=== PATIENT | female | born 1945 | race Caucasian/White ===

== ENCOUNTER 2024-08-15 13:29 | Outpatient (AMB) | payer MEDICARE, SELFPAY ==
[2024-08-15 13:33] VITALS: BP 144/74; PULSE 109; O2SAT 98; BMI 32.2
--- NOTE | 2024-08-15 13:33 | MHC.OFFVIS ---
Vital Signs 08/15/24 13:33 Height 5 ft Weight 165 lb BMI 32.2 BP 144/74 H Blood Pressure Location Lt brachial Position Sitting Pulse 109 H Pulse Source Pulse Oximeter Pulse Oximetry (%) 98 Oxygen Delivery Method Room Air Intake Visit Reasons: Spinal stenosis Allergies No Known Allergies Allergy (Verified 08/15/24 13:38) Medication List - Last Reconciled 08/15/24 by Diana Shaw aripiprazole 5 mg PO DAILY duloxetine 60 mg PO BID gabapentin 200 mg PO TID glipizide 5 mg orally TID; lisinopril 10 mg PO DAILY lorazepam 0.5 mg PO DAILY PRN lovastatin 40 mg PO QPM magnesium aspart,citrate,oxide mg PO methylphenidate ER 8.6 mg PO DAILY omeprazole 20 mg PO BID trazodone 50 mg PO BEDTIME PRN HPI Comments Details: Vanessa is a very pleasant 79-year-old female who presents to the office today for evaluation and management of her chronic lower back pain She has been suffering with this pain for approximately 7 years. Denies inciting injury, fall, trauma Denies recent imaging Currently receiving steroid injections at , most recent injection was 07/26/24 which has provided her minimal improvement Pain today is rated as a 5/10, constant and worse in the morning Midline lower back pain with radiation down both legs. Denies shooting, electrical, stabbing pains down the legs. Describes it as heaviness, fatigue of her legs with walking. This improves with rest and with maintaining a slight forward flexion Denies weakness, numbness, tingling of either lower extremity Denies red flag symptoms including new loss of bowel, bladder or saddle anesthesia. Currently taking Tylenol, NSAIDs, gabapentin and duloxetine with minimal improvement Denies recent attempts at physical therapy In terms of muscle damage condition is described as stabbing, sharp Pain is negatively impacting patient's enjoyment of life, general activity, normal functioning and walking Denies implantable devices, pacemaker or defibrillator Denies current use of anticoagulants Review of Systems Const All systems reviewed & are unremarkable except as noted in HPI and below Physical Exam Vital Signs: Last Vital Signs Pulse 109 H 08/15/24 13:33 BP 144/74 H 08/15/24 13:33 Pulse Ox 98 08/15/24 13:33 Oxygen Delivery Method Room Air 08/15/24 13:33 BMI result Body Mass Index 32.2 General: awake, alert, oriented. Answers questions appropriately. Fully engaged in examination. Skin: warm, dry, intact HEENT: Normocephalic. Hearing intact. Cardiac: External chest normal in appearance. Respiratory: No cough, audible wheezing or stridor. Abdomen: without gross distension. MS: No obvious swelling or deformities. Able to stand on bilateral tiptoes and bilateral heels.? Able to transition from sit to stand unassisted. Ambulates with bilaterally normal heel strike and toe off SLR negative bilaterally Pain with extension. No pain with forward flexion Negative footdrop, negative clonus Nontender over bilateral PSIS Tenderness over midline lumbar vertebrae and lumbar paraspinal muscle Valsalva negative Neurological: Oriented to person, place, time and situation. Thought process intact. No gait abnormalities appreciated. Psychiatric: Appropriate mood and affect. Good judgment and insight. Assessment & Plan Assessment & Plan (1) Spinal stenosis: Code(s): M48.00 - Spinal stenosis, site unspecified Category: Medical (2) Dorsalgia: Code(s): M54.9 - Dorsalgia, unspecified Category: Medical Plan Vanessa is a very pleasant 79-year-old female who presented to the office today for evaluation management of her chronic lower back pain History, physical exam and provocative testing consistent with spinal stenosis X-ray ordered for evaluation MRI ordered to evaluate degree of stenosis Referral placed for physical therapy All questions and concerns were answered, patient agrees with the plan. Follow up after MRI/PT, sooner if needed Orders: Orders XR lumbar spine 4V min Today M54.9 - Dorsalgia, unspecified PT Evaluation and Treatment Today M54.9 - Dorsalgia, unspecified MR lumbar spine wo con Today M48.00 - Spinal stenosis, site unspecified Coding Level of Care Code New Pt Level 4 (14576) Complex EM visit Add On G2211 Diagnoses Spinal stenosis M48.00 Dorsalgia M54.9
== END 2024-08-15 13:55 | disposition home or self-care (01) ==
PROVIDERS: PCP Internal Medicine; Visit Provider Registered Nurse Emergency
DX: M48.00 Spinal stenosis, site unspecified (principal); M54.9 Dorsalgia, unspecified
CPT/HCPCS: 99204; G2211

== ENCOUNTER → 2024-08-15 13:29 | Outpatient (BNVA) | payer MEDICARE, SELFPAY | PROVIDERS: PCP Internal Medicine; Visit Provider Registered Nurse Emergency | DX: M48.00 Spinal stenosis, site unspecified (principal) | CPT/HCPCS: 99202 ==

== ENCOUNTER 2024-08-15 14:19 | Outpatient (REF) | payer MEDICARE, SELFPAY | END 2024-08-15 14:20 | disposition home or self-care (01) | LOC: HO.HMGCX 14:19 | PROVIDERS: PCP Internal Medicine; Visit Provider Registered Nurse Emergency | DX: M54.9 Dorsalgia, unspecified (principal) | CPT/HCPCS: 72110 ==

== ENCOUNTER 2024-09-12 13:23 | Outpatient (AMB) | payer MEDICARE, SELFPAY ==
[2024-09-12 13:29] VITALS: BP 143/65; PULSE 104; O2SAT 97; BMI 32.0
--- NOTE | 2024-09-12 13:29 | A.OFFVIS_ITS ---
Vital Signs 3 09/12/24 13:29 Height 5 ft Weight 164 lb BMI 32.0 BP 143/65 H Blood Pressure Location Rt brachial Position Sitting Pulse 104 H Pulse Source Pulse Oximeter Pulse Oximetry (%) 97 Oxygen Delivery Method Room Air Intake Visit Reasons: F/U patient request Allergies No Known Allergies Allergy (Verified 09/12/24 13:29) Medication List - Last Reconciled 09/12/24 by Diana Shaw aripiprazole 5 mg PO DAILY duloxetine 60 mg PO BID gabapentin 200 mg PO TID glipizide 5 mg orally TID; lisinopril 10 mg PO DAILY lorazepam 0.5 mg PO DAILY PRN lovastatin 40 mg PO QPM magnesium aspart,citrate,oxide mg PO methylphenidate ER 8.6 mg PO DAILY omeprazole 20 mg PO BID trazodone 50 mg PO BEDTIME PRN HPI Comments Details: Patient presents the office today for follow-up lower back pain Records from physiatry or reviewed Patient underwent repeat L5-S1 epidural steroid injection 06/2024. She reports 70% pain relief with improvement in functional mobility since that procedure. She would like to plan for repeat injection 10/18/2024 MRI has been approved, patient will call to schedule. Denies new medications, diagnoses or allergies Intake note: Vanessa is a very pleasant 79-year-old female who presents to the office today for evaluation and management of her chronic lower back pain She has been suffering with this pain for approximately 7 years. Denies inciting injury, fall, trauma Denies recent imaging Currently receiving steroid injections at , most recent injection was 07/26/24 which has provided her minimal improvement Pain today is rated as a 5/10, constant and worse in the morning Midline lower back pain with radiation down both legs. Denies shooting, electrical, stabbing pains down the legs. Describes it as heaviness, fatigue of her legs with walking. This improves with rest and with maintaining a slight forward flexion Denies weakness, numbness, tingling of either lower extremity Denies red flag symptoms including new loss of bowel, bladder or saddle anesthesia. Currently taking Tylenol, NSAIDs, gabapentin and duloxetine with minimal improvement Denies recent attempts at physical therapy In terms of muscle damage condition is described as stabbing, sharp Pain is negatively impacting patient's enjoyment of life, general activity, normal functioning and walking Denies implantable devices, pacemaker or defibrillator Denies current use of anticoagulants Review of Systems Const All systems reviewed & are unremarkable except as noted in HPI and below Physical Exam Vital Signs: Last Vital Signs Pulse 104 H 09/12/24 13:29 BP 143/65 H 09/12/24 13:29 Pulse Ox 97 09/12/24 13:29 Oxygen Delivery Method Room Air 09/12/24 13:29 BMI result Body Mass Index 32.0 General: awake, alert, oriented. Answers questions appropriately. Fully engaged in examination. Skin: warm, dry, intact HEENT: Normocephalic. Hearing intact. Cardiac: External chest normal in appearance. Respiratory: No cough, audible wheezing or stridor. Abdomen: without gross distension. MS: No obvious swelling or deformities. Able to transition from sit to stand unassisted. Ambulates with bilaterally normal heel strike and toe off Neurological: Oriented to person, place, time and situation. Thought process intact. No gait abnormalities appreciated. Psychiatric: Appropriate mood and affect. Good judgment and insight. Results Reviewed Results Reviewed: Per visit note with family physiatry: Assessment & Plan Assessment & Plan (1) Spinal stenosis: Code(s): M48.00 - Spinal stenosis, site unspecified Category: Medical (2) Dorsalgia: Code(s): M54.9 - Dorsalgia, unspecified Category: Medical Plan Patient presented to the office today for follow-up lower back pain Continue with plan for MRI lumbar spine Continue with physical therapy as planned Patient underwent repeat epidural steroid injection 06/2024 with 70% pain relief and improvement in functional mobility. She would like to schedule a repeat of this injection to performed 09/2024. All questions and concerns were answered, patient agrees with the plan. Follow up after injection, sooner if needed Coding Level of Care Code Est Pt Level 3 (00738) Complex EM visit Add On G2211 Diagnoses Spinal stenosis M48.00 Dorsalgia M54.9
== END 2024-09-12 13:40 | disposition home or self-care (01) ==
PROVIDERS: PCP Internal Medicine; Visit Provider Registered Nurse Emergency
DX: M48.00 Spinal stenosis, site unspecified (principal); M54.9 Dorsalgia, unspecified
CPT/HCPCS: 99213; G2211

== ENCOUNTER → 2024-09-12 13:23 | Outpatient (BNVA) | payer MEDICARE, SELFPAY | PROVIDERS: PCP Internal Medicine; Visit Provider Registered Nurse Emergency | DX: M48.061 Spinal stenosis, lumbar region without neurogenic claudication (principal); M54.50 Low back pain, unspecified | CPT/HCPCS: 99212 ==

== ENCOUNTER 2024-09-16 10:00 | Outpatient (RCR) | payer MEDICARE, SELFPAY ==
--- NOTE | 2024-09-03 11:55 | MHC.PT.EP ---
[facility] [place] Office [place] Office [place] Office [address] Mulugeta Nguyen [address] [phone] F: [phone] F: [phone] F: [phone] F: [phone] Physical Therapy Plan of Care Date of Evaluation: 09/03/24 Date of Surgery: n/a Diagnosis: dorsalgia Assessment: Patient is a 79 year old female presenting to PT with complaints of pain in her low back. Pt reports onset of pain began about 3 years ago due to insidious onset. She presents today with impairments in pain, lumbar ROM, hip strength, posture. Pt's current occupation is retired, with baseline physical activities including ADLs, ambulating, bending, lifting. 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 Clinical presentation today is most consistent with signs and sx associated with low back pain and pt will benefit from skilled PT 2 week x 4 weeks to address the following problems and impairments noted upon evaluation: pain, lumbar ROM, hip strength, posture. These problems limit the patient with the following functional activities: ADLs, bending, lifting, ambulating. The prescribed treatment plan of care is medically necessary. Co-morbidities of DM, HTN were identified and taken into considerations of plan of care. Pt was educated on HEP, role of PT, prognosis, POC. Frequency and Duration: The patient will be seen 2 x week x 4 weeks Short Term Goals: Pt will demonstrate improved hip MMT strength by 1/3 grade in 2 weeks. Pt will demonstrate no reports of pain down her legs in 2 weeks. Licensed Psychologist Director Goals: Pt will demonstrate improved Wendy score by 10% in 4 weeks for improved functional mobility. Pt will demonstrate ability to ambulate x 10 min with min to no pain in 4 weeks for improved tolerance to shopping. Pt will demonstrate ability bend and lift household items with min to no pain in 4 weeks for improved tolerance to ADLs. Treatment Plan: Modalities to reduce pain, spasms and effusion. Manual therapy to restore motion and function. Therapeutic exercise to improve strength and flexibility. Neuromuscular re-education for posture and balance. Therapeutic activities to return to functional activities of daily living. Electronically signed by: Kasey Valentin, PT, DPT, ATC Please sign and return to therapist. Thank you for your referral.
--- NOTE | 2024-10-18 13:17 | MHC.PT.DC ---
[facility] [place] Office [place] Office [place] Office [address] Mulugeta Nguyen [address] [phone] F: [phone] F: [phone] F: [phone] F: [phone] Physical Therapy Discharge Report Diagnosis: dorsalgia Date of Surgery: n/a Date of Evaluation: 09/03/24 Date of Discharge: 10/18/24 Treatments to Date: 3 Cancellations to Date: 2 No Shows to Date: 0 Discharge Status: Discharge Summary: Pt cancelled her last 2 appointments and has not called to be scheduled in > 30 days, therefore to be d/c. Electronically signed by: Kasey Valentin, PT, DPT, ATC Please sign and return to therapist. Thank you for your referral.
== END 2024-10-18 13:17 | disposition home or self-care (01) ==
LOC: HO.PTCHIC 10:00
PROVIDERS: PCP Internal Medicine; Visit Provider Registered Nurse Emergency
DX: M54.9 Dorsalgia, unspecified (principal)
CPT/HCPCS: 97110; 97161

== ENCOUNTER 2024-09-20 07:19 | Outpatient (REF) | payer MEDICARE, SELFPAY | END 2024-09-20 07:20 | disposition home or self-care (01) | LOC: HO.MRI 07:19 | PROVIDERS: PCP Internal Medicine; Visit Provider Registered Nurse Emergency | DX: M48.00 Spinal stenosis, site unspecified (principal) | CPT/HCPCS: 72148 ==

== ENCOUNTER 2024-11-13 14:18 | Outpatient (AMB) | payer MEDICARE, SELFPAY ==
--- NOTE | 2024-11-13 15:02 | A.SPINEOV_ITS ---
Intake Visit Reasons: LBP Intake Note: Ms. Ravi is here today c/o low back pain. MRI done @ [facility] [place] [facility] Required: No Allergies No Known Allergies Allergy (Verified 09/12/24 13:29) Assessment & Plan Assessment & Plan (1) Spinal stenosis: Code(s): M48.00 - Spinal stenosis, site unspecified Category: Medical Plan Vanessa is a pleasant 79-year-old female who comes in today with a chief complaint of pain with walking. She reports that this has been ongoing for the past 1-2 years but seems to have been exacerbated about 6 weeks ago when she began experiencing severe difficulties with walking and 9/10 pain when walking only 15 ft or so. In the last few weeks she has essentially been unable to leave her home even to do basic things such as grocery shopping. She tried to stabilize herself on the shopping cart the last time she went grocery shopping which helpe d her slightly, but she was still unable to complete it. She is unable to identify any specific inciting incident. She does report that she has had multiple injections near L4 with Dr. Shipley in the past which provided significant relief for symptoms for a few months after each injection. Unfortunately, after her last injection June, she only experienced a couple of weeks of relief before returning to her regular baseline pain. She has attempted physical therapy in an effort to mitigate her symptoms without significant relief, her last round of physical therapy ended a few weeks ago. She has tried taking Tylenol, and [id number] anti-inflammatories without significant relief of symptoms. She is currently prescribed gabapentin effort to mitigate her symptoms. PMH: GERD, hyperlipidemia, anxiety, high blood pressure, T2DM. Social hx: The patient does not smoke, reports no substance use. Medications: See [employer] list Allergies: NKDA Physical exam: The patient has 5/5 strength in her upper and lower extremities. She is diffusely hyperreflexive, likely secondary to her medications. Sensation is grossly intact. She ambulates well without a spastic nonantalgic gait. She rises from a seated position without much difficulty. She uses no assistive devices to ambulate. (-) Riddle's, (-) clonus, (-) bilateral straight leg raise. Imaging review: MRI of the lumbar spine completed here at [facility] shows severe central canal stenosis at L4-5 with moderate bilateral foraminal stenosis at this level, worse on the left. Impression: Vanessa is a pleasant 79-year-old female comes in today with a chief complaint of severe pain with ambulation. This has been ongoing for the past 1- 2 years and has worsened over the course of the last 6 weeks. She has tried several different forms of conservative treatment including physical therapy and cortisone injections. The injections are no longer providing her the needed relief. 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 She was evaluated alongside the attending neurosurgeon Dr. Hagan today who offered her a L4-5 lumbar decompression. We will need to get a copy of her most recent A1c to ensure that she has a good surgical candidate. Vanessa was given risk and benefits of surgery including but not limited to infection, hematoma, nerve injury, durotomy, weakness, bowel/bladder injury, persistent pain, as well as the option to continue with conservative treatment and patient wishes to proceed with surgery. They are aware they should stop NSAIDs 7 days prior to surgery. All questions were answered to the best of our ability. If there is anything about this patients medical history that we have overlooked or concerns you have about us proceeding with surgery we would appreciate any input you can offer. Thank you for allowing us to care for your patient. The total time spent with this visit with this patient was 45 minutes reviewing history, physical exam, MRI imaging review, and implementation of treatment plan or further diagnostic testing Jorge Hagan MD,PhD [facility] Coding Level of Care Code New Pt Level 4 (95530) Diagnoses Spinal stenosis M48.00
== END 2024-11-13 16:55 | disposition home or self-care (01) ==
PROVIDERS: PCP Internal Medicine; Visit Provider Physician Assistant
DX: M48.00 Spinal stenosis, site unspecified (principal)
CPT/HCPCS: 99204

== ENCOUNTER 2024-11-13 14:18 | Outpatient (REF) | payer MEDICARE, SELFPAY | END 2024-11-13 14:19 | disposition home or self-care (01) | LOC: HO.HOSX 14:18 | PROVIDERS: PCP Internal Medicine; Visit Provider Physician Assistant | DX: M48.00 Spinal stenosis, site unspecified (principal); M54.50 Low back pain, unspecified | CPT/HCPCS: 99202 ==

== ENCOUNTER 2024-11-14 15:53 | Outpatient (REF) | payer MEDICARE, SELFPAY ==
--- NOTE | ~2024-11-14 | XR_ITS ---
EXAMINATION: Lumbar spine 4 views. CLINICAL INDICATION: Spinal stenosis. Comparison: MRI lumbar spine 09/20/2024. TECHNIQUE: 4 views. FINDINGS: There is normal lumbar lordosis. The vertebral heights, alignment and disc heights are normal. On flexion and extension views there is no subluxation seen. There is moderate L4-5 facet joint arthropathy and hypertrophy. No aggressive lytic or sclerotic process seen the paravertebral soft tissues are normal. XR/XR lumbar spine 4V min IMPRESSION: No acute fracture, dislocation or listhesis. No change on flexion-extension views. There is moderate bilateral L4-5 facet joint hypertrophy and arthropathy.. Electronically signed by: Blaise Keller MD 11/15/2024 10:15 AM [place]
== END 2024-11-14 15:54 | disposition home or self-care (01) ==
LOC: HO.HOSX 15:53
PROVIDERS: Visit Provider Physician Assistant
DX: M48.00 Spinal stenosis, site unspecified (principal)
CPT/HCPCS: 72110

== ENCOUNTER 2024-11-18 09:59 | Inpatient (IN) | payer MEDICARE, SELFPAY ==
[2024-11-18] VITALS (10 sets, daily range): BP systolic 133–154; BP diastolic 53–78; PULSE 50–89; RESP 14–22; TEMP 36.1–36.9; O2SAT 91–99; BMI 32.8
--- NOTE | 2024-11-18 | ECG_ITS ---
Test Reason : SOB Blood Pressure : */* mmHG Vent. Rate : 80 BPM Atrial Rate : 80 BPM P-R Int : 130 ms QRS Dur : 76 ms QT Int : 380 ms P-R-T Axes : 39 18 59 degrees QTcB Int : 438 ms Normal sinus rhythm Normal ECG No previous ECGs available Referred By: Generic ED Physician Electronically Signed By: CIATLIN PALOMO MD
--- NOTE | ~2024-11-18 | XR_ITS ---
EXAMINATION: XR CHEST 2 VIEWS HISTORY: SOB COMPARISON: There are no prior studies for comparison. FINDINGS: PA and lateral views of the chest are submitted. There is airspace opacity in the right lower lobe, consistent with pneumonia. The lungs are otherwise clear. There is no pleural effusion, pneumothorax, or pulmonary vascular congestion. The heart is normal in size. There is a moderate hiatal hernia. The bones are intact. XR/XR chest 2V IMPRESSION: 1. Right lower lobe pneumonia. Follow-up is recommended to document resolution. 2. Moderate hiatal hernia. Electronically signed by: Sahil Ruiz MD 11/18/2024 11:10 AM [facility] [place]
[2024-11-18 10:19] LABS: MANUAL DIFF FLAG NO
[2024-11-18 10:23] LABS: Basophils Absolute Auto 0.1 X10*3/uL (0.0-0.2); Basophils Percent Auto 0.4 % (0-2); Eosinophils Absolute Auto 0.1 X10*3/uL (0.0-0.4); Hematocrit 34.3 % (37.0-47.0); Hemoglobin 10.3 g/dl (12.0-16.0); Imm Gran Pct Auto 0.8 % (0.0-0.4); Lymphocytes Percent Auto 16.3 % (20-40); Mean Corpuscular Hemoglobin 25.8 pg (27.0-33.0); Mean Corpuscular Volume 85.8 fL (80.0-98.0); Mean Platelet Volume 10.8 fL (9.4-12.3); Monocytes Absolute Auto 0.9 X10*3/uL (0.1-1.2); Monocytes Percent Auto 7.5 % (2-11); Neutrophils Absolute Auto 9.1 x10*3/uL (2.0-8.3); Platelet Count 282 X10*3/uL (160-400); Red Cell Distribution Width 14.9 % (11.0-16.0); White Blood Count 12.3 X10*3/uL (4.8-10.8)
[2024-11-18 10:25] LABS: Glucose, Whole Blood 281 mg/dL (60-115)
[2024-11-18 10:42] LABS: B Type Natriuretic Peptide 48 pg/mL (<100)
[2024-11-18 10:50] LABS: Alanine Aminotransferase 13 U/L (0-31); Albumin Level 3.7 g/dL (3.5-5.0); Alkaline Phosphatase 81 U/L (39-117); Anion Gap 12 (12-20); Aspartate Amino Transferase 23 U/L (5-31); Bilirubin Direct 0.1 mg/dL (0.0-0.5); Bilirubin Total 0.3 mg/dL (0.0-1.0); Blood Urea Nitrogen 16 mg/dL (9-16); Calcium 8.8 mg/dL (8.4-10.2); Carbon Dioxide 25 mmol/L (22-29); Chloride 104 mmol/L (96-108); Creatinine Clr Calc Pharmacy 35.4; Estimated Glomerular Filt Rate 43; Glucose Random 306 mg/dL (60-115); Magnesium 1.8 mg/dL (1.6-2.6); Potassium 4.1 mmol/L (3.3-5.1); Sodium 137 mmol/L (135-145); Total Protein 7.5 g/dL (6.5-8.0); Troponin-I High Sensitivity < 2.7 ng/L (<3.5-17.0)
--- NOTE | 2024-11-18 10:59 | ED_ITS ---
HPI - SOB/Dyspnea General Chief Complaint: Dyspnea Stated Complaint: SOB W/WHEEZE,JEANNA HAMSTRING PAIN, [place] GIVEN PER EMS Time Seen by Provider: 11/18/24 10:59 Source: patient Mode of arrival: EMS Limitations: no limitations History of Present Illness ED Provider: Dr. Ravindra Simmons HPI Narrative: 79-year-old female with a history of diabetes mellitus, hypertension, hyperlipidemia, asthma, spinal stenosis who presents emergency department for evaluation of cough x3 weeks which got worse over the past week, shortness of breath times 2-3 days which got worse last night. The patient states she was had a nonproductive cough for several weeks which got worse over the past week. She states the cough is occasionally productive of yellow sputum with no blood in the sputum. She states over the last 2-3 days she has been feeling more short of breath in his used her albuterol inhaler 5-10 times a day which is unusual for her. She states that last night she could not catch her breath and had to use your albuterol inhaler frequently. This morning she felt short of breath so she called an ambulance. Patient was O2 saturation on room air was 94%. The patient was given a DuoNeb nebulizer in route with improvement her symptoms. At the time my evaluation she was complaining of anterior chest pain which is worse with coughing and breathing. She was also complaining of lower back pain which is consistent with her spinal stenosis pain. She did not take her temperature at home but she states she had episodes of feeling hot and cold and having chills. She denied frequency, urgency, dysuria, diarrhea. She denied myalgias arthralgias. Related Data Home Medications ?Medication ?Instructions ?Recorded ?Confirmed aripiprazole 5 mg tablet 5 mg PO DAILY 08/15/24 09/12/24 duloxetine 60 mg capsule,delayed 60 mg PO BID 08/15/24 09/12/24 release gabapentin 100 mg capsule 200 mg PO TID 08/15/24 09/12/24 glipizide 5 mg tablet 5 mg PO .COMPLEX 08/15/24 09/12/24 lisinopril 10 mg tablet 10 mg PO DAILY 08/15/24 09/12/24 lorazepam 0.5 mg tablet 0.5 mg PO DAILY PRN 08/15/24 09/12/24 lovastatin 40 mg tablet 40 mg PO QPM 08/15/24 09/12/24 magnesium aspart,citrate,oxide mg PO 08/15/24 09/12/24 methylphenidate 8.6 mg ER,IR 8.6 mg PO DAILY 08/15/24 09/12/24 disintegrating 24 hr tablet omeprazole 20 mg capsule,delayed 20 mg PO BID 08/15/24 09/12/24 release trazodone 50 mg tablet 50 mg PO BEDTIME PRN 08/15/24 09/12/24 Allergies Allergy/AdvReac Type Severity Reaction Status Date / Time No Known Allergies Allergy Verified 11/18/24 10:07 Review of Systems 2 Review of Systems: Yes all other systems are reviewed and are negative [facility] Past Medical History [facility] Narrative: Social history: She denies tobacco, alcohol and drug use. Social History Social History Advance Directives: No Advance Directives Information Provided: Yes Do you have a plan to hurt others: No Plan Physical Exam 2 Vital Signs: Vital Signs: Last Vital Signs Temp 98.5 F 11/18/24 10:11 Pulse 68 11/18/24 12:37 Resp 22 H 11/18/24 12:37 BP 147/56 H 11/18/24 11:05 Pulse Ox 99 11/18/24 11:05 O2 Del Method Nasal Cannula 11/18/24 11:05 O2 Flow Rate 2 11/18/24 11:05 BMI result Body Mass Index 32.8 Vital signs revealed an elevated respiratory rate of 22 otherwise unremarkable. Patient's initial O2 saturation was 94% on room air and 99% on 2 L of oxygen via nasal cannula. I removed the patient's nasal cannula oxygen when I went into the room and your O2 saturation remained above 97%. Exam: General: Awake, alert in no distress Head: Normocephalic, atraumatic EENT: PERRL, Lids normal, sclera normal, conjunctiva normal, nose normal , ears normal, throat without erythema or exudates Neck: Supple, no adenopathy Lung: breath sounds symmetric, rhonchi diffusely with increased rhonchi in the right lower lung compared to the left lower lung Chest: symmetric movement, nontender Heart: regular rate and rhythm, normal S1, S2 no murmurs or rubs Abdomen: soft, non-tender, nondistended, normal bowel sounds Back: Patient was tenderness palpation over her lumbar vertebrae with no significant tenderness palpation over her lumbar sacral paraspinal muscles with spasm of these muscles, negative CVA tenderness Extremities: no deformities, moves all extremities symmetrically Neuro: Awake, alert, oriented, normal speech, cranial nerves intact, moves all extremities symmetrically Psych: Pleasant, cooperative Medications Administered Generic Name Dose Route Start Last Admin Trade Name Freq PRN Reason Stop Dose Admin Sodium Chloride 1,000 mls @ 150 mls/hr 11/18/24 12:20 11/18/24 12:49 Ns IV 11/18/24 18:59 125 mls/hr .Q6H40M STA Administration Discontinued Medications Generic Name Dose Route Start Last Admin Trade Name Freq PRN Reason Stop Dose Admin Albuterol Sulfate 2.5 mg/ 0 mg 11/18/24 12:31 11/18/24 12:35 Albuterol/Ipratropium 3 ml INHALE 11/18/24 12:32 1 dose ONCE ONE Administration Ketorolac Tromethamine 15 mg 11/18/24 12:20 11/18/24 12:48 Ketorolac Tromethamine 15 Mg/Ml Vial IVPUSH 11/18/24 12:21 15 mg ONCE STA Administration Methylprednisolone Sodium Succinate 125 mg 11/18/24 12:20 11/18/24 12:47 Methylprednisolone Sod Succ 125 Mg/2 Ml Vial IVPUSH 11/18/24 12:21 125 mg ONCE ONE Administration Medical Decision Making Medical Decision Making [facility] Narrative: 79-year-old female with a history of diabetes mellitus, hypertension, hyperlipidemia, asthma, spinal stenosis who presents emergency department for evaluation of cough x3 weeks which got worse over the past week, shortness of breath times 2-3 days which got worse last night. Patient was cough is mainly nonproductive, she was having pleuritic chest pain with coughing and with breathing. Vital signs did reveal an elevated respiratory rate with normal O2 saturation on room air. Lung exam revealed diffuse rhonchi with increased rhonchi seen in the right lower lobe compared to the left. Patient also has tenderness palpation of her vertebral vertebrae consistent with a spinal stenosis. 12:45 hours Differential diagnosis: ?Includes but is not limited to pneumonia, bronchitis, viral syndrome, asthma exacerbation, electrolyte abnormalities, anemia Course: 12:45 My independent interpretation patient's laboratory evaluation is as follows: WBC elevated 12,300. Normocytic anemia with an H&H of 10.3 and 34.3. Glucose elevated 306. Troponin below detectable limits. COVID-19, influenza and RSV were negative. Chest x-ray is consistent with a posterior infiltrate most likely right lower lobe. Patient was ordered to get ceftriaxone 1 g IV and Zithromax 500 mg IV after blood cultures and lactic acid were drawn. Patient was also ordered to get normal saline x1 L at 150 cc/hours. Admission/Observation Consideration of admission/observation: Escalation of care including admission/observation considered (Yes) Consult Healthcare Provider Management of the patient was discussed with: Hospitalist Lab Data [facility] Lab Attestation statement: I reviewed the patient's lab results. 11/18/24 10:14 11/18/24 10:14 Labs: Lab Results 11/18/24 11/18/24 Range/Units 10:14 10:21 WBC 12.3 H (4.8-10.8) X10*3/uL RBC 4.00 L (4.20-5.50) X10*6/uL Hgb 10.3 L (12.0-16.0) g/dl Hct 34.3 L (37.0-47.0) % MCV 85.8 (80.0-98.0) fL MCH 25.8 L (27.0-33.0) pg MCHC 30.0 L (31.0-35.0) g/dl RDW 14.9 (11.0-16.0) % Plt Count 282 (160-400) X10*3/uL MPV 10.8 (9.4-12.3) fL Immature Gran % (Auto) 0.8 H (0.0-0.4) % Neut % (Auto) 74.0 H (45-73) % Lymph % (Auto) 16.3 L (20-40) % [place] % (Auto) 7.5 (2-11) % Eos % (Auto) 1.0 (0-4) % Baso % (Auto) 0.4 (0-2) % Lymph # (Auto) 2.0 (1.2-4.9) X10*3/uL [place] # (Auto) 0.9 (0.1-1.2) X10*3/uL Eos # (Auto) 0.1 (0.0-0.4) X10*3/uL Baso # (Auto) 0.1 (0.0-0.2) X10*3/uL Abs Immat Gran (auto) 0.10 H (0.00-0.03) X10*3/uL Absolute Neuts (auto) 9.1 H (2.0-8.3) x10*3/uL Absolute Nucleated RBC 0.000 (0.0-0.012) X10*3/uL Nucleated RBC % (auto) 0.0 (0.0-0.2) /100WBC Sodium 137 (135-145) mmol/L Potassium 4.1 (3.3-5.1) mmol/L Chloride 104 (96-108) mmol/L Carbon Dioxide 25 (22-29) mmol/L Anion Gap 12 (12-20) BUN 16 (9-16) mg/dL Creatinine 1.21 (0.5-1.4) mg/dL Estim Creat Clear Calc 35.4 Estimated GFR 43 POC Glucose 281 H (60-115) mg/dL Random Glucose 306 H (60-115) mg/dL Calcium 8.8 (8.4-10.2) mg/dL Magnesium 1.8 (1.6-2.6) mg/dL Total Bilirubin 0.3 (0.0-1.0) mg/dL Direct Bilirubin 0.1 (0.0-0.5) mg/dL AST 23 (5-31) U/L ALT 13 (0-31) U/L Alkaline Phosphatase 81 (39-117) U/L Troponin I High Sens < 2.7 (<3.5-17.0) ng/L B-Natriuretic Peptide 48 (<100) pg/mL Total Protein 7.5 (6.5-8.0) g/dL Albumin 3.7 (3.5-5.0) g/dL Influenza Type A (PCR) NEGATIVE (Negative) Influenza Type B (PCR) NEGATIVE (Negative) RSV RNA Qual (PCR) NEGATIVE (Negative) SARS-CoV-2 RNA (RT-PCR) NEGATIVE (Negative) Independent Interpretation I performed an independent interpretation of an: Plain X-Ray Interpretation: My independent interpretation patient's two view chest x-ray is as follows: There is definitely a posterior infiltrate with increased interstitial markings on the right which is consistent with a right lower lobe infiltrate. My independent interpretation of the patient's 12 EKG done at 10:15 hours is as follows: Normal sinus rhythm with a rate of 80, normal MA interval, QRS duration and QTC interval, no ST segment elevation, no ST segment depression, Q- wave in lead 3, large R-wave in V2 compared to V1 and V3, no significant T-wave abnormalities. There is no old EKG for comparison Radiology Impression Discussion of test interpretation with radiology: I have reviewed the radiologist's reading. Radiologist Impression: XR chest 2V IMPRESSION: 1. Right lower lobe pneumonia. Follow-up is recommended to document resolution. 2. Moderate hiatal hernia. Electronically signed by: Sahil Ruiz MD 11/18/2024 11:10 AM EST Independent Historian Clinical information obtained from an independent historian. History obtained from or confirmed by: Friend Chronic Conditions Patient?s care impacted by: Diabetes, Hypertension and Other (Asthma) Discharge Plan Discharge Patient Disposition: Admitted As Inpatient Prescriptions: No Action duloxetine 60 mg capsule,delayed release(DR/EC) 60 mg PO BID methylphenidate 8.6 mg tablet,disinteg ER biphase 24h 8.6 mg PO DAILY lisinopril 10 mg tablet 10 mg PO DAILY omeprazole 20 mg capsule,delayed release(DR/EC) 20 mg PO BID magnesium aspart,citrate,oxide 400 mg magnesium capsule PO lovastatin 40 mg tablet 40 mg PO QPM gabapentin 100 mg capsule 200 mg PO TID glipizide 5 mg tablet 5 mg PO .COMPLEX Rx Instructions: 5 mg orally TID; lorazepam 0.5 mg tablet 0.5 mg PO DAILY PRN aripiprazole 5 mg tablet 5 mg PO DAILY trazodone 50 mg tablet 50 mg PO BEDTIME PRN Print Language: Romansh
[2024-11-18 11:02] LABS: Influenza A PCR NEGATIVE (Negative); Influenza B PCR NEGATIVE (Negative); Resp Syncy Virus RNA Qual PCR NEGATIVE (Negative); SARS COV2 PCR INHOUSE NEGATIVE (Negative)
[2024-11-18] MEDS: Albuterol Sulfate 2.5 MG, Albuterol/Iprat 2.5/0.5MG 3 ML 3 ML INHALE ×2 (12:35→14:25)
[2024-11-18] MEDS: methylPREDNISolone Sod Succ 125 MG/2 ML VIAL IVPUSH (12:47)
[2024-11-18] MEDS: Ketorolac Tromethamine 15 MG/ML VIAL IVPUSH (12:48)
[2024-11-18] MEDS: 0.9 % Sodium Chloride 1,000 ML 125 ML IV (12:49)
[2024-11-18 13:06] LABS: Lactic Acid 1.8 mmol/L (0.5-2.0)
--- NOTE | 2024-11-18 14:04 | PHA.MEDREC ---
Pharmacy Consult ? Medication Reconciliation Pharmacy has completed the medication reconciliation.Med rec complete, spoke to patient who had list from home and complared with pharmacy claim history.
[2024-11-18] MEDS: cefTRIAXone sodium 1 GM VIAL IVPUSH (14:48)
[2024-11-18] MEDS: Azithromycin 500 MG in 0.9 % Sodium Chloride 250 ML 125 MG IV (14:51)
--- NOTE | 2024-11-18 14:59 | PM.IMHP ---
History of Present Illness Date of Service: 11/18/24 Chief Complaint: Shortness of breath and cough 79-year-old female with hisoty of asthma, diabetes insulin dependent, hypothyroidism, spinal stenosis being evaluated for surgical correction. She presented to the hospital today with a shortness of breath and cough that been ongoing for nearly 3 weeks and worse the last several days. She describes fever and chill subjectively. Workup however revealed a right lower lobe pneumonia for which she has been given ceftriaxone and azithromycin.. Flu, RSV, COVID negative. She has also been treated with bronchodilators and nebulizer for hypoxia some wheezes and rhonchi. She has also complained about significant pain in the back causing him difficulty walking Review of Systems Review of Systems: Gen: no fever Resp: + sob, + cough CV: no chest, no [place], no leg edema GI: No n/v, no abd pain Neuro: No confusion Yes all other systems are reviewed and are negative PMFSH Social History Household Members: None Housing: House Do you presently have visiting nurse or other home services: No Patient Tobacco Use Status: Former Tobacco user Tobacco use type: Cigarette Meds Allergies Allergy/AdvReac Type Severity Reaction Status Date / Time No Known Allergies Allergy Verified 11/18/24 10:07 Active Medications: Current Medications Acetaminophen (Acetaminophen 325 Mg Tablet) 650 mg PO Q6H PRN PRN Reason: Pain, Mild 1-3,fever,headache Albuterol Sulfate (Albuterol Sulfate 90 Mcg 8 Gm Inhaler) 2 puff INHALE Q4H PRN PRN Reason: Respiratory Distress Albuterol Sulfate (Albuterol Sulfate (0.083%) 2.5 Mg/3 Ml Vial.Neb) 2.5 mg INHALE Q2H PRN PRN Reason: Shortness of Breath/Wheezing Albuterol/Ipratropium (Albuterol/Iprat 2.5/0.5mg 3 Ml Ampul.Neb) 3 ml INHALE RQ4H WHILE AWAKE MICA Amlodipine Besylate (Amlodipine Besylate 5 Mg Tablet) 5 mg PO DAILY IMCA; Protocol Amphetamine/Dextroamphetamine (Dextroamphetamine/Amphetamine Xr 10 Mg Cap.Er.24h) 60 mg PO DAILY [facility]ICA Aripiprazole (Aripiprazole 5 Mg Tablet) 5 mg PO DAILY [facility] Azithromycin (Azithromycin 250 Mg Tablet) 250 mg PO Q24H MICA Stop: 11/22/24 03:11 Calcium Carbonate (Calcium Carbonate 750 Mg Tab.Chew) 750 mg PO Q4H PRN PRN Reason: Heartburn Ceftriaxone Sodium (Ceftriaxone Sodium 1 Gm Vial) 1 gm IVPUSH Q24H [facility] Duloxetine HCl (Duloxetine Hcl 60 Mg Capsule.) 120 mg PO DAILY [facility] Fluticasone Propionate (Fluticasone Propionate Nasal 16 Gm [place]) 2 spray NOSTRIL-B DAILY [facility] Gabapentin (Gabapentin 300 Mg Capsule) 300 mg PO BID [facility] Glipizide (Glipizide 5 Mg Tablet) 5 mg PO DAILY@1700 [facility] Glipizide (Glipizide 10 Mg Tablet) 10 mg PO DAILY [facility] Glucose (Glucose Gel 15 Gm Gel..Gram.) 15 gm PO Q15M PRN; Protocol PRN Reason: per Hypoglycemia Standing Ord. Sodium Chloride (Ns) 1,000 mls @ 150 mls/hr IV .Q6H40M STA Stop: 11/18/24 18:59 Last Admin: 11/18/24 12:49 Dose: 125 mls/hr Dextrose (D10) 250 mls @ 750 mls/hr IV Q15M PRN; Protocol PRN Reason: per Hypoglycemia Standing Ord. Insulin Glargine (Insulin Glargine,Hum.Rec.Anlog 100 Unit/Ml 10 Ml Vial) 4 unit SUBCUT BEDTIME [facility] Insulin Human Lispro (Insulin Lispro 100 Unit/Ml 3 Ml Vial) 0 unit SUBCUT QIDACHS [facility]; Protocol Levothyroxine Sodium (Levothyroxine Sodium 50 Mcg Tablet) 50 mcg PO DAILY [facility] Lisinopril (Lisinopril 10 Mg Tablet) 10 mg PO DAILY [facility]; Protocol Lorazepam (Lorazepam 0.5 Mg Tablet) 0.5 mg PO DAILY PRN PRN Reason: Anxiety Magnesium Hydroxide (Milk Of Magnesia 30 Ml Oral.Susp) 30 ml PO DAILY PRN PRN Reason: Constipation Melatonin (Melatonin 3 Mg Tablet) 6 mg PO BEDTIME PRN PRN Reason: Insomnia Methylprednisolone Sodium Succinate (Methylprednisolone Sod Succ 40 Mg/Ml Vial) 40 mg IVPUSH BID [facility] Non-Formulary Medication (Lovastatin) 40 mg PO BEDTIME [facility] Omeprazole (Omeprazole 20 Mg Capsule.) 20 mg PO BID [facility] Sodium Chloride (0.9 % Sodium Chloride Flush 3 Ml Syringe) 3 ml IVFLUSH QSHIFT [facility] Tizanidine HCl (Tizanidine Hcl 4 Mg Tablet) 4 mg PO Q6H PRN PRN Reason: Spasms Trazodone HCl (Trazodone Hcl 50 Mg Tablet) 50 mg PO BEDTIME PRN PRN Reason: Sleep Home Medications ?Medication ?Instructions ?Recorded ?Confirmed ?Last Taken ?Type aripiprazole 5 mg tablet 5 mg PO DAILY 08/15/24 11/18/24 11/17/24 History duloxetine 60 mg capsule,delayed 120 mg PO DAILY 08/15/24 11/18/24 11/17/24 History release lisinopril 10 mg tablet 10 mg PO DAILY 08/15/24 11/18/24 11/17/24 History lorazepam 0.5 mg tablet 0.5 mg PO DAILY PRN Anxiety 08/15/24 11/18/24 Unknown History lovastatin 40 mg tablet 40 mg PO BEDTIME 08/15/24 11/18/24 11/17/24 History omeprazole 20 mg capsule,delayed 20 mg PO BID 08/15/24 11/18/24 11/17/24 History release trazodone 50 mg tablet 50 mg PO BEDTIME PRN Sleep 08/15/24 11/18/24 Unknown History albuterol sulfate 90 mcg/actuation 2 puff inhalation Q4H PRN 11/18/24 11/18/24 Unknown History aerosol inhaler Respiratory Distress amlodipine 5 mg tablet 5 mg PO DAILY 11/18/24 11/18/24 11/17/24 History dextroamphetamine-amphetamine ER 2 cap PO DAILY 11/18/24 11/18/24 11/17/24 History 30 mg 24hr capsule,extend release fluticasone propionate 50 2 spray intranasal DAILY 11/18/24 11/18/24 11/17/24 History mcg/actuation nasal spray,suspension gabapentin 300 mg capsule 300 mg PO BID 11/18/24 11/18/24 11/17/24 History glipizide 5 mg tablet 5 mg PO DAILY@1700 11/18/24 11/18/24 11/17/24 History glipizide 5 mg tablet 10 mg PO DAILY 11/18/24 11/18/24 11/17/24 History insulin glargine 100 unit/mL 4 unit subcut BEDTIME 11/18/24 11/18/24 11/17/24 History subcutaneous solution (Lantus U-100 Insulin) levothyroxine 50 mcg tablet 50 mcg PO DAILY 11/18/24 11/18/24 11/17/24 History tizanidine 4 mg tablet 4 mg PO Q6H PRN Spasms 11/18/24 11/18/24 Unknown History Physical Exam Vital Signs and Narrative: Vital Signs: Last Vital Signs Temp 98.3 F 11/18/24 13:18 Pulse 74 11/18/24 14:25 Resp 18 11/18/24 14:25 BP 154/60 H 11/18/24 13:18 Pulse Ox 91 L 11/18/24 13:18 O2 Del Method Room Air 11/18/24 13:18 O2 Flow Rate 2 11/18/24 11:05 BMI result Body Mass Index 32.8 Const: Other: General: AO X 3, no acute distress Resp: demetri rhonchi CVS: S1,S2,RRR GI: +BS, NT, no distention Skin: No rash Neuro: motor grossly intact Psych: appropriate affect Results Labs 11/19/24 05:02 11/19/24 05:02 Labs: Laboratory Results - last 24 hr 11/18/24 11/18/24 11/18/24 10:14 10:21 12:37 MCV 85.8 MCH 25.8 L MCHC 30.0 L RDW 14.9 Plt Count 282 MPV 10.8 Immature Gran % (Auto) 0.8 H Neut % (Auto) 74.0 H Lymph % (Auto) 16.3 L [place] % (Auto) 7.5 Eos % (Auto) 1.0 Baso % (Auto) 0.4 Lymph # (Auto) 2.0 [place] # (Auto) 0.9 Eos # (Auto) 0.1 Baso # (Auto) 0.1 Abs Immat Gran (auto) 0.10 H Absolute Neuts (auto) 9.1 H Absolute Nucleated RBC 0.000 Nucleated RBC % (auto) 0.0 Anion Gap 12 Estim Creat Clear Calc 35.4 Estimated GFR 43 POC Glucose 281 H Random Glucose 306 H Lactic Acid 1.8 Calcium 8.8 Magnesium 1.8 Total Bilirubin 0.3 Direct Bilirubin 0.1 AST 23 ALT 13 Alkaline Phosphatase 81 Troponin I High Sens < 2.7 B-Natriuretic Peptide 48 Total Protein 7.5 Albumin 3.7 Influenza Type A (PCR) NEGATIVE Influenza Type B (PCR) NEGATIVE RSV RNA Qual (PCR) NEGATIVE SARS-CoV-2 RNA (RT-PCR) NEGATIVE Imaging Radiologist's Impressions: Impressions Chest X-Ray 11/18/24 10:35 IMPRESSION: 1. Right lower lobe pneumonia. Follow-up is recommended to document resolution. 2. Moderate hiatal hernia. Electronically signed by: Sahil Ruiz MD 11/18/2024 11:10 AM [facility] Assessment and Plan (1) Dorsalgia: Status: Acute (2) Right lower lobe pneumonia: Status: Acute Plan 79-year-old female with diabetes, hypothyroidism, asthma, spinal stenosis, here with shortness of breath cough and found to have pneumonia in the right lower lobe, complicated by exacerbation of asthma. Community-acquired pneumonia -cultures drawn -continue ceftriaxone and azithromycin started on November 18 with a target treatment of 7 days of antibiotics Moderate persistent asthma with acute exacerbation -bronchodilators by nebulizers -IV Solu-Medrol to be transitioned to prednisone once better Hypothyroidism -continue levothyroxine Insulin-dependent diabetes -continue Lantus, glipizide and add sliding scale, diabetic diet Spinal stenosis with chronic back pain -gabapentin -tramadol for pain along with Tylenol Mood disorder -continue Abilify, duloxetine, Ativan for anxiety GERD--omeprazole Hypertension -continue lisinopril, amlodipine DVT prophylaxis--Lovenox Full code Quality Stroke Does the patient have a stroke diagnosis?: No VTE Prior VTE?: No VTE Risk Level:: Medical - moderate - high VTE Device Contraindication: Treatment Not Indicated VTE Drug Contraindication: N/A - Med Ordered
[2024-11-18] MEDS: Morphine Sulfate 4 MG/ML CARTRIDGE IVPUSH (15:00)
[2024-11-18] MEDS: Enoxaparin Sodium 40 MG/0.4 ML SYRINGE SUBCUT (17:18)
[2024-11-18] MEDS: Omeprazole 20 MG CAPSULE.DR PO (17:23)
[2024-11-18] MEDS: Insulin Lispro 100 UNIT/ML 3 ML VIAL SUBCUT ×2 (17:30→20:49)
[2024-11-18 17:31] LABS: Glucose, Whole Blood 371 mg/dL (60-115)
[2024-11-18] MEDS: glipiZIDE 5 MG TABLET PO (18:14)
[2024-11-18 20:19] LABS: Glucose, Whole Blood 432 mg/dL (60-115)
[2024-11-18] MEDS: Insulin Regular, Human 100 UNIT/ML 10 ML VIAL IVPUSH (20:48)
[2024-11-18] MEDS: Insulin Glargine,Hum.rec.anlog 100 UNIT/ML 10 ML VIAL SUBCUT (20:49)
[2024-11-18] MEDS: Pravastatin Sodium 40 MG TABLET PO (20:49)
[2024-11-18] MEDS: Melatonin 3 MG TABLET 6 MG PO (20:49)
[2024-11-18] MEDS: traZODone HCL 50 MG TABLET PO (20:49)
[2024-11-18] MEDS: Gabapentin 300 MG CAPSULE PO (20:49)
[2024-11-18] MEDS: methylPREDNISolone Sod Succ 40 MG/ML VIAL IVPUSH (20:50)
[2024-11-18] MEDS: Albuterol/Iprat 2.5/0.5MG 3 ML AMPUL.NEB INHALE (21:01)
[2024-11-18] MEDS: 0.9 % Sodium Chloride Flush 3 ML SYRINGE IVFLUSH (21:07)
[2024-11-18] MEDS: Flu Vacc TS2024-25(6mos up)/PF 0.5 ML SYRINGE IM (21:07)
[2024-11-19 00:35] LABS: Glucose, Whole Blood 284 mg/dL (60-115)
--- NOTE | 2024-11-19 00:38 | PC.NURSE ---
Assumed care of patient at 19:00. POC in the evening was critical 432. Pt only complaint was not being able to sleep, for which prn medications were given. Covering Dr. Enciso notified of POC with orders for 5units regular insulin IVP in addition to 10 units ISS and scheduled lantus. MD orders to re-check POC in four hours. Recheck was 284. Pt asymptomatic. Dr. Enciso notified, no new orders advised. Plan of care continues.
[2024-11-19 03:19] VITALS: BP 117/56; PULSE 68; RESP 18; TEMP 36; O2SAT 93
[2024-11-19] MEDS: Omeprazole 20 MG CAPSULE.DR PO ×2 (05:36→15:29)
[2024-11-19] MEDS: Levothyroxine Sodium 50 MCG TABLET PO (05:36)
[2024-11-19 07:31] LABS: Hematocrit 33.4 % (37.0-47.0); Hemoglobin 10.2 g/dl (12.0-16.0); Mean Corpuscular HGB Conc 30.5 g/dl (31.0-35.0); Mean Corpuscular Hemoglobin 26.4 pg (27.0-33.0); Mean Corpuscular Volume 86.3 fL (80.0-98.0); Mean Platelet Volume 11.3 fL (9.4-12.3); Platelet Count 276 X10*3/uL (160-400); Red Blood Count 3.87 X10*6/uL (4.20-5.50); Red Cell Distribution Width 14.9 % (11.0-16.0); White Blood Count 13.8 X10*3/uL (4.8-10.8)
[2024-11-19 07:35] VITALS: BP 132/60; PULSE 53; RESP 16; TEMP 36.4; O2SAT 94
[2024-11-19 07:47] LABS: Glucose, Whole Blood 278 mg/dL (60-115)
[2024-11-19 07:48] LABS: Anion Gap 15 (12-20); Blood Urea Nitrogen 19 mg/dL (9-16); Calcium 9.1 mg/dL (8.4-10.2); Carbon Dioxide 23 mmol/L (22-29); Chloride 106 mmol/L (96-108); Creatinine Clr Calc Pharmacy 32.7; Estimated Glomerular Filt Rate 39; Glucose Random 287 mg/dL (60-115); Potassium 4.7 mmol/L (3.3-5.1); Sodium 139 mmol/L (135-145)
[2024-11-19 08:04] VITALS: BP 132/60
[2024-11-19] MEDS: Dextroamphetamine/Amphetamine XR 10 MG CAP.ER.24H 60 MG PO (08:04)
[2024-11-19] MEDS: DULoxetine HCl 60 MG CAPSULE.DR 120 MG PO (08:04)
[2024-11-19] MEDS: amLODIPine Besylate 5 MG TABLET PO (08:04)
[2024-11-19] MEDS: ARIPiprazole 5 MG TABLET PO (08:04)
[2024-11-19] MEDS: Gabapentin 300 MG CAPSULE PO ×2 (08:04→20:50)
[2024-11-19] MEDS: lisinopriL 10 MG TABLET PO (08:04)
[2024-11-19] MEDS: methylPREDNISolone Sod Succ 40 MG/ML VIAL IVPUSH ×2 (08:05→20:50)
[2024-11-19] MEDS: glipiZIDE 10 MG TABLET PO (08:05)
[2024-11-19] MEDS: Insulin Lispro 100 UNIT/ML 3 ML VIAL SUBCUT ×4 (08:05→20:50)
[2024-11-19] MEDS: 0.9 % Sodium Chloride Flush 3 ML SYRINGE IVFLUSH ×3 (08:06→20:50)
[2024-11-19] MEDS: Albuterol/Iprat 2.5/0.5MG 3 ML AMPUL.NEB INHALE (08:11)
[2024-11-19 11:38] LABS: Glucose, Whole Blood 333 mg/dL (60-115)
--- NOTE | 2024-11-19 12:19 | P.PNIM_ITS ---
Subjective Subjective Date of Service: 11/19/24 Interval History: follow up on PNA, copd she is feeling better Physical Exam 2 Vital Signs: Vital Signs: Last Vital Signs Temp 97.5 F 11/19/24 07:35 Pulse 53 11/19/24 07:35 Resp 16 11/19/24 07:35 BP 132/60 11/19/24 08:04 Pulse Ox 94 11/19/24 07:35 O2 Del Method Room Air 11/19/24 07:35 O2 Flow Rate 2 11/18/24 11:05 BMI result Body Mass Index 32.8 Const: Other: General: AO X 3, no acute distress Resp: mild wheeze CVS: S1,S2,RRR GI: +BS, NT, no distention Skin: No rash Neuro: motor grossly intact Psych: appropriate affect Objective Data Active Medications Acetaminophen (Acetaminophen 325 Mg Tablet) 650 mg PO Q6H PRN PRN Reason: Pain, Mild 1-3,fever,headache Albuterol Sulfate (Albuterol Sulfate 90 Mcg 8 Gm Inhaler) 2 puff INHALE Q4H PRN PRN Reason: Respiratory Distress Albuterol Sulfate (Albuterol Sulfate (0.083%) 2.5 Mg/3 Ml Vial.Neb) 2.5 mg INHALE Q2H PRN PRN Reason: Shortness of Breath/Wheezing Albuterol/Ipratropium (Albuterol/Iprat 2.5/0.5mg 3 Ml Ampul.Neb) 3 ml INHALE RQ4H WHILE AWAKE [facility] Last Admin: 11/19/24 11:24 Dose: Not Given Documented By: GERMAN Non-Admin Reason: Patient Refused Amlodipine Besylate (Amlodipine Besylate 5 Mg Tablet) 5 mg PO DAILY [facility]; Protocol Last Admin: 11/19/24 08:04 Dose: 5 mg Documented By: JOHN Amphetamine/Dextroamphetamine (Dextroamphetamine/Amphetamine Xr 10 Mg Cap.Er.24h) 60 mg PO DAILY [facility] Last Admin: 11/19/24 08:04 Dose: 60 mg Documented By: JOHN Aripiprazole (Aripiprazole 5 Mg Tablet) 5 mg PO DAILY [facility] Last Admin: 11/19/24 08:04 Dose: 5 mg Documented By: JOHN Azithromycin (Azithromycin 250 Mg Tablet) 250 mg PO Q24H [facility] Stop: 11/22/24 14:01 Calcium Carbonate (Calcium Carbonate 750 Mg Tab.Chew) 750 mg PO Q4H PRN PRN Reason: Heartburn Ceftriaxone Sodium (Ceftriaxone Sodium 1 Gm Vial) 1 gm IVPUSH Q24H [facility] Duloxetine HCl (Duloxetine Hcl 60 Mg Capsule.Dr) 120 mg PO DAILY [facility] Last Admin: 11/19/24 08:04 Dose: 120 mg Documented By: JOHN Enoxaparin Sodium (Enoxaparin Sodium 40 Mg/0.4 Ml Syringe) 40 mg SUBCUT Q24H [facility] Last Admin: 11/18/24 17:18 Dose: 40 mg Documented By: CLARY Fluticasone Propionate (Fluticasone Propionate Nasal 16 Gm [place]) 2 spray NOSTRIL-B DAILY [facility] Last Admin: 11/19/24 10:28 Dose: Not Given Documented By: JOHN Non-Admin Reason: Med Not Available Gabapentin (Gabapentin 300 Mg Capsule) 300 mg PO BID [facility] Last Admin: 11/19/24 08:04 Dose: 300 mg Documented By: JOHN Glipizide (Glipizide 5 Mg Tablet) 5 mg PO DAILY@1700 [facility] Last Admin: 11/18/24 18:14 Dose: 5 mg Documented By: JOHN Glipizide (Glipizide 10 Mg Tablet) 10 mg PO DAILY@0730 [facility] Last Admin: 11/19/24 08:05 Dose: 10 mg Documented By: JOHN Glucose (Glucose Gel 15 Gm Gel..Gram.) 15 gm PO Q15M PRN; Protocol PRN Reason: per Hypoglycemia Standing Ord. Guaifenesin (Guaifenesin 100 Mg/5 Ml 5 Ml Liquid) 5 ml PO Q6H PRN PRN Reason: Cough Dextrose (D10) 250 mls @ 750 mls/hr IV Q15M PRN; Protocol PRN Reason: per Hypoglycemia Standing Ord. Insulin Glargine (Insulin Glargine,Hum.Rec.Anlog 100 Unit/Ml 10 Ml Vial) 4 unit SUBCUT BEDTIME [facility] Last Admin: 11/18/24 20:49 Dose: 4 unit Documented By: KENNETH Insulin Human Lispro (Insulin Lispro 100 Unit/Ml 3 Ml Vial) 0 unit SUBCUT QIDACHS [facility]; Protocol Last Admin: 11/19/24 11:53 Dose: 8 unit Documented By: JOHN Levothyroxine Sodium (Levothyroxine Sodium 50 Mcg Tablet) 50 mcg PO DAILY@0600 [facility] Last Admin: 11/19/24 05:36 Dose: 50 mcg Documented By: KENNETH Lisinopril (Lisinopril 10 Mg Tablet) 10 mg PO DAILY [facility]; Protocol Last Admin: 11/19/24 08:04 Dose: 10 mg Documented By: JOHN Lorazepam (Lorazepam 0.5 Mg Tablet) 0.5 mg PO DAILY PRN PRN Reason: Anxiety Magnesium Hydroxide (Milk Of Magnesia 30 Ml Oral.Susp) 30 ml PO DAILY PRN PRN Reason: Constipation Melatonin (Melatonin 3 Mg Tablet) 6 mg PO BEDTIME PRN PRN Reason: Insomnia Last Admin: 11/18/24 20:49 Dose: 6 mg Documented By: KENNETH Methylprednisolone Sodium Succinate (Methylprednisolone Sod Succ 40 Mg/Ml Vial) 40 mg IVPUSH BID [facility] Last Admin: 11/19/24 08:05 Dose: 40 mg Documented By: JOHN Omeprazole (Omeprazole 20 Mg Capsule.Dr) 20 mg PO BID@0630,1630 [facility] Last Admin: 11/19/24 05:36 Dose: 20 mg Documented By: KENNETH Pravastatin Sodium (Pravastatin Sodium 40 Mg Tablet) 40 mg PO BEDTIME [facility] Last Admin: 11/18/24 20:49 Dose: 40 mg Documented By: KENNETH Sodium Chloride (0.9 % Sodium Chloride Flush 3 Ml Syringe) 3 ml IVFLUSH QSHIFT [facility] Last Admin: 11/19/24 08:06 Dose: 3 ml Documented By: OJHN Tizanidine HCl (Tizanidine Hcl 4 Mg Tablet) 4 mg PO Q6H PRN PRN Reason: Spasms Trazodone HCl (Trazodone Hcl 50 Mg Tablet) 50 mg PO BEDTIME PRN PRN Reason: Sleep Last Admin: 11/18/24 20:49 Dose: 50 mg Documented By: KENNETH Labs 11/19/24 05:02 11/19/24 05:02 Labs: Laboratory Results - last 24 hr 11/18/24 11/18/24 11/18/24 12:37 17:27 20:05 MCV MCH MCHC RDW Plt Count MPV Absolute Nucleated RBC Nucleated RBC % (auto) Anion Gap Estim Creat Clear Calc Estimated GFR POC Glucose 371 H* 432 H* Random Glucose Lactic Acid 1.8 Calcium 11/19/24 11/19/24 11/19/24 00:30 05:02 07:40 MCV 86.3 MCH 26.4 L MCHC 30.5 L RDW 14.9 Plt Count 276 MPV 11.3 Absolute Nucleated RBC 0.000 Nucleated RBC % (auto) 0.0 Anion Gap 15 Estim Creat Clear Calc 32.7 Estimated GFR 39 POC Glucose 284 H 278 H Random Glucose 287 H Lactic Acid Calcium 9.1 11/19/24 11:32 MCV MCH MCHC RDW Plt Count MPV Absolute Nucleated RBC Nucleated RBC % (auto) Anion Gap Estim Creat Clear Calc Estimated GFR POC Glucose 333 H Random Glucose Lactic Acid Calcium Assessment and Plan (1) Dorsalgia: Status: Acute (2) Spinal stenosis: Status: Acute (3) Asthma exacerbation: Status: Acute (4) Right lower lobe pneumonia: Status: Acute Plan 79-year-old female with diabetes, hypothyroidism, asthma, spinal stenosis, here with shortness of breath cough and found to have pneumonia in the right lower lobe, complicated by exacerbation of asthma. Community-acquired pneumonia, she is feeling better -cultures drawn -continue ceftriaxone and azithromycin started on November 18 with a target treatment of 7 days of antibiotics Moderate persistent asthma with acute exacerbation, better -bronchodilators by nebulizers, change IV steroid to Prednisone tomorrow Hypothyroidism -continue levothyroxine Insulin-dependent diabetes -continue Lantus, glipizide and sliding scale, diabetic diet Spinal stenosis with chronic back pain -gabapentin -tramadol for pain along with Tylenol Mood disorder -continue Abilify, duloxetine, Ativan for anxiety GERD--omeprazole Hypertension -continue lisinopril, amlodipine DVT prophylaxis--Lovenox Full code anticipated dc tomorrow Quality Stroke Does the patient have a stroke diagnosis?: No VTE Prior VTE?: No VTE Risk Level:: Medical - moderate - high VTE Device Contraindication: Treatment Not Indicated VTE Drug Contraindication: N/A - Med Ordered
[2024-11-19] MEDS: Azithromycin 250 MG TABLET PO (13:16)
[2024-11-19] MEDS: cefTRIAXone sodium 1 GM VIAL IVPUSH (13:16)
[2024-11-19] MEDS: Acetaminophen 325 MG TABLET 650 MG PO (13:21)
--- NOTE | 2024-11-19 13:59 | MHC.CM.PN ---
IMM delivered. Patient lives in a home alone. Functionally independent. Has a shower chair. No services. PCP Jose Luis Younger Completed HCP naming HCAs: 1) son Bhargav and 2) friend Abeba. DP: Home self care vs home w/ services. No preference to agency. Referrals to [facility] accepting agencies to follow. Son will transport. CM will continue to follow.
[2024-11-19 15:02] VITALS: BP 118/58; PULSE 61; RESP 20; TEMP 36.5; O2SAT 93
[2024-11-19] MEDS: Enoxaparin Sodium 40 MG/0.4 ML SYRINGE SUBCUT (15:29)
[2024-11-19 16:20] LABS: Glucose, Whole Blood 208 mg/dL (60-115)
[2024-11-19] MEDS: glipiZIDE 5 MG TABLET PO (16:51)
[2024-11-19 19:15] VITALS: BP 133/59; PULSE 54; RESP 20; TEMP 36.1; O2SAT 92
[2024-11-19 19:56] LABS: Glucose, Whole Blood 276 mg/dL (60-115)
[2024-11-19] MEDS: Insulin Glargine,Hum.rec.anlog 100 UNIT/ML 10 ML VIAL SUBCUT (20:49)
[2024-11-19] MEDS: Pravastatin Sodium 40 MG TABLET PO (20:51)
[2024-11-19] MEDS: traZODone HCL 50 MG TABLET PO (20:51)
[2024-11-19] MEDS: Melatonin 3 MG TABLET 6 MG PO (20:51)
[2024-11-20 03:09] VITALS: BP 137/63; PULSE 59; RESP 18; TEMP 36.1; O2SAT 93
[2024-11-20] MEDS: Levothyroxine Sodium 50 MCG TABLET PO (05:11)
[2024-11-20 07:35] VITALS: BP 143/67; PULSE 63; RESP 18; TEMP 36.6; O2SAT 95
[2024-11-20 07:41] LABS: Glucose, Whole Blood 290 mg/dL (60-115)
[2024-11-20] MEDS: Insulin Lispro 100 UNIT/ML 3 ML VIAL SUBCUT ×2 (08:01→11:45)
[2024-11-20] MEDS: glipiZIDE 10 MG TABLET PO (08:02)
[2024-11-20] MEDS: Dextroamphetamine/Amphetamine XR 10 MG CAP.ER.24H 60 MG PO (08:03)
[2024-11-20] MEDS: amLODIPine Besylate 5 MG TABLET PO (08:03)
[2024-11-20] MEDS: ARIPiprazole 5 MG TABLET PO (08:03)
[2024-11-20] MEDS: Gabapentin 300 MG CAPSULE PO (08:03)
[2024-11-20] MEDS: DULoxetine HCl 60 MG CAPSULE.DR 120 MG PO (08:03)
[2024-11-20] MEDS: lisinopriL 10 MG TABLET PO (08:03)
[2024-11-20] MEDS: 0.9 % Sodium Chloride Flush 3 ML SYRINGE IVFLUSH (08:04)
[2024-11-20] MEDS: methylPREDNISolone Sod Succ 40 MG/ML VIAL IVPUSH (08:04)
[2024-11-20] MEDS: Fluticasone Propionate Nasal 16 GM SPRAY 2 SPRAY NOSTRIL-B (08:04)
[2024-11-20] MEDS: Albuterol/Iprat 2.5/0.5MG 3 ML AMPUL.NEB INHALE (11:25)
[2024-11-20 11:26] VITALS: PULSE 63; RESP 18; O2SAT 97
[2024-11-20 11:29] LABS: Glucose, Whole Blood 224 mg/dL (60-115)
--- NOTE | 2024-11-20 11:47 | PM.DS ---
DS: Providers Provider Date of Service: 11/20/24 Date of admission: 11/18/24 14:52 Date of discharge: 11/20/24 Primary care physician: Jose Luis Younger MD Attending physician on discharge: Prema Flores Discharging clinician: Prema Flores DS: Diagnosis Discharge Diagnosis (1) Dorsalgia: Status: Acute (2) Spinal stenosis: Status: Acute (3) Asthma exacerbation: Status: Acute (4) Right lower lobe pneumonia: Status: Acute DS: Summary Hospital Course Hospital Course: HPI:79-year-old female with hisoty of asthma, diabetes insulin dependent, hypothyroidism, spinal stenosis being evaluated for surgical correction. She presented to the hospital today with a shortness of breath and cough that been ongoing for nearly 3 weeks and worse the last several days. She describes fever and chill subjectively. Workup however revealed a right lower lobe pneumonia for which she has been given ceftriaxone and azithromycin.. Flu, RSV, COVID negative. She has also been treated with bronchodilators and nebulizer for hypoxia some wheezes and rhonchi. She has also complained about significant pain in the back causing him difficulty walking. Hospital course: 79-year-old female with hisoty of asthma, diabetes insulin dependent, hypothyroidism, spinal stenosis being evaluated for surgical correction. She presented to the hospital today with a shortness of breath and cough that been ongoing for nearly 3 weeks and worse the last several days. She describes fever and chill subjectively. Workup however revealed a right lower lobe pneumonia for which she has been given ceftriaxone and azithromycin.. Flu, RSV, COVID negative. She has also been treated with bronchodilators and nebulizer for hypoxia some wheezes and rhonchi. with above supportive care patient seems to be improved significantly .blood cultures neg 24hrs . patient will be going home with po prednisone and antibiotics . patient was advised to follow up with pcp and consider outpatient chest imaging in 3-4 weeks to see resolution of pneumonia. plan: po prednisone 40 mg qd for 4 days and ceftin 500 mg bid x7 days and complete azithromycin 250 mg qd for 4 more days. patient was advised to follow up with pcp and consider outpatient chest imaging in 3-4 weeks to see resolution of pneumonia. Above management discussed with the patient detail length she understand and in agreement with the above plan, time spent 40 minute. Time Attestation Total time managing care of this patient today: 40 mintues. Discharge Coordination Time (in mins): 40 min Quality: Safe Use of Opioids Does Pt have an Active Cancer Diagnosis on the Problem List?: No Quality: Stroke Does the patient have a stroke diagnosis?: No Physical Exam Vital Signs: Vital Signs: Last Vital Signs Temp 97.8 F 11/20/24 07:35 Pulse 63 11/20/24 11:26 Resp 18 11/20/24 11:26 BP 143/67 H 11/20/24 07:35 Pulse Ox 95 11/20/24 07:35 O2 Del Method Room Air 11/20/24 07:35 O2 Flow Rate 2 11/18/24 11:05 BMI result Body Mass Index 32.8 General: AO X 3, no acute distress Resp: mild wheeze CVS: S1,S2,RRR GI: +BS, NT, no distention Skin: No rash Neuro: motor grossly intact Psych: appropriate affect DS: Data Data Completed and Pending Labs on day of discharge: Laboratory Results - last 24 hr 11/19/24 11/19/24 11/20/24 16:10 19:51 07:35 POC Glucose 208 H 276 H 290 H 11/20/24 11:25 POC Glucose 224 H Preliminary micro results at discharge 11/18/24 14:29 Blood Culture - Preliminary Blood - Venous No growth after 24 hours. 11/18/24 14:29 Blood Culture - Preliminary Blood - Venous No growth after 24 hours. Imaging Chest x-ray: Radiologist's impression: ITS Impressions Chest X-Ray 11/18/24 10:35 IMPRESSION: 1. Right lower lobe pneumonia. Follow-up is recommended to document resolution. 2. Moderate hiatal hernia. Electronically signed by: Sahil Ruiz MD 11/18/2024 11:10 AM [facility] Discharge Plan Discharge Anticipated Discharge Date/Time: 11/20/24 11:01 Patient Disposition: Home Health Service Discharge Diagnosis: asthma exacerbation, Community-acquired pneumonia Referrals: [facility] [Outside] - 1 Week Jose Luis Younger MD [Primary Care Provider] - 1 Week Discharge Medications: New azithromycin 250 mg Tablet 250 mg PO Q24H Qty: 4 0RF cefuroxime axetil 500 mg Tablet 500 mg PO Q12H Qty: 14 0RF prednisone 20 mg Tablet 40 mg PO DAILY Qty: 8 0RF Continued tizanidine 4 mg Tablet 4 mg PO Q6H PRN (Reason: Spasms) amlodipine 5 mg Tablet 5 mg PO DAILY levothyroxine 50 mcg Tablet 50 mcg PO DAILY dextroamphetamine-amphetamine 30 mg capsule,extended release 24hr 2 cap PO DAILY gabapentin 300 mg Capsule 300 mg PO BID albuterol sulfate 90 mcg/actuation HFA aerosol inhaler 2 puff INHALATION Q4H PRN (Reason: Respiratory Distress) insulin glargine [Lantus U-100 Insulin] 100 unit/mL Solution 4 unit SUBCUT BEDTIME fluticasone propionate 50 mcg/actuation [place],Suspension 2 spray INTRANASAL DAILY Rx Instructions: administer into each nostril glipizide 5 mg Tablet 10 mg PO DAILY glipizide 5 mg Tablet 5 mg PO DAILY@1700 duloxetine 60 mg capsule,delayed release(DR/EC) 120 mg PO DAILY lisinopril 10 mg tablet 10 mg PO DAILY omeprazole 20 mg capsule,delayed release(DR/EC) 20 mg PO BID lovastatin 40 mg tablet 40 mg PO BEDTIME lorazepam 0.5 mg tablet 0.5 mg PO DAILY PRN (Reason: Anxiety) aripiprazole 5 mg tablet 5 mg PO DAILY trazodone 50 mg tablet 50 mg PO BEDTIME PRN (Reason: Sleep) Discharge Orders: Discharge Order (Routine); Ordered 11/20/24 Ordered By: Prema Flores Diet: Advance to usual diet Activity on Discharge: As tolerated Stand Alone Forms: Patient Portal Discharge page Print Language: Azeri Care Plan Goals: 79-year-old female with hisoty of asthma, diabetes insulin dependent, hypothyroidism, spinal stenosis being evaluated for surgical correction. She presented to the hospital today with a shortness of breath and cough that been ongoing for nearly 3 weeks and worse the last several days. She describes fever and chill subjectively. Workup however revealed a right lower lobe pneumonia for which she has been given ceftriaxone and azithromycin.. Flu, RSV, COVID negative. She has also been treated with bronchodilators and nebulizer for hypoxia some wheezes and rhonchi. with above supportive care patient seems to be improved significantly . patient will be going home with po prednisone and antibiotics . patient was advised to follow up with pcp and consider outpatient chest imaging in 3-4 weeks to see resolution of pneumonia. Pt shruti [facility] Health Concerns: as above. Plan of Treatment: po prednisone 40 mg qd for 4 days and ceftin 500 mg bid x7 days and complete azithromycin 250 mg qd for 4 more days. as above. Assessment: as above. Patient Instructions: Pneumonia (DC)
--- NOTE | 2024-11-20 12:12 | MHC.CM.PN ---
IMM 11/19/24 Patient is discharged today. She will go home with services. Services will be provided by [facility]. All dc information has been sent to the agency. Patient has arranged for transport home.
[2024-11-20] MEDS: cefuroxime axetiL 500 MG TABLET PO (12:34)
--- NOTE | 2024-11-20 12:57 | P.F2F_ITS ---
Service Date Service Date: 11/20/24 Encounter Date of encounter: 11/20/24 Encounter: asthma ,pneumonia Reasons for Services Signs and symptoms assessed: sob Reason for group home: medication management, medication treatment and teach disease management MD Overseeing Care: Jose Luis Younger Homebound: Leaving the home is medically contraindicated at this time without the asist of a device and/or another person due th the listed conditions above and below. Reason homebound: weakness related to hospital stay Homebound supporting statement: Patient is generalised weak post hospitlisation and need help with going to appointments and labs draws as medical management. Certification: Based on the above findings, I certify that this patient is confined to the home and needs intermittent group home care, physical therapy and/or speech therapy, or continues to need occupational therapy. The patient is under my care, and I have initiated the establishment of the plan of care. The patient will be followed by a physician who will periodically review the plan of care. Time Spent With Patient Time: Total time managing care of this patient today ____ minutes.
== END 2024-11-20 13:50 | disposition home health service (06) | DRG 194 ==
LOC: HO.ED 13:10 → HO.EDOVER 14:55 → HO.S3 16:01
PROVIDERS: Admitting Provider Internal Medicine; Emergency Provider Emergency Medicine Emergency Medical Services; PCP Internal Medicine; Visit Provider Internal Medicine
DX: J18.9 Pneumonia, unspecified organism (principal); J45.41 Moderate persistent asthma with (acute) exacerbation; E03.9 Hypothyroidism, unspecified; F39 Unspecified mood [affective] disorder; E11.9 Type 2 diabetes mellitus without complications; Z20.822 Contact with and (suspected) exposure to COVID-19; Z87.891 Personal history of nicotine dependence; Z23 Encounter for immunization; Z79.4 Long term (current) use of insulin; Z79.51 Long term (current) use of inhaled steroids; Z79.84 Long term (current) use of oral hypoglycemic drugs; Z79.890 Hormone replacement therapy; Z79.899 Other long term (current) drug therapy
CPT/HCPCS: 0241U; 36415; 71046; 80048; 80053; 82248; 82947; 83605; 83735; 83880; 84484; 85025; 85027; 87040; 90656; 93005; 94640; 97161; 99285; J0456; J0696; J1650; J1885; J2270; J2919

== ENCOUNTER → 2024-11-18 10:15 | Outpatient (BNV) | payer MEDICARE, SELFPAY | PROVIDERS: Emergency Provider Emergency Medicine Emergency Medical Services; PCP Internal Medicine; Visit Provider Internal Medicine Cardiovascular Disease | DX: R06.02 Shortness of breath (principal) | CPT/HCPCS: 93010 ==

== ENCOUNTER → 2024-11-18 10:35 | Outpatient (BNV) | payer MEDICARE, SELFPAY | PROVIDERS: Emergency Provider Emergency Medicine Emergency Medical Services; PCP Internal Medicine; Visit Provider Radiology Diagnostic Radiology | DX: J18.1 Lobar pneumonia, unspecified organism (principal); K44.9 Diaphragmatic hernia without obstruction or gangrene | CPT/HCPCS: 71046 ==

== ENCOUNTER → 2024-11-18 14:52 | Outpatient (BNV) | payer MEDICARE, SELFPAY | PROVIDERS: Admitting Provider Internal Medicine; Emergency Provider Emergency Medicine Emergency Medical Services; PCP Internal Medicine; Visit Provider Internal Medicine | DX: M54.9 Dorsalgia, unspecified (principal); M48.00 Spinal stenosis, site unspecified; J45.901 Unspecified asthma with (acute) exacerbation; J18.9 Pneumonia, unspecified organism | CPT/HCPCS: 99239; G0180 ==

== ENCOUNTER 2024-11-23 14:11 | Emergency (ER) | payer MEDICARE, SELFPAY ==
[2024-11-23 14:19] VITALS: BP 174/95; PULSE 98; RESP 20; TEMP 36.4; O2SAT 96; BMI 32.0
[2024-11-23 14:27] LABS: Glucose, Whole Blood 385 mg/dL (60-115)
[2024-11-23 14:42] LABS: MANUAL DIFF FLAG NO
[2024-11-23 14:43] LABS: Basophils Percent Auto 0.1 % (0-2); Hematocrit 36.1 % (37.0-47.0); Hemoglobin 11.4 g/dl (12.0-16.0); Imm Gran Abs Auto 0.15 X10*3/uL (0.00-0.03); Imm Gran Pct Auto 1.4 % (0.0-0.4); Lymphocytes Absolute Auto 0.9 X10*3/uL (1.2-4.9); Lymphocytes Percent Auto 8.4 % (20-40); Mean Corpuscular HGB Conc 31.6 g/dl (31.0-35.0); Mean Corpuscular Hemoglobin 26.3 pg (27.0-33.0); Mean Corpuscular Volume 83.4 fL (80.0-98.0); Mean Platelet Volume 10.5 fL (9.4-12.3); Monocytes Absolute Auto 0.5 X10*3/uL (0.1-1.2); Monocytes Percent Auto 4.6 % (2-11); Neutrophils Percent Auto 85.5 % (45-73); Platelet Count 366 X10*3/uL (160-400); Red Blood Count 4.33 X10*6/uL (4.20-5.50); Red Cell Distribution Width 14.6 % (11.0-16.0); White Blood Count 10.5 X10*3/uL (4.8-10.8)
[2024-11-23 15:03] LABS: Alanine Aminotransferase 31 U/L (0-31); Albumin Level 3.8 g/dL (3.5-5.0); Anion Gap 17 (12-20); Aspartate Amino Transferase 34 U/L (5-31); Beta-Hydroxybutyrate 0.13 mmol/L (0.02-0.27); Bilirubin Direct 0.1 mg/dL (0.0-0.5); Bilirubin Total 0.3 mg/dL (0.0-1.0); Blood Urea Nitrogen 35 mg/dL (9-16); Calcium 9.3 mg/dL (8.4-10.2); Carbon Dioxide 24 mmol/L (22-29); Chloride 101 mmol/L (96-108); Creatinine Clr Calc Pharmacy 27.5; Estimated Glomerular Filt Rate 33; Glucose Random 426 mg/dL (60-115); Lipase 44 U/L (8-78); Potassium 5.6 mmol/L (3.3-5.1); Sodium 136 mmol/L (135-145); Total Protein 7.6 g/dL (6.5-8.0)
[2024-11-23 15:04] LABS: Alkaline Phosphatase 69 U/L (39-117)
[2024-11-23 15:04] LABS: VBG Base Excess -0.2 mmol/L; VBG HCO3 24 mmol/L (22-26); VBG pCO2 37 mmHg; VBG pH 7.41 (7.32-7.43); VBG pO2 65 mmHg
[2024-11-23 15:05] LABS: Venous Blood Gas Refer to POC result
[2024-11-23] MEDS: Sodium Zirconium Cyclosilicate 10 GM POWD.PACK PO (17:29)
[2024-11-23] MEDS: 0.9 % Sodium Chloride 1,000 ML 999 ML IV (17:39)
[2024-11-23 17:44] LABS: Glucose, Whole Blood 209 mg/dL (60-115)
--- NOTE | 2024-11-23 17:46 | ED.GENADULT ---
HPI - General Adult General Chief complaint: Recheck/Abnormal Lab/Rx Stated complaint: high blood sugar Time Seen by Provider: 11/23/24 17:24 Source: patient, RN notes reviewed and old records reviewed Mode of arrival: ambulatory Limitations: no limitations History of Present Illness ED Provider: Melisa HPI narrative: 79-year-old female with past medical history significant for asthma, recently diagnosed diabetes presents for evaluation of high blood sugar Patient was admitted here from 11/18/2024 through 11/20/2024. She took her last dose of prednisone today. She states that she still has some shortness of breath but not as bad as it was on presentation last week. The patient denies any fevers, chills, coughing. She reports feeling weaker than usual. She states that her sugar at home was ?525. ? She states that she currently takes Lantus 10 units before bed Related Data Home Medications ?Medication ?Instructions ?Recorded ?Confirmed aripiprazole 5 mg tablet 5 mg PO DAILY 08/15/24 11/18/24 duloxetine 60 mg capsule,delayed 120 mg PO DAILY 08/15/24 11/18/24 release lisinopril 10 mg tablet 10 mg PO DAILY 08/15/24 11/18/24 lorazepam 0.5 mg tablet 0.5 mg PO DAILY PRN Anxiety 08/15/24 11/18/24 lovastatin 40 mg tablet 40 mg PO BEDTIME 08/15/24 11/18/24 omeprazole 20 mg capsule,delayed 20 mg PO BID 08/15/24 11/18/24 release trazodone 50 mg tablet 50 mg PO BEDTIME PRN Sleep 08/15/24 11/18/24 albuterol sulfate 90 mcg/actuation 2 puff inhalation Q4H PRN 11/18/24 11/18/24 aerosol inhaler Respiratory Distress amlodipine 5 mg tablet 5 mg PO DAILY 11/18/24 11/18/24 dextroamphetamine-amphetamine ER 2 cap PO DAILY 11/18/24 11/18/24 30 mg 24hr capsule,extend release fluticasone propionate 50 2 spray intranasal DAILY 11/18/24 11/18/24 mcg/actuation nasal spray,suspension gabapentin 300 mg capsule 300 mg PO BID 11/18/24 11/18/24 glipizide 5 mg tablet 5 mg PO DAILY@1700 11/18/24 11/18/24 glipizide 5 mg tablet 10 mg PO DAILY 11/18/24 11/18/24 insulin glargine 100 unit/mL 4 unit subcut BEDTIME 11/18/24 11/18/24 subcutaneous solution (Lantus U-100 Insulin) levothyroxine 50 mcg tablet 50 mcg PO DAILY 11/18/24 11/18/24 tizanidine 4 mg tablet 4 mg PO Q6H PRN Spasms 11/18/24 11/18/24 Previous Rx's ?Medication ?Instructions ?Recorded azithromycin 250 mg tablet 250 mg PO Q24H #4 tabs 11/20/24 cefuroxime axetil 500 mg tablet 500 mg PO Q12H #14 tabs 11/20/24 prednisone 20 mg tablet 40 mg (2 x 20 mg) PO DAILY #8 tabs 11/20/24 Allergies Allergy/AdvReac Type Severity Reaction Status Date / Time No Known Allergies Allergy Verified 11/23/24 14:22 Review of Systems Constitutional: Constitutional: Denies body ache(s), Denies chills, Denies fever(s), Denies frequent falls and Denies headache(s) Eyes: Eyes: Denies blurry vision ENT: Denies dysphagia, Denies vertigo and Denies headache(s) Cardiovascular: Cardiovascular: Denies chest pain and Reports dyspnea Respiratory: Respiratory: Denies cough, Reports dyspnea and Reports wheezing Gastrointestinal: Gastrointestinal: Denies abdominal pain, Denies dysphagia and Denies vomiting Musculoskeletal: Musculoskeletal: Denies back pain Neurologic: Denies vertigo, Denies frequent falls and Denies headache(s) Allergic/Immunologic: Allergic/Immunologic: Reports wheezing PMFSH Social History Social History Household Members: None Housing: House Do you presently have visiting nurse or other home services: No Patient Tobacco Use Status: Former Tobacco user Tobacco use type: Cigarette Smoked in Last 30 Days: No Use of substances other than those prescribed or required for medical reasons: No Advance Directives: Yes Advance Directives on File: Yes Advance Directives Date on File: 11/21/24 Do you have a plan to hurt others: No Plan service: No Physical Exam ED Vital Signs: Vital Signs - 24 hr 11/23/24 14:19 11/23/24 18:20 11/23/24 18:53 Temperature 97.5 F Pulse Rate 98 57 72 Respiratory Rate 20 18 18 Blood Pressure 174/95 H 163/92 H Pulse Oximetry 96 98 Oxygen Delivery Method Room Air Room Air BMI result Body Mass Index 32.0 Const General: healthy appearing, comfortable, no acute distress, alert and awake Nutritional Appearance: well nourished Orientation/consciousness: patient oriented x3 HENMT Head: Yes normocephalic and Yes atraumatic Eyes Eyelids: Yes eyelids normal Conjunctivae: conjunctivae normal Sclerae: sclerae normal Corneas: corneas normal Pupils: Equal, round and reactive pupils present EOM: EOMs intact bilaterally Neck Neck: Yes full ROM Resp Effort & Inspection: normal respiratory effort, able to speak in complete sentences and not labored Auscultation: wheezes (Diffuse expiratory wheeze) Cardio Rate: regular rate Rhythm: regular rhythm GI Inspection: No distended Palpation (GI): Soft to palpation, not firm, nontender, no guarding and not rigid Skin General skin exam: elasticity normal Neuro General: patient oriented x3 Cranial nerves: Yes Equal, round and reactive pupils present and Yes Bilaterally intact EOM present Cognition (Neuro): normal cognition Extrem Other: Moving all extremities well without any obvious deformities Course Reevaluation(s) Reevaluation #1: Patient's repeat labs shows that her potassium has normalized to 4.7, her renal function has improved, her glucose has improved, she is stable for discharge. Time: 20:08 Medications Administered Discontinued Medications Generic Name Dose Route Start Last Admin Trade Name Freq PRN Reason Stop Dose Admin Albuterol/Ipratropium 3 ml 11/23/24 18:17 11/23/24 18:19 Albuterol/Iprat 2.5/0.5mg 3 Ml Ampul.Neb INHALE 11/23/24 18:18 3 ml ONCE ONE Administration Sodium Chloride 1,000 mls @ 999 mls/hr 11/23/24 17:45 11/23/24 18:53 Ns IV 11/23/24 18:45 Infused .Q1H1M MICA Infusion Sodium Zirconium Cyclosilicate 10 gm 11/23/24 15:08 11/23/24 17:29 Sodium Zirconium Cyclosilicate 10 Gm Powd.Pack PO 11/23/24 15:09 10 gm ONCE ONE Administration Medical Decision Making Medical Decision Making MDM Narrative: 79-year-old female presents for evaluation of an elevated glucose. She endorses feeling weak but no other somatic complaints. She was a recently diagnosed type 2 diabetic. She is currently taking Lantus but no sliding scale insulin. The patient's glucose is likely elevated a she is still finishing up a course of prednisone for a recent asthma exacerbation. She is not in DKA, anion gap is within normal limits, her CO2 is normal. However she does have a mild ISAEL and a potassium of 5.6. These are both likely related to mild dehydration we will treat with IV fluids. The patient does have some wheezing on exam, we will treat with a nebulizer which should also help her potassium. She was ordered Lokelma from triage which will be given. Differential Diagnosis Differential Diagnoses: The differential diagnosis associated with the presentation includes Hyperkalemia Dehydration ISAEL Chronic kidney disease Hyperglycemia DKA less likely Lab Data MDM Lab Attestation statement: I reviewed the patient's lab results. No leukocytosis. The patient has no significant anemia in fact her hemoglobin hematocrit are about a point higher than they were a few days ago, this may be related to some degree of dehydration with hemoconcentration. Chemistries significant for a mild hyperkalemia, elevated BUN and creatinine possibly related to dehydration. Her sugar was initially 426 but improved to 209 without any intervention. I had initially considered ordering a small dose of IV insulin but discontinued this as her repeat glucose was only 209 11/23/24 14:36 11/23/24 19:46 Labs: Lab Results 11/23/24 11/23/24 11/23/24 Range/Units 14:23 14:36 14:59 WBC 10.5 (4.8-10.8) X10*3/uL RBC 4.33 (4.20-5.50) X10*6/uL Hgb 11.4 L (12.0-16.0) g/dl Hct 36.1 L (37.0-47.0) % MCV 83.4 (80.0-98.0) fL MCH 26.3 L (27.0-33.0) pg MCHC 31.6 (31.0-35.0) g/dl RDW 14.6 (11.0-16.0) % Plt Count 366 D (160-400) X10*3/uL MPV 10.5 (9.4-12.3) fL Immature Gran % (Auto) 1.4 H (0.0-0.4) % Neut % (Auto) 85.5 H (45-73) % Lymph % (Auto) 8.4 L (20-40) % [place] % (Auto) 4.6 (2-11) % Eos % (Auto) 0.0 (0-4) % Baso % (Auto) 0.1 (0-2) % Lymph # (Auto) 0.9 L (1.2-4.9) X10*3/uL [place] # (Auto) 0.5 (0.1-1.2) X10*3/uL Eos # (Auto) 0.0 (0.0-0.4) X10*3/uL Baso # (Auto) 0.0 (0.0-0.2) X10*3/uL Abs Immat Gran (auto) 0.15 H (0.00-0.03) X10*3/uL Absolute Neuts (auto) 9.0 H (2.0-8.3) x10*3/uL Absolute Nucleated RBC 0.000 (0.0-0.012) X10*3/uL Nucleated RBC % (auto) 0.0 (0.0-0.2) /100WBC VBG pH 7.41 (7.32-7.43) VBG pCO2 37 mmHg VBG pO2 65 mmHg VBG HCO3 24 (22-26) mmol/L VBG O2 Saturation 90.0 % VBG Base Excess -0.2 mmol/L Sodium 136 (135-145) mmol/L Potassium 5.6 H (3.3-5.1) mmol/L Chloride 101 (96-108) mmol/L Carbon Dioxide 24 (22-29) mmol/L Anion Gap 17 (12-20) BUN 35 H (9-16) mg/dL Creatinine 1.54 H (0.5-1.4) mg/dL Estim Creat Clear Calc 27.5 Estimated GFR 33 POC Glucose 385 H* (60-115) mg/dL Random Glucose 426 H* (60-115) mg/dL Calcium 9.3 (8.4-10.2) mg/dL Total Bilirubin 0.3 (0.0-1.0) mg/dL Direct Bilirubin 0.1 (0.0-0.5) mg/dL AST 34 H (5-31) U/L ALT 31 (0-31) U/L Alkaline Phosphatase 69 (39-117) U/L Total Protein 7.6 (6.5-8.0) g/dL Albumin 3.8 (3.5-5.0) g/dL Lipase 44 (8-78) U/L Beta-Hydroxybutyrate 0.13 (0.02-0.27) mmol/L 11/23/24 11/23/24 Range/Units 17:36 19:46 WBC (4.8-10.8) X10*3/uL RBC (4.20-5.50) X10*6/uL Hgb (12.0-16.0) g/dl Hct (37.0-47.0) % MCV (80.0-98.0) fL MCH (27.0-33.0) pg MCHC (31.0-35.0) g/dl RDW (11.0-16.0) % Plt Count (160-400) X10*3/uL MPV (9.4-12.3) fL Immature Gran % (Auto) (0.0-0.4) % Neut % (Auto) (45-73) % Lymph % (Auto) (20-40) % [place] % (Auto) (2-11) % Eos % (Auto) (0-4) % Baso % (Auto) (0-2) % Lymph # (Auto) (1.2-4.9) X10*3/uL [place] # (Auto) (0.1-1.2) X10*3/uL Eos # (Auto) (0.0-0.4) X10*3/uL Baso # (Auto) (0.0-0.2) X10*3/uL Abs Immat Gran (auto) (0.00-0.03) X10*3/uL Absolute Neuts (auto) (2.0-8.3) x10*3/uL Absolute Nucleated RBC (0.0-0.012) X10*3/uL Nucleated RBC % (auto) (0.0-0.2) /100WBC VBG pH (7.32-7.43) VBG pCO2 mmHg VBG pO2 mmHg VBG HCO3 (22-26) mmol/L VBG O2 Saturation % VBG Base Excess mmol/L Sodium 140 (135-145) mmol/L Potassium 4.7 (3.3-5.1) mmol/L Chloride 106 (96-108) mmol/L Carbon Dioxide 24 (22-29) mmol/L Anion Gap 15 (12-20) BUN 27 H (9-16) mg/dL Creatinine 1.15 (0.5-1.4) mg/dL Estim Creat Clear Calc 36.9 Estimated GFR 46 POC Glucose 209 H (60-115) mg/dL Random Glucose 155 H (60-115) mg/dL Calcium 9.0 (8.4-10.2) mg/dL Total Bilirubin (0.0-1.0) mg/dL Direct Bilirubin (0.0-0.5) mg/dL AST (5-31) U/L ALT (0-31) U/L Alkaline Phosphatase (39-117) U/L Total Protein (6.5-8.0) g/dL Albumin (3.5-5.0) g/dL Lipase (8-78) U/L Beta-Hydroxybutyrate (0.02-0.27) mmol/L Discharge Plan Discharge Clinical Impression: Acute hyperglycemia, ISAEL (acute kidney injury) Patient Disposition: Home, Self-Care Instructions: Diabetic Hyperglycemia (ED), Acute Kidney Injury (DC) Additional Instructions: Your sugar was high today, likely related to your prednisone use. I recommend using 6 units of insulin before bed tonight. If your glucose is above 200 tomorrow, gave herself 10 units of Lantus before bed If it is less than 200 stick to your usual 6 units Follow-up with your primary doctor, return for new or worsening symptoms Prescriptions: No Action tizanidine 4 mg Tablet 4 mg PO Q6H PRN (Reason: Spasms) amlodipine 5 mg Tablet 5 mg PO DAILY levothyroxine 50 mcg Tablet 50 mcg PO DAILY dextroamphetamine-amphetamine 30 mg capsule,extended release 24hr 2 cap PO DAILY gabapentin 300 mg Capsule 300 mg PO BID albuterol sulfate 90 mcg/actuation HFA aerosol inhaler 2 puff INHALATION Q4H PRN (Reason: Respiratory Distress) insulin glargine [Lantus U-100 Insulin] 100 unit/mL Solution 4 unit SUBCUT BEDTIME fluticasone propionate 50 mcg/actuation [place],Suspension 2 spray INTRANASAL DAILY Rx Instructions: administer into each nostril glipizide 5 mg Tablet 10 mg PO DAILY glipizide 5 mg Tablet 5 mg PO DAILY@1700 azithromycin 250 mg Tablet 250 mg PO Q24H Qty: 4 0RF cefuroxime axetil 500 mg Tablet 500 mg PO Q12H Qty: 14 0RF prednisone 20 mg Tablet 40 mg PO DAILY Qty: 8 0RF duloxetine 60 mg capsule,delayed release(DR/EC) 120 mg PO DAILY lisinopril 10 mg tablet 10 mg PO DAILY omeprazole 20 mg capsule,delayed release(DR/EC) 20 mg PO BID lovastatin 40 mg tablet 40 mg PO BEDTIME lorazepam 0.5 mg tablet 0.5 mg PO DAILY PRN (Reason: Anxiety) aripiprazole 5 mg tablet 5 mg PO DAILY trazodone 50 mg tablet 50 mg PO BEDTIME PRN (Reason: Sleep) Print Language: [place]ian
--- OUTSIDE RECORDS SUMMARY | 2024-11-23 17:52 | XMS_ITS | Clinical Summary ---
Author Organization [facility] [address] [place] [address] [place] [address] [place] [address] Phone Care Team Providers Care Sawmill Tally Clerk Name Role Phone Jose Luis Younger MD Primary Care Provider [phone] Allergies No known active allergies Medications Medication Sig Dispensed Refills Start Date End Date Status lovastatin (MEVACOR) 40 mg tablet TAKE ONE TABLET BY MOUTH AT BEDTIME 90 tablet 1 4 Active omeprazole (PriLOSEC) [address] capsule TAKE TWO CAPSULES BY MOUTH DAILY 180 capsule 1 4 Active lisinopriL (PRINIVIL,ZESTR IL) 10 mg tablet Take 1 tablet (10 mg total) by mouth 1 (one) time each day. 90 tablet 1 4 Active fluticasone propionate (FLONASE) 50 mcg/actuation nasal sprayIndication s:allergic conjunctivitis, allergic rhinitis Administer 2 sprays into each nostril 1 (one) time each day. Shake gently. Before first use, prime pump. After use, clean tip and replace cap. 16 g 3 4 Active gabapentin (NEURONTIN) 300 mg capsule 4 Active amphetamine-dex troamphetamine XR (ADDERALL XR) 30 mg 24 hr capsule 4 Active cetirizine (ZyrTEC) 10 mg capsule Take 1 capsule (10 mg total) by mouth. 1 Active ARIPiprazole (ABILIFY) 5 mg tablet Take 1 tablet (5 mg total) by mouth. Active acetaminophen (TYLENOL) 500 mg tablet Take 1 tablet (500 mg total) by mouth every 6 (six) hours if needed. 3 Active diphenoxylate-a tropine (LOMOTIL) 2.5-0.025 mg per tablet Take 1 tablet by mouth 4 (four) times a day if needed. 4 Active fluticasone-anthony meterol (ADVAIR DISKUS) 250-50 mcg/dose diskus inhaler Inhale 1 puff by mouth. 2 Active glipiZIDE (GLUCOTROL) 5 mg tablet Take 1 tablet daily before breakfast 5 Active insulin glargine (Lantus Solostar U-100 Insulin) 100 unit/mL (3 mL) injection pen Use 4 units at bedtime, increase by 2 units every 3 days with a max dose of 10 units at bedtime 15 mL 1 5 Active pen needle, diabetic (BD Ultra-Fine Veronica Pen Needle) 32 gauge x needle Use with insulin pen once daily 100 each 1 5 Active levothyroxine (SYNTHROID, LEVOTHROID) 50 mcg tablet Take 1 tablet each morning 30 each 5 5 Active tiZANidine (ZANAFLEX) 4 mg tablet Take 1 tablet (4 mg total) by mouth 1 (one) time each day if needed for muscle spasms. 30 tablet 3 5 Active amLODIPine (NORVASC) 5 mg tablet Take 1 tablet (5 mg total) by mouth 1 (one) time each day. 30 each 5 5 05/14/20 25 Active albuterol HFA (PROAIR HFA ; PROVENTIL HFA ; VENTOLIN HFA) 90 mcg/actuation inhaler INHALE 2 PUFFS FOUR TIMES A DAY NEEDED FOR COUGH, WHEEZING, OR SHORTNESS OF BREATH 8.5 g 1 5 Active albuterol HFA (PROAIR HFA ; PROVENTIL HFA ; VENTOLIN HFA) 90 mcg/actuation inhaler INHALE 2 PUFFS INTO THE LUNGS FOUR TIMES A DAY NEEDED COUGH, WHEEZE, OR SHORTNESS OF BREATH 8.5 g 1 4 11/22/19 25 Discontinued tiZANidine (ZANAFLEX) 2 mg tabletIndicatio ns:Bilateral leg pain Take 1 tablet (2 mg total) by mouth every 6 (six) hours if needed for muscle spasms. 30 tablet 1 4 11/15/19 25 Discontinued glipiZIDE (GLUCOTROL) 5 mg tablet TAKE ONE TABLET BY MOUTH TWO TIMES A DAY BEFORE MEALS 180 tablet 1 4 11/07/19 25 Discontinued(Reo rder) levothyroxine (SYNTHROID, LEVOTHROID) 75 mcg tablet 4 11/07/19 25 Discontinued Active Problems Problem Noted Date Diagnosed Date Other hyperlipidemia 10/11/2024 Mild intermittent asthma without complication Other specified hypothyroidism 10/11/2024 Assessment & Plan (11/15/2024 9:54 AM EST): Hypothyroidism is stable on Levoxyl Spinal stenosis of lumbar re gion without neurogenic claudication 03/10/2021 Microalbuminuria 06/11/2018 Asthma 12/27/2017 Migraine headache 12/27/2017 Obesity (BMI 30-39.9) 12/27/2017 CKD stage 3 due to type 2 diabetes mellitus 08/30 MDD (major depressive disorder) 12/20/2013 Overview (10/29/2024): Sees Psychiatry at [facility] (Cher Bhatia) prescribed Abilify and adderall GERD (gastroesophageal reflux disease) 4 HTN (hypertension) 11/29/2013 Assessment & Plan (11/15/2024 9:54 AM EST): Hypertension not under control on lisinopril added amlodipine 5 mg daily IBS (irritable bowel syndrome) 11/29/2013 Hyperlipidemia 11/29/2013 Hypothyroid 11/29/2013 Type 2 diabetes with nephropathy 11/29/2013 Encounters Date Type Department Care Team Description 11/22/2024 Telephone Endocrinology [address] [phone] Eun Alvares PA New Med Request 11/21/2024 Telephone Internal Medicine - [address] [phone] Jose Luis Younger MD Hospital Follow-up 11/19/2024 Telephone Internal Medicine [address] [phone] Jose Luis Younger MD Provider call back 11/15/2024 8:30 AM EST Office Visit Internal Medicine [address] [phone] Jose Luis Younger MD Primary hypertension (Primary Dx); Hypercholesterolemia; Other specified hypothyroidism; Chronic bilateral low back pain with sciatica, sciatica laterality unspecified 11/07/2024 11:00 AM EST Office Visit [address] [phone] Eun Alvares PA Type 2 diabetes with nephropathy (CMS/HCC) (Primary Dx); Stage 3b chronic kidney disease (CMS/HCC); Hypothyroidism, unspecified type 10/28/2024 Telephone Internal Medicine [address] [phone] Jose Luis Younger MD 10/11/2024 11:30 AM EST Office Visit Internal Medicine [address] [phone] Jessica Bonds NP Bronchitis (Primary Dx); Right ear pain; Bilateral leg pain; Hyperlipidemia, unspecified hyperlipidemia type; Hypothyroidism, unspecified type; Vitamin D deficiency, unspecified; 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, without long-term current use of insulin (CMS/HCC) 10/11/2024 Telephone Internal Medicine [address] [phone] Jose Luis Younger MD TRIAGE- Sob, coughing 09/10/[address] [phone] Eun Alvares PA PRIOR AUTHORIZATION from Last 3 Months Immunizations Name Administration Dates Next Due Influenza Quadravalent, 0.5m l (Fluzone High-dose) 65yo and older 08/31/2022,09/02/2021,07/29/2020 Influenza Quadravalent, MDCK , 0.5ml, preservative free (Flucelvax) 6mo and older 10/16/2018 Influenza trivalent, 0.5mL ( Fluad) 65yo and older 10/29/2019 Influenza trivalent, 0.5mL ( Fluzone High-dose) 65yo and older 07/12/2017,08/17/2016 Influenza trivalent, with pr eservative (Fluzone; Afluria) 6mo and older 09/21/2015,10/01/2014 Pneumococcal conjugate 13 va lent (Prevnar 13, PCV13) 2mo and older 09/14/2016 Pneumococcal polysaccharide 23 valent (Pneumovax 23) 2yo and older 06/12/2015 Tdap Tetanus diptheria acell ular pertussis (Boostrix; Adacel) 7yo and older 06/12/2015 Surgical History Surgery Date Site/Laterality Comments TUBAL LIGATION PROCEDURE: HISTORICAL TUBAL LIGATION BREAST BIOPSY 2016 PROCEDURE: BX BREAST; PERC NEEDLE CORE W/IMAG GUID; COMMENT: rt. breast bx-benign Medical History Medical History Date Comments Asthma 12/27/2017 DX:Asthma Obesity (BMI 30-39.9) 12/27/2017 DX:Obesity (BMI 30-39.9) GERD (gastroesophageal reflux disease) 4 DX:GERD (gastroesophageal reflux disease) HTN (hypertension) 11/29/2013 DX:HTN (hyper tension) Hyperlipidemia 11/29/2013 DX:Hyperlipidemi a Hypothyroid 11/29/2013 DX:Hypothyroid IBS (irritable bowel syndrome) 11/29/2013 D X:IBS (irritable bowel syndrome) Migraine headache 12/27/2017 DX:Migraine he adache MDD (major depressive disorder) 12/20/2013 DX:MDD (major depressive disorder); COMMENT: Sees Psychiatry at [facility] (Cher Bhatia) prescribed Abilify and adderall Type 2 diabetes with nephrop athy ([facility]/HCC) 11/29/2013 DX:Type 2 diabetes with nephropathy ([facility]) Microalbuminuria 06/11/2018 DX:Microalbumin uria Diarrhea DX:Diarrhea Family History Medical History Relation Name Comments Breast cancer Aunt mat 50s 80 Cervical cancer Mother Relation Name Status Comments Aunt mat 50s Mother Social History Tobacco Use Types Packs/Day Years Used Date Smoking Tobacco: Former Cigarettes Smokeless Tobacco: Never Tobacco Cessation:Counseling Given: Not Answered Alcohol Use Standard Drinks/Week Comments Yes 0 (1 standard drink = 0.6 oz pur e alcohol) Sex and Gender Information Value Date Recorded Sex Assigned at Not on file Gender Identity Not on file Sexual Orientation Not on file Job Start Date Occupation Industry Not on file Not on file Not on file Obstetrics History Last Filed Vital Signs Vital Sign Reading Time Taken Comments Blood Pressure 158/72 11/15/2024 8:59 AM EST Pulse 92 11/15/2024 8:59 AM EST Temperature 36.2 ??C (97.2 ??F) 11/15/2024 8:59 AM ES T Respiratory Rate - - Oxygen Saturation 93% 11/15/2024 8:59 AM EST Inhaled Oxygen Concentration - - Weight 73 kg (161 lb) 11/15/2024 8:59 AM EST Height 152.4 cm (5') 11/15/2024 8:59 AM EST Body Mass Index 31.44 11/15/2024 8:59 AM EST Plan of Treatment Upcoming Encounters Date Type Department Care Team (Late st Contact Info) Description 11/25/2024 1:30 PM EST Office Visit Internal Medicine - [place] [facility] [address] [place] [phone] Jose Luis Younger MD [address] [facility] [address] [place] [address] 12/11/2024 4:00 PM EST Office Visit Vascular Surgery - [place] 300 [facility] [address] [place] [phone] Rashmi Zaidi PA [address] [facility] [address] [place] [address] 01/13/2025 8:20 AM EDT Office Visit Endocrinology [address] [phone] Eun Alvares PA [address] [place] [address]2017 Health Maintenance Due Date Last Done Comments Diabetes: Annual Foot Exam 1955 Diabetes: Annual Retina Eye Exam 1955 Zoster Vaccines (1 of 2) 1997 RSV Immunization Patients 60+ Years Old (1 - 1-dose 75+ series) 2022 Social Influencers of Health Screening 10/08/2022 Diabetes: Annual Urine Albumin-Creatinine Ratio (uACR) 10/12/2022 12/17/2020 COVID-19 Vaccine ( season) 2024 09/04/2023, 08/31/2022, 09/02/2021, Additional history exists Influenza Vaccine (#1) 2024 , 08/31/2022, 09/02/2021, Additional history exists Diabetes: Blood Sugar Control Test (HGBA1C) 04/11/2025 10/11/2024, 08/30/2024 DTaP,Tdap,and Td Vaccines (3 - Td or Tdap) 06/12/2025 06/12/2015, 03/20/2007 Diabetes: Annual GFR (Glomerular Filtration Rate) 10/11/2025 10/11/2024, 08/30/2024, 08/30/2024, Additional history exists Hypertension/CHF/CAD Annual BMP Blood Test 10/11/2025 10/11/2024, 08/30/2024, 08/30/2024, Additional history exists Depression Screening 11/15/2025 11/15/2024 Falls Risk Assessment 11/15/2025 11/15/2024 Medicare Annual Wellness Visit 11/15/2025 11/15/2024 Cholesterol Screening (Lipid Panel) 10/11/2029 10/11/2024 Osteoporosis Screening (Bone Density Screening) 09/01/2030 09/01/2020 Hepatitis C Screening Completed 03/20/2014 Pneumococcal Vaccine: 65+ Years Completed 09/14/2016, 06/12/2015, 03/20/2007 HIB Vaccines Aged Out No longer eligi ble based on patient's age to complete this topic HPV Vaccines Aged Out No longer eligi ble based on patient's age to complete this topic Hepatitis A Vaccines Aged Out No long er eligible based on patient's age to complete this topic Hepatitis B Vaccines Aged Out No long er eligible based on patient's age to complete this topic IPV Vaccines Aged Out No longer eligi ble based on patient's age to complete this topic MMR Vaccines Aged Out No longer eligi ble based on patient's age to complete this topic Meningococcal ACWY Vaccine Aged Out N o longer eligible based on patient's age to complete this topic RSV Immunization Patients Under 20 months Aged Out No longer eligible based on patient's age to complete this topic Varicella Vaccines Aged Out No longer eligible based on patient's age to complete this topic Procedures Procedure Name Priority Date/Time Associated Diagnosis Comments VITAMIN B12 Routine 10/11/2024 12:40 PM EST Bilateral leg pain THYROID STIMULATING HORMONE Routine 10/11/2024 12:40 PM EST Bilateral leg pain 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, without long-term current use of insulin (CMS/HCC) MAGNESIUM Routine 10/11/2024 12:40 PM EST Bilateral leg pain HEMOGLOBIN A1C Routine 10/11/2024 12:40 PM EST Type 2 diabetes mellitus with other specified complication, without long-term current use of insulin (CMS/HCC) COMPREHENSIVE METABOLIC PANEL Routine 10/11/2024 12:40 PM EST Type 2 diabetes mellitus with other specified complication, without long-term current use of insulin (CMS/HCC) COMPLETE BLOOD COUNT Routine 10/11/2024 12:40 PM EST Type 2 diabetes mellitus with other specified complication, without long-term current use of insulin (CMS/HCC) LIPID PANEL WITH REFLEX TO DIRECT LDL Routine 10/11/2024 12:40 PM EST Hyperlipidemia, unspecified hyperlipidemia type VITAMIN D 25 HYDROXY Routine 10/11/2024 12:39 PM EST Bilateral leg pain Vitamin D deficiency, unspecified ANNUAL BMP BLOOD TEST Routine 08/30/2024 URINE ALBUMIN CREATININE RATIO Routine 12/17/2020 DXA BONE DENSITY STUDY 1+ SITS AXIAL SKEL Routine 09/01/2020 10:52 AM EST Asymptomatic menopausal state HEPATITIS C SCREENING Routine 03/20/2014 from Last 3 Months or Most Recently Relevant to Health Maintenance Results * (ABNORMAL) Lipid panel with reflex to direct LDL (10/11/2024 12:40 PM EST) Cholesterol 157 0 - 200 mg/dL LAB CHEMISTRY METHOD 10/11/2024 3:38 PM EST [facility] Triglycerides 228(H) 0 - 150 mg/dL LAB CHEMISTRY METHOD 10/11/2024 3:38 PM EST [facility] HDL 39(L) >=40 mg/dL LAB CHEMISTRY METHOD 10/11/2024 3:38 PM EST [facility] LDL Calculated 72 0 - 100 mg/dL LAB CHEMISTRY METHOD 10/11/2024 3:38 PM EST [facility] VLDL Cholesterol Ag 45.6 mg/dL LAB CHEMISTRY METHOD 10/11/2024 3:38 PM EST [facility] Non HDL Chol. (LDL+VLDL) 118 <145 mg/dL LAB CHEMISTRY METHOD 10/11/2024 3:38 PM EST [facility] Chol/HDL Ratio 4.0 0.0 - 4.4 LAB CHEMISTRY METHOD 10/11/2024 3:38 PM EST [facility] Blood Venous blood specimen / Unknown Venipuncture / Unknown 10/11/2024 12:40 PM EST 10/11/2024 1:10 PM EST Jessica Bonds NP LAB BLOOD ORDERABLES [facility] [address] [place] [address], * (ABNORMAL) Complete blood count (10/11/2024 12:40 PM EST) Pathologist [facility] WBC 7.3 4.8 - 10.8 K/[facility] LAB HEMETOLOGY METHOD 10/11/2024 1:52 PM EST [facility] RBC 4.20 3.80 - 4.80 M/mcL LAB HEMETOLOGY METHOD 10/11/2024 1:52 PM [facility] Hemoglobin 11.0(L) 11.5 - 16.0 g/dL LAB HEMETOLOGY METHOD 10/11/2024 1:52 PM [facility] Hematocrit 36.5 35.0 - 47.0 % LAB HEMETOLOGY METHOD 10/11/2024 1:52 PM [facility] MCV 86.9 79.0 - 98.0 FL LAB HEMETOLOGY METHOD 10/11/2024 1:52 PM [facility] MCH 26.2(L) 27.0 - 32.0 pcg LAB HEMETOLOGY METHOD 10/11/2024 1:52 PM [facility] MCHC 30.1(L) 32.0 - 37.0 g/dL LAB HEMETOLOGY METHOD 10/11/2024 1:52 PM [facility] RDW 14.8 11.0 - 15.0 % LAB HEMETOLOGY METHOD 10/11/2024 1:52 PM [facility] Platelets 329 130 - 400 K/mcL LAB HEMETOLOGY METHOD 10/11/2024 1:52 PM [facility] MPV 11.1(H) 7.0 - 11.0 FL LAB HEMETOLOGY METHOD 10/11/2024 1:52 PM [facility] NRBC 0.0 <1.0 % LAB HEMETOLOGY METHOD 10/11/2024 1:52 PM [facility] NRBC Absolute 0.00 <0.10 K/mcL LAB HEMETOLOGY METHOD 10/11/2024 1:52 PM [facility] Blood Venous blood specimen / Unknown Venipuncture / Unknown 10/11/2024 12:40 PM EST 10/11/2024 1:10 PM EST Tanzeem Alam FEEDER TENDER LAB BLOOD ORDERABLES Performing Organization Address [facility]/ZIP Co de Phone Number [facility] [address] [place] [address], * Thyroid stimulating hormone (10/11/2024 12:40 PM EST) Pathologist [facility] TSH 1.88 0.40 - 4.00 mcIU/mL LAB CHEMISTRY METHOD 10/11/2024 2:28 PM EST [facility] Blood Venous blood specimen / Unknown Venipuncture / Unknown 10/11/2024 12:40 PM EST 10/11/2024 1:10 PM EST Jessica Bonds FEEDER TENDER LAB BLOOD ORDERABLES Performing Organization Address [facility] Co de Phone Number [facility] [address] [place] [address], * Magnesium (10/11/2024 12:40 PM EST) [facility] Magnesium 2.0 1.9 - 2.6 mg/dL LAB CHEMISTRY METHOD 10/11/2024 2:49 PM EST [facility] Blood Venous blood specimen / Unknown Venipuncture / Unknown 10/11/2024 12:40 PM EST 10/11/2024 1:10 PM EST Jessica Bonds FEEDER TENDER LAB BLOOD ORDERABLES Performing Organization Address City/[facility]/ZIP Co de Phone Number [facility] [address] [place] [address], [place] [phone] * (ABNORMAL) Hemoglobin A1c (10/11/2024 12:40 PM EST) Pathologist [facility] Hemoglobin A1C 9.5(H) <6.5 % LAB CHEMISTRY METHOD 10/11/2024 8:46 PM EST [facility] Mean Bld Glu Estim. 226 mg/dL LAB CHEMISTRY METHOD 10/11/2024 8:46 PM EST [facility] Blood Venous blood specimen / Unknown Venipuncture / Unknown 10/11/2024 12:40 PM EST 10/11/2024 1:10 PM EST Jessica Bonds FEEDER TENDER LAB BLOOD ORDERABLES Performing Organization Address [facility]/ZIP Co de Phone Number [facility] [address] [place] [address], * (ABNORMAL) Vitamin B12 (10/11/2024 12:40 PM EST) [facility] Vitamin B-12 245(L) 250 - 900 pcg/mL LAB CHEMISTRY METHOD 10/11/2024 3:38 PM [facility] Blood Venous blood specimen / Unknown Venipuncture / Unknown 10/11/2024 12:40 PM EST 10/11/2024 1:10 PM EST Jessica Bonds FEEDER TENDER LAB BLOOD ORDERABLES Performing Organization Address City/[facility]/ZIP Co de Phone Number [facility] [address] [place] [address], * (ABNORMAL) Comprehensive metabolic panel (10/11/2024 12:40 PM EST) [facility] Sodium 141 133 - 145 mmol/L LAB CHEMISTRY METHOD 10/11/2024 3:38 PM [facility] Potassium 5.6(H) 3.5 - 5.5 mmol/L LAB CHEMISTRY METHOD 10/11/2024 3:38 PM [facility] Chloride 106 96 - 110 mmol/L LAB CHEMISTRY METHOD 10/11/2024 3:38 PM [facility] CO2 29 21 - 32 mmol/L LAB CHEMISTRY METHOD 10/11/2024 3:38 PM [facility] Anion Gap 6 3 - 11 LAB CHEMISTRY METHOD 10/11/2024 3:38 PM [facility] Glucose 124(H) 70 - 100 mg/dL LAB CHEMISTRY METHOD 10/11/2024 3:38 PM [facility] BUN 15 5 - 25 mg/dL LAB CHEMISTRY METHOD 10/11/2024 3:38 PM [facility] Creatinine 1.36(H) 0.50 - 1.10 mg/dL LAB CHEMISTRY METHOD 10/11/2024 3:38 PM [facility] eGFR 40(L) >=60 mL/min/1. 73m2 LAB CHEMISTRY METHOD 10/11/2024 3:38 PM [facility] Comment:Calculation based on the??Chronic Kidney Disease Epidemiology Collaboration (CKD-EPI) equation refit??without adjustment for race. BUN/Creatinine Ratio 11.0 LAB CHEMISTRY METHOD 10/11/2024 3:38 PM [facility] Calcium 10.3 8.5 - 10.5 mg/dL LAB CHEMISTRY METHOD 10/11/2024 3:38 PM [facility] AST (SGOT) 21 10 - 42 unit/L LAB CHEMISTRY METHOD 10/11/2024 3:38 PM [facility] ALT (SGPT) 23 10 - 60 unit/L LAB CHEMISTRY METHOD 10/11/2024 3:38 PM [facility] Alkaline Phosphatase 93 42 - 121 unit/L LAB CHEMISTRY METHOD 10/11/2024 3:38 PM [facility] Total Protein 7.4 6.0 - 8.0 g/dL LAB CHEMISTRY METHOD 10/11/2024 3:38 PM [facility] Albumin 3.8 3.2 - 5.0 g/dL LAB CHEMISTRY METHOD 10/11/2024 3:38 PM [facility] Total Bilirubin 0.3 0.0 - 1.4 mg/dL LAB CHEMISTRY METHOD 10/11/2024 3:38 PM [facility] Blood Venous blood specimen / Unknown Venipuncture / Unknown 10/11/2024 12:40 PM EST 10/11/2024 1:10 PM EST Jessica Bonds FEEDER TENDER LAB BLOOD ORDERABLES Performing Organization Address City/[facility]/ZIP Co de Phone Number [facility] [address] [place] [address], [place] [phone] * (ABNORMAL) Vitamin D 25 hydroxy (10/11/2024 12:39 PM EST) [facility] Vit D, 25-Hydroxy 27.1(L) 30.0 - 80.0 ng/mL LAB CHEMISTRY METHOD 10/11/2024 2:28 PM EST [facility] Blood Venous blood specimen / Unknown Venipuncture / Unknown 10/11/2024 12:39 PM EST 10/11/2024 12:39 PM EST Jessica Bonds FEEDER TENDER LAB BLOOD ORDERABLES Performing Organization Address [facility] Co de Phone Number [facility] [address] [place] [address], [place] [phone] * Annual BMP Blood Test (08/30/2024) [facility] Annual BMP Blood Test Abstracted Historical Provider MD SUZANNE DIANE E * Urine Albumin Creatinine Ratio (12/17/2020) [facility] Urine Albumin Creatinine Ratio Abstarcted Historical Provider MD SUZANNE DIANE E * DXA BONE DENSITY STUDY 1+ SITS AXIAL SKEL (09/01/2020 10:52 AM EST) Anatomical Region Laterality Modality Bone Densitometr y 07/15/2019 9:03 AM EDT Narrative 09/01/2020 7:11 PM EST BONE DENSITY SCAN (DEXA): FINDINGS: Lumbar Spine T-score is 0.7. ?? (SD relative to 20-29 y/o adult) Z-score is 3.0. ??(SD relative to age matched peers) This is considered normal by WHO criteria. Left Hip T-score is -0.6. Z-score is 1.4. This is considered normal by WHO criteria. Comparison exam(s): 01/01/2014. ??6.1% increase in lumbar spine bone mineral density and 2.7% loss of left hip bone mineral density, both of which are statistically significant at the 95% confidence level. IMPRESSION: IMPRESSION: ?? Normal bone mineral density by WHO criteria. FRAX scores not able to be calculated. The [facility] Department of Internal Medicine recommends using National Osteoporosis Foundation (NOF) guidelines in treatment decisions related to osteoporosis. NOF guidelines suggest considering treatment for postmenopausal women and men aged 50 or older presenting with the following: History of hip or vertebral fracture. T-score = -2.5 (DXA) at the femoral neck, total hip, or spine, after appropriate evaluation to exclude secondary causes. Low bone mass (T-score between -1.0 and -2.5 at the femoral neck or spine) AND a 10-year probability of a hip fracture = 3% OR a 10-year probability of a major osteoporosis-related fracture = 20% based on the [place]-adapted WHO algorithm Please note that all treatment decisions require clinical judgment and consideration of individual patient factors, including patient preferences, co-morbidities, previous drug use, risk factors not captured in the FRAX model (e.g., frailty, falls, vitamin D deficiency, increased bone turnover, interval significant decline in bone density) and possible under- or over-estimation of fracture risk by FRAX. Optional alternative screening schedule based on leno Hoffmann., [facility] November 17, 2011 for patients with osteopenia (based on hip BMD T-score) is as follows: * ??advanced osteopenia (T scores -2.00 to -2.49), BMD testing every year * ??moderate osteopenia (T scores -1.50 to -1.99), BMD testing every 5 years mild osteopenia or normal BMD (T scores -1.50 and higher), BMD testing every 15 years Procedure Note Rachel Shipley MD - 10/18/2022 BONE DENSITY SCAN (DEXA): FINDINGS: Lumbar Spine T-score is 0.7. (SD relative to 20-29 y/o adult) Z-score is 3.0. (SD relative to age matched peers) This is considered normal by WHO criteria. Left Hip T-score is -0.6. Z-score is 1.4. This is considered normal by WHO criteria. Comparison exam(s): 01/01/2014. 6.1% increase in lumbar spine bonemineral density and 2.7% loss of left hip bone mineral density, both of which are statisticallysignificant at the 95% confidence level. IMPRESSION: IMPRESSION: Normal bone mineral density by WHO criteria. FRAX scores not able to be calculated. The [facility] Department of Internal Medicine recommendsusing National Osteoporosis Foundation (NOF) guidelines in treatment decisions related toosteoporosis. NOF guidelines suggest considering treatment for postmenopausal women and menaged 50 or older presenting with the following: History of hip or vertebral fracture. T-score = -2.5 (DXA) at the femoral neck, total hip, or spine, afterappropriate evaluation to exclude secondary causes. Low bone mass (T-score between -1.0 and -2.5 at the femoral neck or spine)AND a 10-year probability of a hip fracture = 3% OR a 10-year probability of a majorosteoporosis-related fracture = 20% based on the [place]-adapted WHO algorithm Please note that all treatment decisions require clinical judgment andconsideration of individual patient factors, including patient preferences, co- morbidities,previous drug use, risk factors not captured in the FRAX model (e.g., frailty, falls, vitaminD deficiency, increased bone turnover, interval significant decline in bone density) andpossible under- or over-estimation of fracture risk by FRAX. Optional alternative screening schedule based on leno Hoffmann., [facility] for patients with osteopenia (based on hip BMD T-score) is as follows: * advanced osteopenia (T scores -2.00 to -2.49), BMD testing every year * moderate osteopenia (T scores -1.50 to -1.99), BMD testing every 5years mild osteopenia or normal BMD (T scores -1.50 and higher), BMD testingevery 15 years Goldie HOLT DXA PROCEDURES * Hepatitis C Screening (03/20/2014) Pathologist [facility] Hepatitis C Screening Abstracted Historical Provider MD SUZANNE Malloy from Last 3 Months or Most Recently Relevant to Health Maintenance Care Teams Sawmill Tally Clerk Relationship Specialty Start Date End Date Jose Luis Younger MD [address] [facility] [address] [place] [address] PCP - General Internal Medicine 06/21/21
--- OUTSIDE RECORDS SUMMARY | 2024-11-23 17:52 | XMS_ITS | Encounter Summary ---
Author Organization [facility] Address [address] [place] [address] Care Team Providers Care Electrical Timing Device Calibrator Name Role Phone Jose Luis Younger MD Primary Care Provider [phone] Reason for Referral * Consultation (Routine) - Authorized Specialty Diagnoses / Procedures Referred By Naomi lópez Referred To Contact Nephrology Diagnoses Type 2 diabetes with nephropathy (CMS/HCC) Eun Alvares PA [address] [place] [address] [facility] Nephrology [address] Referral ID Status Reason Start Date Expiration Date Visits Requested Visits Authorized [id number] Authorized Specialty Services Required 11/07/2024 11/07/2025 1 1 Reason for Visit * Reason Comments Follow-up Thyroid Encounter Details Date Type Department Care Team (Late st Contact Info) Description 11/07/2024 11:00 AM EST Office Visit Endocrinology - [address] [phone] Eun Alvares PA [address] [place] [address] Type 2 diabetes with nephropathy (CMS/HCC) (Primary Dx); Stage 3b chronic kidney disease (CMS/HCC); Hypothyroidism, unspecified type Social History Tobacco Use Types Packs/Day Years Used Date Smoking Tobacco: Former Cigarettes Smokeless Tobacco: Never Alcohol Use Standard Drinks/Week Comments Yes 0 (1 standard drink = 0.6 oz pur e alcohol) Sex and Gender Information Value Date Recorded Sex Assigned at Not on file Gender Identity Not on file Sexual Orientation Not on file Job Start Date Occupation Industry Not on file Not on file Not on file documented as of this encounter Last Filed Vital Signs Vital Sign Reading Time Taken Comments Blood Pressure 110/68 11/07/2024 10:50 AM EST Pulse 70 11/07/2024 10:50 AM EST Temperature 36.4 ??C (97.6 ??F) 11/07/2024 10:[address] Respiratory Rate - - Oxygen Saturation - - Inhaled Oxygen Concentration - - Weight 76.2 kg (168 lb) 11/07/2024 10:50 AM EST Height 152.4 cm (5') 11/07/2024 10:50 AM EST Body Mass Index 32.81 11/07/2024 10:50 AM EST documented in this encounter Ordered Prescriptions Prescription Sig Dispensed Refills Start Date End Da te levothyroxine (SYNTHROID, LEVOTHROID) 50 mcg tablet Take 1 tablet each morning 30 each 5 11/07/2024 pen needle, diabetic (BD Ultra-Fine Veronica Pen Needle) 32 gauge x 5/32 needle Use with insulin pen once daily 100 each 1 11/07/2024 insulin glargine (Lantus Solostar U-100 Insulin) 100 unit/mL (3 mL) injection pen Use 4 units at bedtime, increase by 2 units every 3 days with a max dose of 10 units at bedtime 15 mL 1 11/07/2024 documented in this encounter Progress Notes * RADHA Vega - 11/07/2024 11:00 AM EST CHIEF COMPLAINT: Follow-up (Thyroid ) IDENTIFIER: Vanessa Ravi is a 79 y.o. old female HPI: Patient is a 79-year-old female presents today for follow up regarding hypothyroidism. Diagnosed more than 10 years ago. With diabetes, hypertension, CKD, GERD, IBS. Currently taking levothyroxine 50 mcg once daily TSH 1.88, now in normal range. Patient denies any features related to hypothyroidism/hyperthyroidism. Denies any neck radiation, thyroid surgery in the past. Has 2 kids, no history of miscarriage. No compressive symptoms. Patient's mother also had hypothyroidism and was on levothyroxine. Diabetes. Not well controlled. Last A1c 9.5%. Fasting sugars around 200. Did not check this morning. Patient is on glipizide, 2 tablets in the morning, 1 tablet in the evening. No longer taking metformin. CKD, GFR 40, CR 1.36. Has not seen a convenience store clerk in the recent times. No complaints of polyuria, polydipsia, nausea vomiting abdominal pain. Lab Results Component Value Date HGBA1C 9.5 (H) 10/11/2024 ROS: GENERAL: No malaise HEENT: No changes in hearing or vision RESPIRATORY: No cough, wheezing or shortness of breath CARDIOVASCULAR: No chest pain, leg swelling or palpitations GI: No abdominal discomfort ENDO: see HPI NEURO: No persistent headache, syncope PAST MEDICAL HISTORY: Patient Active Problem List Diagnosis Date Noted Other hyperlipidemia 10/11/2024 Mild intermittent asthma without complication 10/11/2024 Other specified hypothyroidism 10/11/2024 Spinal stenosis of lumbar region without neurogenic claudication 03/10/2021 Microalbuminuria 06/11/2018 Asthma 12/27/2017 Migraine headache 12/27/2017 Obesity (BMI 30-39.9) 12/27/2017 CKD stage 3 due to type 2 diabetes mellitus ([facility]/HCC) 09/12/2016 MDD (major depressive disorder) 12/20/2013 GERD (gastroesophageal reflux disease) 11/29/2013 HTN (hypertension) 11/29/2013 IBS (irritable bowel syndrome) 11/29/2013 Hyperlipidemia 11/29/2013 Hypothyroid 11/29/2013 Type 2 diabetes with nephropathy ([facility]) 11/29/2013 Past Surgical History: Procedure Laterality Date BREAST BIOPSY 2016 PROCEDURE: BX BREAST; PERC NEEDLE CORE W/IMAG GUID; COMMENT: rt. breast bx-benign TUBAL LIGATION PROCEDURE: HISTORICAL TUBAL LIGATION SOCIAL HISTORY: Social History Tobacco Use Smoking status: Former Current packs/day: 1.00 Types: Cigarettes Smokeless tobacco: Never Substance Use Topics Alcohol use: Yes FAMILY HISTORY: Family History Problem Relation Name Age of Onset Breast cancer Aunt mat 50s 80 Cervical cancer Mother 50.00 Family Status Relation Name Status Aunt mat 50s Mother (Not Specified) No partnership data on file MEDICATIONS DISCONTINUED/REORDERED: Medications Discontinued During This Encounter Medication Reason glipiZIDE (GLUCOTROL) 5 mg tablet Reorder levothyroxine (SYNTHROID, LEVOTHROID) 75 mcg tablet ACTIVE MEDICATIONS: Outpatient Medications Marked as Taking for the 11/07/24 encounter (Office Visit) with RADHA Vega Medication Sig Dispense Refill acetaminophen (TYLENOL) 500 mg tablet Take 1 tablet (500 mg total) by mouth every 6 (six) hours if needed. albuterol HFA (PROAIR HFA ; PROVENTIL HFA ; VENTOLIN HFA) 90 mcg/actuation inhaler INHALE 2 PUFFS INTO THE LUNGS FOUR TIMES A DAY NEEDED COUGH, WHEEZE, OR SHORTNESS OF BREATH 8.5 g 1 amphetamine-dextroamphetamine XR (ADDERALL XR) 30 mg 24 hr capsule cetirizine (ZyrTEC) 10 mg capsule Take 1 capsule (10 mg total) by mouth. diphenoxylate-atropine (LOMOTIL) 2.5-0.025 mg per tablet Take 1 tablet by mouth 4 (four) times a day if needed. Max Daily Amount: 4 tablets fluticasone propionate (FLONASE) 50 mcg/actuation nasal spray Administer 2 sprays into each nostril1 (one) time each day. Shake gently. Before first use, prime pump. After use, clean tip and replacecap. 16 g 3 fluticasone-salmeterol (ADVAIR DISKUS) 250-50 mcg/dose diskus inhaler Inhale 1 puff by mouth. gabapentin (NEURONTIN) 300 mg capsule glipiZIDE (GLUCOTROL) 5 mg tablet Take 1 tablet daily before breakfast lisinopriL (PRINIVIL,ZESTRIL) 10 mg tablet Take 1 tablet (10 mg total) by mouth 1 (one) time each day. 90 tablet 1 lovastatin (MEVACOR) 40 mg tablet TAKE ONE TABLET BY MOUTH AT BEDTIME 90 tablet 1 omeprazole (PriLOSEC) [address] capsule TAKE TWO CAPSULES BY MOUTH DAILY 180 capsule 1 tiZANidine (ZANAFLEX) 2 mg tablet Take 1 tablet (2 mg total) by mouth every 6 (six) hours if neededfor muscle spasms. 30 tablet 1 [DISCONTINUED] glipiZIDE (GLUCOTROL) 5 mg tablet TAKE ONE TABLET BY MOUTH TWO TIMES A DAY BEFORE MEALS 180 tablet 1 [DISCONTINUED] levothyroxine (SYNTHROID, LEVOTHROID) 75 mcg tablet ALLERGIES: Patient has no known allergies. PHYSICAL EXAM: Blood pressure 110/68, pulse 70, temperature 36.4 ??C (97.6 ??F), height 1.524 m (60 ), weight 76.2kg (168 lb). Body mass index is 32.81 kg/m??. BMI is greater than 25.0 (above the normal range) - see Plan APPEARANCE: Alert and in no acute distress HEART: RRR LUNG: clear to auscultation NEURO: Awake, alert LABS: Lab Results Component Value Date HGBA1C 9.5 (H) 10/11/2024 Lab Results Component Value Date LDLCALC 72 10/11/2024 CREATININE 1.36 (H) 10/11/2024 MICROALBCREA Abstarcted 12/17/2020 Lab Results Component Value Date GLUCOSE 124 (H) 10/11/2024 IMAGING: IMPRESSION: 1. Type 2 diabetes with nephropathy ([facility]/HCC) 2. Stage 3b chronic kidney disease ([facility]) 3. Hypothyroidism, unspecified type PLAN: Diabetes complicated with CKD: Referral to nephrology for further evaluation. Discussed tight glucose control's to avoid worsening CKD. Also discussed long-acting insulin which patient is agreeable to. Glipizide reduced to 5 mg just 1 tablet before breakfast. Start Lantus 4 units, increase by 2 units every 3 days with a max of 10 units of fasting sugars remain over 150. She will bring in a glucose log at the next visit with me in 6 to 8 weeks. Pen teaching done in the office by me. Hypothyroidism: TSH in normal range now continue with levothyroxine 50 mcg once daily. Proper use of medication discussed. Return here in 6 to 8 weeks for reevaluation of diabetes. Medication and lab orders: Orders Placed This Encounter Procedures Ambulatory referral to Nephrology AMB REFERRAL TO NEPHROLOGY RADHA Paez on 11/07/2024 at 1:47 PM EST documented in this encounter Plan of Treatment Upcoming Encounters Date Type Department Care Team (Late st Contact Info) Description 11/25/2024 1:30 PM EST Office Visit Internal Medicine - [place] 175 [facility] [address] [place] [phone] Jose Luis Younger MD 175 [facility] [place], [place] [id number] 12/11/2024 4:00 PM EST Office Visit Vascular Surgery - [place] 300 [facility] [address] [place] [address] Rashmi Zaidi PA 300 [facility] [address] [place] [address] 01/13/2025 8:20 AM EDT Office Visit [place] [facility] [address] [place] [address] Eun Alvares PA [address] [place] [address] Scheduled Referrals Name Type Priority Associated Diagnoses Order Schedule Ambulatory referral to Nephrology Outpatient Referral Routine Type 2 diabetes with nephropathy ([facility]/HCC) 1 Occurrences starting 11/07/2024 until 11/07/2025 documented as of this encounter Visit Diagnoses Diagnosis Type 2 diabetes with nephropathy ([facility]/HCC)- Primary Stage 3b chronic kidney disease ([facility]) Hypothyroidism, unspecified type documented in this encounter Discontinued Medications Medication Sig Discontinue Reason Start Date End Da te glipiZIDE (GLUCOTROL) 5 mg tablet TAKE ONE TABLET BY MOUTH TWO TIMES A DAY BEFORE MEALS Reorder 10/28/2024 11/07/2024 levothyroxine (SYNTHROID, LEVOTHROID) 75 mcg tablet 06/14/2024 11/07/2024 documented as of this encounter Historical Medications * This list may reflect changes made after this encounter. Medication Sig Dispensed Refills Start Date End Date glipiZIDE (GLUCOTROL) 5 mg tablet Take 1 tablet daily before breakfast 11/07/2024 fluticasone-salmeterol (ADVAIR DISKUS) 250-50 mcg/dose diskus inhaler Inhale 1 puff by mouth. 10/10/2022 diphenoxylate-atropine (LOMOTIL) 2.5-0.025 mg per tablet Take 1 tablet by mouth 4 (four) times a day if needed. 05/31/2024 acetaminophen (TYLENOL) 500 mg tablet Take 1 tablet (500 mg total) by mouth every 6 (six) hours if needed. 08/04/2023 ARIPiprazole (ABILIFY) 5 mg tablet Take 1 tablet (5 mg total) by mouth. cetirizine (ZyrTEC) 10 mg capsule Take 1 capsule (10 mg total) by mouth. 07/19/2021 amphetamine-dextroamphe tamine XR (ADDERALL XR) 30 mg 24 hr capsule 08/08/2024 gabapentin (NEURONTIN) 300 mg capsule 10/11/2024 levothyroxine (SYNTHROID, LEVOTHROID) 75 mcg tablet 06/14/2024 11/07/2024 added in this encounter Care Teams Electrical Timing Device Calibrator Relationship Specialty Start Date End Date Jose Luis Younger MD [address] [place] [address] PCP - General Internal Medicine 06/21/21 documented as of this encounter
--- OUTSIDE RECORDS SUMMARY | 2024-11-23 17:52 | XMS_ITS | Encounter Summary ---
Author Organization [facility] Address [address] [place] [address] Care Team Providers Care Rn Clinical Quality Name Role Phone Jose Luis Younger MD Primary Care Provider [phone] Reason for Visit * Reason Onset Date Comments Hospital Follow-up 11/21/2024 Encounter Details Date Type Department Care Team (Late st Contact Info) Description 11/21/2024 Telephone Internal Medicine - [place] 175 [facility] 200 [place] [address] Jose Luis Younger MD 175 [facility] 200 [place] [address] Hospital Follow-up Social History Tobacco Use Types Packs/Day Years [...] on file documented as of this encounter Progress Notes * Daysi Geronimo RN - 11/21/2024 9:47 AM EST Pt called back, spoke w/ her. Appt booked D/c printed * Daysi Geronimo RN - 11/21/2024 9:24 AM EST Call to pt # [phone], left message for pt to call us back * Roselyn Vu - 11/21/2024 8:53 AM EST Patient called and stated that she was in [facility] on 11/17/24 and was discharged yesterday due to pneumonia and would like to see her provider as soon as possible. Please advise Cb# [phone] documented in this encounter Plan of Treatment Upcoming Encounters Date Type Department Care Team (Late st Contact Info) Description 11/25/2024 1:30 PM EST Office Visit Internal Medicine - [place] [address] [phone] Jose Luis Younger MD [address] [address] 12/11/2024 4:00 PM EST Office Visit Vascular Surgery - [place] 300 [facility] [address] [place] [address] Rashmi Zaidi PA 300 [facility] [address] [place] [address] 01/13/2025 8:20 AM EDT Office Visit Endocrinology [facility] [address] [place] [address] Eun Alvares PA [address] [place] [address] documented as of this encounter Visit Diagnoses Not on filedocumented in this encounter Additional Health Concerns Assessment Noted Time PHQ-9 Depression Total Score: 0 11/15/19 9:03 AM EST A fall risk assessment has been complete d for the patient 11/15/2024 9:00 AM EST documented as of this encounter Care Teams Rn Clinical Quality Relationship Specialty Start Date End Date Jose Luis Younger MD [address] [address] PCP - General Internal Medicine 06/21/21 documented as of this encounter
--- OUTSIDE RECORDS SUMMARY | 2024-11-23 17:52 | XMS_ITS | Encounter Summary ---
Author Organization [facility] Address [address] [place] [address] Care Team Providers Care Truck Rental Service Attendant Name Role Phone Jose Luis Younger MD Primary Care Provider [phone] Reason for Visit * Reason Onset Date Comments New Med Request 11/22/2024 Encounter Details Date Type Department Care Team (Late Contact Info) Description 11/22/2024 Telephone [facility] [address] [place] [phone] Eun Alvares PA [address] [place] [address] New Med Request Social History Tobacco Use Types Packs/Day Years [...] as of this encounter Progress Notes * Anel Martinez - 11/22/2024 9:37 AM EST Patient would like an order for sensors sent to her pharmacy . Please call her at [phone] documented in this encounter Plan of Treatment Upcoming Encounters Date Type Department Care Team (Late st Contact Info) Description 11/25/2024 1:30 PM EST Office Visit Internal Medicine - [place] 175 [facility] 200 [place] [phone] Jose Luis Younger MD 175 [facility] 200 [place] [address] 12/11/2024 4:00 PM EST Office Visit Vascular Surgery - [place] 300 [facility] [address] [place] [address] Rashmi Zaidi PA 300 [facility] [address] [place] [address] 01/13/2025 8:20 AM EDT Office Visit Endocrinology - [place] [address] [place] [address] Eun Alvares PA [address] [place] [address] documented as of this encounter Visit Diagnoses Not on filedocumented in this encounter Additional Health Concerns Assessment Noted Time PHQ-9 Depression Total Score: 0 11/15/19 9:03 AM EST A fall risk assessment has been complete d for the patient 11/15/2024 9:00 AM EST documented as of this encounter Care Teams Truck Rental Service Attendant Relationship Specialty Start Date End Date Jose Luis Younger MD [address] [address] PCP - General Internal Medicine 06/21/21 documented as of this encounter
--- OUTSIDE RECORDS SUMMARY | 2024-11-23 17:52 | XMS_ITS | Encounter Summary ---
Author Organization [facility] Address [address] [place] [address] Care Team Providers Care Sewage Disposal Worker Name Role Phone Jose Luis Younger MD Primary Care Provider [phone] Encounter Details Date Type Department Care Team (Late Contact Info) Description 10/28/2024 Telephone Internal Medicine - [place] [address] [phone] Jose Luis Younger MD 175 [facility] 200 [place] [address] Social History Tobacco Use Types Packs/Day Years [...] on file documented as of this encounter Plan of Treatment Upcoming Encounters Date Type Department Care Team (Late Contact Info) Description 11/25/2024 1:30 PM EST Office Visit Internal Medicine - [place] [address] [phone] Jose Luis Younger MD [address] [address] 12/11/2024 4:00 PM EST Office Visit Vascular Surgery - [place] 300 [facility] [address] [place] [phone] Rashmi Zaidi PA 300 [facility] [address] [place] [address] 01/13/2025 8:20 AM EDT Office Visit Endocrinology - [place] [address] [place] [address] Eun Alvares PA [address] [place] [address] documented as of this encounter Visit Diagnoses Not on filedocumented in this encounter Care Teams Sewage Disposal Worker Relationship Specialty Start Date End Date Jose Luis Younger MD [address] [place] [address] PCP - General Internal Medicine 06/21/21 documented as of this encounter
--- OUTSIDE RECORDS SUMMARY | 2024-11-23 17:52 | XMS_ITS | Encounter Summary ---
Author Organization [facility] Address [address] [place] [address] Care Team Providers Care Polymer Chemist Name Role Phone Jose Luis Younger MD Primary Care Provider [phone] Reason for Visit * Reason Comments Medicare Annual Wellness Visit [facility] Encounter Details Date Type Department Care Team ([facility] st Contact Info) Description 11/15/2024 8:30 AM EST Office Visit Internal Medicine - [place] 175 [facility] 200 [place] [phone] Jose Luis Younger MD 175 [facility] 200 [place] [address] Primary hypertension (Primary Dx); Hypercholesterolemia; Other specified hypothyroidism; Chronic bilateral low back pain with sciatica, sciatica laterality unspecified Social History Tobacco Use Types Packs/Day Years [...] Mass Index 31.44 11/15/2024 8:59 AM EST documented in this encounter Ordered Prescriptions Prescription Sig Dispensed Refills Start Date End Da te amLODIPine (NORVASC) 5 mg tablet Take 1 tablet (5 mg total) by mouth 1 (one) time each day. 30 each 5 11/15/2024 05/14/2025 tiZANidine (ZANAFLEX) 4 mg tablet Take 1 tablet (4 mg total) by mouth 1 (one) time each day if needed for muscle spasms. 30 tablet 3 11/15/2024 documented in this encounter Progress Notes * Jose Luis Younger MD - 11/15/2024 8:30 AM ESTAssociated Problem(s): HTN (hypertension) Hypertension not under control on lisinopril added amlodipine 5 mg daily * Jose Luis Younger MD - 11/15/2024 8:30 AM ESTAssociated Problem(s): Other specified hypothyroidism Hypothyroidism is stable on Levoxyl * Jose Luis Younger MD - 11/15/2024 8:30 AM EST Images from the original note were not included. Medicare Annual Wellness Visit Note Patient Name: Vanessa Ravi Date of : 1945 Race: White Vanessa chose not to disclose race. This has been discussed with the patient and they still prefer not to disclose their race. Ethnicity: Not Hispan/Lat Date of Service: 11/15/2024 Vanessa is a 79 y.o. female presenting for Medicare Annual Wellness Visit Subsequent History of Present Illness HPI Hypertension is not well-controlled. diabetes currently on Lantus insulin, glipizide started recently by endocrine. Hypothyroidism ,stable hyperlipidemia is under control .chronic back pain from spinal stenosis, plans to have surgery next month Comprehensive Medical and Social History: Patient Active Problem List Diagnosis Other hyperlipidemia Mild intermittent asthma without complication Other specified hypothyroidism Asthma CKD stage 3 due to type 2 diabetes mellitus ([facility]) GERD (gastroesophageal reflux disease) HTN (hypertension) IBS (irritable bowel syndrome) Hyperlipidemia Hypothyroid MDD (major depressive disorder) Microalbuminuria Migraine headache Obesity (BMI 30-39.9) Spinal stenosis of lumbar region without neurogenic claudication Type 2 diabetes with nephropathy ([facility]) No Known Allergies Current Outpatient Medications Medication Sig Dispense Refill acetaminophen (TYLENOL) 500 [...] (ADDERALL XR) 30 mg 24 hr capsule ARIPiprazole (ABILIFY) 5 mg tablet Take 1 tablet (5 mg total) by mouth. cetirizine (ZyrTEC) 10 mg capsule Take 1 capsule (10 mg total) by mouth. diphenoxylate-atropine (LOMOTIL) 2.5-0.025 mg per tablet Take 1 tablet by mouth 4 (four) times a day if needed. fluticasone propionate (FLONASE) 50 mcg/actuation nasal spray Administer 2 sprays into each nostril1 (one) time each day. Shake gently. Before first use, prime pump. After use, clean tip and replacecap. 16 g 3 fluticasone-salmeterol (ADVAIR DISKUS) 250-50 mcg/dose diskus inhaler Inhale 1 puff by mouth. gabapentin (NEURONTIN) 300 mg capsule glipiZIDE (GLUCOTROL) 5 mg tablet Take 1 tablet daily before breakfast insulin glargine (Lantus Solostar U-100 Insulin) 100 unit/mL (3 mL) injection pen Use 4 units at bedtime, increase by 2 units every 3 days with a max dose of 10 units at bedtime 15 mL 1 levothyroxine (SYNTHROID, LEVOTHROID) 50 mcg tablet Take 1 tablet each morning 30 each 5 lisinopriL (PRINIVIL,ZESTRIL) 10 mg tablet Take 1 tablet (10 mg total) by mouth 1 (one) time each day. 90 tablet 1 lovastatin (MEVACOR) 40 mg tablet TAKE ONE TABLET BY MOUTH AT BEDTIME 90 tablet 1 omeprazole (PriLOSEC) [address] capsule TAKE TWO CAPSULES BY MOUTH DAILY 180 capsule 1 pen needle, diabetic (BD Ultra-Fine Veronica Pen Needle) 32 gauge x 5/32 needle Use with insulin pen once daily 100 each 1 tiZANidine (ZANAFLEX) 2 mg tablet Take 1 tablet (2 mg total) by mouth every 6 (six) hours if neededfor muscle spasms. 30 tablet 1 No current facility-administered medications for this visit. Past Medical History: Diagnosis Date Asthma 12/27/2017 DX:Asthma Diarrhea DX:Diarrhea GERD (gastroesophageal reflux disease) 11/29/2013 DX:GERD (gastroesophageal reflux disease) HTN (hypertension) 11/29/2013 DX:HTN (hypertension) Hyperlipidemia 11/29/2013 DX:Hyperlipidemia Hypothyroid 11/29/2013 DX:Hypothyroid IBS (irritable bowel syndrome) 11/29/2013 DX:IBS (irritable bowel syndrome) MDD (major depressive disorder) 12/20/2013 DX:MDD (major depressive disorder); COMMENT: Sees Psychiatry at [facility] (Cher Bhatia) prescribed Abilify and adderall Microalbuminuria 06/11/2018 DX:Microalbuminuria Migraine headache 12/27/2017 DX:Migraine headache Obesity (BMI 30-39.9) 12/27/2017 DX:Obesity (BMI 30-39.9) Type 2 diabetes with nephropathy (CMS/HCC) 11/29/2013 DX:Type 2 diabetes with nephropathy (HCC) Past Surgical History: Procedure Laterality Date BREAST BIOPSY 2016 PROCEDURE: BX BREAST; PERC NEEDLE CORE W/IMAG GUID; COMMENT: rt. breast bx-benign TUBAL LIGATION PROCEDURE: HISTORICAL TUBAL LIGATION Social History Socioeconomic History Marital status: Spouse name: Not on file Number of children: Not on file Years of education: Not on file Highest education level: Not on file Occupational History Not on file Tobacco Use Smoking status: Former Current packs/day: 1.00 Types: Cigarettes Smokeless tobacco: Never Substance and Sexual Activity Alcohol use: Yes Drug use: No Sexual activity: Not on file Other Topics Concern Not on file Social History Narrative Not on file Family History Problem Relation Name Age of Onset Breast cancer Aunt mat 50s 80 Cervical cancer Mother 50.00 Immunizations: Immunization History Administered Date(s) Administered COVID-19 (Pfizer/Comirnaty) 12yo and older 09/04/2023 Influenza Quadravalent, 0.5ml (Fluzone High-dose) 65yo and older 07/29/2020, 09/02/2021, 08/31/2022 Influenza Quadravalent, MDCK, 0.5ml, preservative free (Flucelvax) 6mo and older 10/16/2018 Influenza trivalent, 0.5mL (Fluad) 65yo and older 10/29/2019 Influenza trivalent, 0.5mL (Fluzone High-dose) 65yo and older 08/17/2016, 07/12/2017 Influenza trivalent, with preservative (Fluzone; Afluria) 6mo and older 10/01/2014, 09/21/2015 Moderna SARS-CoV-2 COVID-19, mRNA, LNP-S, preservative free 01/11/2021, 02/08/2021 Pfizer (ages 12 & older) Bivalent, COVID-19 08/31/2022 Pfizer SARS-CoV-2 COVID-19, mRNA, LNP-S, preservative free 09/02/2021 Pneumococcal conjugate 13 valent (Prevnar 13, PCV13) 2mo and older 09/14/2016 Pneumococcal polysaccharide 23 valent (Pneumovax 23) 2yo and older 06/12/2015 Tdap Tetanus diptheria acellular pertussis (Boostrix; Adacel) 7yo and older 06/12/2015 Hospitalization in the last year: Has not been hospitalized in the past 12 months. Current Providers and Suppliers: Patient Care Team: Jose Luis Younger MD as PCP - General (Internal Medicine) Patient does not have/use current medical supplier Risk Assessments: Cognitive Function Assessment No cognitive concerns, No screenings indicated. Depression Screening (PHQ2/9): Depression Screening Will the patient answer the depression risk questions?: Yes Over the last 2 weeks, how often have you been bothered by little interest or pleasure in doing things?: Not at all Over the last 2 weeks, how often have you been bothered by feeling down, depressed, or hopeless?: Not at all Depression Risk: 0 PHQ9 Full Set of Questions Over the last 2 weeks, how often have you been bothered by little interest or pleasure in doing things?: Not at all Over the last 2 weeks, how often have you been bothered by feeling down, depressed, or hopeless?: Not at all Depression Risk Score NEW: 0 Depression Plan : Screen was negative Anxiety Screening: Alcohol Screening: Substance Abuse Screening: Pain: Pain Medications: Patient does not take any opioid medications BMI: Body mass index is 31.44 kg/m??. The BMI is in the acceptable range. Functional Ability and Level of Safety Review Health Status: In general, the patient reports health as: fair In general, patient reports life as: excellent Patient reports sleep pattern as: restless Have you seen a dentist in the last year?: No Activity of Daily Living (ADLs): Do you need help from others for your personal care such as eating, dressing, toileting, or gettingaround the house?: No Do you experience incontinence?: No Instrumental Activities of Daily Living (IADLs): Do you need help with using the telephone?: No Do you need help with shopping?: No Do you need help with food preparation?: No Do you need help with housekeeping?: No Do you need help with laundry?: No Do you need help handling finances?: No Do you drive?: Yes Do you manage your own medication?: Yes, independent Physical Activity: Do you exercise for about 20 minutes or more three days a week?: No Nutritional Assessment: Do you eat a balanced diet including daily serving of fruits, vegetables, and whole grains?: Yes, sometimes Social Influencer of Health (SIOH): Sexual Health: Have you been bothered by sexual problems: No Fall Risk: Have you fallen in the past year? no. Are you worried about falling? no. . Hearing: No data recorded Vision Screening: Required for Medicare Initial Preventative Physical Exam (IPPE) No data recorded Objective BP (!) 158/72 (BP Location: Left arm, Patient Position: Sitting, BP Cuff Size: Adult long) Pulse 92 Temp 36.2 ??C (97.2 ??F) (Temporal) Ht 1.524 m (60 ) Wt 73 kg (161 lb) BMI 31.44 kg/m?? SpO2: 93 % Physical Exam Cardiovascular heart rate normal .lungs clear .abdomen negative Assessment/Plan Patient presented today for an Initial Medicare Wellness Visit with management of chronic condition(s). Assessment & Plan Primary hypertension Hypertension not under control on lisinopril added amlodipine 5 mg daily Hypercholesterolemia Hyperlipidemia stable on lovastatin Other specified hypothyroidism Hypothyroidism is stable on Levoxyl Chronic bilateral low back pain with sciatica, sciatica laterality unspecified Chronic spinal stenosis plans to have surgery next month .tizanidine at called for at bedtime. Advance Care Planning Discussion: Advance Care Planning was discussed. Vanessa reports that she does not have advance directives or surrogate decision maker. Patient has not identified their surrogate decision maker. During the visit we discussed: Available Advanced Directive forms discussed A total time of 16 minutes or greater was spent on Advance Care Planning today :No Fall Prevention Education Discussed: clear pathways/stairs Health Maintenance Topic Date Due Diabetes: Annual Foot Exam Never done Diabetes: Annual Retina Eye Exam Never done Zoster Vaccines (1 of 2) Never done RSV Immunization Patients 60+ Years Old (1 - 1-dose 75+ series) Never done Depression Screening Never done Social Influencers of Health Screening Never done Medicare Annual Wellness Visit Never done Diabetes: Annual Urine Albumin-Creatinine Ratio (uACR) 10/12/2022 Influenza Vaccine (1) 06/30/2024 COVID-19 Vaccine ( season) 2024 Diabetes: Blood Sugar Control Test (HGBA1C) 04/11/2025 DTaP,Tdap,and Td Vaccines (3 - Td or Tdap) 06/12/2025 Diabetes: Annual GFR (Glomerular Filtration Rate) 10/11/2025 Hypertension/CHF/CAD Annual BMP Blood Test 10/11/2025 Falls Risk Assessment 11/15/2025 Cholesterol Screening (Lipid Panel) 10/11/2029 Osteoporosis Screening (Bone Density Screening) 09/01/2030 Pneumococcal Vaccine: 65+ Years Completed Hepatitis C Screening Completed HIB Vaccines Aged Out Hepatitis B Vaccines Aged Out IPV Vaccines Aged Out Hepatitis A Vaccines Aged Out MMR Vaccines Aged Out Varicella Vaccines Aged Out Meningococcal ACWY Vaccine Aged Out HPV Vaccines Aged Out RSV Immunization Patients Under 20 months Aged Out Jose Luis Younger MD INTERNAL MEDICINE - [address] 200 [facility] [address] Dept: [phone] Dept documented in this encounter Plan of Treatment Upcoming Encounters Date Type Department Care Team ([facility] st Contact Info) Description 11/25/2024 1:30 PM EST Office Visit Internal Medicine - [place] [address] [address] Jose Luis Younger MD 175 [facility] 200 [place] [address] 12/11/2024 4:00 PM EST Office Visit Vascular Surgery - [place] 300 [facility] 210 [place] [address] Rashmi Zaidi PA 300 [facility] 210 [place] [address] 01/13/2025 8:20 AM EDT Office Visit [place] [facility] [address] [place] [address] Eun Alvares PA [address] [place] [address] documented as of this encounter Visit Diagnoses Diagnosis Primary hypertension- Primary Unspecified essential hypertension Hypercholesterolemia Pure hypercholesterolemia Other specified hypothyroidism Chronic bilateral low back pain with sciatica, sciatica laterality unspecified documented in this encounter Discontinued Medications Medication Sig Discontinue Reason Start Date End Da te tiZANidine (ZANAFLEX) 2 mg tabletIndications:Bilate ral leg pain Take 1 tablet (2 mg total) by mouth every 6 (six) hours if needed for muscle spasms. 10/11/2024 11/15/2024 documented as of this encounter Additional Health Concerns Assessment Noted Time PHQ-9 Depression Total Score: 0 11/15/19 25 9:03 AM EST A fall risk assessment has been complete d for the patient 11/15/2024 9:00 AM EST documented as of this encounter Care Teams Polymer Chemist Relationship Specialty Start Date End Date Jose Luis Younger MD [address] [address] PCP - General Internal Medicine 06/21/21 documented as of this encounter
--- OUTSIDE RECORDS SUMMARY | 2024-11-23 17:52 | XMS_ITS | Encounter Summary ---
Author Organization [facility] Address [address] [place] [address] Care Team Providers Care Media Relations Associate Name Role Phone Jose Luis Younger MD Primary Care Provider [phone] Reason for Visit * Reason Onset Date Comments Provider call back 11/19/2024 Encounter Details Date Type Department Care Team (Late st Contact Info) Description 11/19/2024 Telephone Internal Medicine - [place] 175 [facility] [address] [place] [address] Jose Luis Younger MD 175 [facility] 200 [place] [address] Provider call back Social History Tobacco Use Types Packs/Day Years [...] of this encounter Progress Notes * Daysi Geronimo, MARILEE - 11/19/2024 1:28 PM EST Pt has an endo provider who manages her DM Last saw Giorgio GARCIA 11/07/2024 Call to pt # [phone], spoke w/ the pt. I told her about the call from [facility] and that she needs to follow up with her endocrine and follow the new recs from her endo provider. She has no upcoming appt w/ us, I asked if she wanted to book onefor the future and she said not right now. She tells me she is currently in the hospital with pneumonia, since Monday. She is unsure of her d/c. She will call us back as needed for hospital follow up upon her d/c * Humaira Acuna - 11/19/2024 1:10 PM EST Toshia from Spine dept [facility] called regarding patient. She stated patient was supposed to have back surgery but when she got recent labs done, her A1C levels were super high and she hasto cancel the surgery. She requested to speak with someone to follow up with PCP regarding this because she still wants patient to have back surgery in future. Callback [phone] documented in this encounter Plan of Treatment Upcoming Encounters Date Type Department Care Team (Late st Contact Info) Description 11/25/2024 1:30 PM EST Office Visit Internal Medicine - [place] 175 [facility] 200 [place] [address] Jose Luis Younger MD 175 [facility] 200 [place] [address] 12/11/2024 4:00 PM EST Office Visit Vascular Surgery - [place] 300 [facility] [address] [place] [address] Rashmi Zaidi PA 300 [facility] 210 [place] [address] 01/13/2025 8:20 AM EDT Office Visit Endocrinology - [place] [address] [place] [address] Eun Alvares PA [address] [place] [address] documented as of this encounter Visit Diagnoses Not on filedocumented in this encounter Additional Health Concerns Assessment Noted Time PHQ-9 Depression Total Score: 0 11/15/19 25 9:03 AM EST A fall risk assessment has been complete d for the patient 11/15/2024 9:00 AM EST documented as of this encounter Care Teams Media Relations Associate Relationship Specialty Start Date End Date Jose Luis Younger MD 175 [place] [phone] PCP - General Internal Medicine 06/21/21 documented as of this encounter
[2024-11-23] MEDS: Albuterol/Iprat 2.5/0.5MG 3 ML AMPUL.NEB INHALE (18:19)
[2024-11-23 18:20] VITALS: PULSE 57; RESP 18; O2SAT 100
[2024-11-23 18:53] VITALS: BP 163/92; PULSE 72; RESP 18; O2SAT 98
--- NOTE | 2024-11-23 19:33 | PC.NURSE ---
Took over care from MARILEE Navarro, pt resting in bed at this time, no sign of respiratory distress.
[2024-11-23 20:03] LABS: Anion Gap 15 (12-20); Blood Urea Nitrogen 27 mg/dL (9-16); Carbon Dioxide 24 mmol/L (22-29); Chloride 106 mmol/L (96-108); Creatinine Clr Calc Pharmacy 36.9; Estimated Glomerular Filt Rate 46; Glucose Random 155 mg/dL (60-115); Potassium 4.7 mmol/L (3.3-5.1); Sodium 140 mmol/L (135-145)
[2024-11-23 20:41] VITALS: BP 137/71; PULSE 66; RESP 16; TEMP 37.1; O2SAT 98
--- NOTE | 2024-11-23 20:41 | PC.NURSE ---
Pt a&o, no sob or chest pain, reviewed discharge instructions with pt. pt verbalized understanding.
[2024-11-23 20:45] VITALS: BP 137/71; PULSE 66; RESP 16; TEMP 37.1; O2SAT 98
== END 2024-11-23 20:45 | disposition home or self-care (01) ==
PROVIDERS: Physician Assistant; Emergency Provider Emergency Medicine Emergency Medical Services; PCP Internal Medicine
DX: E11.65 Type 2 diabetes mellitus with hyperglycemia (principal); N17.9 Acute kidney failure, unspecified; R06.02 Shortness of breath; J45.909 Unspecified asthma, uncomplicated; Z87.891 Personal history of nicotine dependence; Z79.4 Long term (current) use of insulin
CPT/HCPCS: 36415; 80048; 80076; 82010; 82803; 82947; 83690; 85025; 94640; 96360; 99284; 99285

== ENCOUNTER 2024-11-26 06:10 | Outpatient (REF) | payer MEDICARE, SELFPAY ==
--- NOTE | ~2024-11-26 | FL_ITS ---
EXAMINATION: FL GUIDANCE ONLY HISTORY: M48.00 - Spinal stenosis, site unspecified COMPARISON: None available. TECHNIQUE: Fluoroscopy time: 0.4 minutes. Cumulative Dose: 7.63 mGy. DAP: 0.123 uGy-m2 (microgray-meter squared). Images: 2. FINDINGS: Images demonstrate needles and contrast adjacent to the bilateral L4 pedicles. FL/FL guidance in treatment room IMPRESSION: Fluoroscopy during procedure. Please see procedure report for additional information. Electronically signed by: Sahil Ruiz MD 11/27/2024 07:33 AM GASTON MOHAMUD
--- OUTSIDE RECORDS SUMMARY | 2024-11-26 06:12 | XMS_ITS | Encounter Summary ---
Author Organization [facility] Address [address] [place] [address] Care Team Providers Care Physician Practice Market Manager Name Role Phone Jose Luis Younger MD Primary Care Provider [phone] Encounter Details Date Type Department Care Team (Late Contact Info) Description 10/28/2024 Telephone Internal Medicine [facility] 175 [facility] 200 [place] [phone] Jose Luis Younger MD [address] [facility] 200 [place] [address] Social History Tobacco Use Types Packs/Day Years [...] Department Care Team (Late Contact Info) Description 12/11/2024 4:00 PM EST Office Visit Vascular Surgery - [place] 300 [facility] 210 [place] [address] Rashmi Zaidi PA 300 [facility] 210 [place] [address] 01/13/2025 8:20 AM EDT Office [place] [facility] [address] [place] [phone] Eun Alvares PA [address] [place] [address] documented as of this encounter Visit Diagnoses Not on filedocumented in this encounter Care Teams Physician Practice Market Manager Relationship Specialty Start Date End Date Jose Luis Younger MD [address] [place] [address] PCP - General Internal Medicine 06/21/21 documented as of this encounter
--- OUTSIDE RECORDS SUMMARY | 2024-11-26 06:12 | XMS_ITS | Encounter Summary ---
Author Organization [facility] Address [address] [place] [address] Care Team Providers Care Hydration Plant Operator Name Role Phone Jose Luis Younger MD Primary Care Provider [phone] Reason for Visit * Reason Comments Medicare [facility] Encounter Details Date Type Department Care Team ([facility] st Contact Info) Description 11/15/2024 8:30 AM EST Office Visit Internal Medicine - [place] 175 [facility] 200 [place] [phone] Jose Luis Younger MD 175 [facility] 200 [place] [address] Primary hypertension (Primary Dx); Hypercholesterolemia; Other specified [...] 3 due to type 2 diabetes mellitus ([facility]) GERD (gastroesophageal reflux disease) HTN (hypertension) IBS (irritable bowel syndrome) Hyperlipidemia Hypothyroid MDD (major depressive disorder) Microalbuminuria Migraine headache Obesity (BMI 30-39.9) Spinal stenosis of lumbar region without neurogenic claudication Type 2 diabetes with nephropathy ([facility]) No Known Allergies Current Outpatient Medications Medication [...] (major depressive disorder); COMMENT: Sees Psychiatry at [facility] (Cher Bhatia) prescribed Abilify and adderall [...] Jose Luis Younger MD INTERNAL MEDICINE - [address] [facility] [address] Dept: [phone] Dept documented in this encounter Plan of Treatment Upcoming Encounters Date Type Department Care Team ([facility] st Contact Info) Description 12/11/2024 4:00 PM EST Office Visit Vascular Surgery - [place] [address] [place] [address] Rashmi Zaidi PA 300 [facility] 210 [place] [address] 01/13/2025 8:20 AM EDT Office Visit Endocrinology - [place] [address] [place] [address] Eun Alvares PA [address] [place] [address] documented as of this encounter Visit Diagnoses [...] documented as of this encounter Care Teams Hydration Plant Operator Relationship Specialty Start Date End Date Jose Luis Younger MD [address] [place] [address] [facility] [address] [place] [address] PCP - General Internal Medicine 06/21/21 documented as of this encounter
--- OUTSIDE RECORDS SUMMARY | 2024-11-26 06:12 | XMS_ITS | Encounter Summary ---
Author Organization [facility] Address [address] [place] [address] Care Team Providers Care Vocational Rehabilitation Specialist Name Role Phone Jose Luis Younger MD Primary Care Provider [phone] Reason for Visit * Reason Comments Hospital Follow-up Encounter Details Date Type Department Care Team ([facility] st Contact Info) Description 11/25/2024 1:30 PM EST Office Visit Internal Medicine - [place] [address] [facility] [address] [place] [phone] Jose Luis Younger MD [address] [facility] [address] [place] [address] Hospital discharge follow-up (Primary Dx); Moderate persistent asthma with acute exacerbation; Pneumonia of right lower lobe due to infectious organism; Type 2 diabetes mellitus without complication, with long-term current use of insulin ([facility]) Social History Tobacco Use Types Packs/Day Years [...] Sign Reading Time Taken Comments Blood Pressure 122/64 11/25/2024 1:56 PM EST Pulse 93 11/25/2024 1:56 PM EST Temperature 35.9 ??C (96.6 ??F) 11/25/2024 1:56 PM ES T Respiratory Rate - - Oxygen Saturation 96% 11/25/2024 1:56 PM EST Inhaled Oxygen Concentration - - Weight 73.1 kg (161 lb 3.2 oz) 11/25/2024 1:56 P M EST Height - - Body Mass Index 31.48 11/15/2024 8:59 AM EST documented in this encounter Ordered Prescriptions Prescription Sig Dispensed Refills Start Date End Da te flash glucose scanning reader (FreeStyle Destinee 14 Day [place]) [facility] Check blood sugar 4 times a day 1 each 3 11/25/2024 documented in this encounter Progress Notes * Jose Luis Younger MD - 11/25/2024 1:30 PM EST COMPLAINT Hospital discharge follow-up IDENTIFIER: Vanessa Ravi is a 79 y.o. old female. HPI: Was discharged from [facility] on 11/20/2024 .diagnosed with acute right lower lobe pneumonia presented with shortness of breath and asthma exacerbation. Sent home on Ceftin, Zithromax and prednisone. feels better. ROS: GENERAL: No malaise, significant weight loss or fever RESPIRATORY: No cough, wheezing or shortness of breath CARDIOVASCULAR: No chest pain, leg swelling or palpitations GI: No abdominal discomfort, blood in stools or black stools PAST MEDICAL HISTORY: Patient Active Problem List Diagnosis Date Noted Other hyperlipidemia 10/11/2024 Mild intermittent asthma without complication 10/11/2024 Other specified hypothyroidism 10/11/2024 Spinal stenosis of lumbar region without neurogenic claudication 03/10/2021 Microalbuminuria 06/11/2018 Asthma 12/27/2017 Migraine headache 12/27/2017 Obesity (BMI 30-39.9) 12/27/2017 CKD stage 3 due to type 2 diabetes mellitus (CMS/HCC) 09/12/2016 MDD (major depressive disorder) 12/20/2013 GERD (gastroesophageal reflux disease) 11/29/2013 HTN (hypertension) 11/29/2013 IBS (irritable bowel syndrome) 11/29/2013 Hyperlipidemia 11/29/2013 Hypothyroid 11/29/2013 Type 2 diabetes with nephropathy (CMS/HCC) 11/29/2013 Past Surgical History: Procedure Laterality Date [...] mat 50s 80 Cervical cancer Mother 50.00 MEDICATIONS DISCONTINUED/REORDERED: There are no discontinued medications. ACTIVE MEDICATIONS: Outpatient Medications Marked as Taking for the 11/25/24 encounter (Office Visit) with Jose Luis Younger MD Medication Sig Dispense Refill acetaminophen (TYLENOL) 500 mg tablet Take 1 tablet (500 mg total) by mouth every 6 (six) hours if needed. albuterol HFA (PROAIR HFA ; PROVENTIL HFA ; VENTOLIN HFA) 90 mcg/actuation inhaler INHALE 2 PUFFS FOUR TIMES A DAY NEEDED FOR COUGH, WHEEZING, OR SHORTNESS OF BREATH 8.5 g 1 amLODIPine (NORVASC) 5 mg tablet Take 1 tablet (5 mg total) by mouth 1 (one) time each day. 30 each5 amphetamine-dextroamphetamine XR (ADDERALL XR) 30 mg 24 [...] max dose of 10 units at bedtime (Patient taking differently: Inject 6 Units under the skin at bedtime. Use 4 units at bedtime, increase by 2 units every 3 days with a max dose of 10 units at bedtime) 15 mL 1 levothyroxine (SYNTHROID, LEVOTHROID) 50 [...] once daily 100 each 1 tiZANidine (ZANAFLEX) 4 mg tablet Take 1 tablet (4 mg total) by mouth 1 (one) time each day if needed for muscle spasms. 30 tablet 3 ALLERGIES: No Known Allergies PHYSICAL EXAM: Vitals: 11/25/24 1356 BP: 122/64 Pulse: 93 Temp: 35.9 ??C (96.6 ??F) SpO2: 96% APPEARANCE: Alert and in no acute distress EARS: External ears normal. HEART: RRR with normal S1 and S2, no murmurs LUNG: clear to auscultation LABS: Lab Results Component Value Date WBC 7.3 10/11/2024 HGB 11.0 (L) 10/11/2024 HCT 36.5 10/11/2024 MCV 86.9 10/11/2024 Lab Results Component Value Date NA 141 10/11/2024 K 5.6 (H) 10/11/2024 CO2 29 10/11/2024 CL 106 10/11/2024 BUN 15 10/11/2024 ALKPHOS 93 10/11/2024 Lab Results Component Value Date TSH 1.88 10/11/2024 Lab Results Component Value Date HGBA1C 9.5 (H) 10/11/2024 CHOL 157 10/11/2024 HDL 39 (L) 10/11/2024 TRIG 228 (H) 10/11/2024 No components found for: URINELEUK , URINENITR , URINEPRO , URINEPH , URINEBLD , URINESG , URINEKET , URINEBILI , URINEGLUC IMAGING: IMPRESSION: 1. Hospital discharge follow-up 2. Moderate persistent asthma with acute exacerbation 3. Pneumonia of right lower lobe due to infectious organism 4. Type 2 diabetes mellitus without complication, with long-term current use of insulin ([facility]) PLAN: Was sent home on 11/20/2024, presented due to shortness of breath .found to have acute asthma exacerbation .chest x-ray showed right lower lobe pneumonia. Currently feels better .currently completed prednisone ,Zithromax and cefuroxime. Diabetes seems to be better controlled now. On Lantus insulin and glipizide, does see endocrine in December . documented in this encounter Plan of Treatment Upcoming Encounters Date Type Department Care Team (Late st Contact Info) Description 12/11/2024 4:00 PM EST Office Visit Vascular Surgery - [place] [address] [facility] [address] [place] [address] Rashmi Zaidi PA [address] [facility] [address] [place] [address] 01/13/2025 8:20 AM EDT Office Visit Endocrinology - [place] [address] [place] [address] Eun Alvares PA [address] [place] [address] documented as of this encounter Visit Diagnoses Diagnosis Hospital discharge follow-up- Primary Other follow-up examination Moderate persistent asthma with acute exacerbation Pneumonia of right lower lobe due to infectious organism Type 2 diabetes mellitus without complication, with long-term current use of insulin ([facility]) documented in this encounter Additional Health Concerns Assessment Noted Time PHQ-9 Depression Total Score: 0 11/15/19 25 9:03 AM EST A fall risk assessment has been complete d for the patient 11/15/2024 9:00 AM EST documented as of this encounter Care Teams Vocational Rehabilitation Specialist Relationship Specialty Start Date End Date Jose Luis Younger MD [address] [facility] [address] [place] [address] PCP - General Internal Medicine 06/21/21 documented as of this encounter
--- OUTSIDE RECORDS SUMMARY | 2024-11-26 06:12 | XMS_ITS | Clinical Summary ---
Author Organization [facility] [address] [place] [address] [place] [address] [place] [address] Phone Care Team Providers Care Welder Machine Operator Name Role Phone Jose Luis Younger MD Primary Care Provider [phone] Allergies No known active allergies Medications Medication [...] at bedtime 15 mL 1 5 Active Additional Information Patient taking differently: 6 Units subcutaneous Nightly, Use 4 units at bedtime, increase by 2 units every 3 days with a max dose of 10 units at bedtime, Reported on 11/25/2024 pen needle, diabetic (BD Ultra-Fine Veronica Pen Needle) 32 gauge x /32 needle Use with insulin pen once daily [...] OF BREATH 8.5 g 1 5 Active flash glucose scanning reader (FreeStyle Destinee 14 Day [place]) [facility] Check blood sugar 4 times a day 1 each 3 5 Active albuterol HFA (PROAIR HFA ; [...] disorder) 12/20/2013 Overview (10/29/2024): Sees Psychiatry at [facility] (Cher Bhatia) prescribed Abilify and adderall GERD (gastroesophageal reflux disease) 4 HTN (hypertension) 11/29/2013 Assessment & Plan (11/15/2024 9:54 AM EST): Hypertension not under control on lisinopril added amlodipine 5 mg daily IBS (irritable bowel syndrome) 11/29/2013 Hyperlipidemia 11/29/2013 Hypothyroid 11/29/2013 Type 2 diabetes with nephropathy 11/29/2013 Encounters Date Type Department Care Team Description 11/25/2024 1:30 PM EST Office Visit Internal Medicine - [address] [place] [address] Joes Luis Younger MD Hospital discharge follow-up (Primary Dx); Moderate persistent asthma with acute exacerbation; Pneumonia of right lower lobe due to infectious organism; Type 2 diabetes mellitus without complication, with long-term current use of insulin ([facility]) 11/22/[address] [phone] Eun Alvares PA New Med Request 11/21/2024 Telephone Internal Medicine [address] [phone] Jose Luis Younger MD Hospital Follow-up 11/19/2024 Telephone Internal [address] [phone] Jose Luis Younger MD Provider call back 11/15/2024 8:30 AM EST Office Visit Internal [address] [phone] Jose Luis Younger MD Primary hypertension (Primary Dx); Hypercholesterolemia; Other specified hypothyroidism; Chronic bilateral low back pain with sciatica, sciatica laterality unspecified 11/07/2024 11:00 AM EST Office Visit [address] [address] Eun Alvares PA Type 2 diabetes with nephropathy (CMS/HCC) (Primary Dx); Stage 3b chronic kidney disease (CMS/HCC); Hypothyroidism, unspecified type 10/28/2024 Telephone Internal [address] [phone] Jose Luis Younger MD 10/11/2024 11:30 AM EST Office Visit Internal [address] [phone] Jessica Bonds NP Bronchitis (Primary Dx); Right ear pain; Bilateral leg pain; Hyperlipidemia, unspecified hyperlipidemia type; Hypothyroidism, unspecified type; Vitamin D deficiency, unspecified; 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, without long-term current use of insulin (CMS/HCC) 10/11/2024 Telephone Internal Medicine - [place] [address] [facility] [address] [place] [address] Jose Luis Younger MD TRIAGE- Sob, coughing 09/10/2024 Telephone Endocrinology [address] [phone] Eun Alvares PA PRIOR AUTHORIZATION from Last [...] (major depressive disorder); COMMENT: Sees Psychiatry at [facility] (Cher Bhatia) prescribed Abilify and adderall Type 2 diabetes with nephrop athy ([facility]/HCC) 11/29/2013 DX:Type 2 diabetes with nephropathy (HCC) Microalbuminuria 06/11/2018 DX:Microalbumin uria Diarrhea DX:Diarrhea Family [...] oz) 11/25/2024 1:56 P M EST Height 152.4 cm (5') 11/15/2024 8:59 AM EST Body Mass Index 31.48 11/15/2024 8:59 AM EST Plan of Treatment Upcoming Encounters Date Type Department Care Team (Late st Contact Info) Description 12/11/2024 4:00 PM EST Office Visit Vascular Surgery - [place] [address] [facility] [address] [place] [phone] Rashmi Zaidi PA [address] [facility] [address] [place] [address] 01/13/2025 8:20 AM EDT Office Visit Endocrinology [address] [phone] uEn Alvares PA [address] [place] [address] Health Maintenance Due Date Last Done Comments Diabetes: Annual Foot Exam 1955 Diabetes: Annual Retina Eye Exam 1955 Zoster Vaccines (1 of 2) 1997 RSV Immunization Patients 60+ Years Old (1 - 1-dose 75+ series) 2022 Social Influencers of Health Screening 10/08/2022 Diabetes: Annual Urine Albumin-Creatinine Ratio (uACR) 10/12/2022 12/17/2020 COVID-19 Vaccine ( season) 2024 09/04/2023, 08/31/2022, 09/02/2021, Additional history exists Diabetes: Blood [...] Vaccine: 65+ Years Completed 09/14/2016, 06/12/2015, 03/20/2007 Influenza Vaccine Completed 11/18/2024, , 08/31/2022, Additional history exists HIB Vaccines Aged Out No longer eligi [...] neuropathy, without long-term current use of insulin ([facility]) MAGNESIUM Routine 10/11/2024 12:40 PM EST Bilateral leg pain HEMOGLOBIN A1C Routine 10/11/2024 12:40 PM EST Type 2 diabetes mellitus with other specified complication, without long-term current use of insulin ([facility]) COMPREHENSIVE METABOLIC PANEL Routine 10/11/2024 12:40 PM EST Type 2 diabetes mellitus with other specified complication, without long-term current use of insulin ([facility]) COMPLETE BLOOD COUNT Routine 10/11/2024 12:40 PM EST Type 2 diabetes mellitus with other specified complication, without long-term current use of insulin ([facility]) LIPID PANEL WITH REFLEX TO DIRECT LDL Routine 10/11/2024 12:40 PM EST Hyperlipidemia, unspecified hyperlipidemia type VITAMIN D 25 HYDROXY Routine 10/11/2024 12:39 PM EST Bilateral leg pain Vitamin D deficiency, unspecified HM ANNUAL BMP BLOOD TEST Routine 08/30/2024 URINE [...] LAB CHEMISTRY METHOD 10/11/2024 3:38 PM EST [facility] Triglycerides 228(H) 0 - 150 mg/dL LAB CHEMISTRY METHOD 10/11/2024 3:38 PM EST [facility] HDL 39(L) >=40 mg/dL LAB CHEMISTRY METHOD 10/11/2024 3:38 PM EST [facility] LDL Calculated 72 0 - 100 mg/dL LAB CHEMISTRY METHOD 10/11/2024 3:38 PM EST [facility] VLDL Cholesterol Ag 45.6 mg/dL LAB CHEMISTRY METHOD 10/11/2024 3:38 PM EST [facility] Non HDL Chol. (LDL+VLDL) 118 <145 mg/dL LAB CHEMISTRY METHOD 10/11/2024 3:38 PM EST [facility] Chol/HDL Ratio 4.0 0.0 - 4.4 LAB CHEMISTRY METHOD 10/11/2024 3:38 PM EST [facility] Blood Venous blood specimen / Unknown Venipuncture / Unknown 10/11/2024 12:40 PM EST 10/11/2024 1:10 PM EST Jessica Bonds NP LAB BLOOD ORDERABLES [facility] [address] [place] [address], * (ABNORMAL) Complete blood count (10/11/2024 12:40 PM EST) [facility] WBC 7.3 4.8 - 10.8 K/mcL LAB HEMETOLOGY METHOD 10/11/2024 1:52 PM [facility] RBC 4.20 3.80 - 4.80 M/mcL LAB HEMETOLOGY METHOD 10/11/2024 1:52 PM [facility] Hemoglobin 11.0(L) 11.5 - 16.0 g/dL LAB HEMETOLOGY METHOD 10/11/2024 1:52 PM [facility] Hematocrit 36.5 35.0 - 47.0 % LAB HEMETOLOGY METHOD 10/11/2024 1:52 PM [facility] MCV 86.9 79.0 - 98.0 FL LAB HEMETOLOGY METHOD 10/11/2024 1:52 PM [facility] MCH 26.2(L) 27.0 - 32.0 pcg LAB HEMETOLOGY METHOD 10/11/2024 1:52 PM [facility] MCHC 30.1(L) 32.0 - 37.0 g/dL LAB HEMETOLOGY METHOD 10/11/2024 1:52 PM [facility] RDW 14.8 11.0 - 15.0 % LAB HEMETOLOGY METHOD 10/11/2024 1:52 PM [facility] Platelets 329 130 - 400 K/mcL LAB HEMETOLOGY METHOD 10/11/2024 1:52 PM [facility] MPV 11.1(H) 7.0 - 11.0 FL LAB HEMETOLOGY METHOD 10/11/2024 1:52 PM [facility] NRBC 0.0 <1.0 % LAB HEMETOLOGY METHOD 10/11/2024 1:52 PM [facility] NRBC Absolute 0.00 <0.10 K/mcL LAB HEMETOLOGY METHOD 10/11/2024 1:52 PM EST [facility] Blood Venous blood specimen / Unknown Venipuncture / Unknown 10/11/2024 12:40 PM EST 10/11/2024 1:10 PM EST Jessica Bonds [employer] LAB BLOOD ORDERABLES [facility] [address] [place] [address], [place] [phone] * Thyroid stimulating hormone (10/11/2024 12:40 PM EST) TSH 1.88 0.40 - 4.00 mcIU/mL LAB CHEMISTRY METHOD 10/11/2024 2:28 PM EST [facility] Blood Venous blood specimen / Unknown Venipuncture / Unknown 10/11/2024 12:40 PM EST 10/11/2024 1:10 PM EST Jessica Bonds [employer] LAB BLOOD ORDERABLES Performing Organization Address [facility]/ZIP Co de Phone Number [facility] [address] [place] [address], [place] [phone] * Magnesium (10/11/2024 12:40 PM EST) Magnesium 2.0 1.9 - 2.6 mg/dL LAB CHEMISTRY METHOD 10/11/2024 2:49 PM EST [facility] Blood Venous blood specimen / Unknown Venipuncture / Unknown 10/11/2024 12:40 PM EST 10/11/2024 1:10 PM EST Jessica Bonds [employer] LAB BLOOD ORDERABLES Performing Organization Address City/[facility]/ZIP Co de Phone Number [facility] [address] [place] [address], [place] [phone] * (ABNORMAL) Hemoglobin A1c (10/11/2024 12:40 PM EST) [facility] Hemoglobin A1C 9.5(H) <6.5 % LAB CHEMISTRY METHOD 10/11/2024 8:46 PM EST [facility] Mean Bld Glu Estim. 226 mg/dL LAB CHEMISTRY METHOD 10/11/2024 8:46 PM EST [facility] Blood Venous blood specimen / Unknown Venipuncture / Unknown 10/11/2024 12:40 PM EST 10/11/2024 1:10 PM EST Jessica Bonds [employer] LAB BLOOD ORDERABLES [facility] [address] [place] [address], [place] [phone] * (ABNORMAL) Vitamin B12 (10/11/2024 12:40 PM EST) [facility] Vitamin B-12 245(L) 250 - 900 pcg/mL LAB CHEMISTRY METHOD 10/11/2024 3:38 PM EST [facility] Blood Venous blood specimen / Unknown Venipuncture / Unknown 10/11/2024 12:40 PM EST 10/11/2024 1:10 PM EST Jessica Maddoxsydni HARLEY LAB BLOOD ORDERABLES [facility] [address] [place] [address], [place] [phone] * (ABNORMAL) Comprehensive metabolic panel (10/11/2024 12:40 PM EST) [facility] Sodium 141 133 - 145 mmol/L LAB CHEMISTRY METHOD 10/11/2024 3:38 PM EST [facility] Potassium 5.6(H) 3.5 - 5.5 mmol/L LAB CHEMISTRY METHOD 10/11/2024 3:38 PM EST [facility] Chloride 106 96 - 110 mmol/L LAB CHEMISTRY METHOD 10/11/2024 3:38 PM [facility] CO2 29 21 - 32 mmol/L LAB CHEMISTRY METHOD 10/11/2024 3:38 PM [facility] Anion Gap 6 3 - 11 LAB CHEMISTRY METHOD 10/11/2024 3:38 PM [facility] Glucose 124(H) 70 - 100 mg/dL LAB CHEMISTRY METHOD 10/11/2024 3:38 PM [facility] BUN 15 5 - 25 mg/dL LAB CHEMISTRY METHOD 10/11/2024 3:38 PM [facility] Creatinine 1.36(H) 0.50 - 1.10 mg/dL LAB CHEMISTRY METHOD 10/11/2024 3:38 PM [facility] eGFR 40(L) >=60 mL/min/1. 73m2 LAB CHEMISTRY METHOD 10/11/2024 3:38 PM [facility] Comment:Calculation based on the??Chronic Kidney Disease Epidemiology Collaboration (CKD-EPI) equation refit??without adjustment for race. BUN/Creatinine Ratio 11.0 LAB CHEMISTRY METHOD 10/11/2024 3:38 PM [facility] Calcium 10.3 8.5 - 10.5 mg/dL LAB CHEMISTRY METHOD 10/11/2024 3:38 PM [facility] AST (SGOT) 21 10 - 42 unit/L LAB CHEMISTRY METHOD 10/11/2024 3:38 PM [facility] ALT (SGPT) 23 10 - 60 unit/L LAB CHEMISTRY METHOD 10/11/2024 3:38 PM [facility] Alkaline Phosphatase 93 42 - 121 unit/L LAB CHEMISTRY METHOD 10/11/2024 3:38 PM [facility] Total Protein 7.4 6.0 - 8.0 g/dL LAB CHEMISTRY METHOD 10/11/2024 3:38 PM [facility] Albumin 3.8 3.2 - 5.0 g/dL LAB CHEMISTRY METHOD 10/11/2024 3:38 PM EST [facility] Total Bilirubin 0.3 0.0 - 1.4 mg/dL LAB CHEMISTRY METHOD 10/11/2024 3:38 PM EST [facility] Blood Venous blood specimen / Unknown Venipuncture / Unknown 10/11/2024 12:40 PM EST 10/11/2024 1:10 PM EST Jessica Bonds [employer] LAB BLOOD ORDERABLES Performing Organization Address City/[facility]/ZIP Co de Phone Number [facility] [address] [place] [address], [place] [phone] * (ABNORMAL) Vitamin D 25 hydroxy (10/11/2024 12:39 PM EST) [facility] Vit D, 25-Hydroxy 27.1(L) 30.0 - 80.0 ng/mL LAB CHEMISTRY METHOD 10/11/2024 2:28 PM EST [facility] Blood Venous blood specimen / Unknown Venipuncture / Unknown 10/11/2024 12:39 PM EST 10/11/2024 12:39 PM EST Jessica Bonds NP LAB BLOOD ORDERABLES Performing Organization Address City/[facility]/ZIP Co de Phone Number [facility] [address] [place] [address], [place] [phone] * Annual BMP Blood Test (08/30/2024) Pathologist [facility] Annual BMP Blood Test Abstracted Historical Provider MD SUZANNE DIANE E * Urine Albumin Creatinine Ratio (12/17/2020) [facility] Urine Albumin Creatinine Ratio Abstarcted Historical Provider [...] scores not able to be calculated. [facility] Department of Internal Medicine recommends using National [...] alternative screening schedule based on leno Hoffmann., [facility] November 17, 2011 for patients with osteopenia [...] scores not able to be calculated. [facility] Department of Internal Medicine recommendsusing National Osteoporosis [...] alternative screening schedule based on leno Hoffmann., [facility] for patients with osteopenia (based on hip BMD T-score) is as follows: * advanced osteopenia (T scores -2.00 to -2.49), BMD testing every year * moderate osteopenia (T scores -1.50 to -1.99), BMD testing every 5years mild osteopenia or normal BMD (T scores -1.50 and higher), BMD testingevery 15 years [facility]IA IMG DXA PROCEDURES * Hepatitis C Screening (03/20/2014) Hepatitis C Screening Abstracted Historical Provider MD SUZANNE Malloy from Last 3 Months or Most Recently Relevant to Health Maintenance Care Teams Welder Machine Operator Relationship Specialty Start Date End Date Jose Luis Younger MD [address] [place], [place] [id number] PCP - General Internal Medicine 06/21/21
--- OUTSIDE RECORDS SUMMARY | 2024-11-26 06:12 | XMS_ITS | Encounter Summary ---
Author Organization [facility] Address [address] [place] [address] Care Team Providers Care Brazing Machine Setter Name Role Phone Jose Luis Younger MD Primary Care Provider [phone] Reason for Referral * Consultation (Routine) - Authorized Specialty Diagnoses / Procedures Referred By Naomi lópez Referred To Contact Nephrology Diagnoses Type 2 diabetes with nephropathy (CMS/HCC) Eun Alvares PA [address] [place] [address] Formerly [facility] Nephrology [address] Referral ID Status Reason Start Date Expiration Date Visits Requested Visits Authorized [id number] Authorized Specialty Services Required 11/07/2024 11/07/2025 1 1 Reason for Visit * Reason Comments Follow-up Thyroid Encounter Details Date Type Department Care Team (Late st Contact Info) Description 11/07/2024 11:00 AM EST Office Visit Endocrinology - [address] [phone] Eun Alvares PA [address] [place] [address] Type 2 diabetes with nephropathy (CMS/HCC) (Primary [...] 42, CR 1.36. Has not seen a cleaning attendant in the recent times. No complaints of [...] 3 due to type 2 diabetes mellitus ([facility]/HCC) 09/12/2016 MDD (major depressive disorder) 12/20/2013 GERD (gastroesophageal reflux disease) 11/29/2013 HTN (hypertension) 11/29/2013 IBS (irritable bowel syndrome) 11/29/2013 Hyperlipidemia 11/29/2013 Hypothyroid 11/29/2013 Type 2 diabetes with nephropathy ([facility]) 11/29/2013 Past Surgical History: Procedure Laterality Date [...] IMPRESSION: 1. Type 2 diabetes with nephropathy ([facility]/HCC) 2. Stage 3b chronic kidney disease ([facility]) 3. Hypothyroidism, unspecified type PLAN: Diabetes complicated [...] PM EST Office Visit Vascular Surgery - [place] [address] [place] [phone] Rashmi Zaidi PA [address] [facility] [address] [place] [address] 01/13/2025 8:20 AM EDT Office Visit Endocrinology - [place] [address] [place] [address] Eun Alvares PA [address] [place] [address] Scheduled Referrals Name Type Priority Associated Diagnoses Order Schedule Ambulatory referral to Nephrology Outpatient Referral Routine Type 2 diabetes with nephropathy (CMS/HCC) 1 Occurrences starting 11/07/2024 until 11/07/2025 documented as of this encounter Visit Diagnoses Diagnosis Type 2 diabetes with nephropathy (CMS/HCC)- Primary Stage 3b chronic kidney disease ([facility]) Hypothyroidism, unspecified type documented in this encounter [...] 11/07/2024 added in this encounter Care Teams Brazing Machine Setter Relationship Specialty Start Date End Date Jose Luis Younger MD [address] [address] PCP - General Internal Medicine 06/21/21 documented as of this encounter
--- OUTSIDE RECORDS SUMMARY | 2024-11-26 06:12 | XMS_ITS | Encounter Summary ---
Author Organization [facility] Address [address] [place] [address] Care Team Providers Care Soliciting Freight Agent Name Role Phone Jose Luis Younger MD Primary Care Provider [phone] Reason for Visit * Reason Onset Date Comments New Med Request 11/22/2024 Encounter Details Date Type Department Care Team (Late st Contact Info) Description 11/22/2024 Telephone [facility] [address] [place] [phone] Eun Alvares PA [address] [place] [address] New Med Request Social History Tobacco Use [...] as of this encounter Progress Notes * RADHA Vega - 11/25/2024 5:41 PM EST I have not prescribed CGM for this patient. Please call for clarification. She on the kavya 14-day or the kavya 2? This is covered by her insurance? * Anel Martinez - 11/22/2024 9:37 AM EST Patient would like an order for sensors sent to her pharmacy . Please call her at [phone] documented in this encounter Plan of Treatment Upcoming Encounters Date Type Department Care Team (Late st Contact Info) Description 12/11/2024 4:00 PM EST Office Visit Vascular Surgery - [place] [address] [place] [address] Rashmi Zaidi PA 300 [facility] 210 [place] [address] 01/13/2025 8:20 AM EDT Office Visit Endocrinology - [place] [address] [place] [address] Eun Alvares PA [address] [place] [address] documented as of this encounter Visit Diagnoses Not on filedocumented in this encounter Additional Health Concerns Assessment Noted Time PHQ-9 Depression Total Score: 0 11/15/19 25 9:03 AM EST A fall risk assessment has been complete d for the patient 11/15/2024 9:00 AM EST documented as of this encounter Care Teams Soliciting Freight Agent Relationship Specialty Start Date End Date Jose Luis Younger MD [address] [place] [address] [address] [place] [address] PCP - General Internal Medicine 06/21/21 documented as of this encounter
--- OUTSIDE RECORDS SUMMARY | 2024-11-26 06:13 | XMS_ITS | Encounter Summary ---
Author Organization [facility] Address [address] [place] [address] Care Team Providers Care Profiler Operator Name Role Phone Jose Luis Younger MD Primary Care Provider [phone] Reason for Visit * Reason Onset Date Comments Hospital Follow-up 11/21/2024 Encounter Details Date Type Department Care Team (Late st Contact Info) Description 11/21/2024 Telephone Internal Medicine - [place] 175 [facility] 200 [place] [address] Jose Luis Younger MD 175 [facility] 200 [place] [address] Hospital Follow-up Social History Tobacco Use Types [...] 9:24 AM EST Call to pt # [phone], left message for pt to call us back * Roselyn Vu - 11/21/2024 8:53 AM EST Patient called and stated that she was in [facility] on 11/17/24 and was discharged yesterday due to pneumonia and would like to see her provider as soon as possible. Please advise Cb# [phone] documented in this encounter Plan of Treatment Upcoming Encounters Date Type Department Care Team (Late st Contact Info) Description 12/11/2024 4:00 PM EST Office Visit Vascular Surgery - [place] [address] [place] [address] Rashmi Zaidi PA 300 [facility] 210 [place] [address] 01/13/2025 8:20 AM EDT Office Visit Endocrinology - [place] [address] [place] [address] Eun Alvares PA [address] [place] [address] documented as of this encounter Visit Diagnoses Not on filedocumented in this encounter Additional Health Concerns Assessment Noted Time PHQ-9 Depression Total Score: 0 11/15/19 9:03 AM EST A fall risk assessment has been complete d for the patient 11/15/2024 9:00 AM EST documented as of this encounter Care Teams Profiler Operator Relationship Specialty Start Date End Date Jose Luis Younger MD 175 [facility] [address] [place] [address] PCP - General Internal Medicine 06/21/21 documented as of this encounter
--- OUTSIDE RECORDS SUMMARY | 2024-11-26 06:13 | XMS_ITS | Encounter Summary ---
Author Organization [facility] Address [address] [place] [address] Care Team Providers Care Sap Ppm Consultant Name Role Phone Jose Luis Younger MD Primary Care Provider [phone] Reason for Visit * Reason Onset Date Comments Provider call back 11/19/2024 Encounter Details Date Type Department Care Team (Late st Contact Info) Description 11/19/2024 Telephone Internal Medicine - [place] 175 [facility] [address] [place] [address] Jose Luis Younger MD 175 [facility] 200 [place] [address] Provider call back Social History Tobacco Use [...] Giorgio GARCIA 11/07/2024 Call to pt # [phone], spoke w/ the pt. I told her about the call from [facility] and that she needs to follow up [...] 1:10 PM EST Toshia from Spine dept [facility] called regarding patient. She stated patient was supposed to have back surgery but when she got recent labs done, her A1C levels were super high and she hasto cancel the surgery. She requested to speak with someone to follow up with PCP regarding this because she still wants patient to have back surgery in future. Callback [phone] documented in this encounter Plan of Treatment Upcoming Encounters Date Type Department Care Team (Late st Contact Info) Description 12/11/2024 4:00 PM EST Office Visit Vascular Surgery - [place] [address] [place] [address] Rashmi Zaidi PA [address] [place] [address] 01/13/2025 8:20 AM EDT Office Visit Endocrinology - [place] [address] [place] [address] Eun Alvares PA [address] [place] [address] documented as of this encounter Visit Diagnoses Not on filedocumented in this encounter Additional Health Concerns Assessment Noted Time PHQ-9 Depression Total Score: 0 11/15/19 25 9:03 AM EST A fall risk assessment has been complete d for the patient 11/15/2024 9:00 AM EST documented as of this encounter Care Teams Sap Ppm Consultant Relationship Specialty Start Date End Date Jose Luis Younger MD 175 [facility] 200 [place] [address] PCP - General Internal Medicine 06/21/21 documented as of this encounter
== END 2024-11-26 06:11 | disposition home or self-care (01) ==
LOC: CF 06:10
PROVIDERS: Visit Provider Anesthesiology
DX: M48.00 Spinal stenosis, site unspecified (principal); M54.16 Radiculopathy, lumbar region
CPT/HCPCS: 64483; J2003; J3301; Q9967

== ENCOUNTER 2024-11-26 08:49 | Outpatient (AMB) | payer MEDICARE, SELFPAY ==
--- NOTE | 2024-11-26 09:04 | MHC.OFFVIS ---
Vital Signs 11/26/24 09:05 11/26/24 09:56 BP 124/68 123/57 L Blood Pressure Location Lt brachial Lt brachial Position Sitting Sitting Respiration 16 16 Pulse 88 81 Pulse Source Pulse Oximeter Pulse Oximeter Pulse Oximetry (%) 96 96 Oxygen Delivery Method Room Air Room Air Intake Visit Reasons: BILATERAL L4, L5 TFESI Allergies No Known Allergies Allergy (Verified 11/26/24 09:05) Medication List - Last Reconciled 11/26/24 by Shilpa Parra LPN albuterol sulfate 90 mcg/actuation 2 puffs inhalation Q4H PRN amlodipine 5 mg PO DAILY aripiprazole 5 mg PO DAILY azithromycin 250 mg PO Q24H cefuroxime axetil 500 mg PO Q12H dextroamphetamine-amphetamine 30 mg ER 2 caps PO DAILY duloxetine 120 mg PO DAILY fluticasone propionate 50 mcg/actuation 2 sprays intranasal DAILY gabapentin 300 mg PO BID glipizide 10 mg PO DAILY glipizide 5 mg PO DAILY@1700 insulin glargine (Lantus U-100 Insulin) 4 units subcut BEDTIME levothyroxine 50 mcg PO DAILY lisinopril 10 mg PO DAILY lorazepam 0.5 mg PO DAILY PRN lovastatin 40 mg PO BEDTIME omeprazole 20 mg PO BID prednisone 40 mg (2 x 20 mg) PO DAILY tizanidine 4 mg PO Q6H PRN trazodone 50 mg PO BEDTIME PRN PFSH Social History Household Members: None Housing: House Do you presently have visiting nurse or other home services: No Patient Tobacco Use Status: Former Tobacco user Tobacco use type: Cigarette Advance Directives Date on File: 11/21/24 service: No Physical Exam Vital Signs: Last Vital Signs Pulse 81 11/26/24 09:56 Resp 16 11/26/24 09:56 BP 123/57 L 11/26/24 09:56 Pulse Ox 96 11/26/24 09:56 Oxygen Delivery Method Room Air 11/26/24 09:56 Assessment & Plan Assessment & Plan (1) Spinal stenosis: Code(s): M48.00 - Spinal stenosis, site unspecified Category: Medical (2) Radiculopathy, lumbar region: Code(s): M54.16 - Radiculopathy, lumbar region Category: Medical Plan Transforaminal bilateral L4-5 epidural steroid injection . Informed consent was thoroughly explained to the patient before the procedure.? The patient came to the operating room.? He was positioned prone on operating table with a pillow under his abdomen.? Time-out was performed delineating correct site and side of the procedure, nature of the injection, name and date of of the patient. The lower back of the patient was prepped with ChloraPrep and draped with sterile utility towels.? C-arm was brought over the operating field and sq picture of L4 was demonstrated on the screen.? The right side was chosen as the side of the injection.? Tilting machine ipsilateral to the right at the level of L4 1st the most prominent picture of the right pedicle was obtained on the screen.? 3 mm below the level of the lowest point of the pedicle projection to the skin small amount of lidocaine 1% 3-4 cc was injected to anesthetize the skin.? After that 5 in 22 gauge Quincke point needle was inserted through the skin wheal and was advanced toward the L4-5 foramina on anterior posterior , lateral and oblique views intermittently.? When needle reached appropriate positioned injection of the contrast was performed delineating epidural and perineural spread of the contrast. No intravascular no intraneural and no intrathecal spread of the contrast was noted. After that injection of the 3 cc of lidocaine 1% mixed with Kenalog 20 mg was performed into the needle. Upon completion of the injection needle was removed and the procedure was repeated on the left side in the mirroring fashion. Upon completion of the procedure needle was removed, sterile Band-Aid was applied. Patient tolerated the procedure well. Orders: Orders FL guidance in treatment room Today M48.00 - Spinal stenosis, site unspecified Coding Level of Care Code Procedure Only Diagnoses Spinal stenosis M48.00 Radiculopathy, lumbar region M54.16
[2024-11-26 09:05] VITALS: BP 124/68; PULSE 88; RESP 16; O2SAT 96
--- OUTSIDE RECORDS SUMMARY | 2024-11-26 09:09 | XMS_ITS | Encounter Summary ---
Author Organization [facility] Address [address] [place] [address] Care Team Providers Care Care Clinician Name Role Phone Jose Luis Younger MD Primary Care Provider [phone] Reason for Visit * Reason Onset Date Comments Hospital Follow-up 11/21/2024 Encounter Details Date Type Department Care Team (Late st Contact Info) Description 11/21/2024 Telephone Internal Medicine - [place] 175 [facility] 200 [place] [address] Jose Luis Younger MD 175 [facility] 200 [place] [address] Hospital Follow-up Social History Tobacco Use Types [...] 9:24 AM EST Call to pt # [phone], left message for pt to call us back * Roselyn Vu - 11/21/2024 8:53 AM EST Patient called and stated that she was in [facility] on 11/17/24 and was discharged yesterday due to pneumonia and would like to see her provider as soon as possible. Please advise Cb# [phone] documented in this encounter Plan of Treatment Upcoming Encounters Date Type Department Care Team (Late st Contact Info) Description 12/11/2024 4:00 PM EST Office Visit Vascular Surgery - [place] [address] [place] [address] Rashmi Zaidi PA 300 [facility] 210 [place] [address] 01/13/2025 8:20 AM EDT Office Visit Endocrinology - [place] [address] [place] [address] Eun Alvares PA [address] [place] [address] documented as of this encounter Visit Diagnoses Not on filedocumented in this encounter Additional Health Concerns Assessment Noted Time PHQ-9 Depression Total Score: 0 11/15/19 9:03 AM EST A fall risk assessment has been complete d for the patient 11/15/2024 9:00 AM EST documented as of this encounter Care Teams Care Clinician Relationship Specialty Start Date End Date Jose Luis Younger MD [address] [facility] 200 [place] [address] PCP - General Internal Medicine 06/21/21 documented as of this encounter
--- OUTSIDE RECORDS SUMMARY | 2024-11-26 09:09 | XMS_ITS | Encounter Summary ---
Author Organization [facility] Address [address] [place] [address] Care Team Providers Care Heel Seat Trimmer Name Role Phone Jose Luis Younger MD Primary Care Provider [phone] Reason for Visit * Reason Onset Date Comments Provider call back 11/19/2024 Encounter Details Date Type Department Care Team (Late st Contact Info) Description 11/19/2024 Telephone Internal Medicine - [place] 175 [facility] [address] [place] [address] Jose Luis Younger MD 175 [facility] 200 [place] [address] Provider call back Social History Tobacco Use [...] Giorgio GARCIA 11/07/2024 Call to pt # [phone], spoke w/ the pt. I told her about the call from [facility] and that she needs to follow up [...] 1:10 PM EST Toshia from Spine dept [facility] called regarding patient. She stated patient was supposed to have back surgery but when she got recent labs done, her A1C levels were super high and she hasto cancel the surgery. She requested to speak with someone to follow up with PCP regarding this because she still wants patient to have back surgery in future. Callback [phone] documented in this encounter Plan of Treatment Upcoming Encounters Date Type Department Care Team (Late st Contact Info) Description 12/11/2024 4:00 PM EST Office Visit Vascular Surgery - [place] [address] [place] [address] Rashmi Zaidi PA [address] [place] [address] 01/13/2025 8:20 AM EDT Office Visit Endocrinology - [place] [address] [place] [address] Eun Alvares PA [address] [place] [address] documented as of this encounter Visit Diagnoses Not on filedocumented in this encounter Additional Health Concerns Assessment Noted Time PHQ-9 Depression Total Score: 0 11/15/19 25 9:03 AM EST A fall risk assessment has been complete d for the patient 11/15/2024 9:00 AM EST documented as of this encounter Care Teams Heel Seat Trimmer Relationship Specialty Start Date End Date Jose Luis Younger MD 175 [facility] 200 [place] [address] PCP - General Internal Medicine 06/21/21 documented as of this encounter
--- OUTSIDE RECORDS SUMMARY | 2024-11-26 09:09 | XMS_ITS | Encounter Summary ---
Author Organization [facility] Address [address] [place] [address] Care Team Providers Care Psychologist Developmental Name Role Phone Jose Luis Younger MD Primary Care Provider Reason for Visit * Reason Comments Medicare Annual Wellness Visit [facility] Encounter Details Date Type Department Care Team ([facility] st Contact Info) Description 11/15/2024 8:30 AM EST Office Visit Internal Medicine - [place] 175 [facility] 200 [place] [address] Jose Luis Younger MD 175 [facility] 200 [place] [address] Primary hypertension (Primary Dx); Hypercholesterolemia; Other specified [...] 3 due to type 2 diabetes mellitus ([facility]) GERD (gastroesophageal reflux disease) HTN (hypertension) IBS (irritable bowel syndrome) Hyperlipidemia Hypothyroid MDD (major depressive disorder) Microalbuminuria Migraine headache Obesity (BMI 30-39.9) Spinal stenosis of lumbar region without neurogenic claudication Type 2 diabetes with nephropathy ([facility]) No Known Allergies Current Outpatient [...] (major depressive disorder); COMMENT: Sees Psychiatry at [facility] (Cher Bhatia) prescribed Abilify and adderall [...] Jose Luis Younger MD INTERNAL MEDICINE - [address] 200 [facility] [address] Dept: [phone] Dept documented in this encounter Plan of Treatment Upcoming Encounters Date Type Department Care Team ([facility] st Contact Info) Description 12/11/2024 4:00 PM EST Office Visit Vascular Surgery - [place] [address] [place] [address] Rashmi Zaidi PA 300 [facility] 210 [place] [address] 01/13/2025 8:20 AM EDT Office Visit Endocrinology - [place] [address] [place] [address] Eun Alvares PA [address] [place] [address] documented as of this encounter Visit Diagnoses [...] documented as of this encounter Care Teams Psychologist Developmental Relationship Specialty Start Date End Date Jose Luis Younger MD [address] [place] [address] [place] [address] [place] [address] PCP - General Internal Medicine 06/21/21 documented as of this encounter
--- OUTSIDE RECORDS SUMMARY | 2024-11-26 09:09 | XMS_ITS | Encounter Summary ---
Author Organization [facility] Address [address] [place] [address] Care Team Providers Care Supply Planner Name Role Phone Jose Luis Younger MD Primary Care Provider [phone] Reason for Visit * Reason Comments Hospital Follow-up Encounter Details Date Type Department Care Team ([facility] st Contact Info) Description 11/25/2024 1:30 PM EST Office Visit Internal Medicine - [place] 175 [facility] [address] [place] [address] Jose Luis Younger MD 175 [facility] [place] 200 [place] [address] Hospital discharge follow-up (Primary Dx); Moderate persistent asthma with acute exacerbation; Pneumonia of right lower lobe due to infectious organism; Type 2 diabetes mellitus without complication, with long-term current use of insulin ([facility]) Social History Tobacco Use Types Packs/Day Years [...] glucose scanning reader ([employer] Destinee 14 Day [place]) [facility] Check blood sugar 4 times a day 1 each 3 11/25/2024 documented in this encounter Progress Notes * Jose Luis Younger MD - 11/25/2024 1:30 PM EST COMPLAINT Hospital discharge follow-up IDENTIFIER: Vanessa Ravi is a 79 y.o. old female. HPI: Was discharged from [facility] on 11/20/2024 .diagnosed with acute right lower [...] complication, with long-term current use of insulin ([facility]) PLAN: Was sent home on 11/20/2024, presented [...] PM EST Office Visit Vascular Surgery - [place] 300 [facility] [address] [place] [address] Rashmi Zaidi PA 300 [facility] 210 [place] [address] 01/13/2025 8:20 AM EDT Office Visit Endocrinology - [place] [address] [place] [address] Eun Alvares PA [address] [place] [address] documented as of this encounter Visit Diagnoses Diagnosis Hospital discharge follow-up- Primary Other follow-up examination Moderate persistent asthma with acute exacerbation Pneumonia of right lower lobe due to infectious organism Type 2 diabetes mellitus without complication, with long-term current use of insulin ([facility]) documented in this encounter Additional Health Concerns Assessment Noted Time PHQ-9 Depression Total Score: 0 11/15/19 25 9:03 AM EST A fall risk assessment has been complete d for the patient 11/15/2024 9:00 AM EST documented as of this encounter Care Teams Supply Planner Relationship Specialty Start Date End Date Jose Luis Younger MD [address] [facility] 200 [place] [address] PCP - General Internal Medicine 06/21/21 documented as of this encounter
--- OUTSIDE RECORDS SUMMARY | 2024-11-26 09:09 | XMS_ITS | Encounter Summary ---
Author Organization [facility] Address [address] [place] [address] Care Team Providers Care Transformer Coil Winder Name Role Phone Jose Luis Younger MD Primary Care Provider [phone] Encounter Details Date Type Department Care Team (Late Contact Info) Description 10/28/2024 Telephone Internal Medicine [facility] 175 [facility] 200 [place] [phone] Jose Luis Younger MD 175 [facility] 200 [place] [address] Social History Tobacco Use Types Packs/Day Years [...] PM EST Office Visit Vascular Surgery - [place] [address] [facility] 210 [place] [address] Rashmi Zaidi PA [address] [facility] 210 [place] [address] 01/13/2025 8:20 AM EDT Office Visit Endocrinology [facility] [address] [place] [address] Eun Alvares PA [address] [place] [address] documented as of this encounter Visit Diagnoses Not on filedocumented in this encounter Care Teams Transformer Coil Winder Relationship Specialty Start Date End Date Jose Luis Younger MD [address] [place] [address] PCP - General Internal Medicine 06/21/21 documented as of this encounter
--- OUTSIDE RECORDS SUMMARY | 2024-11-26 09:09 | XMS_ITS | Encounter Summary ---
Author Organization [facility] Address [address] [place] [address] Care Team Providers Care Internal Grinder Tender Name Role Phone Jose Luis Younger MD Primary Care Provider [phone] Reason for Visit * Reason Onset Date Comments New Med Request 11/22/2024 Encounter Details Date Type Department Care Team (Late st Contact Info) Description 11/22/2024 Telephone [facility] [address] [place] [phone] Eun Alvares PA [address] [place] [address] New Med Request Social History Tobacco Use [...] her pharmacy . Please call her at [phone] documented in this encounter Plan of Treatment Upcoming Encounters Date Type Department Care Team (Late st Contact Info) Description 12/11/2024 4:00 PM EST Office Visit Vascular Surgery - [place] [address] [place] [address] Rashmi Zaidi PA [address] [facility] [address] [place] [address] 01/13/2025 8:20 AM EDT Office Visit Endocrinology - [place] [address] [place] [address] Eun Alvares PA [address] [place] [address] documented as of this encounter Visit Diagnoses Not on filedocumented in this encounter Additional Health Concerns Assessment Noted Time PHQ-9 Depression Total Score: 0 11/15/19 25 9:03 AM EST A fall risk assessment has been complete d for the patient 11/15/2024 9:00 AM EST documented as of this encounter Care Teams Internal Grinder Tender Relationship Specialty Start Date End Date Jose Luis Younger MD [address] [place] [address] [address] [place] [address] PCP - General Internal Medicine 06/21/21 documented as of this encounter
--- OUTSIDE RECORDS SUMMARY | 2024-11-26 09:09 | XMS_ITS | Clinical Summary ---
Author Organization [facility] [address] [place] [address] [place] [address] [place] [address] Phone Care Team Providers Care Spanish Interpreter/Translator Name Role Phone Jose Luis Younger MD Primary Care Provider [phone] Allergies No known active allergies Medications Medication [...] glucose scanning reader ([employer] 14 Day [place]) [facility] [place] Check blood sugar 4 times a day [...] disorder) 12/20/2013 Overview (10/29/2024): Sees Psychiatry at [facility] (Cher Bhatia) prescribed Abilify and [...] PM EST Office Visit Internal Medicine - [address] [place] [address] Jose Luis Younger MD Hospital discharge follow-up (Primary Dx); Moderate persistent asthma with acute exacerbation; Pneumonia of right lower lobe due to infectious organism; Type 2 diabetes mellitus without complication, with long-term current use of insulin ([facility]) 11/22/[address] [address] Eun Alvares PA New Med Request 11/21/2024 Telephone Internal Medicine [address] [address] Jose Luis Younger MD Hospital Follow-up 11/19/2024 Telephone Internal [address] [address] Jose Luis Younger MD Provider call back 11/15/2024 8:30 AM EST Office Visit Internal [address] [address] Jose Luis Younger MD Primary hypertension (Primary Dx); Hypercholesterolemia; Other specified hypothyroidism; Chronic bilateral low back pain with sciatica, sciatica laterality unspecified 11/07/2024 11:00 AM EST Office Visit [address] [address] Eun Alvares PA Type 2 diabetes with nephropathy (CMS/HCC) (Primary Dx); Stage 3b chronic kidney disease (CMS/HCC); Hypothyroidism, unspecified type 10/28/2024 Telephone Internal [address] [address] Jose Luis Younger MD 10/11/2024 11:30 AM EST Office Visit Internal [address] [phone] Jessica Bonds NP Bronchitis (Primary Dx); Right ear pain; Bilateral leg pain; Hyperlipidemia, unspecified hyperlipidemia type; Hypothyroidism, unspecified type; Vitamin D deficiency, unspecified; 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, without long-term current use of insulin (CMS/HCC) 10/11/2024 Telephone Internal Medicine - [place] [address] [facility] [address] [place] [address] Jose Luis Younger MD TRIAGE- Sob, coughing 09/10/2024 Telephone Endocrinology [address] [address] Eun Alvares PA PRIOR AUTHORIZATION from Last [...] (major depressive disorder); COMMENT: Sees Psychiatry at [facility] (Cher Bhatia) prescribed Abilify and adderall Type 2 diabetes with nephrop athy ([facility]/HCC) 11/29/2013 DX:Type 2 diabetes with nephropathy (HCC) [...] PM EST Office Visit Vascular Surgery - [place] 300 [facility] [address] [place] [phone] Rashmi Zaidi PA 300 [facility] [address] [place] [address] 01/13/2025 8:20 AM EDT Office Visit Endocrinology [address] [address] Eun Alvares PA [address] [place] [address] Health Maintenance Due Date Last Done Comments [...] neuropathy, without long-term current use of insulin ([facility]) MAGNESIUM Routine 10/11/2024 12:40 PM EST Bilateral leg pain HEMOGLOBIN A1C Routine 10/11/2024 12:40 PM EST Type 2 diabetes mellitus with other specified complication, without long-term current use of insulin ([facility]) COMPREHENSIVE METABOLIC PANEL Routine 10/11/2024 12:40 PM EST Type 2 diabetes mellitus with other specified complication, without long-term current use of insulin ([facility]) COMPLETE BLOOD COUNT Routine 10/11/2024 12:40 PM EST Type 2 diabetes mellitus with other specified complication, without long-term current use of insulin ([facility]) LIPID PANEL WITH REFLEX TO DIRECT LDL [...] LAB CHEMISTRY METHOD 10/11/2024 3:38 PM EST [facility] Triglycerides 228(H) 0 - 150 mg/dL LAB CHEMISTRY METHOD 10/11/2024 3:38 PM EST [facility] HDL 39(L) >=40 mg/dL LAB CHEMISTRY METHOD 10/11/2024 3:38 PM EST [facility] LDL Calculated 72 0 - 100 mg/dL LAB CHEMISTRY METHOD 10/11/2024 3:38 PM EST [facility] VLDL Cholesterol Ag 45.6 mg/dL LAB CHEMISTRY METHOD 10/11/2024 3:38 PM EST [facility] Non HDL Chol. (LDL+VLDL) 118 <145 mg/dL LAB CHEMISTRY METHOD 10/11/2024 3:38 PM EST [facility] Chol/HDL Ratio 4.0 0.0 - 4.4 LAB CHEMISTRY METHOD 10/11/2024 3:38 PM EST [facility] Blood Venous blood specimen / Unknown Venipuncture / Unknown 10/11/2024 12:40 PM EST 10/11/2024 1:10 PM EST Jessica Bonds NP LAB BLOOD ORDERABLES [facility] [address] [place] [address], * (ABNORMAL) Complete blood count (10/11/2024 12:40 PM EST) [facility] WBC 7.3 4.8 - 10.8 K/mcL LAB [...] LAB HEMETOLOGY METHOD 10/11/2024 1:52 PM EST [facility] Blood Venous blood specimen / Unknown Venipuncture / Unknown 10/11/2024 12:40 PM EST 10/11/2024 1:10 PM EST Jessica Bonds STREETSWEEPER OPERATOR LAB BLOOD ORDERABLES [facility] [address] [place] [address], [place] [phone] * Thyroid stimulating hormone (10/11/2024 12:40 PM EST) TSH 1.88 0.40 - 4.00 mcIU/mL LAB CHEMISTRY METHOD 10/11/2024 2:28 PM EST [facility] Blood Venous blood specimen / Unknown Venipuncture / Unknown 10/11/2024 12:40 PM EST 10/11/2024 1:10 PM EST Jessica Bonds STREETSWEEPER OPERATOR LAB BLOOD ORDERABLES Performing Organization Address [facility]/ZIP Co de Phone Number [facility] [address] [place] [address], [place] [phone] * Magnesium (10/11/2024 12:40 PM EST) Magnesium 2.0 1.9 - 2.6 mg/dL LAB CHEMISTRY METHOD 10/11/2024 2:49 PM EST [facility] Blood Venous blood specimen / Unknown Venipuncture / Unknown 10/11/2024 12:40 PM EST 10/11/2024 1:10 PM EST Jessica Bonds STREETSWEEPER OPERATOR LAB BLOOD ORDERABLES Performing Organization Address City/[facility]/ZIP Co de Phone Number [facility] [address] [place] [address], [place] [phone] * (ABNORMAL) Hemoglobin A1c (10/11/2024 12:40 PM EST) [facility] Hemoglobin A1C 9.5(H) <6.5 % LAB CHEMISTRY METHOD 10/11/2024 8:46 PM EST [facility] Mean Bld Glu Estim. 226 mg/dL LAB CHEMISTRY METHOD 10/11/2024 8:46 PM EST [facility] Blood Venous blood specimen / Unknown Venipuncture / Unknown 10/11/2024 12:40 PM EST 10/11/2024 1:10 PM EST Jessica Bonds STREETSWEEPER OPERATOR LAB BLOOD ORDERABLES [facility] [address] [place] [address], [place] [phone] * (ABNORMAL) Vitamin B12 (10/11/2024 12:40 PM EST) [facility] Vitamin B-12 245(L) 250 - 900 pcg/mL LAB CHEMISTRY METHOD 10/11/2024 3:38 PM EST [facility] Blood Venous blood specimen / Unknown Venipuncture / Unknown 10/11/2024 12:40 PM EST 10/11/2024 1:10 PM EST Jessica Maddoxsydni HARLEY LAB BLOOD ORDERABLES [facility] [address] [place] [address], [place] [phone] * (ABNORMAL) Comprehensive metabolic panel (10/11/2024 12:40 PM EST) [facility] Sodium 141 133 - 145 mmol/L LAB CHEMISTRY METHOD 10/11/2024 3:38 PM EST [facility] Potassium 5.6(H) 3.5 - 5.5 mmol/L LAB CHEMISTRY METHOD 10/11/2024 3:38 PM EST [facility] Chloride 106 96 - 110 mmol/L [...] LAB CHEMISTRY METHOD 10/11/2024 3:38 PM EST [facility] Total Bilirubin 0.3 0.0 - 1.4 mg/dL LAB CHEMISTRY METHOD 10/11/2024 3:38 PM EST [facility] Blood Venous blood specimen / Unknown Venipuncture / Unknown 10/11/2024 12:40 PM EST 10/11/2024 1:10 PM EST Jessica Bonds STREETSWEEPER OPERATOR LAB BLOOD ORDERABLES Performing Organization Address City/[facility]/ZIP Co de Phone Number [facility] [address] [place] [address], [place] [phone] * (ABNORMAL) Vitamin D 25 hydroxy (10/11/2024 12:39 PM EST) [facility] Vit D, 25-Hydroxy 27.1(L) 30.0 - 80.0 ng/mL LAB CHEMISTRY METHOD 10/11/2024 2:28 PM EST [facility] Blood Venous blood specimen / Unknown Venipuncture / Unknown 10/11/2024 12:39 PM EST 10/11/2024 12:39 PM EST Jessica Bonds NP LAB BLOOD ORDERABLES Performing Organization Address City/[facility]/ZIP Co de Phone Number [facility] [address] [place] [address], [place] [phone] * Annual BMP Blood Test (08/30/2024) Pathologist [facility] Annual BMP Blood Test Abstracted Historical Provider MD SUZANNE DIANE E * Urine Albumin Creatinine Ratio (12/17/2020) [facility] Urine Albumin Creatinine Ratio Abstarcted Historical [...] scores not able to be calculated. [facility] Department of Internal Medicine recommends using [...] alternative screening schedule based on leno Hoffmann., [facility] November 17, 2011 for patients with osteopenia [...] scores not able to be calculated. [facility] Department of Internal Medicine recommendsusing National [...] alternative screening schedule based on leno Hoffmann., [facility] for patients with osteopenia (based on hip BMD T-score) is as follows: * advanced osteopenia (T scores -2.00 to -2.49), BMD testing every year * moderate osteopenia (T scores -1.50 to -1.99), BMD testing every 5years mild osteopenia or normal BMD (T scores -1.50 and higher), BMD testingevery 15 years Goldie GARCIA IMG DXA PROCEDURES * Hepatitis C Screening (03/20/2014) Hepatitis C Screening Abstracted Historical Provider MD SUZANNE Malloy from Last 3 Months or Most Recently Relevant to Health Maintenance Care Teams Spanish Interpreter/Translator Relationship Specialty Start Date End Date Jose Luis Younger MD [address] [place] [address] [place], [place] [phone] PCP - General Internal Medicine 06/21/21
--- OUTSIDE RECORDS SUMMARY | 2024-11-26 09:09 | XMS_ITS | Encounter Summary ---
Author Organization [facility] Address [address] [place] [address] Care Team Providers Care Business Consult Name Role Phone Jose Luis Younger MD Primary Care Provider [phone] Reason for Referral * Consultation (Routine) - Authorized Specialty Diagnoses / Procedures Referred By Naomi lópez Referred To Contact Nephrology Diagnoses Type 2 diabetes with nephropathy (CMS/HCC) Eun Alvares PA [address] [place] [address] [facility] [address] Referral ID Status Reason Start Date Expiration Date Visits Requested Visits Authorized [id number] Authorized Specialty Services Required 11/07/2024 11/07/2025 1 1 Reason for Visit * Reason Comments Follow-up Thyroid Encounter Details Date Type Department Care Team (Late st Contact Info) Description 11/07/2024 11:00 AM EST Office Visit Endocrinology - [address] [phone] Eun Alvares PA [address] [place] [address] Type 2 diabetes with nephropathy (CMS/HCC) (Primary [...] 42, CR 1.36. Has not seen a electric serviceman in the recent times. No complaints of [...] 3 due to type 2 diabetes mellitus ([facility]/HCC) 09/12/2016 MDD (major depressive disorder) 12/20/2013 GERD (gastroesophageal reflux disease) 11/29/2013 HTN (hypertension) 11/29/2013 IBS (irritable bowel syndrome) 11/29/2013 Hyperlipidemia 11/29/2013 Hypothyroid 11/29/2013 Type 2 diabetes with nephropathy ([facility]) 11/29/2013 Past Surgical History: Procedure Laterality Date [...] IMPRESSION: 1. Type 2 diabetes with nephropathy ([facility]/HCC) 2. Stage 3b chronic kidney disease ([facility]) 3. Hypothyroidism, unspecified type PLAN: Diabetes complicated [...] PM EST Office Visit Vascular Surgery - [place] [address] [place] [phone] Rashmi Zaidi PA [address] [facility] [address] [place] [address] 01/13/2025 8:20 AM EDT Office Visit Endocrinology - [place] [address] [place] [address] Eun Alvares PA [address] [place] [address] Scheduled Referrals Name Type Priority Associated Diagnoses Order Schedule Ambulatory referral to Nephrology Outpatient Referral Routine Type 2 diabetes with nephropathy (CMS/HCC) 1 Occurrences starting 11/07/2024 until 11/07/2025 documented as of this encounter Visit Diagnoses Diagnosis Type 2 diabetes with nephropathy (CMS/HCC)- Primary Stage 3b chronic kidney disease (CMS/[facility]) Hypothyroidism, unspecified type documented in this encounter [...] 11/07/2024 added in this encounter Care Teams Business Consult Relationship Specialty Start Date End Date Jose Luis Younger MD [address] [address] PCP - General Internal Medicine 06/21/21 documented as of this encounter
[2024-11-26 09:56] VITALS: BP 123/57; PULSE 81; RESP 16; O2SAT 96
== END 2024-11-26 09:51 | disposition home or self-care (01) ==
LOC: HO.PMCPRC 08:49
PROVIDERS: PCP Internal Medicine; Visit Provider Anesthesiology
DX: M54.16 Radiculopathy, lumbar region (principal)
CPT/HCPCS: 64483

== ENCOUNTER 2024-12-03 16:26 | Inpatient (IN) | payer MEDICARE, SELFPAY ==
[2024-12-03] VITALS (10 sets, daily range): BP systolic 107–147; BP diastolic 48–72; PULSE 75–110; RESP 16–24; TEMP 36.9–37.1; O2SAT 88–100; BMI 35.3
--- NOTE | ~2024-12-03 | CT_ITS ---
CLINICAL HISTORY: Right lower lobe pneumonia? Aspiration CT chest without contrast Comparison: None Findings: The heart size is normal. Calcification of the coronary vasculature. The visualized thyroid is within normal limits. Large hiatal hernia. No evidence of pneumonia or edema. There is a 24 mm multi lobular nodule within the right lung base posteriorly with spiculated margins. 4 mm nodule within the right lower lobe posteromedially ( image 105). Ground-glass nodule within the right lower lobe posteriorly measuring 11 mm (image 94). 6 mm subpleural nodule within the right lower lobe posterolaterally ( image 86). 4 mm nodule within the superior segment left lower lobe laterally ( image 58). Visualized portions of the upper abdomen demonstrate a 17 mm right adrenal nodule with noncontrast Hounsfield units of -13. No acute fractures. IMPRESSION: 1. Multiple bilateral nodular densities, largest of which is in the right lung base as described above. Further assessment with PET-CT or biopsy is recommended. 2. Hiatal hernia. 3. Coronary artery disease. 4. Left adrenal adenoma. This document has been electronically signed by: Nasra Collado MD on 12/03/2024 18:53:30
--- NOTE | ~2024-12-03 | XR_ITS ---
CLINICAL HISTORY: Cough shortness a breath 1 view chest x-ray Comparison: CR/SR - XR CHEST 2V - 11/18/24 10:39 EST Findings: Mild patchy right basilar airspace opacity. Normal size heart. No acute fracture. IMPRESSION: Right basilar pneumonia. Continued plain film follow-up is recommended to ensure resolution, and to exclude underlying neoplasm. This document has been electronically signed by: Nasra Collado MD on 12/03/2024 17:45:02
--- NOTE | 2024-12-03 16:52 | ED.SOB ---
HPI - SOB/Dyspnea General Chief Complaint: Dyspnea Stated Complaint: sob, just released for pneumonia Time Seen by Provider: 12/03/24 16:52 Source: patient Mode of arrival: ambulatory Limitations: no limitations History of Present Illness ED Provider: HPI Narrative: 79-year-old female with history of asthma, diabetes insulin dependent, hypothyroidism, spinal stenosis admitted on 11/18 discharged on 11/20 for right lower lobe pneumonia VNA came in noticed that she has more short of breath and has elevated blood sugar in 280's on arrival patient noted to be saturating 88% at room air fluctuating between 88-92% Related Data Home Medications ?Medication ?Instructions ?Recorded ?Confirmed lovastatin 40 mg tablet 40 mg PO BEDTIME 08/15/24 12/03/24 omeprazole 20 mg capsule,delayed 20 mg PO BID@0630,1630 08/15/24 12/03/24 release glipizide 5 mg tablet 5 mg PO BID 11/18/24 12/03/24 insulin glargine 100 unit/mL 10 unit subcut BEDTIME 11/18/24 12/03/24 subcutaneous solution (Lantus U-100 Insulin) albuterol sulfate 90 mcg/actuation 2 puff inhalation Q4H PRN 12/03/24 12/03/24 aerosol inhaler Shortness Of Breath Or Wheezing amlodipine 5 mg tablet 5 mg PO DAILY 12/03/24 12/03/24 aripiprazole 5 mg tablet 5 mg PO DAILY 12/03/24 12/03/24 dextroamphetamine-amphetamine ER 2 cap PO DAILY 12/03/24 12/03/24 30 mg 24hr capsule,extend release duloxetine 60 mg capsule,delayed 120 mg PO DAILY 12/03/24 12/03/24 release fluticasone propionate 50 2 spray intranasal DAILY 12/03/24 12/03/24 mcg/actuation nasal spray,suspension gabapentin 300 mg capsule 300 mg PO BID 12/03/24 12/03/24 levothyroxine 50 mcg tablet 50 mcg PO DAILY@0600 12/03/24 12/03/24 lisinopril 10 mg tablet 10 mg PO DAILY 12/03/24 12/03/24 tizanidine 4 mg tablet 4 mg PO DAILY PRN Muscle Spasm/Pain 12/03/24 12/03/24 Allergies Allergy/AdvReac Type Severity Reaction Status Date / Time No Known Allergies Allergy Verified 12/03/24 16:49 Review of Systems Review of Systems: Yes all other systems are reviewed and are negative [facility] Past Medical History Medical History Spinal stenosis Hypothyroid Type 2 diabetes mellitus without complications Asthma Social History Social History Household Members: None Housing: House Do you presently have visiting nurse or other home services: No Patient Tobacco Use Status: Former Tobacco user Tobacco use type: Cigarette Smoked in Last 30 Days: No Use of substances other than those prescribed or required for medical reasons: No Advance Directives: Yes Advance Directives on File: Yes Advance Directives Date on File: 11/21/24 service: No Physical Exam Vital Signs: Vital Signs: Last Vital Signs Temp 97.8 F 12/04/24 01:43 Pulse 71 12/04/24 01:43 Resp 16 12/04/24 01:43 BP 118/62 12/04/24 01:43 Pulse Ox 95 12/04/24 01:43 O2 Del Method Nasal Cannula 12/04/24 01:43 O2 Flow Rate 1 12/04/24 01:43 BMI result Body Mass Index 35.3 Appearance: Alert. Oriented X3. No acute distress. Eyes: No pallor no icterus ENT: Pharynx normal. Oral Mucosa moist Neck: Normal inspection. Neck supple. CVS: Normal heart rate and rhythm. Pulses normal. Respiratory: No respiratory distress. Equal air entry bilateral, bilateral wheezing Abdomen: Soft and nontender. Bowel sounds are present, no mass palpable, no CVA tenderness Skin: Skin warm and dry. Normal skin color. Normal skin turgor. Extremities: No lower extremity edema. No calf tenderness Neuro: Oriented X 3. No motor deficit. Medications Administered Generic Name Dose Route Start Last Admin Trade Name Freq PRN Reason Stop Dose Admin Enoxaparin Sodium 40 mg 12/03/24 22:45 12/04/24 00:09 Enoxaparin Sodium 40 Mg/0.4 Ml Syringe SUBCUT 40 mg Q24H MICA Administration Sodium Chloride 3 ml 12/04/24 00:00 12/04/24 00:14 0.9 % Sodium Chloride Flush 3 Ml Syringe IVFLUSH Not Given QSHIFT MICA Discontinued Medications Generic Name Dose Route Start Last Admin Trade Name Crescencioq PRN Reason Stop Dose Admin Albuterol Sulfate 2.5 mg/ 0 mg 12/03/24 17:07 12/03/24 17:17 Albuterol/Ipratropium 3 ml INHALE 12/03/24 17:08 1 dose ONCE ONE Administration Piperacillin Sod/Tazobactam 50 mls @ 100 mls/hr 12/03/24 18:18 12/03/24 19:38 Sod 3.375 gm/ Sodium Chloride IV 12/03/24 18:47 Infused ONCE ONE Infusion Sodium Chloride 1,000 mls @ 999 mls/hr 12/03/24 19:13 12/04/24 00:48 Ns IV 12/03/24 20:13 Infused .Q1H1M ONE Infusion Insulin Glargine 10 unit 12/03/24 20:38 12/03/24 20:46 Insulin Glargine,Hum.Rec.Anlog 100 Unit/Ml 10 Ml Vial SUBCUT 12/03/24 20:39 10 unit ONCE ONE Administration Insulin Human Lispro 14 unit 12/03/24 20:38 12/03/24 20:45 Insulin Lispro 100 Unit/Ml 3 Ml Vial SUBCUT 12/03/24 20:39 14 unit ONCE ONE Administration Insulin Human Lispro 10 unit 12/04/24 00:40 12/04/24 00:47 Insulin Lispro 100 Unit/Ml 3 Ml Vial SUBCUT 12/04/24 00:41 10 unit ONCE ONE Administration Oseltamivir Phosphate 75 mg 12/03/24 19:13 12/03/24 19:37 Oseltamivir Phosphate 75 Mg Capsule PO 12/03/24 19:14 75 mg ONCE ONE Administration Medical Decision Making Medical Decision Making [facility] Narrative: Patient's right lower lobe pneumonia likely aspiration pneumonia with asthma desaturating to 89% at room air while in the ER patient does not have a nebulizer oxygen at home will admit patient for hypoxia and pneumonia Patient had a CT scan done which showed no pneumonia but with multiple nodular densities specially in the right lower lung with 24 mm mass with spiculated margins suggestive of? Malignancy patient also noted to be positive for influenza A will start on Tamiflu Differential Diagnosis Differential Diagnoses: The differential diagnosis associated with the presentation includes Pneumonia/CHF/malignancy/viral Admission/Observation Consideration of admission/observation: Escalation of care including admission/observation considered Consult Healthcare Provider Management of the patient was discussed with: Hospitalist Lab Data MDM Lab Attestation statement: I reviewed the patient's lab results. 12/03/24 17:27 12/03/24 17:27 Labs: Lab Results 12/03/24 12/03/24 12/03/24 Range/Units 17:27 18:36 20:34 WBC 9.0 (4.8-10.8) X10*3/uL RBC 3.80 L (4.20-5.50) X10*6/uL Hgb 10.1 L (12.0-16.0) g/dl Hct 31.9 L (37.0-47.0) % MCV 83.9 (80.0-98.0) fL MCH 26.6 L (27.0-33.0) pg MCHC 31.7 (31.0-35.0) g/dl RDW 15.8 (11.0-16.0) % Plt Count 223 D (160-400) X10*3/uL MPV 10.6 (9.4-12.3) fL Immature Gran % (Auto) 0.7 H (0.0-0.4) % Neut % (Auto) 79.1 H (45-73) % Lymph % (Auto) 11.7 L (20-40) % Camp % (Auto) 6.6 (2-11) % Eos % (Auto) 1.6 (0-4) % Baso % (Auto) 0.3 (0-2) % Lymph # (Auto) 1.1 L (1.2-4.9) X10*3/uL Camp # (Auto) 0.6 (0.1-1.2) X10*3/uL Eos # (Auto) 0.1 (0.0-0.4) X10*3/uL Baso # (Auto) 0.0 (0.0-0.2) X10*3/uL Abs Immat Gran (auto) 0.06 H (0.00-0.03) X10*3/uL Absolute Neuts (auto) 7.1 (2.0-8.3) x10*3/uL Absolute Nucleated RBC 0.000 (0.0-0.012) X10*3/uL Nucleated RBC % (auto) 0.0 (0.0-0.2) /100WBC Sodium 139 (135-145) mmol/L Potassium 4.2 (3.3-5.1) mmol/L Chloride 100 (96-108) mmol/L Carbon Dioxide 21 L (22-29) mmol/L Anion Gap 22 H (12-20) BUN 17 H (9-16) mg/dL Creatinine 1.27 (0.5-1.4) mg/dL Estim Creat Clear Calc 35.1 Estimated GFR 41 POC Glucose 508 H* (60-115) mg/dL Random Glucose 280 H (60-115) mg/dL Lactic Acid 2.9 H* (0.5-2.0) mmol/L Lactic Acid F/U @ 2Hr (0.5-2.0) mmol/L Calcium 8.3 L D (8.4-10.2) mg/dL Magnesium 1.7 (1.6-2.6) mg/dL Total Bilirubin 0.3 (0.0-1.0) mg/dL AST 20 (5-31) U/L ALT 22 (0-31) U/L Alkaline Phosphatase 64 (39-117) U/L Total Protein 7.0 (6.5-8.0) g/dL Albumin 3.7 (3.5-5.0) g/dL Influenza Type A (PCR) POSITIVE A (Negative) Influenza Type B (PCR) NEGATIVE (Negative) RSV RNA Qual (PCR) NEGATIVE (Negative) SARS-CoV-2 RNA (RT-PCR) NEGATIVE (Negative) 12/03/24 12/03/24 Range/Units 21:21 22:27 WBC (4.8-10.8) X10*3/uL RBC (4.20-5.50) X10*6/uL Hgb (12.0-16.0) g/dl Hct (37.0-47.0) % MCV (80.0-98.0) fL MCH (27.0-33.0) pg MCHC (31.0-35.0) g/dl RDW (11.0-16.0) % Plt Count (160-400) X10*3/uL MPV (9.4-12.3) fL Immature Gran % (Auto) (0.0-0.4) % Neut % (Auto) (45-73) % Lymph % (Auto) (20-40) % Camp % (Auto) (2-11) % Eos % (Auto) (0-4) % Baso % (Auto) (0-2) % Lymph # (Auto) (1.2-4.9) X10*3/uL Camp # (Auto) (0.1-1.2) X10*3/uL Eos # (Auto) (0.0-0.4) X10*3/uL Baso # (Auto) (0.0-0.2) X10*3/uL Abs Immat Gran (auto) (0.00-0.03) X10*3/uL Absolute Neuts (auto) (2.0-8.3) x10*3/uL Absolute Nucleated RBC (0.0-0.012) X10*3/uL Nucleated RBC % (auto) (0.0-0.2) /100WBC Sodium (135-145) mmol/L Potassium (3.3-5.1) mmol/L Chloride (96-108) mmol/L Carbon Dioxide (22-29) mmol/L Anion Gap (12-20) BUN (9-16) mg/dL Creatinine (0.5-1.4) mg/dL Estim Creat Clear Calc Estimated GFR POC Glucose 440 H* (60-115) mg/dL Random Glucose (60-115) mg/dL Lactic Acid (0.5-2.0) mmol/L Lactic Acid F/U @ 2Hr 1.8 (0.5-2.0) mmol/L Calcium (8.4-10.2) mg/dL Magnesium (1.6-2.6) mg/dL Total Bilirubin (0.0-1.0) mg/dL AST (5-31) U/L ALT (0-31) U/L Alkaline Phosphatase (39-117) U/L Total Protein (6.5-8.0) g/dL Albumin (3.5-5.0) g/dL Influenza Type A (PCR) (Negative) Influenza Type B (PCR) (Negative) RSV RNA Qual (PCR) (Negative) SARS-CoV-2 RNA (RT-PCR) (Negative) Independent Interpretation I performed an independent interpretation of an: EKG and CT Scan Interpretation: Normal sinus rhythm heart rate 73 beats per minute normal interval normal axis no acute STT wave changes no acute ischemia Radiology Impression Discussion of test interpretation with radiology: I have reviewed the radiologist's reading. Radiologist Impression: Close Chest CT (Signed) Nasra Collado - 12/03/24 Chest X-Ray (Signed) Nasra Collado - 12/03/24 Guidance Fluoroscopy (Signed) Sahil Ruiz - 11/26/24 Chest X-Ray (Signed) Sahil Ruiz - 11/18/24 Lumbar Spine X-Ray (Signed) Blaise Keller - 11/14/24 Lumbar Spine MRI (Signed) LUIS ALBERTO DUNBAR - 09/20/24 Lumbar Spine X-Ray (Signed) Kurtis Dwyer - 08/15/24 Launch?Image [place] [id number] CT Scan Report Signed Patient: Vanessa Ravi MR#: [id number] : 1945 Acct:[id number] Age/Sex: 79 / F ADM Date: 12/03/24 Loc: .ED Attending Dr: Ordering Physician: Ady Davis MD Date of Service: 12/03/24 Procedure(s): CT chest wo IV con Accession Number(s): [id number] cc: Jose Luis Younger MD; Ady Davis MD~ Report Number: [id number]: Total DLP = 283.00 mGy-cm CLINICAL HISTORY: Right lower lobe pneumonia? Aspiration CT chest without contrast Comparison: None Findings: The heart size is normal. Calcification of the coronary vasculature. The visualized thyroid is within normal limits. Large hiatal hernia. No evidence of pneumonia or edema. There is a 24 mm multi lobular nodule within the right lung base posteriorly with spiculated margins. 4 mm nodule within the right lower lobe posteromedially ( image 105). Ground-glass nodule within the right lower lobe posteriorly measuring 11 mm (image 94). 6 mm subpleural nodule within the right lower lobe posterolaterally ( image 86). 4 mm nodule within the superior segment left lower lobe laterally ( image 58). Visualized portions of the upper abdomen demonstrate a 17 mm right adrenal nodule with noncontrast Hounsfield units of -13. No acute fractures. IMPRESSION: 1. Multiple bilateral nodular densities, largest of which is in the right lung base as described above. Further assessment with PET-CT or biopsy is recommended. 2. Hiatal hernia. 3. Coronary artery disease. 4. Left adrenal adenoma. This document has been electronically signed by: Nasra Collado MD on 12/03/2024 18:53:30 Discharge Plan Discharge Clinical Impression: Acute hypoxic respiratory failure, Influenza A, Lung cancer, Type 2 diabetes mellitus without complications Patient Disposition: Admitted As Inpatient
--- OUTSIDE RECORDS SUMMARY | 2024-12-03 16:57 | XMS_ITS | Encounter Summary ---
Author Organization [facility] Address [address] [place] [address] Care Team Providers Care Survey Project Manager Name Role Phone Jose Luis Younger MD Primary Care Provider Reason for Referral * Consultation (Routine) - Authorized Specialty Diagnoses / Procedures Referred By Naomi lópez Referred To Contact Nephrology Diagnoses Type 2 diabetes with nephropathy (CMS/HCC) Eun Alvares PA [address] [place] [address] [facility] Nephrology [address] Referral ID Status Reason Start Date Expiration Date Visits Requested Visits Authorized [id number] Authorized Specialty Services Required 11/07/2024 11/07/2025 1 1 Reason for Visit * Reason Comments Follow-up Thyroid Encounter Details Date Type Department Care Team (Late st Contact Info) Description 11/07/2024 11:00 AM EST Office Visit Endocrinology - [address] [phone] Eun Alvares PA [address] [place] [address] Type 2 diabetes with nephropathy (CMS/HCC) (Primary [...] 40, CR 1.36. Has not seen a technical consultant in the recent times. No complaints of [...] 3 due to type 2 diabetes mellitus ([facility]/HCC) 09/12/2016 MDD (major depressive disorder) 12/20/2013 GERD (gastroesophageal reflux disease) 11/29/2013 HTN (hypertension) 11/29/2013 IBS (irritable bowel syndrome) 11/29/2013 Hyperlipidemia 11/29/2013 Hypothyroid 11/29/2013 Type 2 diabetes with nephropathy ([facility]) 11/29/2013 Past Surgical History: Procedure Laterality Date [...] IMPRESSION: 1. Type 2 diabetes with nephropathy ([facility]/HCC) 2. Stage 3b chronic kidney disease ([facility]) 3. Hypothyroidism, unspecified type PLAN: Diabetes complicated [...] PM EST Office Visit Vascular Surgery - [place] [address] [place] [phone] Rashmi Zaidi PA [address] [facility] [address] [place] [address] 01/13/2025 8:20 AM EDT Office Visit Endocrinology - [place] [address] [place] [address] Eun Alvares PA [address] [place] [address] Scheduled Referrals Name Type Priority Associated Diagnoses Order Schedule Ambulatory referral to Nephrology Outpatient Referral Routine Type 2 diabetes with nephropathy (CMS/HCC) 1 Occurrences starting 11/07/2024 until 11/07/2025 documented as of this encounter Visit Diagnoses Diagnosis Type 2 diabetes with nephropathy (CMS/HCC)- Primary Stage 3b chronic kidney disease ([facility]) Hypothyroidism, unspecified type documented in this encounter [...] Sig Dispensed Refills Start Date End Date fluticasone-salmeterol (ADVAIR DISKUS) 250-50 mcg/dose diskus inhaler [...] 08/08/2024 gabapentin (NEURONTIN) 300 mg capsule 10/11/2024 glipiZIDE (GLUCOTROL) 5 mg tablet Take 1 tablet daily before breakfast 11/07/2024 12/02/2024 levothyroxine (SYNTHROID, LEVOTHROID) 75 mcg tablet 06/14/2024 11/07/2024 added in this encounter Care Teams Survey Project Manager Relationship Specialty Start Date End Date Jose Luis Younger MD [address] [place] [address] PCP - General Internal Medicine 06/21/21 documented as of this encounter
--- OUTSIDE RECORDS SUMMARY | 2024-12-03 16:57 | XMS_ITS | Encounter Summary ---
Author Organization [facility] Address [address] [place] [address] Care Team Providers Care Civil Drafting Technician Name Role Phone Jose Luis Younger MD Primary Care Provider [phone] Reason for Visit * Reason Comments Hospital Follow-up Encounter Details Date Type Department Care Team ([facility] st Contact Info) Description 11/25/2024 1:30 PM EST Office Visit Internal Medicine - [place] [address] [facility] [address] [place] [phone] Jose Luis Younger MD [address] [facility] [address] [place] [address] Hospital discharge follow-up (Primary Dx); Moderate persistent asthma with acute exacerbation; Pneumonia of right lower lobe due to infectious organism; Type 2 diabetes mellitus without complication, with long-term current use of insulin ([facility]) Social History Tobacco Use Types Packs/Day Years [...] glucose scanning reader ([employer] 14 Day [employer]) [facility] [place] Check blood sugar 4 times a day 1 each 3 11/25/2024 documented in this encounter Progress Notes * Jose Luis Younger MD - 11/25/2024 1:30 PM EST COMPLAINT Hospital discharge follow-up IDENTIFIER: Vanessa Ravi is a 79 y.o. old female. HPI: Was discharged from [facility] on 11/20/2024 .diagnosed with acute right lower [...] complication, with long-term current use of insulin ([facility]) PLAN: Was sent home on 11/20/2024, presented [...] PM EST Office Visit Vascular Surgery - [place] [address] [facility] [address] [place] [address] Rashmi Zaidi PA [address] [facility] [address] [place] [address] 01/13/2025 8:20 AM EDT Office Visit Endocrinology - [place] [address] [place] [address] Eun Alvares PA [address] [place] [address] documented as of this encounter Visit Diagnoses Diagnosis Hospital discharge follow-up- Primary Other follow-up examination Moderate persistent asthma with acute exacerbation Pneumonia of right lower lobe due to infectious organism Type 2 diabetes mellitus without complication, with long-term current use of insulin (CMS/[facility]) documented in this encounter Additional Health Concerns Assessment Noted Time PHQ-9 Depression Total Score: 0 11/15/19 25 9:03 AM EST A fall risk assessment has been complete d for the patient 11/15/2024 9:00 AM EST documented as of this encounter Care Teams Civil Drafting Technician Relationship Specialty Start Date End Date Jose Luis Younger MD 175 [facility] [address] [place] [address] PCP - General Internal Medicine 06/21/21 documented as of this encounter
--- OUTSIDE RECORDS SUMMARY | 2024-12-03 16:57 | XMS_ITS | Encounter Summary ---
Author Organization [facility] Address [address] [place] [address] Care Team Providers Care Riding Silks Custodian Name Role Phone Jose Luis Younger MD Primary Care Provider [phone] Reason for Visit * Reason Onset Date Comments Provider call back 11/19/2024 Encounter Details Date Type Department Care Team (Late st Contact Info) Description 11/19/2024 Telephone Internal Medicine - [place] [address] [facility] [address] [place] [address] Jose Luis Younger MD [address] [facility] [address] [place] [address] Provider call back Social History Tobacco Use [...] Giorgio GARCIA 11/07/2024 Call to pt # [phone], spoke w/ the pt. I told her about the call from [facility] and that she needs to follow up [...] 1:10 PM EST Toshia from Spine dept [facility] called regarding patient. She stated patient was supposed to have back surgery but when she got recent labs done, her A1C levels were super high and she hasto cancel the surgery. She requested to speak with someone to follow up with PCP regarding this because she still wants patient to have back surgery in future. Callback [phone] documented in this encounter Plan of Treatment Upcoming Encounters Date Type Department Care Team (Late st Contact Info) Description 12/11/2024 4:00 PM EST Office Visit Vascular Surgery - [place] [address] [place] [address] Rashmi Zaidi PA [address] [place] [address] 01/13/2025 8:20 AM EDT Office Visit Endocrinology - [address] [place] [address] Eun Alvares PA [address] [place] [address] documented as of this encounter Visit Diagnoses Not on filedocumented in this encounter Additional Health Concerns Assessment Noted Time PHQ-9 Depression Total Score: 0 11/15/19 25 9:03 AM EST A fall risk assessment has been complete d for the patient 11/15/2024 9:00 AM EST documented as of this encounter Care Teams Riding Silks Custodian Relationship Specialty Start Date End Date Jose Luis Younger MD 175 [facility] [address] [place] [address] PCP - General Internal Medicine 06/21/21 documented as of this encounter
--- OUTSIDE RECORDS SUMMARY | 2024-12-03 16:57 | XMS_ITS | Encounter Summary ---
Author Organization [facility] Address [address] [place] [address] Care Team Providers Care Densitometer Reader Name Role Phone Jose Luis Younger MD Primary Care Provider [phone] Encounter Details Date Type Department Care Team (Late Contact Info) Description 10/28/[address] [facility] 175 [facility] [address] [place] [phone] Jose Luis Younger MD [address] [facility] [address] [place] [address] Social History Tobacco Use Types Packs/Day Years [...] PM EST Office Visit Vascular Surgery - [place] [address] [facility] [address] [place] [address] Rashmi Zaidi PA [address] [facility] [address] [place] [address] 01/13/2025 8:20 AM EDT Office Visit Endocrinology [facility] [address] [place] [phone] Eun Alvares PA [address] [place] [address] documented as of this encounter Visit Diagnoses Not on filedocumented in this encounter Care Teams Densitometer Reader Relationship Specialty Start Date End Date Jose Luis Younger MD [address] [place] [address] PCP - General Internal Medicine 06/21/21 documented as of this encounter
--- OUTSIDE RECORDS SUMMARY | 2024-12-03 16:57 | XMS_ITS | Encounter Summary ---
Author Organization [facility] Address [address] [place] [address] Care Team Providers Care Patrol Sergeant Sheriff'S Office Name Role Phone Jose Luis Younger MD Primary Care Provider [phone] Reason for Visit * Reason Onset Date Comments Hospital Follow-up 11/21/2024 Encounter Details Date Type Department Care Team (Late st Contact Info) Description 11/21/2024 Telephone Internal Medicine - [place] 175 [facility] [address] [place] [address] Jose Luis Younger MD 175 [facility] [address] [place] [address] Hospital Follow-up Social History Tobacco Use Types [...] 9:24 AM EST Call to pt # [phone], left message for pt to call us back * Roselyn Vu - 11/21/2024 8:53 AM EST Patient called and stated that she was in [facility] on 11/17/24 and was discharged yesterday due to pneumonia and would like to see her provider as soon as possible. Please advise Cb# [phone] documented in this encounter Plan of Treatment Upcoming Encounters Date Type Department Care Team (Late st Contact Info) Description 12/11/2024 4:00 PM EST Office Visit Vascular Surgery - [place] [address] [place] [address] Rashmi Zaidi PA 300 [facility] [address] [place] [address] 01/13/2025 8:20 AM EDT Office Visit Endocrinology - [place] [address] [place] [address] Eun Alvares PA [address] [place] [address] documented as of this encounter Visit Diagnoses Not on filedocumented in this encounter Additional Health Concerns Assessment Noted Time PHQ-9 Depression Total Score: 0 11/15/19 9:03 AM EST A fall risk assessment has been complete d for the patient 11/15/2024 9:00 AM EST documented as of this encounter Care Teams Patrol Sergeant Sheriff'S Office Relationship Specialty Start Date End Date Jose Luis Younger MD [address] [facility] [address] [place] [address] PCP - General Internal Medicine 06/21/21 documented as of this encounter
--- OUTSIDE RECORDS SUMMARY | 2024-12-03 16:57 | XMS_ITS | Encounter Summary ---
Author Organization [facility] Address [address] [place] [address] Care Team Providers Care Museum Tour Guide Name Role Phone Jose Luis Younger MD Primary Care Provider [phone] Reason for Visit * Reason Comments Medicare Annual Wellness [facility] Encounter Details Date Type Department Care Team ([facility] st Contact Info) Description 11/15/2024 8:30 AM EST Office Visit Internal Medicine - [place] 175 [facility] [address] [place] [phone] Jose Luis Younger MD [address] [facility] [address] [place] [address] Primary hypertension (Primary Dx); Hypercholesterolemia; Other specified [...] 3 due to type 2 diabetes mellitus ([facility]) GERD (gastroesophageal reflux disease) HTN (hypertension) IBS (irritable bowel syndrome) Hyperlipidemia Hypothyroid MDD (major depressive disorder) Microalbuminuria Migraine headache Obesity (BMI 30-39.9) Spinal stenosis of lumbar region without neurogenic claudication Type 2 diabetes with nephropathy ([facility]) No Known Allergies Current Outpatient Medications Medication [...] (major depressive disorder); COMMENT: Sees Psychiatry at [facility] (Cher hBatia) prescribed Abilify and adderall Microalbuminuria 06/11/2018 DX:Microalbuminuria [...] Jose Luis Younger MD INTERNAL MEDICINE - [address] [facility] [address] Dept: [phone] Dept documented in this encounter Plan of Treatment Upcoming Encounters Date Type Department Care Team ([facility] st Contact Info) Description 12/11/2024 4:00 PM EST Office Visit Vascular Surgery - [place] [address] [place] [address] Rashmi Zaidi PA 300 [facility] [address] [place] [address] 01/13/2025 8:20 AM EDT Office Visit Endocrinology - [place] [address] [place] [address] Eun Alvares PA [address] [place] [address] documented as of this encounter Visit Diagnoses [...] documented as of this encounter Care Teams Museum Tour Guide Relationship Specialty Start Date End Date Jose Luis Younger MD [address] [place] [address] [address] [address] [place] [address] PCP - General Internal Medicine 06/21/21 documented as of this encounter
--- OUTSIDE RECORDS SUMMARY | 2024-12-03 16:57 | XMS_ITS | Encounter Summary ---
Author Organization [facility] Address [address] [place] [address] Care Team Providers Care Auto Cleaner Name Role Phone Jose Luis Younger MD Primary Care Provider [phone] Encounter Details Date Type Department Care Team (Late Contact Info) Description 11/26/2024 Telephone Internal Medicine - [place] 175 [facility] [address] [place] [phone] Jose Luis Younger MD 175 [facility] [address] [place] [address] Social History Tobacco Use Types Packs/Day Years [...] as of this encounter Progress Notes * Cortney Bradley - 11/26/2024 2:52 PM EST Pt needs a medication change it isn't the flash glucose scanning reader pt needs the glucose sensor Freestyle arm band. Please send to [employer] on [facility] documented in this encounter Plan of Treatment Upcoming Encounters Date Type Department Care Team (Late Contact Info) Description 12/11/2024 4:00 PM EST Office Visit Vascular Surgery - [place] [address] [place] [phone] Rashmi Zaidi PA [address] [place] [address] 01/13/2025 8:20 AM EDT Office Visit Endocrinology - [place] [address] [place] [address] Eun Alvares PA [address] [place] [address] documented as of this encounter Visit Diagnoses Not on filedocumented in this encounter Additional Health Concerns Assessment Noted Time PHQ-9 Depression Total Score: 0 11/15/19 9:03 AM EST A fall risk assessment has been complete d for the patient 11/15/2024 9:00 AM EST documented as of this encounter Care Teams Auto Cleaner Relationship Specialty Start Date End Date Jose Luis Younger MD 175 [facility] [place] [address] [place] [address] PCP - General Internal Medicine 06/21/21 documented as of this encounter
--- OUTSIDE RECORDS SUMMARY | 2024-12-03 16:57 | XMS_ITS | Encounter Summary ---
Author Organization [facility] Address [address] [place] [address] Care Team Providers Care Hospitality Manager Name Role Phone Jose Luis Younger MD Primary Care Provider [phone] Reason for Visit * Reason Onset Date Comments New Med Request 11/22/2024 Encounter Details Date Type Department Care Team (Late st Contact Info) Description 11/22/2024 Telephone Endocrinology - [place] [address] [place] [phone] Eun Alvares PA [address] [place] [address] New Med Request Social History Tobacco Use [...] on file documented as of this encounter Ordered Prescriptions Prescription Sig Dispensed Refills Start Date End Da te flash glucose sensor (FreeStyle Destinee 14 Day Sensor) kit Use one sensor every 14 days E11.9 2 each 3 11/26/2024 documented in this encounter Progress Notes * RADHA Vega - 11/26/2024 3:29 PM EST Sent. * Julieth Barrow MA - 11/26/2024 3:25 PM EST She would like the destinee 14 day. She stated that she already received the monitor and now all she needs is the sensors. She also said her insurance does approve it. * RADHA Vega - 11/25/2024 5:41 PM EST I have not prescribed CGM for this patient. Please call for clarification. She on the destinee 14-day or the destinee 2? This is covered by her insurance? * Anel Martinez - 11/22/2024 9:37 AM EST Patient would like an order for sensors sent to her pharmacy . Please call her at [phone] documented in this encounter Plan of Treatment Upcoming Encounters Date Type Department Care Team (Late st Contact Info) Description 12/11/2024 4:00 PM EST Office Visit Vascular Surgery - [place] 300 [facility] [address] [place] [address] Rashmi Zaidi PA 300 [facility] [address] [place] [address] 01/13/2025 8:20 AM EDT Office Visit Endocrinology - [address] [address] Eun Alvares PA [address] [place] [address] documented as of this encounter Visit Diagnoses Not on filedocumented in this encounter Additional Health Concerns Assessment Noted Time PHQ-9 Depression Total Score: 0 11/15/19 25 9:03 AM EST A fall risk assessment has been complete d for the patient 11/15/2024 9:00 AM EST documented as of this encounter Care Teams Hospitality Manager Relationship Specialty Start Date End Date Jose Luis Younger MD [address] [place] [address] [address] [place] [address] PCP - General Internal Medicine 06/21/21 documented as of this encounter
[2024-12-03] MEDS: Albuterol Sulfate 2.5 MG, Albuterol/Iprat 2.5/0.5MG 3 ML 3 ML INHALE (17:17)
[2024-12-03 17:31] LABS: MANUAL DIFF FLAG NO
[2024-12-03 17:48] LABS: Basophils Percent Auto 0.3 % (0-2); Eosinophils Absolute Auto 0.1 X10*3/uL (0.0-0.4); Eosinophils Percent Auto 1.6 % (0-4); Hematocrit 31.9 % (37.0-47.0); Hemoglobin 10.1 g/dl (12.0-16.0); Imm Gran Abs Auto 0.06 X10*3/uL (0.00-0.03); Imm Gran Pct Auto 0.7 % (0.0-0.4); Lymphocytes Absolute Auto 1.1 X10*3/uL (1.2-4.9); Lymphocytes Percent Auto 11.7 % (20-40); Mean Corpuscular HGB Conc 31.7 g/dl (31.0-35.0); Mean Corpuscular Hemoglobin 26.6 pg (27.0-33.0); Mean Corpuscular Volume 83.9 fL (80.0-98.0); Mean Platelet Volume 10.6 fL (9.4-12.3); Monocytes Absolute Auto 0.6 X10*3/uL (0.1-1.2); Monocytes Percent Auto 6.6 % (2-11); Neutrophils Absolute Auto 7.1 x10*3/uL (2.0-8.3); Neutrophils Percent Auto 79.1 % (45-73); Platelet Count 223 X10*3/uL (160-400); Red Cell Distribution Width 15.8 % (11.0-16.0)
--- NOTE | 2024-12-03 17:53 | PC.NURSE ---
Pt presents to ED via EMS from home, [facility] sent pt in for cough, SOB, wheezing and high BGL. Pt had recent dx of pneumonia on 11/23. Pt is alert and oriented, breathing slightly elevated, skin warm and dry, LS wheezing bilat. Noted to be 88-89% on RA but improves quickly with rx and O2. Sinus tach on claims adjudicator.
[2024-12-03 17:59] LABS: Alanine Aminotransferase 22 U/L (0-31); Albumin Level 3.7 g/dL (3.5-5.0); Alkaline Phosphatase 64 U/L (39-117); Anion Gap 22 (12-20); Aspartate Amino Transferase 20 U/L (5-31); Bilirubin Total 0.3 mg/dL (0.0-1.0); Blood Urea Nitrogen 17 mg/dL (9-16); Calcium 8.3 mg/dL (8.4-10.2); Carbon Dioxide 21 mmol/L (22-29); Chloride 100 mmol/L (96-108); Creatinine Clr Calc Pharmacy 35.1; Estimated Glomerular Filt Rate 41; Glucose Random 280 mg/dL (60-115); Magnesium 1.7 mg/dL (1.6-2.6); Potassium 4.2 mmol/L (3.3-5.1); Sodium 139 mmol/L (135-145)
[2024-12-03 18:09] LABS: Influenza A PCR POSITIVE (Negative); Influenza B PCR NEGATIVE (Negative); Resp Syncy Virus RNA Qual PCR NEGATIVE (Negative); SARS COV2 PCR INHOUSE NEGATIVE (Negative)
[2024-12-03] MEDS: Piperacillin Sodium/Tazobactam 3.375 GM in 0.9 % Sodium Chloride 50 ML IV (18:51)
[2024-12-03 19:01] LABS: Lactic Acid 2.9 mmol/L (0.5-2.0)
[2024-12-03] MEDS: Oseltamivir Phosphate 75 MG CAPSULE PO (19:37)
[2024-12-03] MEDS: 0.9 % Sodium Chloride 1,000 ML 999 ML IV (19:37)
--- NOTE | 2024-12-03 19:47 | PC.NURSE ---
report received from Fauzia RN, pt is in street cloths and is on the phone with her mom who is denies coming to the hospital to pick her up, mom states she will come tomorrow. pt walking around needy. pt redirectable.
--- NOTE | 2024-12-03 19:49 | PC.NURSE ---
pt states she is coming now.
--- NOTE | 2024-12-03 20:24 | MHC.EDTECH ---
This pct assumed care of Patient at 1900 ,vitals taken ,Patient was soiled ,care given ,Patient belonging list was updated ,Patient was hooked up to [place] .All safety measure in Place .
--- NOTE | 2024-12-03 20:35 | MHC.EDTECH ---
Patient blood sugar check ,MARILEE Kothari aware of result of 508.
[2024-12-03 20:39] LABS: Glucose, Whole Blood 508 mg/dL (60-115)
[2024-12-03 20:40] LABS: Reflex Lactate? Lactic Acid Added
[2024-12-03] MEDS: Insulin Lispro 100 UNIT/ML 3 ML VIAL 14 UNIT SUBCUT (20:45)
[2024-12-03] MEDS: Insulin Glargine,Hum.rec.anlog 100 UNIT/ML 10 ML VIAL 10 UNIT SUBCUT (20:46)
--- NOTE | 2024-12-03 21:22 | MHC.EDTECH ---
Repeated lactic acid drawn and sent to lab ,vitals taken ,Hospitalist Provider at bedside ,talking to Patient .
--- NOTE | 2024-12-03 21:34 | PHA.MEDREC ---
Addendum entered by Christen Ervin RPh 12/03/24 22:00: [place] rec was reviewed by cierra. Original Note: Pharmacy Consult ? Medication Reconciliation Pharmacy has completed the medication reconciliation. Spoke with patient and she was able to confirm her medications. She confirmed she takes the Gabapentin 300mg tab 2 times a daily instead of 3 times a day and states shes been doing it like that for a while and its been working for her. She states in the last few weeks she saw her Dr and they changed the Glipizide 5mg tab and now she is taking 5mg in the morning and 5mg at bedtime. She confirmed her Lantus and confirmed she is now injecting 10 units at bedtime of that and she last did that last night. She confirmed she is now using the Tizanidine 4mg tab daily as needed for pain/muscle spasms. She confirmed she took her medications this morning.
[2024-12-03 21:38] LABS: ~Lactic Acid-LAB USE ONLY 1.8 mmol/L (0.5-2.0)
[2024-12-03 22:32] LABS: Glucose, Whole Blood 440 mg/dL (60-115)
--- NOTE | 2024-12-03 22:51 | PM.IMHP ---
History of Present Illness Date of Service: 12/03/24 Attending physician on admission: Ellis Lin Chief Complaint: SOB Patient is a 79-year-old female with a past medical history significant for asthma unspecified, type 2 diabetes on insulin, hypothyroidism, spinal stenosis and HTN, presented to the ED today due to worsening shortness of breath and elevated blood sugars. She was discharged after an admission from 11/18-11/20 for right lower lobe pneumonia. She continues to have a dry cough, wheezing and shortness of breath. She denies headache, congestion, runny nose, urinary symptoms including frequency, urgency or dysuria. She also denies abdominal pain or diarrhea. Review of Systems Constitutional: Constitutional: Denies body ache(s), Denies chills, Denies fatigue, Denies fever(s) and Denies headache(s) Eyes: Eyes: Denies change in vision and Denies photophobia ENT: Denies headache(s), Denies nasal congestion, Denies nasal discharge and Denies sore throat Cardiovascular: Cardiovascular: Denies chest pain, Denies rapid heart rate, Denies leg edema, Denies lightheadedness, Reports dyspnea and Reports dyspnea on exertion Respiratory: Respiratory: Reports chest congestion, Reports cough, Reports dyspnea, Reports dyspnea on exertion and Reports wheezing Gastrointestinal: Gastrointestinal: Denies diarrhea, Denies nausea and Denies vomiting Genitourinary: Genitourinary: Denies hematuria, Denies difficulty voiding, Denies dysuria and Denies urinary urgency Musculoskeletal: Musculoskeletal: Denies myalgias and Denies muscle cramps Integumentary/Breasts: Skin/Breast: Denies rash Neurologic: Denies confusion and Denies headache(s) Psychiatric: Psychiatric: Denies confusion Endocrine: Endocrine: Denies fatigue Hematologic/Lymphatic: Hematologic/Lymphatic: Denies easy bleeding and Denies easy bruising Allergic/Immunologic: Allergic/Immunologic: Reports wheezing [facility] Medical History (Updated 12/03/24 @ 22:57 by Shaneka Hernandez PA-C) Spinal stenosis Hypothyroid Type 2 diabetes mellitus without complications Asthma Social History Household Members: None Housing: House Do you presently have visiting nurse or other home services: No Patient Tobacco Use Status: Former Tobacco user Tobacco use type: Cigarette Smoked in Last 30 Days: No Use of substances other than those prescribed or required for medical reasons: No Advance Directives: Yes Advance Directives on File: Yes Advance Directives Date on File: 11/21/24 service: No Narrative: Smoking, alcohol or drug use Meds Allergies Allergy/AdvReac Type Severity Reaction Status Date / Time No Known Allergies Allergy Verified 12/03/24 16:49 Active Medications: Current Medications Acetaminophen (Acetaminophen 325 Mg Tablet) 975 mg PO Q6H PRN PRN Reason: Pain, Mild 1-3,fever,headache Albuterol/Ipratropium (Albuterol/Iprat 2.5/0.5mg 3 Ml Ampul.Neb) 3 ml INHALE RQ4H WHILE AWAKE [facility] Amlodipine Besylate (Amlodipine Besylate 5 Mg Tablet) 5 mg PO DAILY [facility]; Protocol Amphetamine/Dextroamphetamine (Dextroamphetamine/Amphetamine Xr 10 Mg Cap.Er.24h) 60 mg PO DAILY [facility] Aripiprazole (Aripiprazole 5 Mg Tablet) 5 mg PO DAILY [facility] Calcium Carbonate (Calcium Carbonate 750 Mg Tab.Chew) 750 mg PO Q4H PRN PRN Reason: Heartburn Duloxetine HCl (Duloxetine Hcl 60 Mg Capsule.Dr) 120 mg PO DAILY [facility] Enoxaparin Sodium (Enoxaparin Sodium 40 Mg/0.4 Ml Syringe) 40 mg SUBCUT Q24H [facility] Fluticasone Propionate (Fluticasone Propionate Nasal 16 Gm [place]) 2 spray NOSTRIL-B DAILY [facility] Gabapentin (Gabapentin 300 Mg Capsule) 300 mg PO BID [facility] Piperacillin Sod/Tazobactam (Sod 4.5 gm/ Sodium Chloride) 100 mls @ 200 mls/hr IV Q6H [facility] Insulin Glargine (Insulin Glargine,Hum.Rec.Anlog 100 Unit/Ml 10 Ml Vial) 10 unit SUBCUT BEDTIME [facility] Levothyroxine Sodium (Levothyroxine Sodium 50 Mcg Tablet) 50 mcg PO DAILY@0600 [facility] Lisinopril (Lisinopril 10 Mg Tablet) 10 mg PO DAILY [facility]; Protocol Magnesium Hydroxide (Milk Of Magnesia 30 Ml Oral.Susp) 30 ml PO DAILY PRN PRN Reason: Constipation Melatonin (Melatonin 3 Mg Tablet) 6 mg PO BEDTIME PRN PRN Reason: Insomnia Omeprazole (Omeprazole 20 Mg Capsule.) 20 mg PO BID@0630,1630 [facility] Ondansetron HCl (Ondansetron Hcl 4 Mg/2 Ml Vial) 4 mg IVPUSH Q8H PRN PRN Reason: Nausea and Vomiting Oseltamivir Phosphate (Oseltamivir Phosphate 30 Mg Capsule) 30 mg PO BID [facility] Stop: 12/08/24 21:01 Pravastatin Sodium (Pravastatin Sodium 40 Mg Tablet) 40 mg PO BEDTIME [facility] Sodium Chloride (0.9 % Sodium Chloride Flush 3 Ml Syringe) 3 ml IVFLUSH QSHIFT [facility] Tizanidine HCl (Tizanidine Hcl 4 Mg Tablet) 4 mg PO DAILY PRN PRN Reason: Muscle Spasm/Pain Home Medications ?Medication ?Instructions ?Recorded ?Confirmed ?Last Taken ?Type lovastatin 40 mg tablet 40 mg PO BEDTIME 08/15/24 12/03/24 12/02/24 History omeprazole 20 mg capsule,delayed 20 mg PO BID@0630,1630 08/15/24 12/03/24 12/03/24 History release glipizide 5 mg tablet 5 mg PO BID 11/18/24 12/03/24 12/03/24 History insulin glargine 100 unit/mL 10 unit subcut BEDTIME 11/18/24 12/03/24 12/02/24 History subcutaneous solution (Lantus U-100 Insulin) albuterol sulfate 90 mcg/actuation 2 puff inhalation Q4H PRN 12/03/24 12/03/24 Unknown History aerosol inhaler Shortness Of Breath Or Wheezing amlodipine 5 mg tablet 5 mg PO DAILY 12/03/24 12/03/24 12/03/24 History aripiprazole 5 mg tablet 5 mg PO DAILY 12/03/24 12/03/24 12/03/24 History dextroamphetamine-amphetamine ER 2 cap PO DAILY 12/03/24 12/03/24 12/03/24 History 30 mg 24hr capsule,extend release duloxetine 60 mg capsule,delayed 120 mg PO DAILY 12/03/24 12/03/24 12/03/24 History release fluticasone propionate 50 2 spray intranasal DAILY 12/03/24 12/03/24 12/03/24 History mcg/actuation nasal spray,suspension gabapentin 300 mg capsule 300 mg PO BID 12/03/24 12/03/24 12/03/24 History levothyroxine 50 mcg tablet 50 mcg PO DAILY@0600 12/03/24 12/03/24 12/03/24 History lisinopril 10 mg tablet 10 mg PO DAILY 12/03/24 12/03/24 12/03/24 History tizanidine 4 mg tablet 4 mg PO DAILY PRN Muscle Spasm/Pain 12/03/24 12/03/24 Unknown History Physical Exam Vital Signs and Narrative: Vital Signs: Last Vital Signs Temp 98.8 F 12/03/24 21:16 Pulse 93 12/03/24 21:16 Resp 20 12/03/24 21:16 BP 107/64 12/03/24 21:16 Pulse Ox 96 12/03/24 21:16 O2 Del Method Nasal Cannula 12/03/24 21:16 O2 Flow Rate 2 12/03/24 21:16 BMI result Body Mass Index 35.3 General: AOx3, no acute distress Resp: Diminished throughout, mild expiratory wheezing CVS: S1, S2, RRR GI: +BS, NT, no distention Skin: Warm, dry Neuro: Cranial nerves II-XII grossly intact bilaterally. Motor grossly intact bilaterally Extremities: No LE edema Psych: Appropriate affect Const: General: No confusion Orientation/consciousness: No confusion Eyes: Direct Ophthalmoscopy: No photophobia Neuro: General: No confusion Results Labs 12/03/24 17:27 12/03/24 17:27 Labs: Laboratory Results - last 24 hr 12/03/24 12/03/24 12/03/24 17:27 18:36 20:34 MCV 83.9 MCH 26.6 L MCHC 31.7 RDW 15.8 Plt Count 223 D MPV 10.6 Immature Gran % (Auto) 0.7 H Neut % (Auto) 79.1 H Lymph % (Auto) 11.7 L [place] % (Auto) 6.6 Eos % (Auto) 1.6 Baso % (Auto) 0.3 Lymph # (Auto) 1.1 L [place] # (Auto) 0.6 Eos # (Auto) 0.1 Baso # (Auto) 0.0 Abs Immat Gran (auto) 0.06 H Absolute Neuts (auto) 7.1 Absolute Nucleated RBC 0.000 Nucleated RBC % (auto) 0.0 Anion Gap 22 H Estim Creat Clear Calc 35.1 Estimated GFR 41 POC Glucose 508 H* Random Glucose 280 H Lactic Acid 2.9 H* Lactic Acid F/U @ 2Hr Calcium 8.3 L D Magnesium 1.7 Total Bilirubin 0.3 AST 20 ALT 22 Alkaline Phosphatase 64 Total Protein 7.0 Albumin 3.7 Influenza Type A (PCR) POSITIVE A Influenza Type B (PCR) NEGATIVE RSV RNA Qual (PCR) NEGATIVE SARS-CoV-2 RNA (RT-PCR) NEGATIVE 12/03/24 12/03/24 21:21 22:27 MCV MCH MCHC RDW Plt Count MPV Immature Gran % (Auto) Neut % (Auto) Lymph % (Auto) Evans % (Auto) Eos % (Auto) Baso % (Auto) Lymph # (Auto) Evans # (Auto) Eos # (Auto) Baso # (Auto) Abs Immat Gran (auto) Absolute Neuts (auto) Absolute Nucleated RBC Nucleated RBC % (auto) Anion Gap Estim Creat Clear Calc Estimated GFR POC Glucose 440 H* Random Glucose Lactic Acid Lactic Acid F/U @ 2Hr 1.8 Calcium Magnesium Total Bilirubin AST ALT Alkaline Phosphatase Total Protein Albumin Influenza Type A (PCR) Influenza Type B (PCR) RSV RNA Qual (PCR) SARS-CoV-2 RNA (RT-PCR) Assessment and Plan (1) Sepsis: Status: Acute (2) Acute hypoxic respiratory failure: Status: Acute (3) Asthma exacerbation: Status: Acute (4) Right lower lobe pneumonia: Status: Acute (5) Influenza A: Status: Acute (6) Anemia: Status: Acute Plan Patient is a 79-year-old female with a past medical history significant for asthma unspecified, type 2 diabetes on insulin, hypothyroidism, spinal stenosis and HTN, presented to the ED today due to worsening shortness of breath and elevated blood sugars. Workup is significant for sepsis and acute hypoxic respiratory failure secondary to asthma exacerbation and recurrent right sided pneumonia complicated by influenza A. Sepsis and acute hypoxic respiratory failure secondary to asthma exacerbation, pneumonia and influenza A - WBC normal, tachycardic and tachypneic, lactic acid 2.9 (likely elevated due to albuterol), blood cultures x2 pending, not severe sepsis - chest x-ray with right basilar pneumonia - chest CT negative - flu A positive - Given 1 L IV fluids in ED - started on Tamiflu, continue - duo nebs every 4 hours while awake - started on Zosyn for hospital-acquired pneumonia due to recent hospitalization, continue - MRSA nasal screen - monitor CBC and BMP Anemia, chronic - H&H stable - monitor CBC Type 2 diabetes - hold p.o. meds - sliding scale insulin - diabetic diet - Lantus 10 units q.h.s. Hypothyroid - continue levothyroxine HTN - continue amlodipine and lisinopril DNR/DNI VT prophylaxis: Lovenox Patient with sepsis and acute hypoxic respiratory failure secondary to asthma exacerbation, pneumonia and influenza A, requiring admission for at least 2 midnights stay for IV antibiotics and monitoring. Quality Stroke Does the patient have a stroke diagnosis?: No VTE Prior VTE?: No VTE Risk Level:: Medical - moderate - high VTE Device Contraindication: Treatment Not Indicated VTE Drug Contraindication: N/A - Med Ordered
[2024-12-04] VITALS (14 sets, daily range): BP systolic 103–140; BP diastolic 51–70; PULSE 67–95; RESP 14–20; TEMP 36.2–36.8; O2SAT 89–98; BMI 33.2; BMI 32.8
[2024-12-04] MEDS: Enoxaparin Sodium 40 MG/0.4 ML SYRINGE SUBCUT ×2 (00:09→21:07)
[2024-12-04] MEDS: Insulin Lispro 100 UNIT/ML 3 ML VIAL 10 UNIT SUBCUT (00:47)
[2024-12-04 01:18] LABS: Glucose, Whole Blood 313 mg/dL (60-115)
--- NOTE | 2024-12-04 01:23 | ECG_ITS ---
Test Reason : SOB Blood Pressure : */* mmHG Vent. Rate : 73 BPM Atrial Rate : 73 BPM P-R Int : 154 ms QRS Dur : 76 ms QT Int : 414 ms P-R-T Axes : 38 25 43 degrees QTcB Int : 456 ms Normal sinus rhythm Normal ECG When compared with ECG of 18-Nov-2024 10:15, No significant change was found Referred By: Ady Davis Electronically Signed By: Bernardo Hidalgo
[2024-12-04] MEDS: Piperacillin Sodium/Tazobactam 4.5 GM in 0.9 % Sodium Chloride 100 ML IV ×3 (03:00→20:10)
[2024-12-04 03:08] LABS: Glucose, Whole Blood 228 mg/dL (60-115)
[2024-12-04 04:57] LABS: Basophils Percent Auto 0.2 % (0-2); Hematocrit 30.4 % (37.0-47.0); Hemoglobin 9.5 g/dl (12.0-16.0); Imm Gran Abs Auto 0.04 X10*3/uL (0.00-0.03); Imm Gran Pct Auto 0.6 % (0.0-0.4); Lymphocytes Absolute Auto 0.4 X10*3/uL (1.2-4.9); Lymphocytes Percent Auto 5.3 % (20-40); MANUAL DIFF FLAG SCAN; Mean Corpuscular HGB Conc 31.3 g/dl (31.0-35.0); Mean Corpuscular Hemoglobin 26.5 pg (27.0-33.0); Mean Corpuscular Volume 84.9 fL (80.0-98.0); Mean Platelet Volume 10.7 fL (9.4-12.3); Monocytes Absolute Auto 0.2 X10*3/uL (0.1-1.2); Monocytes Percent Auto 2.9 % (2-11); Neutrophils Absolute Auto 6.1 x10*3/uL (2.0-8.3); Platelet Count 226 X10*3/uL (160-400); Red Blood Count 3.58 X10*6/uL (4.20-5.50); Red Cell Distribution Width 15.8 % (11.0-16.0); SCAN SMEAR FLAG 1; White Blood Count 6.6 X10*3/uL (4.8-10.8)
[2024-12-04 05:10] LABS: Anion Gap 15 (12-20); Blood Urea Nitrogen 21 mg/dL (9-16); Calcium 9.1 mg/dL (8.4-10.2); Carbon Dioxide 24 mmol/L (22-29); Chloride 107 mmol/L (96-108); Creatinine Clr Calc Pharmacy 37.1; Estimated Glomerular Filt Rate 44; Glucose Random 201 mg/dL (60-115); Potassium 4.6 mmol/L (3.3-5.1); Sodium 141 mmol/L (135-145)
[2024-12-04 05:28] LABS: SLIDE REVIEW VERIFIED
[2024-12-04] MEDS: Levothyroxine Sodium 50 MCG TABLET PO (06:15)
[2024-12-04] MEDS: Omeprazole 20 MG CAPSULE.DR PO ×2 (06:15→16:47)
[2024-12-04 07:05] LABS: Glucose, Whole Blood 173 mg/dL (60-115)
[2024-12-04] MEDS: Albuterol/Iprat 2.5/0.5MG 3 ML AMPUL.NEB INHALE ×4 (07:16→19:34)
[2024-12-04] MEDS: DULoxetine HCl 60 MG CAPSULE.DR 120 MG PO (08:29)
[2024-12-04] MEDS: lisinopriL 10 MG TABLET PO (08:29)
[2024-12-04] MEDS: Insulin Lispro 100 UNIT/ML 3 ML VIAL SUBCUT ×4 (08:29→21:06)
[2024-12-04] MEDS: ARIPiprazole 5 MG TABLET PO (08:29)
[2024-12-04] MEDS: Gabapentin 300 MG CAPSULE PO ×2 (08:29→20:11)
[2024-12-04] MEDS: Dextroamphetamine/Amphetamine XR 10 MG CAP.ER.24H 60 MG PO (08:29)
[2024-12-04] MEDS: Oseltamivir Phosphate 30 MG CAPSULE PO ×2 (08:30→20:11)
[2024-12-04] MEDS: amLODIPine Besylate 5 MG TABLET PO (08:30)
[2024-12-04] MEDS: 0.9 % Sodium Chloride Flush 3 ML SYRINGE IVFLUSH ×3 (08:35→20:20)
[2024-12-04 09:04] LABS: MRSA Nasal PCR NEGATIVE (Negative); SA Nasal PCR NEGATIVE (Negative)
[2024-12-04 11:55] LABS: Glucose, Whole Blood 227 mg/dL (60-115)
[2024-12-04 16:37] LABS: Glucose, Whole Blood 259 mg/dL (60-115)
--- NOTE | 2024-12-04 17:29 | P.PNIM_ITS ---
Subjective Subjective Date of Service: 12/04/24 Interval History: Sepsis and acute hypoxic respiratory failure secondary to asthma exacerbation, pneumonia and influenza A Review of Systems seems sob withmnimum excersion has cough Physical Exam 2 Vital Signs: Vital Signs: Last Vital Signs Temp 98.3 F 12/04/24 15:16 Pulse 87 12/04/24 15:16 Resp 20 12/04/24 15:16 BP 103/55 L 12/04/24 15:16 Pulse Ox 96 12/04/24 15:16 O2 Del Method Nasal Cannula 12/04/24 15:16 O2 Flow Rate 2 12/04/24 15:16 BMI result Body Mass Index 32.8 Appearance: Alert.? Oriented X3.sob cvs: rrr, [id number] . res:air entry diminshed at bases ,few rhinchii abd: no rebound or guarding ,nt, bs present. ext pulses present , no cyanosis . neuro: axo3 , nonfocal. Objective Data Active Medications Acetaminophen (Acetaminophen 325 Mg Tablet) 975 mg PO Q6H PRN PRN Reason: Pain, Mild 1-3,fever,headache Albuterol/Ipratropium (Albuterol/Iprat 2.5/0.5mg 3 Ml Ampul.Neb) 3 ml INHALE RQ4H WHILE AWAKE [facility] Last Admin: 12/04/24 15:03 Dose: 3 ml Documented By: CHEVY Amlodipine Besylate (Amlodipine Besylate 5 Mg Tablet) 5 mg PO DAILY [facility]; Protocol Last Admin: 12/04/24 08:30 Dose: 5 mg Documented By: GABY Amphetamine/Dextroamphetamine (Dextroamphetamine/Amphetamine Xr 10 Mg Cap.Er.24h) 60 mg PO DAILY [facility] Last Admin: 12/04/24 08:29 Dose: 60 mg Documented By: GABY Aripiprazole (Aripiprazole 5 Mg Tablet) 5 mg PO DAILY [facility] Last Admin: 12/04/24 08:29 Dose: 5 mg Documented By: GABY Calcium Carbonate (Calcium Carbonate 750 Mg Tab.Chew) 750 mg PO Q4H PRN PRN Reason: Heartburn Dextrose (Dextrose 50 % 25 Gm/50 Ml Syringe) 25 gm IVPUSH Q15M PRN; Protocol PRN Reason: per Hypoglycemia Standing Ord. Duloxetine HCl (Duloxetine Hcl 60 Mg Capsule.Dr) 120 mg PO DAILY [facility] Last Admin: 12/04/24 08:29 Dose: 120 mg Documented By: GABY Enoxaparin Sodium (Enoxaparin Sodium 40 Mg/0.4 Ml Syringe) 40 mg SUBCUT Q24H [facility] Last Admin: 12/04/24 00:09 Dose: 40 mg Documented By: SPENSER Fluticasone Propionate (Fluticasone Propionate Nasal 16 Gm Elmer) 2 spray NOSTRIL-B DAILY [facility] Last Admin: 12/04/24 09:38 Dose: Not Given Documented By: FEI Non-Admin Reason: Med Not Available Gabapentin (Gabapentin 300 Mg Capsule) 300 mg PO BID [facility] Last Admin: 12/04/24 08:29 Dose: 300 mg Documented By: GABY Glucose (Glucose Gel 15 Gm Gel..Gram.) 15 gm PO Q15M PRN; Protocol PRN Reason: per Hypoglycemia Standing Ord. Piperacillin Sod/Tazobactam (Sod 4.5 gm/ Sodium Chloride) 100 mls @ 200 mls/hr IV Q8H [facility] Last Infusion: 12/04/24 13:05 Dose: Infused Documented By: FEI Insulin Glargine (Insulin Glargine,Hum.Rec.Anlog 100 Unit/Ml 10 Ml Vial) 10 unit SUBCUT BEDTIME [facility] Insulin Human Lispro (Insulin Lispro 100 Unit/Ml 3 Ml Vial) 0 unit SUBCUT QIDACHS [facility]; Protocol Last Admin: 12/04/24 16:47 Dose: 6 unit Documented By: SASHA Levothyroxine Sodium (Levothyroxine Sodium 50 Mcg Tablet) 50 mcg PO DAILY@0600 [facility] Last Admin: 12/04/24 06:15 Dose: 50 mcg Documented By: SPENSER Lisinopril (Lisinopril 10 Mg Tablet) 10 mg PO DAILY [facility]; Protocol Last Admin: 12/04/24 08:29 Dose: 10 mg Documented By: GABY Magnesium Hydroxide (Milk Of Magnesia 30 Ml Oral.Susp) 30 ml PO DAILY PRN PRN Reason: Constipation Melatonin (Melatonin 3 Mg Tablet) 6 mg PO BEDTIME PRN PRN Reason: Insomnia Omeprazole (Omeprazole 20 Mg Capsule.) 20 mg PO BID@0630,1630 [facility] Last Admin: 12/04/24 16:47 Dose: 20 mg Documented By: SASHA Ondansetron HCl (Ondansetron Hcl 4 Mg/2 Ml Vial) 4 mg IVPUSH Q8H PRN PRN Reason: Nausea and Vomiting Oseltamivir Phosphate (Oseltamivir Phosphate 30 Mg Capsule) 30 mg PO BID [facility] Stop: 12/08/24 21:01 Last Admin: 12/04/24 08:30 Dose: 30 mg Documented By: GABY Pravastatin Sodium (Pravastatin Sodium 40 Mg Tablet) 40 mg PO BEDTIME [facility] Sodium Chloride (0.9 % Sodium Chloride Flush 3 Ml Syringe) 3 ml IVFLUSH QSHIFT [facility] Last Admin: 12/04/24 16:54 Dose: 3 ml Documented By: SASHA Tizanidine HCl (Tizanidine Hcl 4 Mg Tablet) 4 mg PO DAILY PRN PRN Reason: Muscle Spasm/Pain Labs 12/04/24 04:38 12/04/24 04:38 Labs: Laboratory Results - last 24 hr 12/03/24 12/03/24 12/03/24 17:27 18:36 20:34 MCV 83.9 MCH 26.6 L MCHC 31.7 RDW 15.8 Plt Count 223 D MPV 10.6 Immature Gran % (Auto) 0.7 H Neut % (Auto) 79.1 H Lymph % (Auto) 11.7 L Creek % (Auto) 6.6 Eos % (Auto) 1.6 Baso % (Auto) 0.3 Lymph # (Auto) 1.1 L [place] # (Auto) 0.6 Eos # (Auto) 0.1 Baso # (Auto) 0.0 Abs Immat Gran (auto) 0.06 H Absolute Neuts (auto) 7.1 Absolute Nucleated RBC 0.000 Nucleated RBC % (auto) 0.0 Smear Tech's Comments Anion Gap 22 H Estim Creat Clear Calc 35.1 Estimated GFR 41 POC Glucose 508 H* Random Glucose 280 H Lactic Acid 2.9 H* Lactic Acid F/U @ 2Hr Calcium 8.3 L D Magnesium 1.7 Total Bilirubin 0.3 AST 20 ALT 22 Alkaline Phosphatase 64 Total Protein 7.0 Albumin 3.7 Nasal Screen MRSA (PCR) Nasal S. aureus Screen Nasal MRSA/S.aureus Interp Influenza Type A (PCR) POSITIVE A Influenza Type B (PCR) NEGATIVE RSV RNA Qual (PCR) NEGATIVE SARS-CoV-2 RNA (RT-PCR) NEGATIVE 12/03/24 12/03/24 12/03/24 21:21 22:27 23:59 MCV MCH MCHC RDW Plt Count MPV Immature Gran % (Auto) Neut % (Auto) Lymph % (Auto) Creek % (Auto) Eos % (Auto) Baso % (Auto) Lymph # (Auto) Creek # (Auto) Eos # (Auto) Baso # (Auto) Abs Immat Gran (auto) Absolute Neuts (auto) Absolute Nucleated RBC Nucleated RBC % (auto) Smear Tech's Comments Anion Gap Estim Creat Clear Calc Estimated GFR POC Glucose 440 H* Random Glucose Lactic Acid Lactic Acid F/U @ 2Hr 1.8 Calcium Magnesium Total Bilirubin AST ALT Alkaline Phosphatase Total Protein Albumin Nasal Screen MRSA (PCR) NEGATIVE Nasal S. aureus Screen NEGATIVE Nasal MRSA/S.aureus Interp SEE NOTE Influenza Type A (PCR) Influenza Type B (PCR) RSV RNA Qual (PCR) SARS-CoV-2 RNA (RT-PCR) 12/04/24 12/04/24 12/04/24 01:13 02:58 04:38 MCV 84.9 MCH 26.5 L MCHC 31.3 RDW 15.8 Plt Count 226 MPV 10.7 Immature Gran % (Auto) 0.6 H Neut % (Auto) 91.0 H Lymph % (Auto) 5.3 L [place] % (Auto) 2.9 Eos % (Auto) 0.0 Baso % (Auto) 0.2 Lymph # (Auto) 0.4 L [place] # (Auto) 0.2 Eos # (Auto) 0.0 Baso # (Auto) 0.0 Abs Immat Gran (auto) 0.04 H Absolute Neuts (auto) 6.1 Absolute Nucleated RBC 0.000 Nucleated RBC % (auto) 0.0 Smear Tech's Comments VERIFIED Anion Gap 15 Estim Creat Clear Calc 37.1 Estimated GFR 44 POC Glucose 313 H 228 H Random Glucose 201 H Lactic Acid Lactic Acid F/U @ 2Hr Calcium 9.1 D Magnesium Total Bilirubin AST ALT Alkaline Phosphatase Total Protein Albumin Nasal Screen MRSA (PCR) Nasal S. aureus Screen Nasal MRSA/S.aureus Interp Influenza Type A (PCR) Influenza Type B (PCR) RSV RNA Qual (PCR) SARS-CoV-2 RNA (RT-PCR) 12/04/24 12/04/24 12/04/24 07:02 11:47 16:34 MCV MCH MCHC RDW Plt Count MPV Immature Gran % (Auto) Neut % (Auto) Lymph % (Auto) Creek % (Auto) Eos % (Auto) Baso % (Auto) Lymph # (Auto) Creek # (Auto) Eos # (Auto) Baso # (Auto) Abs Immat Gran (auto) Absolute Neuts (auto) Absolute Nucleated RBC Nucleated RBC % (auto) Smear Tech's Comments Anion Gap Estim Creat Clear Calc Estimated GFR POC Glucose 173 H 227 H 259 H Random Glucose Lactic Acid Lactic Acid F/U @ 2Hr Calcium Magnesium Total Bilirubin AST ALT Alkaline Phosphatase Total Protein Albumin Nasal Screen MRSA (PCR) Nasal S. aureus Screen Nasal MRSA/S.aureus Interp Influenza Type A (PCR) Influenza Type B (PCR) RSV RNA Qual (PCR) SARS-CoV-2 RNA (RT-PCR) Assessment and Plan (1) Acute hypoxic respiratory failure: Status: Acute (2) Sepsis: Status: Acute Plan Sepsis and acute hypoxic respiratory failure secondary to asthma exacerbation, pneumonia and influenza A - WBC normal, tachycardic and tachypneic resolved. acute lactic acid 2.9 (likely elevated due to albuterol) blood cultures x2 pending chest x-ray with right basilar pneumonia, chest CT negative, flu A positive plan: started on Tamiflu, continue duo nebs every 4 hours ,on Zosyn for hospital-acquired pneumonia due to recent hospitalization, MRSA nasal screen monitor CBC and BMP Anemia, chronic - H&H stable - monitor CBC Type 2 diabetes - hold p.o. meds - sliding scale insulin - diabetic diet - Lantus 10 units q.h.s. Hypothyroid - continue levothyroxine HTN - continue amlodipine and lisinopril DNR/DNI VT prophylaxis: Lovenox ongoing need for stay: sepsis and acute hypoxic respiratory failure secondary to asthma exacerbation, pneumonia and influenza A, requiring admission for at least 2 midnights stay for IV antibiotics and monitoring. Quality Stroke Does the patient have a stroke diagnosis?: No VTE Prior VTE?: No VTE Risk Level:: Medical - moderate - high VTE Device Contraindication: Treatment Not Indicated VTE Drug Contraindication: N/A - Med Ordered
[2024-12-04] MEDS: Pravastatin Sodium 40 MG TABLET PO (20:11)
[2024-12-04 20:59] LABS: Glucose, Whole Blood 197 mg/dL (60-115)
[2024-12-04] MEDS: Insulin Glargine,Hum.rec.anlog 100 UNIT/ML 10 ML VIAL 10 UNIT SUBCUT (21:06)
[2024-12-05] MEDS: Piperacillin Sodium/Tazobactam 4.5 GM in 0.9 % Sodium Chloride 100 ML IV ×2 (03:15→11:16)
[2024-12-05 04:00] VITALS: BP 135/67; PULSE 68; RESP 16; TEMP 36.2; O2SAT 92
[2024-12-05] MEDS: Levothyroxine Sodium 50 MCG TABLET PO (05:36)
[2024-12-05] MEDS: Omeprazole 20 MG CAPSULE.DR PO (05:36)
[2024-12-05] MEDS: Diphenoxylate/Atrop 2.5/0.025 TABLET 2 TAB PO (05:36)
[2024-12-05 07:16] LABS: MANUAL DIFF FLAG NO
[2024-12-05 07:20] LABS: Basophils Percent Auto 0.2 % (0-2); Eosinophils Absolute Auto 0.1 X10*3/uL (0.0-0.4); Eosinophils Percent Auto 0.7 % (0-4); Hematocrit 33.9 % (37.0-47.0); Hemoglobin 10.2 g/dl (12.0-16.0); Imm Gran Abs Auto 0.06 X10*3/uL (0.00-0.03); Imm Gran Pct Auto 0.7 % (0.0-0.4); Lymphocytes Absolute Auto 1.3 X10*3/uL (1.2-4.9); Lymphocytes Percent Auto 16.2 % (20-40); Mean Corpuscular HGB Conc 30.1 g/dl (31.0-35.0); Mean Corpuscular Hemoglobin 25.9 pg (27.0-33.0); Mean Platelet Volume 10.9 fL (9.4-12.3); Monocytes Absolute Auto 0.7 X10*3/uL (0.1-1.2); Neutrophils Absolute Auto 6.1 x10*3/uL (2.0-8.3); Neutrophils Percent Auto 74.2 % (45-73); Platelet Count 250 X10*3/uL (160-400); Red Blood Count 3.94 X10*6/uL (4.20-5.50); White Blood Count 8.3 X10*3/uL (4.8-10.8)
[2024-12-05 07:26] LABS: Glucose, Whole Blood 133 mg/dL (60-115)
[2024-12-05 07:31] LABS: Anion Gap 13 (12-20); Blood Urea Nitrogen 23 mg/dL (9-16); Calcium 9.4 mg/dL (8.4-10.2); Carbon Dioxide 26 mmol/L (22-29); Chloride 107 mmol/L (96-108); Creatinine Clr Calc Pharmacy 32.8; Estimated Glomerular Filt Rate 39; Glucose Random 156 mg/dL (60-115); Potassium 4.8 mmol/L (3.3-5.1); Sodium 141 mmol/L (135-145)
[2024-12-05 08:00] VITALS: BP 126/69; PULSE 73; RESP 20; TEMP 36.6; O2SAT 91
[2024-12-05] MEDS: Albuterol/Iprat 2.5/0.5MG 3 ML AMPUL.NEB INHALE ×2 (08:10→11:19)
[2024-12-05 08:11] VITALS: PULSE 79; RESP 18; O2SAT 92
[2024-12-05 08:12] VITALS: BP 126/69
[2024-12-05] MEDS: Oseltamivir Phosphate 30 MG CAPSULE PO (08:12)
[2024-12-05] MEDS: Dextroamphetamine/Amphetamine XR 10 MG CAP.ER.24H 60 MG PO (08:12)
[2024-12-05] MEDS: 0.9 % Sodium Chloride Flush 3 ML SYRINGE IVFLUSH (08:12)
[2024-12-05] MEDS: Fluticasone Propionate Nasal 16 GM SPRAY 2 SPRAY NOSTRIL-B (08:12)
[2024-12-05] MEDS: Gabapentin 300 MG CAPSULE PO (08:12)
[2024-12-05] MEDS: amLODIPine Besylate 5 MG TABLET PO (08:12)
[2024-12-05] MEDS: DULoxetine HCl 60 MG CAPSULE.DR 120 MG PO (08:12)
[2024-12-05] MEDS: ARIPiprazole 5 MG TABLET PO (08:12)
[2024-12-05] MEDS: lisinopriL 10 MG TABLET PO (08:12)
--- NOTE | 2024-12-05 09:32 | MHC.CM.PN ---
Addendum entered by Theresa Wiggins 12/05/24 13:30: [facility]COMFOR + VNA UPDATED ON DC AND NEED TO SEE PT FOR MED BOX REFILL. [facility] EMERSON UPDATED ON DC PER REQUEST OF PT. Addendum entered by Theresa Wiggins 12/05/24 12:28: DP: PT HAS BEEN MEDICALLY CLEARED FOR DC HOME WITH RESUMPTION OF COMFORT + VNA FOR MEDICATION ASSISTANCE. PT HAS OWN RIDE HOME. Original Note: [facility] DELIVERED PT LIVES ALONE AND IS FUNCTIONALLY INDEPENDENT. PT IS ACTIVE WITH COMFORT + FOR NURSING ( HELPS WITH MY PILLS ) + HCP ON FILE. PCP DR. Charbel NIÑO DP: HOME WITH RESUMPTION OF COMFORT + VNA IS THE GOAL. PT HAS OWN RIDE HOME. CM WILL CONTINUE TO FOLLOW FOR ANY CHANGE TO DC PLAN/NEEDS.
[2024-12-05 11:20] VITALS: PULSE 77; RESP 20; O2SAT 93
[2024-12-05 11:28] LABS: Glucose, Whole Blood 155 mg/dL (60-115)
[2024-12-05] MEDS: Insulin Lispro 100 UNIT/ML 3 ML VIAL SUBCUT (11:38)
--- NOTE | 2024-12-05 12:26 | PM.DS ---
DS: Providers Provider Date of Service: 12/05/24 Date of admission: 12/03/24 22:42 Date of discharge: 12/05/24 Primary care physician: Jose Luis Younger MD Attending physician on discharge: Prema Flores Discharging clinician: Prema Flores DS: Diagnosis Discharge Diagnosis (1) Acute hypoxic respiratory failure: Status: Acute (2) Sepsis: Status: Acute DS: Summary Hospital Course Hospital Course: HPI:79-year-old female with a past medical history significant for asthma unspecified, type 2 diabetes on insulin, hypothyroidism, spinal stenosis and HTN, presented to the ED today due to worsening shortness of breath and elevated blood sugars. She was discharged after an admission from 11/18-11/20 for right lower lobe pneumonia. She continues to have a dry cough, wheezing and shortness of breath. She denies headache, congestion, runny nose, urinary symptoms including frequency, urgency or dysuria. She also denies abdominal pain or diarrhea. Hospital course: patient admitted for Sepsis and acute hypoxic respiratory failure secondary to asthma exacerbation, pneumonia and influenza A: started on nebs ,steriods ,tammiflu and antibiotics ,blood cultures sent ,cxr showed right sided pneumonia , ct scan chest shows lung nodules : patient seems to be improved with above management ,sepsis resolved, blood culture neg@24hrs , no fevers or sob.nasal mrsa screen negative. d/w Pulmonary Dr Elias : consider outpatient workup for lung nodules -PET csan or biopsy as per pcp, consider outpatient pulm evaluation. plan: augmentin 500 mg po bid for 5days complete tamiflu 300 mg po bid for 3 more days. consider repeat chest imaging , PET csan or biopsy and outpatient pulm evaluation as per pcp . Above management discussed with the patient in detail length as well as her son ,both understand and in agreement with the above plan, time spent 40 minute. Time Attestation Total time managing care of this patient today: 40 mintues. Discharge Coordination Time (in mins): 40 min Quality: Safe Use of Opioids Does Pt have an Active Cancer Diagnosis on the Problem List?: No Quality: Stroke Does the patient have a stroke diagnosis?: No Physical Exam Vital Signs: Vital Signs: Last Vital Signs Temp 97.9 F 12/05/24 08:00 Pulse 77 12/05/24 11:20 Resp 20 12/05/24 11:20 BP 126/69 12/05/24 08:12 Pulse Ox 91 L 12/05/24 08:00 O2 Del Method Room Air 12/05/24 08:00 O2 Flow Rate 2 12/04/24 15:16 BMI result Body Mass Index 32.8 Appearance: Alert.? Oriented X3.sob cvs: rrr, [id number] . res:air entry fair , no rales or wheezing. abd: no rebound or guarding ,nt, bs present. ext pulses present , no cyanosis . neuro: axo3 , nonfocal. DS: Data Data Completed and Pending Labs on day of discharge: Laboratory Results - last 24 hr 12/04/24 12/04/24 12/05/24 16:34 20:54 06:42 WBC 8.3 RBC 3.94 L Hgb 10.2 L Hct 33.9 L MCV 86.0 MCH 25.9 L MCHC 30.1 L RDW 16.0 Plt Count 250 MPV 10.9 Immature Gran % (Auto) 0.7 H Neut % (Auto) 74.2 H Lymph % (Auto) 16.2 L [place] % (Auto) 8.0 Eos % (Auto) 0.7 Baso % (Auto) 0.2 Lymph # (Auto) 1.3 [place] # (Auto) 0.7 Eos # (Auto) 0.1 Baso # (Auto) 0.0 Abs Immat Gran (auto) 0.06 H Absolute Neuts (auto) 6.1 Absolute Nucleated RBC 0.000 Nucleated RBC % (auto) 0.0 Sodium 141 Potassium 4.8 Chloride 107 Carbon Dioxide 26 Anion Gap 13 BUN 23 H Creatinine 1.31 Estim Creat Clear Calc 32.8 Estimated GFR 39 POC Glucose 259 H 197 H Random Glucose 156 H Calcium 9.4 12/05/24 12/05/24 07:22 11:23 WBC RBC Hgb Hct MCV MCH MCHC RDW Plt Count MPV Immature Gran % (Auto) Neut % (Auto) Lymph % (Auto) [place] % (Auto) Eos % (Auto) Baso % (Auto) Lymph # (Auto) [place] # (Auto) Eos # (Auto) Baso # (Auto) Abs Immat Gran (auto) Absolute Neuts (auto) Absolute Nucleated RBC Nucleated RBC % (auto) Sodium Potassium Chloride Carbon Dioxide Anion Gap BUN Creatinine Estim Creat Clear Calc Estimated GFR POC Glucose 133 H 155 H Random Glucose Calcium Preliminary micro results at discharge 12/03/24 18:47 Blood Culture - Preliminary Blood - Venous No growth after 24 hours. 12/03/24 18:36 Blood Culture - Preliminary Blood - Venous No growth after 24 hours. Discharge Plan Discharge Anticipated Discharge Date/Time: 12/05/24 12:09 Patient Disposition: Home, Self-Care Discharge Diagnosis: pneumonia ,lung nodules ,influenza A Referrals: Jose Luis Younger MD [Primary Care Provider] - Discharge Medications: New oseltamivir 30 mg Capsule 30 mg PO BID Qty: 7 0RF amoxicillin-pot clavulanate 500-125 mg Tablet 1 tab PO Q12H Qty: 14 0RF Continued insulin glargine [Lantus U-100 Insulin] 100 unit/mL Solution 10 unit SUBCUT BEDTIME glipizide 5 mg Tablet 5 mg PO BID tizanidine 4 mg tablet 4 mg PO DAILY PRN (Reason: Muscle Spasm/Pain) amlodipine 5 mg tablet 5 mg PO DAILY levothyroxine 50 mcg tablet 50 mcg PO DAILY@0600 lisinopril 10 mg tablet 10 mg PO DAILY gabapentin 300 mg capsule 300 mg PO BID albuterol sulfate 90 mcg/actuation HFA aerosol inhaler 2 puff INHALATION Q4H PRN (Reason: Shortness Of Breath Or Wheezing) dextroamphetamine-amphetamine 30 mg capsule,extended release 24hr 2 cap PO DAILY fluticasone propionate 50 mcg/actuation spray,suspension 2 spray INTRANASAL DAILY aripiprazole 5 mg tablet 5 mg PO DAILY duloxetine 60 mg capsule,delayed release(DR/EC) 120 mg PO DAILY omeprazole 20 mg capsule,delayed release(DR/EC) 20 mg PO BID@0630,1630 lovastatin 40 mg tablet 40 mg PO BEDTIME Discharge Orders: Discharge Order (Routine); Ordered 12/05/24 Ordered By: Pream Flores Diet: Advance to usual diet Activity on Discharge: As tolerated Stand Alone Forms: Patient Portal Discharge page Print Language: Romansh Care Plan Goals: patient admitted for Sepsis and acute hypoxic respiratory failure secondary to asthma exacerbation, pneumonia and influenza A: started on nebs ,steriods ,tammiflu and antibiotics ,blood cultures sent ,cxr showed right sided pneumonia , ct scan chest shows lung nodules : patient seems to be improved with above management ,sepsis resolved, blood culture neg@24hrs , no fevers or sob.nasal mrsa screen negative. d/w Pulmonary Dr Elias : consider outpatient workup for lung nodules -PET csan or biopsy as per pcp, consider outpatient pulm evaluation. Health Concerns: as above. Plan of Treatment: augmentin 500 mg po bid for 5days complete tamiflu 300 mg po bid for 3 more days. consider repeat chest imaging , PET csan or biopsy and outpatient pulm evaluation as per pcp . Assessment: as above. Patient Instructions: Pneumonia (DC)
--- NOTE | 2024-12-05 12:55 | W.MHC.F2F ---
Service Date Service Date: 12/05/24 Encounter Date of encounter: 12/05/24 Encounter: pneumonia ,influenza A,asthma Reasons for Services Signs and symptoms assessed: sob or fever or cough Reason for mcfp: medication management, medication treatment and teach disease management MD Overseeing Care: Jose Luis Younger Homebound: Leaving the home is medically contraindicated at this time without the asist of a device and/or another person due th the listed conditions above and below. Reason homebound: weakness related to hospital stay Homebound supporting statement: Patient is going home with vna -need help with going to appointments , medical management and labs draws. Certification: Based on the above findings, I certify that this patient is confined to the home and needs intermittent mcfp care, physical therapy and/or speech therapy, or continues to need occupational therapy. The patient is under my care, and I have initiated the establishment of the plan of care. The patient will be followed by a physician who will periodically review the plan of care. Time Spent With Patient Time: Total time managing care of this patient today ____ minutes.
[2024-12-05] MEDS: Amoxicillin/Potassium Clav 500 MG TABLET PO (13:01)
== END 2024-12-05 14:29 | disposition home or self-care (01) | DRG 871 ==
LOC: HO.ED 16:55 → HO.EDOVER 22:56 → HO.IMC 12-04 08:38
PROVIDERS: Internal Medicine; Admitting Provider Physician Assistant; Emergency Provider Internal Medicine; PCP Internal Medicine; Visit Provider Internal Medicine
DX: A41.9 Sepsis, unspecified organism (principal); J10.00 Influenza due to other identified influenza virus with unspecified type of pneumonia; J96.01 Acute respiratory failure with hypoxia; J45.901 Unspecified asthma with (acute) exacerbation; E11.8 Type 2 diabetes mellitus with unspecified complications; E03.9 Hypothyroidism, unspecified; I10 Essential (primary) hypertension; R91.8 Other nonspecific abnormal finding of lung field; D64.9 Anemia, unspecified; Z79.4 Long term (current) use of insulin; Z79.51 Long term (current) use of inhaled steroids; Z79.84 Long term (current) use of oral hypoglycemic drugs; Z79.899 Other long term (current) drug therapy
CPT/HCPCS: 0241U; 36415; 71045; 71250; 80048; 80053; 82947; 83605; 83735; 85025; 87040; 87640; 87641; 93005; 94640; 97161; 99285; J1650; J2543

== ENCOUNTER → 2024-12-03 17:07 | Outpatient (BNV) | payer MEDICARE, SELFPAY | PROVIDERS: Emergency Provider Internal Medicine; PCP Internal Medicine; Visit Provider Radiology Diagnostic Radiology | DX: J18.9 Pneumonia, unspecified organism (principal); I25.10 Atherosclerotic heart disease of native coronary artery without angina pectoris; K44.9 Diaphragmatic hernia without obstruction or gangrene; D35.02 Benign neoplasm of left adrenal gland; R91.8 Other nonspecific abnormal finding of lung field | CPT/HCPCS: 71045; 71250 ==

== ENCOUNTER → 2024-12-03 22:42 | Outpatient (BNV) | payer MEDICARE, SELFPAY | PROVIDERS: Admitting Provider Physician Assistant; Emergency Provider Internal Medicine; PCP Internal Medicine; Visit Provider Physician Assistant | DX: A41.9 Sepsis, unspecified organism (principal); J96.01 Acute respiratory failure with hypoxia | CPT/HCPCS: 99223; 99232; 99239; G0180 ==

== ENCOUNTER 2024-12-10 15:15 | Observation (INO) | payer MEDICARE, SELFPAY ==
--- NOTE | ~2024-12-10 | XR_ITS ---
EXAMINATION: XR CHEST CLINICAL INFORMATION: TIA COMPARISON: 12/03/2024. TECHNIQUE: Frontal view of the chest was obtained. FINDINGS: Cardiac silhouette is mildly prominent but likely partially magnified. Retrocardiac hiatus hernia, moderate to large. Aortic mural calcification. Normal hilar silhouettes. Lungs are clear bilaterally. No effusions or pneumothorax. No focal bone or soft tissue abnormalities. Spinal degenerative changes. XR/XR chest 1V IMPRESSION: No active pulmonary disease. Hiatus hernia. Electronically signed by: Ray Abdi MD 12/10/2024 04:48 PM [facility]
--- NOTE | ~2024-12-10 | MR_ITS ---
EXAMINATION: MR BRAIN WITHOUT IV CONTRAST HISTORY: word finding difficulty TECHNIQUE: Sagittal T1, and axial T1, FLAIR, T2, gradient echo, and diffusion weighted MR images of the brain were obtained. COMPARISON: Correlation is made with an unenhanced head CT dated 12/10/2024. FINDINGS: There is diffuse prominence of the ventricular system and cortical sulci, consistent with atrophy. Scattered periventricular and subcortical white matter hyperintensities are noted on the FLAIR and T2-weighted images which are nonspecific, but often seen in the setting of small vessel ischemic disease. There is no mass effect or midline shift. No intra or extra-axial fluid collections are identified. There are no foci of restricted diffusion. Normal vascular flow voids are noted in the basilar and carotid arteries. There is mucosal thickening in the bilateral maxillary and ethmoid sinuses. MR/MR head/brain wo con IMPRESSION: No acute intracranial abnormality. Electronically signed by: Sahil Ruiz MD 12/11/2024 03:09 PM [facility]
--- NOTE | ~2024-12-10 | CT_ITS ---
CLINICAL HISTORY: TIA. word finding difficulty, resolved CT HEAD WITHOUT CONTRAST Comparison: None Findings: No acute intracranial hemorrhage, extra-axial fluid collection, hydrocephalus or midline shift. Age appropriate generalized parenchymal atrophy. There are periventricular and subcortical white matter hypodensities which are nonspecific but most likely related to microangiopathic gliosis. Intracranial arteriosclerosis. No evidence for acute large territorial infarct. Densely calcified extra-axial lesion over the left superior parietal convexity may represent a benign meningioma measuring roughly 11 mm. There is small amount of fluid and/or mucosal thickening in the right maxillary and sphenoid sinuses. There is nodular mucosal thickening in the left maxillary sinus. There is opacification and/or mucosal thickening in multiple bilateral ethmoid air cells. There is opacification of multiple left mastoid air cells. Visualized orbits: No acute abnormalities. Bilateral aphakia There is no acute fracture. IMPRESSION: 1. No acute intracranial process. 2. Mild sinusitis. 3. Nonspecific partial left mastoid opacification. This document has been electronically signed by: Brianna Ocampo DO on 12/10/2024 18:24:49
[2024-12-10 15:29] VITALS: BP 136/88; PULSE 107; O2SAT 98
--- NOTE | 2024-12-10 16:04 | ECG_ITS ---
Test Reason : WEAKNESS SOB Blood Pressure : */* mmHG Vent. Rate : 87 BPM Atrial Rate : 87 BPM P-R Int : 142 ms QRS Dur : 78 ms QT Int : 382 ms P-R-T Axes : 42 28 54 degrees QTcB Int : 459 ms Normal sinus rhythm Normal ECG When compared with ECG of 04-Dec-2024 01:38, No significant change was found Referred By: Amanda Griffith Electronically Signed By: CAITLIN PALOMO MD
--- NOTE | 2024-12-10 16:10 | ED.GENADULT ---
HPI - General Adult General Chief complaint: Neuro Symptoms/Deficit Stated complaint: stroke like symptoms Time Seen by Provider: 12/10/24 15:30 Source: patient, family, EMS, RN notes reviewed and old records reviewed Mode of arrival: EMS History of Present Illness ED Provider: Amanda Griffith PA-C HPI narrative: 79-year-old female with a past medical history asthma, diabetes, hypothyroid, spinal stenosis, HTN, recent discharged from our facility for hypoxic respiratory failure/sepsis secondary to asthma/pneumonia and Influenza A, presenting to the ED via EMS s/p visiting nurse noted word-finding difficulty this morning around ?11AM. Son states he was called by visiting nurse, arrived around 1300 and appreciated word-finding difficulty, which was present until patient's ED arrival. States patient is at baseline now. Denies anticoagulation use. Denies recent head trauma, injury/fall, headache. Does report continued cough/SOB. Denies chest pain, fever, abdominal pain, nausea/vomiting, focal weakness. Related Data Home Medications ?Medication ?Instructions ?Recorded ?Confirmed lovastatin 40 mg tablet 40 mg PO BEDTIME 08/15/24 12/03/24 omeprazole 20 mg capsule,delayed 20 mg PO BID@0630,1630 08/15/24 12/03/24 release glipizide 5 mg tablet 5 mg PO BID 11/18/24 12/03/24 insulin glargine 100 unit/mL 10 unit subcut BEDTIME 11/18/24 12/03/24 subcutaneous solution (Lantus U-100 Insulin) albuterol sulfate 90 mcg/actuation 2 puff inhalation Q4H PRN 12/03/24 12/03/24 aerosol inhaler Shortness Of Breath Or Wheezing amlodipine 5 mg tablet 5 mg PO DAILY 12/03/24 12/03/24 aripiprazole 5 mg tablet 5 mg PO DAILY 12/03/24 12/03/24 dextroamphetamine-amphetamine ER 2 cap PO DAILY 12/03/24 12/03/24 30 mg 24hr capsule,extend release duloxetine 60 mg capsule,delayed 120 mg PO DAILY 12/03/24 12/03/24 release fluticasone propionate 50 2 spray intranasal DAILY 12/03/24 12/03/24 mcg/actuation nasal spray,suspension gabapentin 300 mg capsule 300 mg PO BID 02/04/25 02/04/25 levothyroxine 50 mcg tablet 50 mcg PO DAILY@0600 12/03/24 12/03/24 lisinopril 10 mg tablet 10 mg PO DAILY 12/03/24 12/03/24 tizanidine 4 mg tablet 4 mg PO DAILY PRN Muscle Spasm/Pain 12/03/24 12/03/24 Previous Rx's ?Medication ?Instructions ?Recorded amoxicillin 500 mg-potassium 1 tab PO Q12H #14 tabs 12/05/24 clavulanate 125 mg tablet oseltamivir 30 mg capsule 30 mg PO BID #7 caps 12/05/24 Allergies Allergy/AdvReac Type Severity Reaction Status Date / Time No Known Allergies Allergy Verified 12/10/24 16:55 Review of Systems Review of Systems: Yes all other systems are reviewed and are negative Constitutional: Constitutional: Reports as per HPI Neurologic: Denies Abnormal speech present [facility] Past Medical History Attestation statement: The following information was validated with the patient. Source: old records reviewed Medical History Spinal stenosis Hypothyroid Type 2 diabetes mellitus without complications Asthma Social History Social History Household Members: None Housing: House Do you presently have visiting nurse or other home services: Yes Patient Tobacco Use Status: Former Tobacco user Tobacco use type: Cigarette Advance Directives: Yes Advance Directives on File: Yes Advance Directives Date on File: 11/21/24 service: No Physical Exam ED Vital Signs: Vital Signs - 24 hr 12/10/24 16:48 Temperature 98 F Pulse Rate 85 Respiratory Rate 18 Blood Pressure 114/43 L Pulse Oximetry 97 Oxygen Delivery Method Room Air BMI result Body Mass Index 32.0 Const General: cooperative, healthy appearing and no acute distress Orientation/consciousness: patient oriented x3 Limitations: no limitations HENMT Head: Yes normal to inspection and Yes atraumatic Ears: hearing grossly normal bilaterally General nose exam: Normal external nose present Face and sinus: Yes normal facial exam Eyes General: appearance normal, both eyes and all related structures EOM: EOMs intact bilaterally Neck Neck: Yes normal visual inspection and Yes no meningeal signs Resp Effort & Inspection: normal respiratory effort and no respiratory distress Auscultation: no crackles and wheezes lower bilaterally Cardio Rate: regular rate Heart sounds: S1 normal heart sound present and S2 normal heart sound present GI Inspection: Yes normal to inspection Palpation (GI): Soft to palpation, nontender, no guarding and not rigid General: Yes no CVA tenderness Back/Spine/Pelvis Back: no CVA tenderness Skin Rashes: no rashes Wounds: no wounds Neuro General: patient oriented x3, tone normal, moves all extremities, no meningeal signs, no focal motor deficits and CN's II-XI intact bilaterally Cranial nerves: Yes CN's II-XII intact bilaterally and Yes Bilaterally intact EOM present Cognition (Neuro): normal cognition Speech: No Abnormal speech present Motor exam (neuro): 5/5 motor strength present throughout and no tremor noted Extrem General: Yes normal to inspection and Yes no pedal edema Course Course Course Narrative: -1834--chemistry reassuring. Troponin negative. -no leukocytosis. H/H around patient's baseline XR chest 1V IMPRESSION: No active pulmonary disease. Hiatus hernia. CT head/brain wo IV con IMPRESSION: 1. No acute intracranial process. 2. Mild sinusitis. 3. Nonspecific partial left mastoid opacification. -1847--influenza a positive > likely old (+ on 12/03/24) > patient admitted for further management Medical Decision Making Medical Decision Making [facility] Narrative: 1619: 79-year-old female with a past medical history asthma, diabetes, hypothyroid, spinal stenosis, HTN, recent discharged from our facility for hypoxic respiratory failure/sepsis secondary to asthma/pneumonia and Influenza A, presenting to the ED via EMS s/p visiting nurse noted word-finding difficulty this morning around ?11AM. States patient is at baseline now. On exam vital signs stable, NAD, nontoxic appearing, physical exam as noted above, lungs with diffuse expiratory wheeze, no focal neuro deficits. At baseline now per patient and family. Concern for TIA vs CVA. Rule out viral illness vs pneumonia vs bronchitis vs metabolic abnormalities. Low suspicion for severe sepsis at this time. NIHSS = 0 Plan: EKG, labs UA, CXR, head CT, admission Please refer to course for remaining clinical decision making, interpretation of labs/imaging results, and discussions with consultants and/or family members. Differential Diagnosis Differential Diagnoses: The differential diagnosis associated with the presentation includes As above Admission/Observation Consideration of admission/observation: Escalation of care including admission/observation considered Consult Healthcare Provider Management of the patient was discussed with: Hospitalist Lab Data MDM Lab Attestation statement: I reviewed the patient's lab results. 12/10/24 17:58 12/10/24 17:58 Labs: Lab Results 12/10/24 12/10/24 Range/Units 16:22 17:58 WBC 8.6 (4.8-10.8) X10*3/uL RBC 3.73 L (4.20-5.50) X10*6/uL Hgb 9.8 L (12.0-16.0) g/dl Hct 31.3 L (37.0-47.0) % MCV 83.9 (80.0-98.0) fL MCH 26.3 L (27.0-33.0) pg MCHC 31.3 (31.0-35.0) g/dl RDW 15.4 (11.0-16.0) % Plt Count 268 (160-400) X10*3/uL MPV 10.0 (9.4-12.3) fL Immature Gran % (Auto) 0.8 H (0.0-0.4) % Neut % (Auto) 64.7 (45-73) % Lymph % (Auto) 26.3 (20-40) % [place] % (Auto) 6.9 (2-11) % Eos % (Auto) 1.1 (0-4) % Baso % (Auto) 0.2 (0-2) % Lymph # (Auto) 2.3 (1.2-4.9) X10*3/uL [place] # (Auto) 0.6 (0.1-1.2) X10*3/uL Eos # (Auto) 0.1 (0.0-0.4) X10*3/uL Baso # (Auto) 0.0 (0.0-0.2) X10*3/uL Abs Immat Gran (auto) 0.07 H (0.00-0.03) X10*3/uL Absolute Neuts (auto) 5.5 (2.0-8.3) x10*3/uL Absolute Nucleated RBC 0.000 (0.0-0.012) X10*3/uL Nucleated RBC % (auto) 0.0 (0.0-0.2) /100WBC PT 12.0 (10.9-12.4) SEC INR 1.0 (0.9-1.1) Sodium 139 (135-145) mmol/L Potassium 4.4 (3.3-5.1) mmol/L Chloride 108 (96-108) mmol/L Carbon Dioxide 22 (22-29) mmol/L Anion Gap 13 (12-20) BUN 11 (9-16) mg/dL Creatinine 1.05 (0.5-1.4) mg/dL Estim Creat Clear Calc 40.4 Estimated GFR 51 POC Glucose 126 H (60-115) mg/dL Random Glucose 120 H (60-115) mg/dL Calcium 9.1 (8.4-10.2) mg/dL Magnesium 1.7 (1.6-2.6) mg/dL Total Bilirubin 0.3 (0.0-1.0) mg/dL Direct Bilirubin 0.1 (0.0-0.5) mg/dL AST 28 (5-31) U/L ALT 22 (0-31) U/L Alkaline Phosphatase 67 (39-117) U/L Troponin I High Sens < 2.7 (<3.5-17.0) ng/L B-Natriuretic Peptide 39 (<100) pg/mL Total Protein 7.9 (6.5-8.0) g/dL Albumin 3.8 (3.5-5.0) g/dL Influenza Type A (PCR) POSITIVE A (Negative) Influenza Type B (PCR) NEGATIVE (Negative) RSV RNA Qual (PCR) NEGATIVE (Negative) SARS-CoV-2 RNA (RT-PCR) NEGATIVE (Negative) Independent Interpretation I performed an independent interpretation of an: EKG, Plain X-Ray and CT Scan Radiology Impression Discussion of test interpretation with radiology: I have reviewed the radiologist's reading. Independent Historian Clinical information obtained from an independent historian. History obtained from or confirmed by: EMS and Other (son) External Record Review External record reviewed: Inpatient record, Office record, Outpatient record, Prior outpatient labs, Prior outpatient radiology, Primary care record and Outside ED record Tests considered The following testing was considered but not selected: As above Prescription Management I considered prescription management with: Pain Medication, Antiviral and Antibiotic Chronic Conditions Patient?s care impacted by: Diabetes and Other Social Determinants Patient?s care significantly limited by Social Determinants of Health including: Other Social Determinant of Health Discharge Plan Discharge Clinical Impression: TIA (transient ischemic attack) Patient Disposition: Admitted As Inpatient Print Language: Tunisian
--- OUTSIDE RECORDS SUMMARY | 2024-12-10 16:13 | XMS_ITS | Encounter Summary ---
Author Organization [facility] Address [address] [place] [address] Care Team Providers Care Orthopaedic General Name Role Phone Jose Luis Younger MD Primary Care Provider [phone] Reason for Visit * Reason Onset Date Comments Request For Order(s) 12/09/2024 [facility] 11/21/24-01/19/25 Plan Of Care Encounter Details Date Type Department Care Team (Late st Contact Info) Description 12/09/2024 Telephone Internal Medicine [facility] [address] [facility] [address] [place] [address] Kanwal Barron MA Request For Order(s) ([facility] 11/21/24-01/19/25 Plan Of Care /) Social History Tobacco Use Types Packs/Day Years Used Date Smoking Tobacco: Former Cigarettes Smokeless Tobacco: Never Alcohol Use Standard Drinks/Week Comments Yes 0 (1 standard drink = 0.6 oz pur e alcohol) Comments Unknown Sex and Gender Information Value Date Recorded Sex Assigned at Not on file Legal Sex Female 7:43 AM EST Gender Identity Not on file Sexual Orientation Not on file documented as of this encounter Progress Notes * Kanwal Barron MA - 12/09/2024 11:08 AM EST [facility] 11/21/24-01/19/25 Plan Of Care Please sign & fax [phone] documented in this encounter Plan of Treatment Upcoming Encounters Date Type Department Care Team (Late Contact Info) Description 12/16/2024 1:30 PM EST Office Visit Internal Medicine [facility] [address] [facility] [address] [place] [address] Jose Luis Younger MD [address] [facility] [address] [place] [address] 01/13/2025 8:20 AM EDT Office Visit Endocrinology - [place] [address] [place] [address] Eun Alvares PA [address] [place] [address] 01/30/2025 1:30 PM EDT Office Visit Vascular Surgery - [place] [address] [facility] [address] [place] [address] Shanelle Tavares PA 300 [facility] [address] [place] [address] documented as of this encounter Visit Diagnoses Not on filedocumented in this encounter Additional Health Concerns Assessment Noted Time PHQ-9 Depression Total Score: 0 11/15/19 25 9:03 AM EST A fall risk assessment has been complete d for the patient 11/15/2024 9:00 AM EST documented as of this encounter Care Teams Orthopaedic General Relationship Specialty Start Date End Date Jose Luis Younger MD [address] [facility] [address] [place] [address] PCP - General Internal Medicine 06/21/21 documented as of this encounter
--- OUTSIDE RECORDS SUMMARY | 2024-12-10 16:13 | XMS_ITS | Encounter Summary ---
Author Organization [facility] Address [address] [place] [address] Care Team Providers Care Critical Care Transport Nurse Name Role Phone Jose Luis Younger MD Primary Care Provider [phone] Reason for Visit * Reason Comments Hospital Follow-up Encounter Details Date Type Department Care Team ([facility] st Contact Info) Description 11/25/2024 1:30 PM EST Office Visit Internal Medicine - [place] [address] [facility] [address] [place] [id number] Jose Luis Younger MD 175 [facility] [address] [place] [address] Hospital discharge follow-up (Primary Dx); Moderate persistent asthma with acute exacerbation; Pneumonia of right lower lobe due to infectious organism; Type 2 diabetes mellitus without complication, with long-term current use of insulin ([facility]) Social History Tobacco Use Types Packs/Day [...] in this encounter Ordered Prescriptions Prescription Sig Dispense Quantity Refills Last Filled Start Date End Date flash glucose scanning reader ([employer] [facility] [address] [place]) [facility] Check blood sugar 4 times a day 1 each 3 11/25/2024 documented in this encounter Progress Notes * Jose Luis Younger MD - 11/25/2024 1:30 PM EST COMPLAINT Hospital discharge follow-up IDENTIFIER: Vanessa Ravi is a 79 y.o. old female. HPI: Was discharged from [facility] on 11/20/2024 .diagnosed with acute right [...] 3 due to type 2 diabetes mellitus ([facility]) 09/12/2016 MDD (major depressive disorder) 12/20/2013 GERD (gastroesophageal reflux disease) 11/29/2013 HTN (hypertension) 11/29/2013 IBS (irritable bowel syndrome) 11/29/2013 Hyperlipidemia 11/29/2013 Hypothyroid 11/29/2013 Type 2 diabetes with nephropathy ([facility]) 11/29/2013 Past Surgical History: Procedure Laterality [...] complication, with long-term current use of insulin ([facility]) PLAN: Was sent home on 11/20/2024, [...] Care Team (Late st Contact Info) Description 12/16/2024 1:30 PM EST Office Visit Internal Medicine - [place] 175 [facility] [address] [place] [address] Jose Luis Younger MD 175 [facility] [address] [place] [address] 01/13/2025 8:20 AM EDT Office Visit Endocrinology [facility] [address] [place] [address] Eun Alvares PA [address] [place] [address] 01/30/2025 1:30 PM EDT Office Visit Vascular Surgery - [place] [address] [place] [address] Shanelle Tavares PA [address] [place] [address] documented as of this encounter Visit Diagnoses Diagnosis Hospital discharge follow-up- Primary Other follow-up examination Moderate persistent asthma with acute exacerbation Pneumonia of right lower lobe due to infectious organism Type 2 diabetes mellitus without complication, with long-term current use of insulin ([facility]) documented in this encounter Additional Health Concerns Assessment Noted Time PHQ-9 Depression Total Score: 0 11/15/19 25 9:03 AM EST A fall risk assessment has been complete d for the patient 11/15/2024 9:00 AM EST documented as of this encounter Care Teams Critical Care Transport Nurse Relationship Specialty Start Date End Date Jose Luis Younger MD [address] [address] PCP - General Internal Medicine 06/21/21 documented as of this encounter
--- OUTSIDE RECORDS SUMMARY | 2024-12-10 16:13 | XMS_ITS | Clinical Summary ---
Author Organization [facility] [address] [place] [address] [place] [address] [place] [address] Phone Care Team Providers Care Epic Ambulatory Analyst Name Role Phone Jose Luis Younger MD Primary Care Provider [phone] Allergies No known active allergies Medications lovastatin (MEVACOR) 40 mg tablet TAKE ONE TABLET BY MOUTH AT BEDTIME 90 tablet 1 09/10/20 24 Active omeprazole (PriLOSEC) [address] capsule TAKE TWO CAPSULES BY MOUTH DAILY 180 capsule 1 10/07/20 24 Active lisinopriL (PRINIVIL,ZEST RIL) 10 mg tablet Take 1 tablet (10 mg total) by mouth 1 (one) time each day. 90 tablet 1 10/10/20 24 Active fluticasone propionate (FLONASE) 50 mcg/actuation nasal sprayIndicatio ns:allergic conjunctivitis ,allergic rhinitis Administer 2 sprays into each nostril 1 (one) time each day. Shake gently. Before first use, prime pump. After use, clean tip and replace cap. 16 g 3 10/11/20 24 Active gabapentin (NEURONTIN) 300 mg capsule 10/11/20 24 Active amphetamine-de xtroamphetamin e XR (ADDERALL XR) 30 mg 24 hr capsule 08/08/20 24 Active cetirizine (ZyrTEC) 10 mg capsule Take 1 capsule (10 mg total) by mouth. 07/19/20 21 Active ARIPiprazole (ABILIFY) 5 mg tablet Take 1 tablet (5 mg total) by mouth. Active acetaminophen (TYLENOL) 500 mg tablet Take 1 tablet (500 mg total) by mouth every 6 (six) hours if needed. 08/04/20 23 Active diphenoxylate- atropine (LOMOTIL) 2.5-0.025 mg per tablet Take 1 tablet by mouth 4 (four) times a day if needed. 05/31/20 24 Active fluticasone-sa lmeterol (ADVAIR DISKUS) 250-50 mcg/dose diskus inhaler Inhale 1 puff by mouth. 10/10/20 22 Active insulin glargine (Lantus Solostar U-100 Insulin) 100 unit/mL (3 mL) injection pen Use 4 units at bedtime, increase by 2 units every 3 days with a max dose of 10 units at bedtime 15 mL 1 11/07/19 25 Active Additional Information Patient taking differently: 6 Units subcutaneous Nightly, Use 4 units at bedtime, increase by 2 units every 3 days with a max dose of 10 units at bedtime, Reported on 11/25/2024 pen needle, diabetic (BD Ultra-Fine Veronica Pen Needle) 32 gauge x 5/32 needle Use with insulin pen once daily 100 each 11/07/19 25 Active levothyroxine (SYNTHROID, LEVOTHROID) 50 mcg tablet Take 1 tablet each morning 30 each 11/07/19 25 Active tiZANidine (ZANAFLEX) 4 mg tablet Take 1 tablet (4 mg total) by mouth 1 (one) time each day if needed for muscle spasms. 30 tablet 11/15/19 25 Active amLODIPine (NORVASC) 5 mg tablet Take 1 tablet (5 mg total) by mouth 1 (one) time each day. 30 each 11/15/19 25 025 Active albuterol HFA (PROAIR HFA ; PROVENTIL HFA ; VENTOLIN HFA) 90 mcg/actuation inhaler INHALE 2 PUFFS FOUR TIMES A DAY NEEDED FOR COUGH, WHEEZING, OR SHORTNESS OF BREATH 8.5 g 1 11/22/19 25 Active flash glucose scanning reader (Reachpod - Inovaktif BilisimStyle Destinee 14 Day [place]) [facility] Check blood sugar 4 times a day 1 each 11/25/19 25 Active flash glucose sensor (FreeStyle Destinee 14 Day Sensor) kit Use one sensor every 14 days E11.9 2 each 11/26/19 25 Active glipiZIDE (GLUCOTROL) 5 mg tablet TAKE TWO TABLETS BY MOUTH DURING THE DAY AND 1 TABLET AT BEDTIME. STOP METFORMIN 270 tablet 1 12/02/19 25 Active albuterol HFA (PROAIR HFA ; PROVENTIL HFA ; VENTOLIN HFA) 90 mcg/actuation inhaler INHALE 2 PUFFS INTO THE LUNGS FOUR TIMES A DAY NEEDED COUGH, WHEEZE, OR SHORTNESS OF BREATH 8.5 g 1 10/08/20 24 025 Discontinued tiZANidine (ZANAFLEX) 2 mg tabletIndicati ons:Bilateral leg pain Take 1 tablet (2 mg total) by mouth every 6 (six) hours if needed for muscle spasms. 30 tablet 1 10/11/20 24 025 Discontinued glipiZIDE (GLUCOTROL) 5 mg tablet Take 1 tablet daily before breakfast 11/07/19 25 025 Discontinued Active Problems Problem Noted Date Diagnosed [...] disorder) 12/20/2013 Overview (10/29/2024): Sees Psychiatry at [facility] (Cher Bhatia) prescribed Abilify and adderall GERD (gastroesophageal reflux disease) 4 HTN (hypertension) 11/29/2013 Assessment & Plan (11/15/2024 9:54 AM EST): Hypertension not under control on lisinopril added amlodipine 5 mg daily IBS (irritable bowel syndrome) 11/29/2013 Hyperlipidemia 11/29/2013 Hypothyroid 11/29/2013 Type 2 diabetes with nephropathy 11/29/2013 Encounters Date Type Department Care Team Description 12/09/2024 Telephone Internal Medicine - [address] [place] [address] Kanwal Barron MA Request For Order(s) ([employer] Caregivers Cert 11/21/24-01/19/25 Plan Of Care /) 12/06/2024 Telephone Internal Medicine [address] [address] Jose Luis Younger MD Appointment (Hospital follow up) 11/26/2024 Telephone Internal [address] [address] Jose Luis Younger MD 11/25/2024 1:30 PM EST Office Visit Internal [address] [address] Jose Luis Younger MD Hospital discharge follow-up (Primary Dx); Moderate persistent asthma with acute exacerbation; Pneumonia of right lower lobe due to infectious organism; Type 2 diabetes mellitus without complication, with long-term current use of insulin (CMS/HCC) 11/22/[address] [address] Eun Alvares PA New Med Request 11/21/2024 Telephone Internal [address] [address] Jose Luis Younger MD Hospital Follow-up 11/19/2024 Telephone Internal [address] [address] Jose Luis Younger MD Provider call back 11/15/2024 8:30 AM EST Office Visit Internal [address] [address] Jose Luis Younger MD Primary hypertension (Primary Dx); Hypercholesterolemia; Other specified hypothyroidism; Chronic bilateral low back pain with sciatica, sciatica laterality unspecified 11/07/2024 11:00 AM EST Office Visit [address] [address] Eun Alvares PA Type 2 diabetes with nephropathy (CMS/HCC) (Primary Dx); Stage 3b chronic kidney disease (CMS/HCC); Hypothyroidism, unspecified type 10/28/2024 Telephone Internal Medicine [address] [address] Jose Luis Younger MD 10/11/2024 11:30 AM EST Office Visit Internal Medicine [address] [address] Jessica Bonds NP Bronchitis (Primary Dx); Right ear pain; Bilateral leg pain; Hyperlipidemia, unspecified hyperlipidemia type; Hypothyroidism, unspecified type; Vitamin D deficiency, unspecified; 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, without long-term current use of insulin ([facility]) 10/11/2024 Telephone Internal Medicine [address] [address] Jose Luis Younger MD TRIAGE- Sob, coughing 09/10/[address] [phone] Eun Alvares PA PRIOR AUTHORIZATION from Last [...] (major depressive disorder); COMMENT: Sees Psychiatry at [facility] (Cher Bhatia) prescribed Abilify and adderall Type 2 diabetes with nephrop athy ([facility]/HCC) 11/29/2013 DX:Type 2 diabetes with nephropathy ([facility]) Microalbuminuria 06/11/2018 DX:Microalbumin uria Diarrhea DX:Diarrhea Family [...] on file Sexual Orientation Not on file Obstetrics History Last Filed [...] PM EST Office Visit Internal Medicine - [place] 175 [facility] 200 [place] [address] Jose Luis Younger MD 175 [facility] 200 [place] [address] 01/13/2025 8:20 AM EDT Office Visit Endocrinology [facility] [address] [place] [address] Eun Alvares PA [address] [place] [address] 01/30/2025 1:30 PM EDT Office Visit Vascular Surgery - [place] [facility] [address] [place] [address] Shanelle Tavares PA 300 [facility] [address] [place] [address] Health Maintenance Due Date Last Done Comments Diabetes: Annual Foot Exam 1955 Diabetes: Annual Retina Eye Exam 1955 Zoster Vaccines (1 of 2) 1997 DTaP,Tdap,and Td Vaccines (3 - Td or Tdap) 12/13/2015 06/12/2015, 03/20/2007 RSV Immunization Patients 60+ Years Old (1 - 1-dose 75+ series) 2022 Social Influencers of Health Screening 10/08/2022 Diabetes: Annual Urine Albumin-Creatinine Ratio (uACR) 10/12/2022 12/17/2020 COVID-19 Vaccine ( season) 2024 09/04/2023, 08/31/2022, 09/02/2021, Additional history exists Diabetes: Blood Sugar Control Test (HGBA1C) 04/11/2025 10/11/2024, 08/30/2024 Diabetes: Annual GFR (Glomerular Filtration Rate) 10/11/2025 10/11/2024, 08/30/2024, 08/30/2024, Additional history exists Hypertension/CHF/CAD Annual BMP Blood Test 10/11/2025 10/11/2024, 08/30/2024, 08/30/2024, Additional history exists Depression Screening 11/15/2025 11/15/2024 Falls Risk Assessment 11/15/2025 11/15/2024 Medicare Annual Wellness Visit 11/15/2025 11/15/2024 Cholesterol Screening (Lipid Panel) 10/11/2029 10/11/2024 Osteoporosis Screening (Bone Density Screening) 09/01/2030 09/01/2020 Hepatitis C Screening Completed 03/20/2014 Pneumococcal Vaccine: 50+ Years Completed 09/14/2016, 06/12/2015, 03/20/2007 Influenza Vaccine [...] patient's age to complete this topic Meningococcal B Vacine Aged Out No lo nger eligible based on patient's age to complete [...] neuropathy, without long-term current use of insulin ([facility]) MAGNESIUM Routine 10/11/2024 12:40 PM EST Bilateral leg pain HEMOGLOBIN A1C Routine 10/11/2024 12:40 PM EST Type 2 diabetes mellitus with other specified complication, without long-term current use of insulin ([facility]) COMPREHENSIVE METABOLIC PANEL Routine 10/11/2024 12:40 PM EST Type 2 diabetes mellitus with other specified complication, without long-term current use of insulin ([facility]) COMPLETE BLOOD COUNT Routine 10/11/2024 12:40 PM EST Type 2 diabetes mellitus with other specified complication, without long-term current use of insulin ([facility]) LIPID PANEL WITH REFLEX TO DIRECT LDL Routine 10/11/2024 12:40 PM EST Hyperlipidemia, unspecified hyperlipidemia type VITAMIN D 25 HYDROXY Routine 10/11/2024 12:39 PM EST Bilateral leg pain Vitamin D deficiency, unspecified HM URINE ALBUMIN CREATININE RATIO Routine 12/17/2020 DXA [...] LAB CHEMISTRY METHOD 10/11/2024 3:[address] [facility] Triglycerides 228(H) 0 - 150 mg/dL LAB CHEMISTRY METHOD 10/11/2024 3:[address] [facility] HDL 39(L) >=40 mg/dL LAB CHEMISTRY METHOD 10/11/2024 3:[address] [facility] LDL Calculated 72 0 - 100 mg/dL LAB CHEMISTRY METHOD 10/11/2024 3:[address] [facility] VLDL Cholesterol Ag 45.6 mg/dL LAB CHEMISTRY METHOD 10/11/2024 3:[address] [facility] Non HDL Chol. (LDL+VLDL) 118 <145 mg/dL LAB CHEMISTRY METHOD 10/11/2024 3:[address] [facility] Chol/HDL Ratio 4.0 0.0 - 4.4 LAB CHEMISTRY METHOD 10/11/2024 3:[address] [facility] Blood Venous blood specimen / Unknown Venipuncture / Unknown 10/11/2024 12:40 PM EST 10/11/2024 1:10 PM EST us Jessica Bonds NP LAB BLOOD ORDERABLES Final Resul t [facility] [address] [place] [address], * (ABNORMAL) Complete blood count (10/11/2024 12:40 PM EST) WBC 7.3 4.8 - 10.8 K/mcL LAB HEMETOLOGY METHOD 10/11/2024 1:[address] [facility] RBC 4.20 3.80 - 4.80 M/mcL LAB HEMETOLOGY METHOD 10/11/2024 1:[address] [facility] Hemoglobin 11.0(L) 11.5 - 16.0 g/dL LAB HEMETOLOGY METHOD 10/11/2024 1:[address] [facility] Hematocrit 36.5 35.0 - 47.0 % LAB HEMETOLOGY METHOD 10/11/2024 1:[address] [facility] MCV 86.9 79.0 - 98.0 FL LAB HEMETOLOGY METHOD 10/11/2024 1:[address] [facility] MCH 26.2(L) 27.0 - 32.0 pcg LAB HEMETOLOGY METHOD 10/11/2024 1:[address] [facility] MCHC 30.1(L) 32.0 - 37.0 g/dL LAB HEMETOLOGY METHOD 10/11/2024 1:[address] [facility] RDW 14.8 11.0 - 15.0 % LAB HEMETOLOGY METHOD 10/11/2024 1:[address] [facility] Platelets 329 130 - 400 K/mcL LAB HEMETOLOGY METHOD 10/11/2024 1:[address] [facility] MPV 11.1(H) 7.0 - 11.0 FL LAB HEMETOLOGY METHOD 10/11/2024 1:[address] [facility] NRBC 0.0 <1.0 % LAB HEMETOLOGY METHOD 10/11/2024 1:[address] [facility] NRBC Absolute 0.00 <0.10 K/mcL LAB HEMETOLOGY METHOD 10/11/2024 1:[address] [facility] Blood Venous blood specimen / Unknown Venipuncture / Unknown 10/11/2024 12:40 PM EST 10/11/2024 1:10 PM EST us Jessica Bonds NP LAB BLOOD ORDERABLES Final Resul t [facility] [address] [place] [address], * Thyroid stimulating hormone (10/11/2024 12:40 PM EST) TSH 1.88 0.40 - 4.00 mcIU/mL LAB CHEMISTRY METHOD 10/11/2024 2:[address] [facility] Blood Venous blood specimen / Unknown Venipuncture / Unknown 10/11/2024 12:40 PM EST 10/11/2024 1:10 PM EST us Jessica Bonds BENZENE STILL UTILITY OPERATOR LAB BLOOD ORDERABLES Final Resul t Performing Organization Address City/[facility]/ZIP Co de Phone Number [facility] [address] [place] [address], [place] [phone] * Magnesium (10/11/2024 12:40 PM EST) Pathologist [facility] Magnesium 2.0 1.9 - 2.6 mg/dL LAB CHEMISTRY METHOD 10/11/2024 2:[address] [facility] Blood Venous blood specimen / Unknown Venipuncture / Unknown 10/11/2024 12:40 PM EST 10/11/2024 1:10 PM EST Jessica Bonds LAB BLOOD ORDERABLES Final Resul t Performing Organization Address [facility] Co de Phone Number [facility] [address] [place] [address], [place] [phone] * (ABNORMAL) Hemoglobin A1c (10/11/2024 12:40 PM EST) [facility] Hemoglobin A1C 9.5(H) <6.5 % LAB CHEMISTRY METHOD 10/11/2024 8:[address] [facility] Mean Bld Glu Estim. 226 mg/dL LAB CHEMISTRY METHOD 10/11/2024 8:[address] [facility] Blood Venous blood specimen / Unknown Venipuncture / Unknown 10/11/2024 12:40 PM EST 10/11/2024 1:10 PM EST Jessica Bonds BENZENE STILL UTILITY OPERATOR LAB BLOOD ORDERABLES Final Resul t Performing Organization Address City/[facility]/ZIP Co de Phone Number [facility] [address] [place] [address], [place] [phone] * (ABNORMAL) Vitamin B12 (10/11/2024 12:40 PM EST) Pathologist [facility] Vitamin B-12 245(L) 250 - 900 pcg/mL LAB CHEMISTRY METHOD 10/11/2024 3:[address] [facility] Blood Venous blood specimen / Unknown Venipuncture / Unknown 10/11/2024 12:40 PM EST 10/11/2024 1:10 PM EST us Jessica Bonds NP LAB BLOOD ORDERABLES Final Resul t [facility] [address] [place] [address], [place] [phone] * (ABNORMAL) Comprehensive metabolic panel (10/11/2024 12:40 PM EST) [facility] Sodium 141 133 - 145 mmol/L LAB CHEMISTRY METHOD 10/11/2024 3:[address] [facility] Potassium 5.6(H) 3.5 - 5.5 mmol/L LAB CHEMISTRY METHOD 10/11/2024 3:[address] [facility] Chloride 106 96 - 110 mmol/L LAB CHEMISTRY METHOD 10/11/2024 3:[address] [facility] CO2 29 21 - 32 mmol/L LAB CHEMISTRY METHOD 10/11/2024 3:[address] [facility] Anion Gap 6 3 - 11 LAB CHEMISTRY METHOD 10/11/2024 3:[address] [facility] Glucose 124(H) 70 - 100 mg/dL LAB CHEMISTRY METHOD 10/11/2024 3:[address] [facility] BUN 15 5 - 25 mg/dL LAB CHEMISTRY METHOD 10/11/2024 3:[address] [facility] Creatinine 1.36(H) 0.50 - 1.10 mg/dL LAB CHEMISTRY METHOD 10/11/2024 3:[address] [facility] eGFR 40(L) >=60 mL/min/1. 73m2 LAB CHEMISTRY METHOD 10/11/2024 3:[address] [facility] Comment:Calculation based on the??Chronic Kidney Disease Epidemiology Collaboration (CKD-EPI) equation refit??without adjustment for race. BUN/Creatinine Ratio 11.0 LAB CHEMISTRY METHOD 10/11/2024 3:[address] [facility] Calcium 10.3 8.5 - 10.5 mg/dL LAB CHEMISTRY METHOD 10/11/2024 3:[address] [facility] AST (SGOT) 21 10 - 42 unit/L LAB CHEMISTRY METHOD 10/11/2024 3:[address] [facility] ALT (SGPT) 23 10 - 60 unit/L LAB CHEMISTRY METHOD 10/11/2024 3:[address] [facility] Alkaline Phosphatase 93 42 - 121 unit/L LAB CHEMISTRY METHOD 10/11/2024 3:[address] [facility] Total Protein 7.4 6.0 - 8.0 g/dL LAB CHEMISTRY METHOD 10/11/2024 3:[address] [facility] Albumin 3.8 3.2 - 5.0 g/dL LAB CHEMISTRY METHOD 10/11/2024 3:[address] [facility] Total Bilirubin 0.3 0.0 - 1.4 mg/dL LAB CHEMISTRY METHOD 10/11/2024 3:[address] [facility] Blood Venous blood specimen / Unknown Venipuncture / Unknown 10/11/2024 12:40 PM EST 10/11/2024 1:10 PM EST us Jessica Bonds NP LAB BLOOD ORDERABLES Final Resul t [facility] [address] [place] [address], [place] [phone] * (ABNORMAL) Vitamin D 25 hydroxy (10/11/2024 12:39 PM EST) Vit D, 25-Hydroxy 27.1(L) 30.0 - 80.0 ng/mL LAB CHEMISTRY METHOD 10/11/2024 2:[address] [facility] Blood Venous blood specimen / Unknown Venipuncture / Unknown 10/11/2024 12:39 PM EST 10/11/2024 12:39 PM EST us Jessica Bonds BENZENE STILL UTILITY OPERATOR LAB BLOOD ORDERABLES Final Resul t [facility] [address] [place] [address], [place] [phone] * Urine Albumin Creatinine Ratio (12/17/2020) Urine Albumin Creatinine Ratio Abstarcted us Historical Provider HEALTH MAINTENANCE Final Result * DXA BONE DENSITY STUDY 1+ SITS [...] scores not able to be calculated. The [facility] Department of Internal Medicine recommends using National [...] alternative screening schedule based on leno Hoffmann., [facility] November 17, 2011 for patients with [...] scores not able to be calculated. The [facility] Department of Internal Medicine recommendsusing National Osteoporosis [...] Optional alternative screening schedule based on leno [facility]ofmann., [facility] for patients with osteopenia (based on hip BMD T-score) is as follows: * advanced osteopenia (T scores -2.00 to -2.49), BMD testing every year * moderate osteopenia (T scores -1.50 to -1.99), BMD testing every 5years mild osteopenia or normal BMD (T scores -1.50 and higher), BMD testingevery 15 years Goldie HOLT DXA PROCEDURES Final Resu lt * Hepatitis C Screening (03/20/2014) [facility] Hepatitis C Screening Abstracted Historical Provider HEALTH MAINTENANCE Final Result from Last 3 Months or Most Recently Relevant to Health Maintenance Insurance [employer] [address] [place] [address] Care Teams Epic Ambulatory Analyst Relationship Specialty Start Date End Date Jose Luis Younger MD 175 [facility] 200 [place] [address] PCP - General Internal Medicine 06/21/21
--- OUTSIDE RECORDS SUMMARY | 2024-12-10 16:13 | XMS_ITS | Encounter Summary ---
Author Organization [facility] Address [address] [place] [address] Care Team Providers Care Pewter Caster Name Role Phone Jose Luis Younger MD Primary Care Provider [phone] Reason for Visit * Reason Onset Date Comments Provider call back 11/19/2024 Encounter Details Date Type Department Care Team (Late st Contact Info) Description 11/19/2024 Telephone Internal Medicine - [place] 175 [facility] [address] [place] [address] Jose Luis Younger MD 175 [facility] [place] [address] [place] [address] Provider call back Social History Tobacco Use [...] Progress Notes * Daysi Geronimo RN - 11/19/2024 1:28 PM EST Pt has an endo provider who manages her DM Last saw Giorgio GARCIA 11/07/2024 Call to pt # [phone], spoke w/ the pt. I told her about the call from [facility] and that she needs to follow up [...] 1:10 PM EST Toshia from Spine dept [facility] called regarding patient. She stated patient was supposed to have back surgery but when she got recent labs done, her A1C levels were super high and she hasto cancel the surgery. She requested to speak with someone to follow up with PCP regarding this because she still wants patient to have back surgery in future. Callback [phone] documented in this encounter Plan of Treatment Upcoming Encounters Date Type Department Care Team (Late st Contact Info) Description 12/16/2024 1:30 PM EST Office Visit Internal Medicine - [place] 175 [facility] [address] [place] [address] Jose Luis Younger MD 175 [facility] [address] [place] [address] 01/13/2025 8:20 AM EDT Office Visit Endocrinology - [place] [address] [place] [address] Eun Alvares PA [address] [place] [address] 01/30/2025 1:30 PM EDT Office Visit Vascular Surgery - [place] [address] [place] [address] Shanelle Tavares PA 300 [facility] [address] [place] [address] documented as of this encounter Visit Diagnoses Not on filedocumented in this encounter Additional Health Concerns Assessment Noted Time PHQ-9 Depression Total Score: 0 11/15/19 25 9:03 AM EST A fall risk assessment has been complete d for the patient 11/15/2024 9:00 AM EST documented as of this encounter Care Teams Pewter Caster Relationship Specialty Start Date End Date Jose Luis Younger MD [address] [address] PCP - General Internal Medicine 06/21/21 documented as of this encounter
--- OUTSIDE RECORDS SUMMARY | 2024-12-10 16:13 | XMS_ITS | Encounter Summary ---
Author Organization [facility] Address [address] [place] [address] Care Team Providers Care Agricultural Extension Specialist Name Role Phone Jose Luis Younger MD Primary Care Provider [phone] Reason for Visit * Reason Onset Date Comments Hospital Follow-up 11/21/2024 Encounter Details Date Type Department Care Team (Late st Contact Info) Description 11/21/2024 Telephone Internal Medicine - [place] 175 [facility] [address] [place] [address] Jose Luis Younger MD 175 [facility] [address] [place] [address] Hospital Follow-up Social History Tobacco Use Types [...] 9:24 AM EST Call to pt # [phone], left message for pt to call us back * Roselyn Vu - 11/21/2024 8:53 AM EST Patient called and stated that she was in [facility] on 11/17/24 and was discharged yesterday due to pneumonia and would like to see her provider as soon as possible. Please advise Cb# [phone] documented in this encounter Plan of Treatment Upcoming Encounters Date Type Department Care Team (Late st Contact Info) Description 12/16/2024 1:30 PM EST Office Visit Internal Medicine - [place] 175 [facility] [address] [place] [address] Jose Luis Younger MD [address] [address] 01/13/2025 8:20 AM EDT Office Visit Endocrinology - [place] [address] [place] [address] Eun Alvares PA [address] [place] [address] 01/30/2025 1:30 PM EDT Office Visit Vascular Surgery - [place] [address] [place] [address] Shanelle Tavares PA [address] [place] [address] documented as of this encounter Visit Diagnoses Not on filedocumented in this encounter Additional Health Concerns Assessment Noted Time PHQ-9 Depression Total Score: 0 11/15/19 9:03 AM EST A fall risk assessment has been complete d for the patient 11/15/2024 9:00 AM EST documented as of this encounter Care Teams Agricultural Extension Specialist Relationship Specialty Start Date End Date Jose Luis Younger MD 175 [facility] 200 [place] [address] PCP - General Internal Medicine 06/21/21 documented as of this encounter
--- OUTSIDE RECORDS SUMMARY | 2024-12-10 16:13 | XMS_ITS | Encounter Summary ---
Author Organization [facility] Address [address] [place] [address] Care Team Providers Care Yeast Pusher Name Role Phone Jose Luis Younger MD Primary Care Provider [phone] Reason for Visit * Reason Comments Medicare Annual Wellness Visit [facility] Encounter Details Date Type Department Care Team ([facility] st Contact Info) Description 11/15/2024 8:30 AM EST Office Visit Internal Medicine - [place] 175 [facility] 200 [place] [phone] Jose Luis Younger MD 175 [facility] [address] [place] [address] Primary hypertension (Primary Dx); Hypercholesterolemia; Other specified [...] Refills Last Filled Start Date End Date amLODIPine (NORVASC) 5 mg tablet Take 1 [...] 3 due to type 2 diabetes mellitus ([facility]) GERD (gastroesophageal reflux disease) HTN (hypertension) IBS (irritable bowel syndrome) Hyperlipidemia Hypothyroid MDD (major depressive disorder) Microalbuminuria Migraine headache Obesity (BMI 30-39.9) Spinal stenosis of lumbar region without neurogenic claudication Type 2 diabetes with nephropathy ([facility]) No Known Allergies Current Outpatient Medications [...] (major depressive disorder); COMMENT: Sees Psychiatry at [facility] (Cher Bhatia) prescribed Abilify and adderall Microalbuminuria [...] Jose Luis Younger MD INTERNAL MEDICINE - [address] [address] Dept: [phone] Dept documented in this encounter Plan of Treatment Upcoming Encounters Date Type Department Care Team ([facility] st Contact Info) Description 12/16/2024 1:30 PM EST Office Visit Internal Medicine - [place] 175 [facility] [address] [place] [address] Jose Luis Younger MD 175 [facility] 200 [place] [address] 01/13/2025 8:20 AM EDT Office Visit Endocrinology - [place] 444 [place] [address] Eun Alvares PA 444 [place] [address] 01/30/2025 1:30 PM EDT Office Visit Vascular Surgery - [place] 300 [facility] 210 [place] [address] Shanelle Tavares PA 300 [facility] 210 [place] [address] documented as of this encounter Visit Diagnoses [...] documented as of this encounter Care Teams Yeast Pusher Relationship Specialty Start Date End Date Jose Luis Younger MD [address] [address] PCP - General Internal Medicine 06/21/21 documented as of this encounter
--- OUTSIDE RECORDS SUMMARY | 2024-12-10 16:13 | XMS_ITS | Encounter Summary ---
Author Organization [facility] Address [address] [place] [address] Care Team Providers Care Bee Robber Name Role Phone Jose Luis Younger MD Primary Care Provider [phone] Encounter Details Date Type Department Care Team (Late Contact Info) Description 10/28/2024 Telephone Internal Medicine - [place] [address] [phone] Jose Luis Younger MD [address] [address] Social History Tobacco Use Types Packs/Day Years [...] PM EST Office Visit Internal Medicine - [place] [address] [phone] Jose Luis Younger MD [address] [address] 01/13/2025 8:20 AM EDT Office Visit Endocrinology [address] [phone] Eun Alvares PA 444 [place] [address] 01/30/2025 1:30 PM EDT Office Visit Vascular Surgery - [place] [address] [place] [address] Shanelle Tavares PA [address] [facility] [address] [place] [address] documented as of this encounter Visit Diagnoses Not on filedocumented in this encounter Care Teams Bee Robber Relationship Specialty Start Date End Date Jose Luis Younger MD [address] [facility] [address] [place] [address] PCP - General Internal Medicine 06/21/21 documented as of this encounter
--- OUTSIDE RECORDS SUMMARY | 2024-12-10 16:13 | XMS_ITS | Encounter Summary ---
Author Organization [facility] Address [address] [place] [address] Care Team Providers Care Skid Adzer Name Role Phone Jose Luis Younger MD Primary Care Provider [phone] Reason for Visit * Reason Onset Date Comments New Med Request 11/22/2024 Encounter Details Date Type Department Care Team (Late st Contact Info) Description 11/22/2024 Telephone Endocrinology - [place] 444 [place] [phone] Eun Alvares PA 444 [place] [address] New Med Request Social History Tobacco Use [...] of this encounter Ordered Prescriptions Prescription Sig Dispense Quantity Refills Last Filled Start Date End Date flash glucose sensor (FreeStyle Destinee 14 Day [...] her pharmacy . Please call her at [phone] documented in this encounter Plan of Treatment Upcoming Encounters Date Type Department Care Team (Late st Contact Info) Description 12/16/2024 1:30 PM EST Office Visit Internal Medicine - [place] 175 [facility] 200 [place] [address] Jose Luis Younger MD 175 [facility] 200 [place] [address] 01/13/2025 8:20 AM EDT Office Visit Endocrinology - [address] [address] Eun Alvares PA 444 [place] [address] 01/30/2025 1:30 PM EDT Office Visit Vascular Surgery - [place] 300 [facility] 210 [place] [address] Shanelle Tavares PA 300 [facility] 210 [place] [address] documented as of this encounter Visit Diagnoses Not on filedocumented in this encounter Additional Health Concerns Assessment Noted Time PHQ-9 Depression Total Score: 0 11/15/19 9:03 AM EST A fall risk assessment has been complete d for the patient 11/15/2024 9:00 AM EST documented as of this encounter Care Teams Skid Adzer Relationship Specialty Start Date End Date Jose Luis Younger MD [address] [address] PCP - General Internal Medicine 06/21/21 documented as of this encounter
--- OUTSIDE RECORDS SUMMARY | 2024-12-10 16:13 | XMS_ITS | Encounter Summary ---
Author Organization [facility] Address [address] [place] [address] Care Team Providers Care Radio Mechanic Helper Name Role Phone Jose Luis Younger MD Primary Care Provider [phone] Reason for Visit * Reason Onset Date Comments Appointment 12/06/2024 Hospital follow up Encounter Details Date Type Department Care Team (Late st Contact Info) Description 12/06/2024 Telephone Internal Medicine - [place] 175 [facility] [address] [place] [address] Jose Luis Younger MD 175 [facility] [place] [address] [place] [address] Appointment (Hospital follow up) Social History Tobacco Use Types Packs/Day Years [...] as of this encounter Progress Notes * Kathi Howe RN - 12/09/2024 8:50 AM EST Call to pt # [phone], spoke to [facility] Pneumonia/Flu Discharged 12-05-2024 * Kathi Howe RN - 12/06/2024 10:02 AM EST Call to pt # [phone], left message to call back * Ioana Gab Quinonez - 12/06/2024 9:40 AM EST Hospital follow up- [facility] Pneumonia/Flu Discharged 12-05-2024 documented in this encounter Plan of Treatment Upcoming Encounters Date Type Department Care Team (Late st Contact Info) Description 12/16/2024 1:30 PM EST Office Visit Internal Medicine - [place] [address] [facility] [address] [phone] Jose Luis Younger MD [address] [address] 01/13/2025 8:20 AM EDT Office Visit Endocrinology [facility] 444 [place] [address] Eun Alvares PA 444 [place] [address] 01/30/2025 1:30 PM EDT Office Visit Vascular Surgery - [place] [address] [facility] 210 [place] [address] Shanelle Tavares PA 300 [facility] 210 [place] [address] documented as of this encounter Visit Diagnoses Not on filedocumented in this encounter Additional Health Concerns Assessment Noted Time PHQ-9 Depression Total Score: 0 11/15/19 25 9:03 AM EST A fall risk assessment has been complete d for the patient 11/15/2024 9:00 AM EST documented as of this encounter Care Teams Radio Mechanic Helper Relationship Specialty Start Date End Date Jose Luis Younger MD [address] [address] PCP - General Internal Medicine 06/21/21 documented as of this encounter
--- OUTSIDE RECORDS SUMMARY | 2024-12-10 16:13 | XMS_ITS | Encounter Summary ---
Author Organization [facility] Address [address] [place] [address] Care Team Providers Care Rock Star Name Role Phone Jose Luis Younger MD Primary Care Provider Encounter Details Date Type Department Care Team (Late Contact Info) Description 11/26/2024 Telephone Internal Medicine - [place] [address] [phone] Jose Luis Younger MD [address] [address] Social History Tobacco Use Types Packs/Day Years [...] sensor Freestyle arm band. Please send to [facility] documented in this encounter Plan of Treatment Upcoming Encounters Date Type Department Care Team (Late Contact Info) Description 12/16/2024 1:30 PM EST Office Visit Internal Medicine - [place] 175 [facility] 200 [place] [address] Jose Luis Younger MD [address] [address] 01/13/2025 8:20 AM EDT Office Visit Endocrinology - [place] 444 [place] [address] Eun Alvares PA 444 [place] [address] 01/30/2025 1:30 PM EDT Office Visit [facility] - [place] [facility] [place] [address] Shanelle Tavares PA [address] [address] documented as of this encounter Visit Diagnoses Not on filedocumented in this encounter Additional Health Concerns Assessment Noted Time PHQ-9 Depression Total Score: 0 11/15/19 9:03 AM EST A fall risk assessment has been complete d for the patient 11/15/2024 9:00 AM EST documented as of this encounter Care Teams Rock Star Relationship Specialty Start Date End Date Jose Luis Younger MD [address] [address] PCP - General Internal Medicine 06/21/21 documented as of this encounter
[2024-12-10 16:26] LABS: Glucose, Whole Blood 126 mg/dL (60-115)
[2024-12-10 16:48] VITALS: BP 114/43; PULSE 85; RESP 18; TEMP 36.6; O2SAT 97; BMI 32.0
[2024-12-10 18:20] LABS: Alanine Aminotransferase 22 U/L (0-31); Albumin Level 3.8 g/dL (3.5-5.0); Alkaline Phosphatase 67 U/L (39-117); Anion Gap 13 (12-20); Aspartate Amino Transferase 28 U/L (5-31); Bilirubin Direct 0.1 mg/dL (0.0-0.5); Bilirubin Total 0.3 mg/dL (0.0-1.0); Blood Urea Nitrogen 11 mg/dL (9-16); Calcium 9.1 mg/dL (8.4-10.2); Carbon Dioxide 22 mmol/L (22-29); Chloride 108 mmol/L (96-108); Creatinine Clr Calc Pharmacy 40.4; Estimated Glomerular Filt Rate 51; Glucose Random 120 mg/dL (60-115); Magnesium 1.7 mg/dL (1.6-2.6); Potassium 4.4 mmol/L (3.3-5.1); Sodium 139 mmol/L (135-145); Total Protein 7.9 g/dL (6.5-8.0)
[2024-12-10 18:24] LABS: B Type Natriuretic Peptide 39 pg/mL (<100)
[2024-12-10 18:27] LABS: Troponin-I High Sensitivity < 2.7 ng/L (<3.5-17.0)
[2024-12-10 18:33] LABS: MANUAL DIFF FLAG NO
[2024-12-10 18:39] LABS: Basophils Percent Auto 0.2 % (0-2); Eosinophils Absolute Auto 0.1 X10*3/uL (0.0-0.4); Eosinophils Percent Auto 1.1 % (0-4); Hematocrit 31.3 % (37.0-47.0); Hemoglobin 9.8 g/dl (12.0-16.0); Imm Gran Abs Auto 0.07 X10*3/uL (0.00-0.03); Imm Gran Pct Auto 0.8 % (0.0-0.4); Lymphocytes Absolute Auto 2.3 X10*3/uL (1.2-4.9); Lymphocytes Percent Auto 26.3 % (20-40); Mean Corpuscular HGB Conc 31.3 g/dl (31.0-35.0); Mean Corpuscular Hemoglobin 26.3 pg (27.0-33.0); Mean Corpuscular Volume 83.9 fL (80.0-98.0); Monocytes Absolute Auto 0.6 X10*3/uL (0.1-1.2); Monocytes Percent Auto 6.9 % (2-11); Neutrophils Absolute Auto 5.5 x10*3/uL (2.0-8.3); Neutrophils Percent Auto 64.7 % (45-73); Platelet Count 268 X10*3/uL (160-400); Red Blood Count 3.73 X10*6/uL (4.20-5.50); Red Cell Distribution Width 15.4 % (11.0-16.0); White Blood Count 8.6 X10*3/uL (4.8-10.8)
[2024-12-10 18:46] LABS: Influenza A PCR POSITIVE (Negative); Influenza B PCR NEGATIVE (Negative); Resp Syncy Virus RNA Qual PCR NEGATIVE (Negative); SARS COV2 PCR INHOUSE NEGATIVE (Negative)
[2024-12-10 19:29] VITALS: BP 116/58; PULSE 88; RESP 18; TEMP 36.8; O2SAT 97
[2024-12-10 19:44] LABS: Appearance Urine Clear; Color Urine Yellow; Glucose Urine UA Negative (Negative); Leukocyte Esterase Urine Large (3+) (Negative); Nitrite Urine Negative (Negative); UMIC TRIGGER UACC YES; Urine Blood Negative (Negative); Urine Ketones Negative (Negative); Urine Protein Negative (Neg-Trace)
[2024-12-10 19:49] LABS: Bacteria Urine None Seen (None Seen); Hyaline Casts Urine 0-2 /LPF (0-2); RBC Urine 0-2 /HPF (0-2); UACC Culture Trigger YES; WBC Urine 21-50 /HPF (0-5)
--- NOTE | 2024-12-10 20:33 | P.HPHOSP_ITS ---
History of Present Illness Date of Service: 12/10/24 <DOROTHY Cornelius Last Filed: 12/10/24 20:46> Attending physician on admission: Lee Enciso <DOROTHY Cornelius Last Filed: 12/10/24 20:46> Chief Complaint: Aphasia <DOROTHY Cornelius Last Filed: 12/10/24 20:46> Patient is a 79 year old female with a past medical history significant for asthma unspecified, insulin-dependent diabetes, hypothyroid, spinal stenosis and HTN with a recent admission for hypoxic respiratory failure, sepsis, asthma/pneumonia and flu a, who presented to the ED today due to aphasia beginning around 11:00. The patient reported that her visiting nurse came around 13:00 and she was still aphasic and EMS was called. Since arriving to the ED the patient's symptoms have resolved. She denies any weakness, change in vision, confusion, numbness, tingling, nausea, vomiting or urinary symptoms including frequency, urgency or dysuria. She does continue to have a cough due to her recent bout of pneumonia, flu and asthma exacerbation. She declines any steroids at this time including updrafts. <DOROTHY Cornelius Last Filed: 12/10/24 20:46> Review of Systems 2 Constitutional: Constitutional: Denies chills, Denies fatigue, Denies fever(s), Denies headache(s) and Denies weakness <DOROTHY Cornelius Last Filed: 12/10/24 20:46> Eyes: Eyes: Denies change in vision and Denies photophobia <DOROTHY Cornelius Last Filed: 12/10/24 20:46> ENT: Denies headache(s), Denies nasal congestion, Denies nasal discharge and Denies sore throat <DOROTHY Cornelius Last Filed: 12/10/24 20:46> Cardiovascular: Cardiovascular: Denies chest pain, Denies rapid heart rate, Denies lightheadedness, Denies dyspnea and Denies dyspnea on exertion < DOROTHY Cornelius Last Filed: 12/10/24 20:46> Respiratory: Respiratory: Reports chest congestion, Reports cough, Denies dyspnea, Denies dyspnea on exertion and Reports wheezing <MELANIE Cornelius Last Filed: 12/10/24 20:46> Gastrointestinal: Gastrointestinal: Denies abdominal pain, Denies constipation, Denies diarrhea, Denies nausea and Denies vomiting <MELANIE Cornelius Last Filed: 12/10/24 20:46> Genitourinary: Genitourinary: Denies hematuria, Denies dysuria and Denies urinary urgency <MELANIE Cornelius Last Filed: 12/10/24 20:46> Musculoskeletal: Musculoskeletal: Denies numbness and Denies tingling < MELANIE Cornelius Filed: 12/10/24 20:46> Integumentary/Breasts: Skin/Breast: Denies rash <RADHA CroneliusLeticia Filed: 12/10/24 20:46> Neurologic: Denies confusion, Denies headache(s), Denies numbness, Denies tingling and Denies weakness <MELANIE Cornelius Last Filed: 12/10/24 20:46> Psychiatric: Psychiatric: Denies confusion <RADHA CorneliusLeticia Filed: 12/10/24 20:46> Endocrine: Endocrine: Denies fatigue <RADHA CorneliusLeticia Filed: 12/10/24 20:46> Hematologic/Lymphatic: Hematologic/Lymphatic: Denies easy bleeding and Denies easy bruising <MELANIE Cornelius Last Filed: 12/10/24 20:46> Allergic/Immunologic: Allergic/Immunologic: Reports wheezing <MELANIE Cornelius Last Filed: 12/10/24 20:46> [facility] Medical History: Medical History Spinal stenosis Hypothyroid Type 2 diabetes mellitus without complications Asthma <MELANIE Cornelius Last Filed: 12/10/24 20:46> Social History: Social History Household Members: None Housing: House Do you presently have visiting nurse or other home services: Yes Patient Tobacco Use Status: Former Tobacco user Tobacco use type: Cigarette Advance Directives: Yes Advance Directives on File: Yes Advance Directives Date on File: 11/21/24 service: No <Shaneka Hernandez PA-C - Last Filed: 12/10/24 20:46> Narrative: No smoking, alcohol or drug use <Shaneka Hernandez PA-C - Last Filed: 12/10/24 20:46> Meds Allergies/Adverse reactions: Allergies Allergy/AdvReac Type Severity Reaction Status Date / Time No Known Allergies Allergy Verified 12/10/24 16:55 <Shaneka Hernandez PA-C - Last Filed: 12/10/24 20:46> Active Medications: Current Medications Acetaminophen (Acetaminophen 325 Mg Tablet) 650 mg PO Q6H PRN PRN Reason: Pain, Mild 1-3,fever,headache Albuterol/Ipratropium (Albuterol/Iprat 2.5/0.5mg 3 Ml Ampul.Neb) 3 ml INHALE Q4H PRN PRN Reason: Wheezing Benzonatate (Benzonatate 100 Mg Capsule) 100 mg PO TID PRN PRN Reason: Cough Calcium Carbonate (Calcium Carbonate 750 Mg Tab.Chew) 750 mg PO Q4H PRN PRN Reason: Heartburn Enoxaparin Sodium (Enoxaparin Sodium 40 Mg/0.4 Ml Syringe) 40 mg SUBCUT Q24H MICA Magnesium Hydroxide (Milk Of Magnesia 30 Ml Oral.Susp) 30 ml PO DAILY PRN PRN Reason: Constipation Melatonin (Melatonin 3 Mg Tablet) 6 mg PO BEDTIME PRN PRN Reason: Insomnia Ondansetron HCl (Ondansetron Hcl 4 Mg/2 Ml Vial) 4 mg IVPUSH Q8H PRN PRN Reason: Nausea and Vomiting Sodium Chloride (0.9 % Sodium Chloride Flush 3 Ml Syringe) 3 ml IVFLUSH QSHIFT MICA <Shaneka Hernandez PA-C - Last Filed: 12/10/24 20:46> Home medications: Home Medications ?Medication ?Instructions ?Recorded ?Confirmed ?Last Taken ?Type lovastatin 40 mg tablet 40 mg PO BEDTIME 08/15/24 12/03/24 12/02/24 History omeprazole 20 mg capsule,delayed 20 mg PO BID@0630,1630 08/15/24 12/03/24 12/03/24 History release glipizide 5 mg tablet 5 mg PO BID 11/18/24 12/03/24 12/03/24 History insulin glargine 100 unit/mL 10 unit subcut BEDTIME 11/18/24 12/03/24 12/02/24 History subcutaneous solution (Lantus U-100 Insulin) albuterol sulfate 90 mcg/actuation 2 puff inhalation Q4H PRN 12/03/24 12/03/24 Unknown History aerosol inhaler Shortness Of Breath Or Wheezing amlodipine 5 mg tablet 5 mg PO DAILY 12/03/24 12/03/24 12/03/24 History aripiprazole 5 mg tablet 5 mg PO DAILY 12/03/24 12/03/24 12/03/24 History dextroamphetamine-amphetamine ER 2 cap PO DAILY 12/03/24 12/03/24 12/03/24 History 30 mg 24hr capsule,extend release duloxetine 60 mg capsule,delayed 120 mg PO DAILY 12/03/24 12/03/24 12/03/24 History release fluticasone propionate 50 2 spray intranasal DAILY 12/03/24 12/03/24 12/03/24 History mcg/actuation nasal spray,suspension gabapentin 300 mg capsule 300 mg PO BID 12/03/24 12/03/24 12/03/24 History levothyroxine 50 mcg tablet 50 mcg PO DAILY@0600 12/03/24 12/03/24 12/03/24 History lisinopril 10 mg tablet 10 mg PO DAILY 12/03/24 12/03/24 12/03/24 History tizanidine 4 mg tablet 4 mg PO DAILY PRN Muscle Spasm/Pain 12/03/24 12/03/24 Unknown History <Shaneka Hernandez PA-C - Last Filed: 12/10/24 20:46> Physical Exam 2 Vital Signs and Narrative: Vital Signs: Last Vital Signs Temp 98.2 F 12/10/24 19:29 Pulse 88 12/10/24 19:29 Resp 18 12/10/24 19:29 BP 116/58 L 12/10/24 19:29 Pulse Ox 97 12/10/24 19:29 O2 Del Method Room Air 12/10/24 19:29 BMI result Body Mass Index 32.0 <Shanekajerrica Hernandez PA-C Last Filed: 12/10/24 20:46> General: AOx3, no acute distress Resp: Wheezing throughout, rhonchi bilaterally CVS: S1, S2, RRR GI: +BS, NT, no distention Skin: Warm, dry Neuro: Cranial nerves II-XII grossly intact bilaterally. Motor grossly intact bilaterally Extremities: No LE edema Psych: Appropriate affect <Shaneka Hernandez PA-C - Last Filed: 12/10/24 20:46> Const: General: No confusion <Shanekajerrica Hernandez PA-C - Last Filed: 12/10/24 20:46> Orientation/consciousness: No confusion <Shaneka Hernandez PA-C Last Filed: 12/10/24 20:46> Eyes: Direct Ophthalmoscopy: No photophobia <Shaneka Hernandez PA-C Last Filed: 12/10/24 20:46> Neuro: General: No confusion <ShanekaMELANIE XiaoDanielle - Last Filed: 12/10/24 20:46> Results Labs CBC and Chem 7: 12/10/24 17:58 12/10/24 17:58 <Shanekajerrica Hernandez PA-C Last Filed: 12/10/24 20:46> Labs: Laboratory Results - last 24 hr 12/10/24 12/10/24 12/10/24 16:22 17:58 19:31 MCV 83.9 MCH 26.3 L MCHC 31.3 RDW 15.4 Plt Count 268 MPV 10.0 Immature Gran % (Auto) 0.8 H Neut % (Auto) 64.7 Lymph % (Auto) 26.3 [place] % (Auto) 6.9 Eos % (Auto) 1.1 Baso % (Auto) 0.2 Lymph # (Auto) 2.3 [place] # (Auto) 0.6 Eos # (Auto) 0.1 Baso # (Auto) 0.0 Abs Immat Gran (auto) 0.07 H Absolute Neuts (auto) 5.5 Absolute Nucleated RBC 0.000 Nucleated RBC % (auto) 0.0 PT 12.0 INR 1.0 Anion Gap 13 Estim Creat Clear Calc 40.4 Estimated GFR 51 POC Glucose 126 H Random Glucose 120 H Calcium 9.1 Magnesium 1.7 Total Bilirubin 0.3 Direct Bilirubin 0.1 AST 28 ALT 22 Alkaline Phosphatase 67 B-Natriuretic Peptide 39 Total Protein 7.9 Albumin 3.8 Urine Color Yellow Urine Appearance Clear Urine pH 6.0 Ur Specific Nutrioso 1.010 Urine Protein Negative Urine Glucose (UA) Negative Urine Ketones Negative Urine Blood Negative Urine Nitrite Negative Ur Leukocyte Esterase Large (3+) H Urine RBC 0-2 Urine WBC 21-50 H Ur Squamous Epith Cells 3-5 Urine Bacteria None Seen Hyaline Casts 0-2 Influenza Type A (PCR) POSITIVE A Influenza Type B (PCR) NEGATIVE RSV RNA Qual (PCR) NEGATIVE SARS-CoV-2 RNA (RT-PCR) NEGATIVE <Shaneka Hernandez PA-C Last Filed: 12/10/24 20:46> Imaging Radiologist's Impressions: Impressions Chest X-Ray 12/10/24 16:05 IMPRESSION: No active pulmonary disease. Hiatus hernia. Electronically signed by: Ray Abdi MD 12/10/2024 04:48 PM [facility] <Shaneka Hernandez PA-C Filed: 12/10/24 20:46> Assessment and Plan (1) TIA (transient ischemic attack): Status: Acute <DOROTHY Cornelius Filed: 12/10/24 20:46> (2) Asthma exacerbation: Status: Acute <DOROTHY Cornelius Filed: 12/10/24 20:46> Patient is a 79 year old female with a past medical history significant for asthma unspecified, insulin-dependent diabetes, hypothyroid, spinal stenosis and HTN with a recent admission for hypoxic respiratory failure, sepsis, asthma/pneumonia and flu a, who presented to the ED today due to aphasia beginning around 11:00. TIA -- aphasia resolved - patient presented with aphasia, back to baseline - head CT negative - EKG with NSR - UA with 21-50 WBCs, no bacteria, asx, culture pending - admit for observation - neuro consult - MRI brain - NPO pending swallow eval - already on statin, continue Acute asthma exacerbation - still positive for flu A - chest x-ray negative for pneumonia - WBC normal, vital signs stable, no hypoxia - patient declines steroids - DuoNebs as needed - Tessalon PRN for cough Anemia, chronic - hemoglobin 9.8, hematocrit 31.3, stable - no need for blood transfusion at this time - monitor CBC Type 2 diabetes - diabetic diet once off NPO - hold p.o. diabetes medications - sliding scale insulin - Lantus 5 units QHS, decreased dose as pt has been NPO all day Hypothyroid - continue levothyroxine HTN - continue home BP meds when appropriate DNR/DNI VTE prophylaxis: Lovenox Patient with TIA requiring admission for observation, further w/u and neurology consultation. <Shaneka Hernandez PA-C - Last Filed: 12/10/24 20:46> Patient is a 79 year old female with a past medical history significant for asthma unspecified, insulin-dependent diabetes, hypothyroid, spinal stenosis and HTN with a recent admission for hypoxic respiratory failure, sepsis, asthma/pneumonia and flu a, who presented to the ED today due to aphasia beginning around 11:00. TIA -- aphasia resolved - patient presented with aphasia, back to baseline - head CT negative - EKG with NSR - UA with 21-50 WBCs, no bacteria, asx, culture pending - admit for observation - neuro consult - MRI brain - NPO pending swallow eval - already on statin, continue -added aspirin Acute asthma exacerbation - still positive for flu A - chest x-ray negative for pneumonia - WBC normal, vital signs stable, no hypoxia - patient declines steroids - DuoNebs as needed - Tessalon PRN for cough Anemia, chronic - hemoglobin 9.8, hematocrit 31.3, stable - no need for blood transfusion at this time - monitor CBC Type 2 diabetes - diabetic diet once off NPO - hold p.o. diabetes medications - sliding scale insulin - Lantus 5 units QHS, decreased dose as pt has been NPO all day Hypothyroid - continue levothyroxine HTN - continue home BP meds when appropriate DNR/DNI VTE prophylaxis: Lovenox Patient with TIA requiring admission for observation, further w/u and neurology consultation. <Lee Enciso MD - Last Filed: 12/10/24 21:01> Quality Stroke Does the patient have a stroke diagnosis?: No <Shaneka Hernandez PA-C - Last Filed: 12/10/24 20:46> VTE Prior VTE?: No <Shaneka Hernandez PA-C - Last Filed: 12/10/24 20:46> VTE Risk Level:: Medical - moderate - high <Shaneka Hernandez PA-C - Last Filed: 12/10/24 20:46> VTE Device Contraindication: Treatment Not Indicated <Shaneka Hernandez PA-C - Last Filed: 12/10/24 20:46> VTE Drug Contraindication: N/A - Med Ordered <Shaneka Hernandez PA-C - Last Filed: 12/10/24 20:46>
[2024-12-10 21:18] LABS: Glucose, Whole Blood 105 mg/dL (60-115)
--- NOTE | 2024-12-10 21:54 | PHA.MEDREC ---
Addendum entered by Darien Cobb [facility] 12/10/24 22:02: [facility] rec reviewed Original Note: Pharmacy Consult ? Medication Reconciliation Pharmacy has completed the medication reconciliation. Spoke with patient and she confirmed her Discharge Packet from 12/05 was up to date still. She confirmed she started the amoxicillin-pot clavulanate 500-125mg and the Oselatmivir 30mg tab on 12/05 after her discharge. She confirmed the Lantus Solostar dose of 10 units at bedtime. She confirmed she took her medications this morning around 1300.
[2024-12-10] MEDS: Aspirin 81 MG TAB.CHEW PO (22:36)
[2024-12-10] MEDS: Insulin Glargine,Hum.rec.anlog 100 UNIT/ML 10 ML VIAL SUBCUT (22:37)
[2024-12-10] MEDS: Enoxaparin Sodium 40 MG/0.4 ML SYRINGE SUBCUT (22:38)
[2024-12-10 23:04] LABS: Glucose, Whole Blood 108 mg/dL (60-115)
[2024-12-11 01:09] VITALS: BP 131/62; PULSE 66; RESP 15; TEMP 36.9; O2SAT 94
--- NOTE | 2024-12-11 01:12 | PC.NURSE ---
sats 94% on RA, dry cough intermittently, pt denies sob. lung sounds slight tightness/wheezing. RT notified for PRN Duoneb. notified of pt L. shoulder pain 04/08.
[2024-12-11 01:18] VITALS: PULSE 71; RESP 18; O2SAT 93
[2024-12-11] MEDS: Albuterol/Iprat 2.5/0.5MG 3 ML AMPUL.NEB INHALE (01:18)
[2024-12-11] MEDS: traMADoL HCL 50 MG TABLET 25 MG PO (02:21)
[2024-12-11] MEDS: Acetaminophen 325 MG TABLET 650 MG PO (03:13)
[2024-12-11 05:07] LABS: Hematocrit 32.4 % (37.0-47.0); Hemoglobin 9.9 g/dl (12.0-16.0); Mean Corpuscular HGB Conc 30.6 g/dl (31.0-35.0); Mean Platelet Volume 10.1 fL (9.4-12.3); Platelet Count 293 X10*3/uL (160-400); Red Blood Count 3.81 X10*6/uL (4.20-5.50); Red Cell Distribution Width 15.5 % (11.0-16.0); White Blood Count 7.1 X10*3/uL (4.8-10.8)
[2024-12-11 05:13] VITALS: BP 128/65; PULSE 70; RESP 16; TEMP 36.2; O2SAT 97
[2024-12-11 05:20] LABS: Anion Gap 13 (12-20); Blood Urea Nitrogen 9 mg/dL (9-16); Calcium 9.4 mg/dL (8.4-10.2); Carbon Dioxide 25 mmol/L (22-29); Chloride 108 mmol/L (96-108); Creatinine Clr Calc Pharmacy 41.1; Estimated Glomerular Filt Rate 52; Glucose Random 101 mg/dL (60-115); Potassium 3.8 mmol/L (3.3-5.1); Sodium 142 mmol/L (135-145)
[2024-12-11 07:27] LABS: Glucose, Whole Blood 89 mg/dL (60-115)
--- NOTE | 2024-12-11 07:31 | PC.NURSE ---
Keely called, praneeth ordered for pt.
[2024-12-11 09:02] VITALS: BP 136/65; PULSE 68; RESP 18; TEMP 36.2; O2SAT 96
[2024-12-11 10:54] VITALS: BP 140/64; PULSE 82; RESP 18; TEMP 36.2; O2SAT 96
[2024-12-11 10:55] LABS: Glucose, Whole Blood 296 mg/dL (60-115)
[2024-12-11] MEDS: Aspirin 81 MG TAB.CHEW PO (10:56)
--- NOTE | 2024-12-11 10:59 | P.CNNE_ITS ---
History of Present Illness Data of Consult Service Date: 12/11/24 Primary Care Provider: Jose Luis Younger MD [facility] Reason for consult: Difficulty speaking 79 years old woman who was admitted yesterday with complain of difficulty speaking. She said that her speech was not right but she was aware and alert and there was no other focal weakness or symptom. Now she was feeling better stating that speech was still not perfect. There was no headache Review of Systems 2 Review of Systems: She was having a viral syndrome. [facility] Past Medical History Medical History Spinal stenosis Hypothyroid Type 2 diabetes mellitus without complications Asthma Social History Social History Household Members: None Housing: House Do you presently have visiting nurse or other home services: Yes Patient Tobacco Use Status: Former Tobacco user Tobacco use type: Cigarette Advance Directives Date on File: 11/21/24 service: No Meds Allergies Allergy/AdvReac Type Severity Reaction Status Date / Time No Known Allergies Allergy Verified 12/10/24 16:55 Active Medications: Current Medications Acetaminophen (Acetaminophen 325 Mg Tablet) 650 mg PO Q6H PRN PRN Reason: Pain, Mild 1-3,fever,headache Last Admin: 12/11/24 03:13 Dose: 650 mg Albuterol/Ipratropium (Albuterol/Iprat 2.5/0.5mg 3 Ml Ampul.Neb) 3 ml INHALE Q4H PRN PRN Reason: Wheezing Last Admin: 12/11/24 01:18 Dose: 3 ml Aspirin (Aspirin 81 Mg Tab.Chew) 81 mg PO DAILY [facility] Last Admin: 12/10/24 22:36 Dose: 81 mg Benzonatate (Benzonatate 100 Mg Capsule) 100 mg PO TID PRN PRN Reason: Cough Calcium Carbonate (Calcium Carbonate 750 Mg Tab.Chew) 750 mg PO Q4H PRN PRN Reason: Heartburn Dextrose (Dextrose 50 % 25 Gm/50 Ml Syringe) 25 gm IVPUSH Q15M PRN; Protocol PRN Reason: per Hypoglycemia Standing Ord. Enoxaparin Sodium (Enoxaparin Sodium 40 Mg/0.4 Ml Syringe) 40 mg SUBCUT Q24H [facility] Last Admin: 12/10/24 22:38 Dose: 40 mg Glucose (Glucose Gel 15 Gm Gel..Gram.) 15 gm PO Q15M PRN; Protocol PRN Reason: per Hypoglycemia Standing Ord. Insulin Glargine (Insulin Glargine,Hum.Rec.Anlog 100 Unit/Ml 10 Ml Vial) 5 unit SUBCUT BEDTIME [facility] Last Admin: 12/10/24 22:37 Dose: 5 unit Insulin Human Lispro (Insulin Lispro 100 Unit/Ml 3 Ml Vial) 0 unit SUBCUT QIDACHS [facility]; Protocol Last Admin: 12/11/24 07:32 Dose: Not Given Magnesium Hydroxide (Milk Of Magnesia 30 Ml Oral.Susp) 30 ml PO DAILY PRN PRN Reason: Constipation Melatonin (Melatonin 3 Mg Tablet) 6 mg PO BEDTIME PRN PRN Reason: Insomnia Ondansetron HCl (Ondansetron Hcl 4 Mg/2 Ml Vial) 4 mg IVPUSH Q8H PRN PRN Reason: Nausea and Vomiting Sodium Chloride (0.9 % Sodium Chloride Flush 3 Ml Syringe) [facility] Last Admin: 12/11/24 00:00 Dose: 3 ml Home Medications ?Medication ?Instructions ?Recorded ?Confirmed ?Last Taken ?Type lovastatin 40 mg tablet 40 mg PO BEDTIME 08/15/24 12/10/24 12/10/24 13:00 History omeprazole 20 mg capsule,delayed 20 mg PO BID@0630,1630 08/15/24 12/10/24 12/10/24 13:00 History release glipizide 5 mg tablet 5 mg PO BID 11/18/24 12/10/24 12/10/24 13:00 History insulin glargine 100 unit/mL 10 unit subcut BEDTIME 11/18/24 12/10/24 12/10/24 13:00 History subcutaneous solution (Lantus U-100 Insulin) albuterol sulfate 90 mcg/actuation 2 puff inhalation Q4H PRN 12/03/24 12/10/24 12/10/24 13:00 History aerosol inhaler Shortness Of Breath Or Wheezing amlodipine 5 mg tablet 5 mg PO DAILY 12/03/24 12/10/24 12/10/24 13:00 History aripiprazole 5 mg tablet 5 mg PO DAILY 12/03/24 12/10/24 12/10/24 13:00 History dextroamphetamine-amphetamine ER 2 cap PO DAILY 12/03/24 12/10/24 12/10/24 13:00 History 30 mg 24hr capsule,extend release duloxetine 60 mg capsule,delayed 120 mg PO DAILY 12/03/24 12/10/24 12/10/24 13:00 History release fluticasone propionate 50 2 spray intranasal DAILY 12/03/24 12/10/24 12/10/24 13:00 History mcg/actuation nasal spray,suspension gabapentin 300 mg capsule 300 mg PO BID 12/03/24 12/10/24 12/10/24 13:00 History levothyroxine 50 mcg tablet 50 mcg PO DAILY@0600 12/03/24 12/10/24 12/10/24 13:00 History lisinopril 10 mg tablet 10 mg PO DAILY 12/03/24 12/10/24 12/10/24 13:00 History tizanidine 4 mg tablet 4 mg PO DAILY PRN Muscle Spasm/Pain 12/03/24 12/10/24 12/10/24 13:00 History Physical Exam 2 Vital Signs: Vital Signs: Last Vital Signs Temp 97.2 F 12/11/24 10:54 Pulse 82 12/11/24 10:54 Resp 18 12/11/24 10:54 BP 140/64 H 12/11/24 10:54 Pulse Ox 96 12/11/24 10:54 O2 Del Method Room Air 12/11/24 10:54 BMI result Body Mass Index 32.0 Neuro: Other: She is alert and awake with normal spontaneity of speech fluency comprehension and affect. She is able to name and repeat and comprehend. Face is symmetrical. Visual monae are full. Extraocular muscles are intact. There is no focal weakness. Plantars are flexor. Affect is normal. Results Labs 12/11/24 04:45 12/11/24 04:45 Labs: Short CBC 12/10/24 12/11/24 Range/Units 17:58 04:45 WBC 8.6 7.1 (4.8-10.8) X10*3/uL Hgb 9.8 L 9.9 L (12.0-16.0) g/dl Hct 31.3 L 32.4 L (37.0-47.0) % Plt Count 268 293 (160-400) X10*3/uL BMP 12/10/24 12/11/24 17:58 04:45 Sodium 139 142 Potassium 4.4 3.8 Chloride 108 108 Carbon Dioxide 22 25 BUN 11 9 Creatinine 1.05 1.03 Calcium 9.1 9.4 Liver Function 12/10/24 Range/Units 17:58 Total Bilirubin 0.3 (0.0-1.0) mg/dL Direct Bilirubin 0.1 (0.0-0.5) mg/dL AST 28 (5-31) U/L ALT 22 (0-31) U/L Alkaline Phosphatase 67 (39-117) U/L Albumin 3.8 (3.5-5.0) g/dL Urine 12/10/24 Range/Units 19:31 Urine Color Yellow Urine Appearance Clear Urine pH 6.0 (5.0-9.0) Ur Specific [place] 1.010 (1.005-1.025) Urine Protein Negative (Neg-Trace) mg/dL Urine Glucose (UA) Negative (Negative) mg/dL head CT revealed mild diffuse cerebral atrophy. Assessment and Plan (1) Difficulty speaking: Status: Acute Unclear etiology of her symptom of difficulty speaking. Differential diagnosis would include vascular lesion versus seizure. Migraine is another possibility though she denied having headache. Noncontrast MRI is recommended. If symptoms recur, EEG should be considered if her MRI is negative. Procedures Date of Service Date of Service: 12/11/24
[2024-12-11] MEDS: Insulin Lispro 100 UNIT/ML 3 ML VIAL SUBCUT (11:14)
[2024-12-11] MEDS: 0.9 % Sodium Chloride Flush 3 ML SYRINGE IVFLUSH ×2 (11:15)
--- NOTE | 2024-12-11 11:19 | P.PNIM_ITS ---
Subjective Subjective Date of Service: 12/11/24 Interval History: Complaining of aphasia Physical Exam 2 Vital Signs: Vital Signs: Last Vital Signs Temp 97.2 F 12/11/24 10:54 Pulse 82 12/11/24 10:54 Resp 18 12/11/24 10:54 BP 140/64 H 12/11/24 10:54 Pulse Ox 96 12/11/24 10:54 O2 Del Method Room Air 12/11/24 10:54 BMI result Body Mass Index 32.0 General: AO X 3, no acute distress Resp: CTA bilateral, no accessory muscles used CVS: S1,S2,RRR GI: soft, non tender, non distended Neuro: motor grossly intact, alert Psych: appropriate affect, appropriate insight Objective Data Active Medications Acetaminophen (Acetaminophen 325 Mg Tablet) 650 mg PO Q6H PRN PRN Reason: Pain, Mild 1-3,fever,headache Last Admin: 12/11/24 03:13 Dose: 650 mg Documented By: GIORGI Albuterol/Ipratropium (Albuterol/Iprat 2.5/0.5mg 3 Ml Ampul.Neb) 3 ml INHALE Q4H PRN PRN Reason: Wheezing Last Admin: 12/11/24 01:18 Dose: 3 ml Documented By: OLAYINKA Aspirin (Aspirin 81 Mg Tab.Chew) 81 mg PO DAILY [facility] Last Admin: 12/11/24 10:56 Dose: 81 mg Documented By: MERLYN Benzonatate (Benzonatate 100 Mg Capsule) 100 mg PO TID PRN PRN Reason: Cough Calcium Carbonate (Calcium Carbonate 750 Mg Tab.Chew) 750 mg PO Q4H PRN PRN Reason: Heartburn Dextrose (Dextrose 50 % 25 Gm/50 Ml Syringe) 25 gm IVPUSH Q15M PRN; Protocol PRN Reason: per Hypoglycemia Standing Ord. Enoxaparin Sodium (Enoxaparin Sodium 40 Mg/0.4 Ml Syringe) 40 mg SUBCUT Q24H [facility] Last Admin: 12/10/24 22:38 Dose: 40 mg Documented By: TAWNYA Glucose (Glucose Gel 15 Gm Gel..Gram.) 15 gm PO Q15M PRN; Protocol PRN Reason: per Hypoglycemia Standing Ord. Insulin Glargine (Insulin Glargine,Hum.Rec.Anlog 100 Unit/Ml 10 Ml Vial) 5 unit SUBCUT BEDTIME [facility] Last Admin: 12/10/24 22:37 Dose: 5 unit Documented By: TAWNYA Insulin Human Lispro (Insulin Lispro 100 Unit/Ml 3 Ml Vial) 0 unit SUBCUT QIDACHS [facility]; Protocol Last Admin: 12/11/24 11:14 Dose: 6 unit Documented By: MERLYN Magnesium Hydroxide (Milk Of Magnesia 30 Ml Oral.Susp) 30 ml PO DAILY PRN PRN Reason: Constipation Melatonin (Melatonin 3 Mg Tablet) 6 mg PO BEDTIME PRN PRN Reason: Insomnia Ondansetron HCl (Ondansetron Hcl 4 Mg/2 Ml Vial) 4 mg IVPUSH Q8H PRN PRN Reason: Nausea and Vomiting Sodium Chloride (0.9 % Sodium Chloride Flush 3 Ml Syringe) 3 ml IVFLUSH QSHIFT [facility] Last Admin: 12/11/24 11:15 Dose: 3 ml Documented By: MERLYN Labs 12/11/24 04:45 12/11/24 04:45 Labs: Laboratory Results - last 24 hr 12/10/24 12/10/24 12/10/24 16:22 17:58 19:31 MCV 83.9 MCH 26.3 L MCHC 31.3 RDW 15.4 Plt Count 268 MPV 10.0 Immature Gran % (Auto) 0.8 H Neut % (Auto) 64.7 Lymph % (Auto) 26.3 [place] % (Auto) 6.9 Eos % (Auto) 1.1 Baso % (Auto) 0.2 Lymph # (Auto) 2.3 [place] # (Auto) 0.6 Eos # (Auto) 0.1 Baso # (Auto) 0.0 Abs Immat Gran (auto) 0.07 H Absolute Neuts (auto) 5.5 Absolute Nucleated RBC 0.000 Nucleated RBC % (auto) 0.0 PT 12.0 INR 1.0 Anion Gap 13 Estim Creat Clear Calc 40.4 Estimated GFR 51 POC Glucose 126 H Random Glucose 120 H Calcium 9.1 Magnesium 1.7 Total Bilirubin 0.3 Direct Bilirubin 0.1 AST 28 ALT 22 Alkaline Phosphatase 67 B-Natriuretic Peptide 39 Total Protein 7.9 Albumin 3.8 Urine Color Yellow Urine Appearance Clear Urine pH 6.0 Ur Specific [place] 1.010 Urine Protein Negative Urine Glucose (UA) Negative Urine Ketones Negative Urine Blood Negative Urine Nitrite Negative Ur Leukocyte Esterase Large (3+) H Urine RBC 0-2 Urine WBC 21-50 H Ur Squamous Epith Cells 3-5 Urine Bacteria None Seen Hyaline Casts 0-2 Influenza Type A (PCR) POSITIVE A Influenza Type B (PCR) NEGATIVE RSV RNA Qual (PCR) NEGATIVE SARS-CoV-2 RNA (RT-PCR) NEGATIVE 12/10/24 12/10/24 12/11/24 21:12 22:37 04:45 MCV 85.0 MCH 26.0 L MCHC 30.6 L RDW 15.5 Plt Count 293 MPV 10.1 Immature Gran % (Auto) Neut % (Auto) Lymph % (Auto) [place] % (Auto) Eos % (Auto) Baso % (Auto) Lymph # (Auto) [place] # (Auto) Eos # (Auto) Baso # (Auto) Abs Immat Gran (auto) Absolute Neuts (auto) Absolute Nucleated RBC 0.000 Nucleated RBC % (auto) 0.0 PT INR Anion Gap 13 Estim Creat Clear Calc 41.1 Estimated GFR 52 POC Glucose 105 108 Random Glucose 101 Calcium 9.4 Magnesium Total Bilirubin Direct Bilirubin AST ALT Alkaline Phosphatase B-Natriuretic Peptide Total Protein Albumin Urine Color Urine Appearance Urine pH Ur Specific [place] Urine Protein Urine Glucose (UA) Urine Ketones Urine Blood Urine Nitrite Ur Leukocyte Esterase Urine RBC Urine WBC Ur Squamous Epith Cells Urine Bacteria Hyaline Casts Influenza Type A (PCR) Influenza Type B (PCR) RSV RNA Qual (PCR) SARS-CoV-2 RNA (RT-PCR) 12/11/24 12/11/24 07:21 10:48 MCV MCH MCHC RDW Plt Count MPV Immature Gran % (Auto) Neut % (Auto) Lymph % (Auto) [place] % (Auto) Eos % (Auto) Baso % (Auto) Lymph # (Auto) [place] # (Auto) Eos # (Auto) Baso # (Auto) Abs Immat Gran (auto) Absolute Neuts (auto) Absolute Nucleated RBC Nucleated RBC % (auto) PT INR Anion Gap Estim Creat Clear Calc Estimated GFR POC Glucose 89 296 H Random Glucose Calcium Magnesium Total Bilirubin Direct Bilirubin AST ALT Alkaline Phosphatase B-Natriuretic Peptide Total Protein Albumin Urine Color Urine Appearance Urine pH Ur Specific [place] Urine Protein Urine Glucose (UA) Urine Ketones Urine Blood Urine Nitrite Ur Leukocyte Esterase Urine RBC Urine WBC Ur Squamous Epith Cells Urine Bacteria Hyaline Casts Influenza Type A (PCR) Influenza Type B (PCR) RSV RNA Qual (PCR) SARS-CoV-2 RNA (RT-PCR) Assessment and Plan (1) Influenza A: Status: Acute Plan 79F PMH unspecified asthma, dm, hypothyroid, spinal stenosis, htn, presented with aphasia Aphasia Rule out TIA/CVA Check MRI Aspirin, statin Unspecified asthma with acute decompensation due to flu Feels back to baseline Diabetes Basal bolus insulin Hypothyroid Levothyroxine Hypertension amlodipine DVT prophylaxis Lovenox DNR/DNI reason for continued hospitalization:mri Quality Stroke Does the patient have a stroke diagnosis?: No VTE Prior VTE?: No VTE Risk Level:: Medical - moderate - high VTE Device Contraindication: Treatment Not Indicated VTE Drug Contraindication: N/A - Med Ordered
--- NOTE | 2024-12-11 13:11 | MHC.CM.PN ---
ANDERSON 12/11/24, PT W/?TIA REMAINS POSITIVE FOR FLU, NEURO CONSULT COMPLETE AND MRI PENDING, ANTIC PT WILL DC HOME W/RESUMP OF [facility] FOR SN AND [employer] EVERY OTHER WEEK, FAMILY AT BEDSIDE TO TRANSPORT. CM MET W/PT, PT'S SON AND FRIEND AT BEDSIDE HOWEVER PT ANSWERED ALL QUESTION, PT REPORTS SHE LIVES ALONE, DENIES USE OF DME AND IS FULLY INDEP W/CARE, PT DOES HAVE [facility] FOR SN AND [facility] BIWEEKLY, PT'S GOAL IS FOR DC HOME TODAY. PCP ANF HCP ON FILE VERIFIED.
--- NOTE | 2024-12-11 14:11 | MHC.STROKE ---
Met with patient and family in room 473. Pt awake, alert and oriented x 4. Speaking in full, clear sentences. Answering questions appropriately. Moving all extremities, no weakness noted. Stroke Education provided. Pamphlet given. Risk factors discussed including med hx, medications, diet, activity, social history. At this time, patient waiting for MRI. MRI called, plan is for 1420 MRI time. Pt and family updated. Will continue to assist as needed.
[2024-12-11 15:48] VITALS: BP 139/65; PULSE 69; RESP 18; TEMP 36.7; O2SAT 95
--- NOTE | 2024-12-11 16:00 | PM.DS ---
DS: Providers Provider Date of Service: 12/11/24 Date of admission: 12/10/24 20:27 Date of discharge: 12/11/24 Primary care physician: Jose Luis Younger MD Consults: 12/10/24 20:27 Consult to Neurology Routine Consulting Provider: [facility] Reason for consultation: ?TIA DS: Diagnosis Discharge Diagnosis (1) Influenza A: Status: Acute DS: Summary Hospital Course Hospital Course: from initial hpi: 79 year old female with a past medical history significant for asthma unspecified, insulin-dependent diabetes, hypothyroid, spinal stenosis and HTN with a recent admission for hypoxic respiratory failure, sepsis, asthma/pneumonia and flu a, who presented to the ED today due to aphasia beginning around 11:00. The patient reported that her visiting nurse came around 13:00 and she was still aphasic and EMS was called. Since arriving to the ED the patient's symptoms have resolved. She denies any weakness, change in vision, confusion, numbness, tingling, nausea, vomiting or urinary symptoms including frequency, urgency or dysuria. She does continue to have a cough due to her recent bout of pneumonia, flu and asthma exacerbation. She declines any steroids at this time including [facility] course: Patient was admitted for aphasia and to rule out CVA. MRI was negative. Was seen by Neurology felt this was likely migraine and recommended EEG as outpatient. For unspecified asthma with acute decompensation due to flu she received 1 dose of steroids and feels back to baseline. For diabetes was continued on basal bolus insulin. For hypothyroidism was continued on levothyroxine. For hypertension was continued on amlodipine. Patient is feeling better will be discharged home. Time Attestation Discharge Coordination Time (in mins): 36 Quality: Safe Use of Opioids Does Pt have an Active Cancer Diagnosis on the Problem List?: No Quality: Stroke Does the patient have a stroke diagnosis?: No Physical Exam Vital Signs: Vital Signs: Last Vital Signs Temp 98.1 F 12/11/24 15:48 Pulse 69 12/11/24 15:48 Resp 18 12/11/24 15:48 BP 139/65 12/11/24 15:48 Pulse Ox 95 12/11/24 15:48 O2 Del Method Room Air 12/11/24 15:48 BMI result Body Mass Index 32.0 General: AO X 3, no acute distress Resp: CTA bilateral, no accessory muscles used CVS: S1,S2,RRR GI: soft, non tender, non distended Neuro: motor grossly intact, alert Psych: appropriate affect, appropriate insight DS: Data Data Completed and Pending Labs on day of discharge: Laboratory Results - last 24 hr 12/10/24 12/10/24 12/10/24 16:22 17:58 19:31 WBC 8.6 RBC 3.73 L Hgb 9.8 L Hct 31.3 L MCV 83.9 MCH 26.3 L MCHC 31.3 RDW 15.4 Plt Count 268 MPV 10.0 Immature Gran % (Auto) 0.8 H Neut % (Auto) 64.7 Lymph % (Auto) 26.3 [place] % (Auto) 6.9 Eos % (Auto) 1.1 Baso % (Auto) 0.2 Lymph # (Auto) 2.3 [place] # (Auto) 0.6 Eos # (Auto) 0.1 Baso # (Auto) 0.0 Abs Immat Gran (auto) 0.07 H Absolute Neuts (auto) 5.5 Absolute Nucleated RBC 0.000 Nucleated RBC % (auto) 0.0 PT 12.0 INR 1.0 Sodium 139 Potassium 4.4 Chloride 108 Carbon Dioxide 22 Anion Gap 13 BUN 11 Creatinine 1.05 Estim Creat Clear Calc 40.4 Estimated GFR 51 POC Glucose 126 H Random Glucose 120 H Calcium 9.1 Magnesium 1.7 Total Bilirubin 0.3 Direct Bilirubin 0.1 AST 28 ALT 22 Alkaline Phosphatase 67 Troponin I High Sens < 2.7 B-Natriuretic Peptide 39 Total Protein 7.9 Albumin 3.8 Urine Color Yellow Urine Appearance Clear Urine pH 6.0 Ur Specific [place] 1.010 Urine Protein Negative Urine Glucose (UA) Negative Urine Ketones Negative Urine Blood Negative Urine Nitrite Negative Ur Leukocyte Esterase Large (3+) H Urine RBC 0-2 Urine WBC 21-50 H Ur Squamous Epith Cells 3-5 Urine Bacteria None Seen Hyaline Casts 0-2 Influenza Type A (PCR) POSITIVE A Influenza Type B (PCR) NEGATIVE RSV RNA Qual (PCR) NEGATIVE SARS-CoV-2 RNA (RT-PCR) NEGATIVE 12/10/24 12/10/24 12/11/24 21:12 22:37 04:45 WBC 7.1 RBC 3.81 L Hgb 9.9 L Hct 32.4 L MCV 85.0 MCH 26.0 L MCHC 30.6 L RDW 15.5 Plt Count 293 MPV 10.1 Immature Gran % (Auto) Neut % (Auto) Lymph % (Auto) [place] % (Auto) Eos % (Auto) Baso % (Auto) Lymph # (Auto) [place] # (Auto) Eos # (Auto) Baso # (Auto) Abs Immat Gran (auto) Absolute Neuts (auto) Absolute Nucleated RBC 0.000 Nucleated RBC % (auto) 0.0 PT INR Sodium 142 Potassium 3.8 Chloride 108 Carbon Dioxide 25 Anion Gap 13 BUN 9 Creatinine 1.03 Estim Creat Clear Calc 41.1 Estimated GFR 52 POC Glucose 105 108 Random Glucose 101 Calcium 9.4 Magnesium Total Bilirubin Direct Bilirubin AST ALT Alkaline Phosphatase Troponin I High Sens B-Natriuretic Peptide Total Protein Albumin Urine Color Urine Appearance Urine pH Ur Specific [place] Urine Protein Urine Glucose (UA) Urine Ketones Urine Blood Urine Nitrite Ur Leukocyte Esterase Urine RBC Urine WBC Ur Squamous Epith Cells Urine Bacteria Hyaline Casts Influenza Type A (PCR) Influenza Type B (PCR) RSV RNA Qual (PCR) SARS-CoV-2 RNA (RT-PCR) 12/11/24 12/11/24 07:21 10:48 WBC RBC Hgb Hct MCV MCH MCHC RDW Plt Count MPV Immature Gran % (Auto) Neut % (Auto) Lymph % (Auto) [place] % (Auto) Eos % (Auto) Baso % (Auto) Lymph # (Auto) [place] # (Auto) Eos # (Auto) Baso # (Auto) Abs Immat Gran (auto) Absolute Neuts (auto) Absolute Nucleated RBC Nucleated RBC % (auto) PT INR Sodium Potassium Chloride Carbon Dioxide Anion Gap BUN Creatinine Estim Creat Clear Calc Estimated GFR POC Glucose 89 296 H Random Glucose Calcium Magnesium Total Bilirubin Direct Bilirubin AST ALT Alkaline Phosphatase Troponin I High Sens B-Natriuretic Peptide Total Protein Albumin Urine Color Urine Appearance Urine pH Ur Specific [place] Urine Protein Urine Glucose (UA) Urine Ketones Urine Blood Urine Nitrite Ur Leukocyte Esterase Urine RBC Urine WBC Ur Squamous Epith Cells Urine Bacteria Hyaline Casts Influenza Type A (PCR) Influenza Type B (PCR) RSV RNA Qual (PCR) SARS-CoV-2 RNA (RT-PCR) Preliminary micro results at discharge 12/10/24 19:51 Urine Culture - Preliminary Urine clean catch - Clean Catch Midstream No growth to date. Discharge Plan Discharge Anticipated Discharge Date/Time: 12/11/24 15:56 Patient Disposition: Home Health Service Discharge Diagnosis: migraine Referrals: [facility] [Outside] - 1 Week Jose Luis Younger MD [Primary Care Provider] - 1 Week Discharge Medications: Continued insulin glargine [Lantus U-100 Insulin] 100 unit/mL Solution 10 unit SUBCUT BEDTIME glipizide 5 mg Tablet 5 mg PO BID tizanidine 4 mg tablet 4 mg PO DAILY PRN (Reason: Muscle Spasm/Pain) amlodipine 5 mg tablet 5 mg PO DAILY levothyroxine 50 mcg tablet 50 mcg PO DAILY@0600 lisinopril 10 mg tablet 10 mg PO DAILY gabapentin 300 mg capsule 300 mg PO BID albuterol sulfate 90 mcg/actuation HFA aerosol inhaler 2 puff INHALATION Q4H PRN (Reason: Shortness Of Breath Or Wheezing) dextroamphetamine-amphetamine 30 mg capsule,extended release 24hr 2 cap PO DAILY fluticasone propionate 50 mcg/actuation spray,suspension 2 spray INTRANASAL DAILY aripiprazole 5 mg tablet 5 mg PO DAILY duloxetine 60 mg capsule,delayed release(DR/EC) 120 mg PO DAILY amoxicillin-pot clavulanate 500-125 mg Tablet 1 tab PO Q12H Qty: 14 0RF omeprazole 20 mg capsule,delayed release(DR/EC) 20 mg PO BID@0630,1630 lovastatin 40 mg tablet 40 mg PO BEDTIME Discharge Orders: Discharge Order (Routine); Ordered 12/11/24 Ordered By: Joseluis Galeano Diet: Advance to usual diet Activity on Discharge: As tolerated Stand Alone Forms: Patient Portal Discharge page Print Language: Greek Other Ambulatory Orders: EEG ambulatory (Routine) Timeframe: 1 Week Facility: [facility] - Location: Radiology Ordered By: Joseluis Galeano Care Plan Goals: recovery Health Concerns: migraine Plan of Treatment: eeg outpatient Assessment: see above
[2024-12-11 16:11] LABS: Glucose, Whole Blood 113 mg/dL (60-115)
== END 2024-12-11 17:57 | disposition home health service (06) ==
LOC: HO.ED 18:38 → HO.EDOVER 20:43 → HO.IMC 12-11 07:44
PROVIDERS: Physician Assistant; Admitting Provider Student in an Organized Health Care Education/Training Program; Emergency Provider Emergency Medicine Emergency Medical Services; PCP Internal Medicine; Visit Provider Internal Medicine
DX: G43.909 Migraine, unspecified, not intractable, without status migrainosus (principal); J10.1 Influenza due to other identified influenza virus with other respiratory manifestations; R47.01 Aphasia; R53.1 Weakness; E11.9 Type 2 diabetes mellitus without complications; E03.9 Hypothyroidism, unspecified; I10 Essential (primary) hypertension; Z79.4 Long term (current) use of insulin; Z03.818 Encounter for observation for suspected exposure to other biological agents ruled out; Z79.899 Other long term (current) drug therapy; J45.901 Unspecified asthma with (acute) exacerbation; Z66 Do not resuscitate
CPT/HCPCS: 0241U; 36415; 70450; 70551; 71045; 80048; 80076; 81001; 82947; 83735; 83880; 84484; 85025; 85027; 85610; 87086; 93005; 94640; 96372; 99222; 99285; J1650

== ENCOUNTER → 2024-12-10 16:04 | Outpatient (BNV) | payer MEDICARE, SELFPAY | PROVIDERS: Admitting Provider Student in an Organized Health Care Education/Training Program; Emergency Provider Emergency Medicine Emergency Medical Services; PCP Internal Medicine; Visit Provider Internal Medicine Cardiovascular Disease | DX: R53.1 Weakness (principal); R06.02 Shortness of breath | CPT/HCPCS: 93010 ==

== ENCOUNTER → 2024-12-10 16:05 | Outpatient (BNV) | payer MEDICARE, SELFPAY | PROVIDERS: Emergency Provider Emergency Medicine Emergency Medical Services; PCP Internal Medicine; Visit Provider Radiology Diagnostic Radiology | DX: K44.9 Diaphragmatic hernia without obstruction or gangrene (principal); H74.8X2 Other specified disorders of left middle ear and mastoid | CPT/HCPCS: 70450; 71045 ==

== ENCOUNTER 2024-12-10 20:27 | Outpatient (BNV) | payer MEDICARE, SELFPAY | END 2024-12-11 14:46 | PROVIDERS: Admitting Provider Student in an Organized Health Care Education/Training Program; Emergency Provider Emergency Medicine Emergency Medical Services; PCP Internal Medicine; Visit Provider Radiology Diagnostic Radiology | DX: R47.01 Aphasia (principal) | CPT/HCPCS: 70551 ==

== ENCOUNTER → 2024-12-10 20:27 | Outpatient (BNV) | payer MEDICARE, SELFPAY | PROVIDERS: Admitting Provider Student in an Organized Health Care Education/Training Program; Emergency Provider Emergency Medicine Emergency Medical Services; PCP Internal Medicine; Visit Provider Psychiatry & Neurology Neurology | DX: R47.9 Unspecified speech disturbances (principal) | CPT/HCPCS: 99222 ==

== ENCOUNTER → 2024-12-10 20:27 | Outpatient (BNV) | payer MEDICARE, SELFPAY | PROVIDERS: Admitting Provider Student in an Organized Health Care Education/Training Program; Emergency Provider Emergency Medicine Emergency Medical Services; PCP Internal Medicine; Visit Provider Physician Assistant | DX: J10.1 Influenza due to other identified influenza virus with other respiratory manifestations (principal) | CPT/HCPCS: 99223; 99239 ==

== ENCOUNTER 2024-12-18 09:36 | Outpatient (AMB) | payer MEDICARE, SELFPAY ==
[2024-12-18 09:45] VITALS: BP 134/68; PULSE 109; RESP 16; O2SAT 97; BMI 31.0
--- NOTE | 2024-12-18 09:45 | MHC.OFFVIS ---
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 Allergies No Known Allergies Allergy (Verified 12/18/24 09:46) Medication List - Last Reconciled 12/18/24 by Shilpa Parra LPN albuterol sulfate 90 mcg/actuation 2 puffs inhalation Q4H PRN amlodipine 5 mg PO DAILY aripiprazole 5 mg PO DAILY dextroamphetamine-amphetamine 30 mg ER 2 caps PO DAILY duloxetine 120 mg PO DAILY fluticasone propionate 50 mcg/actuation 2 sprays intranasal DAILY gabapentin 300 mg PO BID glipizide 5 mg PO BID insulin glargine (Lantus U-100 Insulin) 10 units subcut BEDTIME levothyroxine 50 mcg PO DAILY@0600 lisinopril 10 mg PO DAILY lovastatin 40 mg PO BEDTIME omeprazole 20 mg PO BID@0630,1630 tizanidine 4 mg PO DAILY PRN HPI Comments Details: Patient presents back to the office today for follow-up, 3 weeks status post bilateral L4-5 transforaminal epidural steroid injection Endorses 50% pain relief but only lasted for approximately one-week. Pain has since returned to baseline. She was evaluated by neuro spine 1 month ago, she states they are planning for surgery this month Recently admitted to the hospital for flu and pneumonia, just now starting to feel better from that illness. Prior: Patient presents the office today for follow-up lower back pain Records from physiatry or reviewed Patient underwent repeat L5-S1 epidural steroid injection 06/2024. She reports 70% pain relief with improvement in functional mobility since that procedure. She would like to plan for repeat injection 10/18/2024 MRI has been approved, patient will call to schedule. Denies new medications, diagnoses or allergies Intake note: Vanessa is a very pleasant 79-year-old female who presents to the office today for evaluation and management of her chronic lower back pain She has been suffering with this pain for approximately 7 years. Denies inciting injury, fall, trauma Denies recent imaging Currently receiving steroid injections at , most recent injection was 07/26/24 which has provided her minimal improvement Pain today is rated as a 5/10, constant and worse in the morning Midline lower back pain with radiation down both legs. Denies shooting, electrical, stabbing pains down the legs. Describes it as heaviness, fatigue of her legs with walking. This improves with rest and with maintaining a slight forward flexion Denies weakness, numbness, tingling of either lower extremity Denies red flag symptoms including new loss of bowel, bladder or saddle anesthesia. Currently taking Tylenol, NSAIDs, gabapentin and duloxetine with minimal improvement Denies recent attempts at physical therapy In terms of muscle damage condition is described as stabbing, sharp Pain is negatively impacting patient's enjoyment of life, general activity, normal functioning and walking Denies implantable devices, pacemaker or defibrillator Denies current use of anticoagulants [facility] Medical History Spinal stenosis Hypothyroid Type 2 diabetes mellitus without complications Asthma Social History Household Members: None Housing: House Do you presently have visiting nurse or other home services: Yes Patient Tobacco Use Status: Former Tobacco user Tobacco use type: Cigarette Advance Directives Date on File: 11/21/24 service: No Review of Systems Const All systems reviewed & are unremarkable except as noted in HPI and below Physical Exam Vital Signs: Last Vital Signs Pulse 109 H 12/18/24 09:45 Resp 16 12/18/24 09:45 BP 134/68 12/18/24 09:45 Pulse Ox 97 12/18/24 09:45 Oxygen Delivery Method Room Air 12/18/24 09:45 BMI result Body Mass Index 31.0 General: awake, alert, oriented. Answers questions appropriately. Fully engaged in examination. Skin: warm, dry, intact HEENT: Normocephalic. Hearing intact. Cardiac: External chest normal in appearance. Respiratory: No cough, audible wheezing or stridor. Abdomen: without gross distension. MS: No obvious swelling or deformities. Able to transition from sit to stand unassisted. Ambulates with bilaterally normal heel strike and toe off Neurological: Oriented to person, place, time and situation. Thought process intact. No gait abnormalities appreciated. Psychiatric: Appropriate mood and affect. Good judgment and insight. Results Reviewed Results Reviewed: 08/15/24 XR/XR lumbar spine 4V min FINDINGS: Normal vertebral body alignment. The lumbar lordosis is maintained. No acute fracture or subluxation. No loss of vertebral body height. Mild loss of intervertebral disc height with anterior endplate osteophytes at L4-L5 and L5-S1. Lower lumbar spine facet arthropathy. No concerning lytic or blastic osseous lesion. Atherosclerotic calcifications. IMPRESSION: Mild degenerative disc disease at L4-L5 and L5-S1. Lower lumbar spine facet arthropathy. 09/20/24 MRI LS IMPRESSION: 1. Discogenic degenerative changes primarily at L4-L5 with disc bulging at this level and posterior element hypertrophic degenerative changes, with [id number] spinal canal stenosis and marked crowding of the intradural nerve roots. Probable encroachment on the traversing left L5 nerve root in the subarticular zone. Mild left and minimal right-sided foraminal narrowing noted without exiting neural impingement. 2. Multilevel bilateral facet joint arthropathy as described above, with mild disc bulging at L3-L4 and a tiny inferior foraminal disc protrusion on the left at L2-L3 without neural impingement. Mild right-sided foraminal narrowing at L3-L4 and mild right-sided foraminal narrowing at T11-T12. 3. A 1.4 cm nonspecific right adrenal nodule. Recommend one-year follow-up adrenal washout CT for additional assessment based on current ACR best practice guidelines. 11/14/24 XR/XR lumbar spine 4V min IMPRESSION: No acute fracture, dislocation or listhesis. No change on flexion-extension views. There is moderate bilateral L4-5 facet joint hypertrophy and arthropathy.. Assessment & Plan Assessment & Plan (1) Spinal stenosis: Code(s): M48.00 - Spinal stenosis, site unspecified Category: Medical (2) Dorsalgia: Code(s): M54.9 - Dorsalgia, unspecified Category: Medical Plan Patient presented to the office today for follow-up lower back pain, 3 weeks status post bilateral L4-5 transforaminal epidural steroid injection Reports short-term pain relief after the injection but pain has since returned to baseline. Was evaluated by neuro spine 1 month ago, surgery has been planned for decompression. All questions and concerns were answered, patient agrees with the plan. Follow up after surgery, sooner if needed Coding Level of Care Code Est Pt Level 3 (32435) Complex EM visit Add On G2211 Diagnoses Spinal stenosis M48.00 Dorsalgia M54.9
--- OUTSIDE RECORDS SUMMARY | 2024-12-18 09:53 | XMS_ITS | Encounter Summary ---
Author Organization [facility] Address [address] [place] [address] Care Team Providers Care Manager Wind Name Role Phone Jose Luis Younger MD Primary Care Provider [phone] Reason for Visit * Reason Onset Date Comments Appointment 12/06/2024 Hospital follow up Encounter Details Date Type Department Care Team (Late st Contact Info) Description 12/06/2024 Telephone Internal Medicine - [place] [address] [place] [address] Jose Luis Younger MD [address] [place] [address] Appointment (Hospital follow up) Social History Tobacco [...] 8:50 AM EST Call to pt # [phone], spoke to [facility] Pneumonia/Flu Discharged 12-05-2024 * Kathi Howe RN - 12/06/2024 10:02 AM EST Call to pt # [phone], left message to call back * Ioana Gab Quinonez - 12/06/2024 9:40 AM EST Hospital follow up- [facility] Pneumonia/Flu Discharged 12-05-2024 documented in this encounter Plan of Treatment Upcoming Encounters Date Type Department Care Team (Late st Contact Info) Description 01/13/2025 8:20 AM EDT Office Visit Endocrinology - [place] [address] [place] [address] Eun Alvares PA [address] [place] [address] 01/30/2025 1:30 PM EDT Office Visit Vascular Surgery - [place] [address] [place] [address] Shanelle Tavares PA [address] [place] [address] documented as of this encounter Visit Diagnoses Not on filedocumented in this encounter Additional Health Concerns Assessment Noted Time PHQ-9 Depression Total Score: 0 11/15/19 25 9:03 AM EST A fall risk assessment has been complete d for the patient 11/15/2024 9:00 AM EST documented as of this encounter Care Teams Manager Wind Relationship Specialty Start Date End Date Jose Luis Younger MD [address] [place] [address] PCP - General Internal Medicine 06/21/21 documented as of this encounter
--- OUTSIDE RECORDS SUMMARY | 2024-12-18 09:53 | XMS_ITS | Encounter Summary ---
Author Organization [facility] [address] Address [address] [place] [address] Care Team Providers Care Surgery Attendant Name Role Phone Jose Luis Younger MD Primary Care Provider [phone] Encounter Details Date Type Department Care Team (Late Contact Info) Description 11/26/2024 Telephone Internal Medicine - [place] [address] [facility] [address] [place] [phone] Jose Luis Younger MD [address] [facility] [address] [place] [address] Social History Tobacco Use Types Packs/Day Years [...] sensor Freestyle arm band. Please send to [employer] on [facility] documented in this encounter Plan of Treatment Upcoming Encounters Date Type Department Care Team (Late Contact Info) Description 01/13/2025 8:20 AM EDT Office Visit Endocrinology - [place] [address] [place] [phone] Eun Alvares PA [address] [facility] [place] [address] 01/30/2025 1:30 PM EDT Office Visit Vascular Surgery - [place] [address] [place] [address] Shanelle Tavares PA [address] [place] [address] documented as of this encounter Visit Diagnoses Not on filedocumented in this encounter Additional Health Concerns Assessment Noted Time PHQ-9 Depression Total Score: 0 11/15/19 9:03 AM EST A fall risk assessment has been complete d for the patient 11/15/2024 9:00 AM EST documented as of this encounter Care Teams Surgery Attendant Relationship Specialty Start Date End Date Jose Luis Younger MD [address] [place] [address] PCP - General Internal Medicine 06/21/21 documented as of this encounter
--- OUTSIDE RECORDS SUMMARY | 2024-12-18 09:53 | XMS_ITS | Encounter Summary ---
Author Organization [facility] Address [address] [place] [address] Care Team Providers Care Substance Abuse Services Director Name Role Phone Jose Luis Younger MD Primary Care Provider [phone] Reason for Visit * Reason Comments Hospital Follow-up Encounter Details Date Type Department Care Team ([facility] st Contact Info) Description 11/25/2024 1:30 PM EST Office Visit Internal Medicine - [place] [address] [facility] [address] [place] [phone] Jose Luis Younger MD [address] [facility] [address] [place] [address] Hospital discharge follow-up (Primary Dx); Moderate persistent asthma with acute exacerbation; Pneumonia of right lower lobe due to infectious organism; Type 2 diabetes mellitus without complication, with long-term current use of insulin ([facility]) Social History Tobacco Use Types Packs/Day Years [...] glucose scanning reader ([employer] [address] [place]) [facility] Check blood sugar 4 times a day 1 each 3 11/25/2024 documented in this encounter Progress Notes * Jose Luis Younger MD - 11/25/2024 1:30 PM EST COMPLAINT Hospital discharge follow-up IDENTIFIER: Vanessa Ravi is a 79 y.o. old female. HPI: Was discharged from [facility] on 11/20/2024 .diagnosed with acute right [...] 3 due to type 2 diabetes mellitus ([facility]) 09/12/2016 MDD (major depressive disorder) 12/20/2013 GERD (gastroesophageal reflux disease) 11/29/2013 HTN (hypertension) 11/29/2013 IBS (irritable bowel syndrome) 11/29/2013 Hyperlipidemia 11/29/2013 Hypothyroid 11/29/2013 Type 2 diabetes with nephropathy ([facility]) 11/29/2013 Past Surgical History: Procedure [...] complication, with long-term current use of insulin ([facility]) PLAN: Was sent home on 11/20/2024, presented [...] 8:20 AM EDT Office Visit Endocrinology - [place] [address] [place] [address] Eun Alvares PA [address] [place] [address] 01/30/2025 1:30 PM EDT Office Visit Vascular Surgery - [place] [address] [place] [address] Shanelle Tavares PA [address] [facility] [address] [place] [address] documented as of this encounter Visit Diagnoses Diagnosis Hospital discharge follow-up- Primary Other follow-up examination Moderate persistent asthma with acute exacerbation Pneumonia of right lower lobe due to infectious organism Type 2 diabetes mellitus without complication, with long-term current use of insulin ([facility]) documented in this encounter Additional Health Concerns Assessment Noted Time PHQ-9 Depression Total Score: 0 11/15/19 25 9:03 AM EST A fall risk assessment has been complete d for the patient 11/15/2024 9:00 AM EST documented as of this encounter Care Teams Substance Abuse Services Director Relationship Specialty Start Date End Date Jose Luis Younger MD [address] [facility] [address] [facility] [address] [place] [address] PCP - General Internal Medicine 06/21/21 documented as of this encounter
--- OUTSIDE RECORDS SUMMARY | 2024-12-18 09:53 | XMS_ITS | Clinical Summary ---
Author Organization [facility] [address] [place] [address] [place] [address] [place] [address] Phone Care Team Providers Care Analytical Lab Analyst Name Role Phone Jose Luis Younger MD Primary Care Provider [phone] Allergies No known active allergies Medications lovastatin [...] of 10 units at bedtime, Reported on 12/16/2024 pen needle, diabetic (BD Ultra-Fine Veronica Pen [...] 11/22/19 25 Active flash glucose scanning reader (EnigmediaStyle Destinee 14 Day [place]) [facility] Check blood sugar 4 times a day 1 each 11/25/19 25 Active flash glucose sensor (FreeStyle Destinee 14 Day Sensor) kit Use one sensor every 14 days E11.9 2 each 11/26/19 25 Active glipiZIDE (GLUCOTROL) 5 mg tablet TAKE TWO TABLETS BY MOUTH DURING THE DAY AND 1 TABLET AT BEDTIME. STOP METFORMIN 270 tablet 1 12/02/19 25 Active magnesium oxide (MAG-OX) 400 mg (241.3 elemental magnesium) tablet TAKE ONE TABLET BY MOUTH DAILY 30 tablet 5 12/13/19 25 Active albuterol HFA (PROAIR HFA ; PROVENTIL HFA ; VENTOLIN HFA) 90 mcg/actuation inhaler INHALE 2 PUFFS INTO THE LUNGS FOUR TIMES A DAY NEEDED COUGH, WHEEZE, OR SHORTNESS OF BREATH 8.5 g 1 10/08/20 24 025 Discontinued glipiZIDE (GLUCOTROL) 5 mg [...] disorder) 12/20/2013 Overview (10/29/2024): Sees Psychiatry at [facility] (Cher Bhatia) prescribed Abilify and adderall GERD (gastroesophageal reflux disease) 4 HTN (hypertension) 11/29/2013 Assessment & Plan (11/15/2024 9:54 AM EST): Hypertension not under control on lisinopril added amlodipine 5 mg daily IBS (irritable bowel syndrome) 11/29/2013 Hyperlipidemia 11/29/2013 Hypothyroid 11/29/2013 Type 2 diabetes with nephropathy 11/29/2013 Encounters Date Type Department Care Team Description 12/16/2024 1:30 PM EST Office Visit Internal Medicine - [address] [place] [address] Jose Luis Younger MD Hospital discharge follow-up (Primary Dx); Mild intermittent asthma with acute exacerbation; Aspiration pneumonia, unspecified aspiration pneumonia type, unspecified laterality, unspecified part of lung ([facility]) 12/09/2024 Telephone Internal Medicine [address] [address] Kanwal Barron [place] Request For Order(s) ([employer] [facility]givers Cert 11/21/24-01/19/25 Plan Of Care /) 12/06/2024 Telephone Internal Medicine [address] [address] Jose Luis Younger MD Appointment (Hospital follow up) 11/26/2024 Telephone Internal [address] [address] Jose Luis Younger MD 11/25/2024 1:30 PM EST Office Visit Internal [address] [address] Jose Luis Younger MD Hospital discharge follow-up (Primary Dx); Moderate persistent asthma with acute exacerbation; Pneumonia of right lower lobe due to infectious organism; Type 2 diabetes mellitus without complication, with long-term current use of insulin ([facility]) 11/22/[address] [address] Eun Alvares PA New Med Request 11/21/2024 Telephone Internal [address] [address] Jose Luis Younger MD Hospital Follow-up 11/19/2024 Telephone Internal Medicine [address] [address] Jose Luis Younger MD Provider call back 11/15/2024 8:30 AM EST Office Visit Internal [address] [address] Jose Luis Younger MD Primary hypertension (Primary Dx); Hypercholesterolemia; Other specified hypothyroidism; Chronic bilateral low back pain with sciatica, sciatica laterality unspecified 11/07/2024 11:00 AM EST Office Visit Endocrinology [facility] [address] [place] [phone] Eun Alvares PA Type 2 diabetes with nephropathy ([facility]) (Primary Dx); Stage 3b chronic kidney disease ([facility]); Hypothyroidism, unspecified type 10/28/2024 Telephone Internal Medicine [address] [phone] Jose Luis Younger MD 10/11/2024 11:30 AM EST Office Visit Internal Medicine [facility] 175 [facility] 200 [place] [phone] Jessica Bonds NP Bronchitis (Primary Dx); Right ear pain; Bilateral leg pain; Hyperlipidemia, unspecified hyperlipidemia type; Hypothyroidism, unspecified type; Vitamin D deficiency, unspecified; 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, without long-term current use of insulin ([facility]) 10/11/2024 Telephone Internal Medicine [facility] [address] [phone] Jose Luis Younger MD TRIAGE- Sob, coughing from Last 3 Months Immunizations Name Administration [...] (major depressive disorder); COMMENT: Sees Psychiatry at [facility] (Cher Bhatia) prescribed Abilify and adderall Type 2 diabetes with nephrop athy ([facility]) 11/29/2013 DX:Type 2 diabetes with nephropathy ([facility]) Microalbuminuria 06/11/2018 DX:Microalbumin uria Diarrhea DX:Diarrhea Family [...] Sign Reading Time Taken Comments Blood Pressure 118/62 12/16/2024 1:19 PM EST Pulse 79 12/16/2024 1:19 PM EST Temperature 35.8 ??C (96.5 ??F) 12/16/2024 1:19 PM ES T Respiratory Rate - - Oxygen Saturation 95% 12/16/2024 1:19 PM EST Inhaled Oxygen Concentration - - Weight 71.5 kg (157 lb 9.6 oz) 12/16/2024 1:19 P M EST Height 152.4 cm (5') 11/15/2024 8:59 AM EST Body Mass Index 30.78 11/15/2024 8:59 AM EST Plan of Treatment Upcoming Encounters Date Type Department Care Team (Late st Contact Info) Description 01/13/2025 8:20 AM EDT Office Visit Endocrinology - [place] [address] [place] [address] Eun Alvares PA [address] [place] [address] 01/30/2025 1:30 PM EDT Office Visit Vascular Surgery - [place] [address] [place] [address] Shanelle Tavares PA [address] [place] [address] Health Maintenance Due Date Last Done Comments [...] Procedure Name Priority Date/Time Associated Diagnosis Comments EXTERNAL CT REPORT 12/03/2024 EXTERNAL XRAY REPORT 12/03/2024 VITAMIN B12 Routine 10/11/2024 12:40 PM EST Bilateral leg pain THYROID STIMULATING HORMONE Routine 10/11/2024 12:40 PM EST Bilateral leg pain 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, without long-term current use of insulin ([facility]) MAGNESIUM Routine 10/11/2024 12:40 PM EST Bilateral leg pain HEMOGLOBIN A1C Routine 10/11/2024 12:40 PM EST Type 2 diabetes mellitus with other specified complication, without long-term current use of insulin ([facility]) COMPREHENSIVE METABOLIC PANEL Routine 10/11/2024 12:40 PM EST Type 2 diabetes mellitus with other specified complication, without long-term current use of insulin (CMS/HCC) COMPLETE BLOOD COUNT Routine 10/11/2024 12:40 PM EST Type 2 diabetes mellitus with other specified complication, without long-term current use of insulin ([facility]) LIPID PANEL WITH REFLEX TO DIRECT LDL Routine 10/11/2024 12:40 PM EST Hyperlipidemia, unspecified hyperlipidemia type VITAMIN D 25 HYDROXY Routine 10/11/2024 12:39 PM EST Bilateral leg pain Vitamin D deficiency, unspecified URINE ALBUMIN CREATININE RATIO Routine 12/17/2020 DXA BONE DENSITY STUDY 1+ SITS AXIAL SKEL Routine 09/01/2020 10:52 AM EST Asymptomatic menopausal state HEPATITIS C SCREENING Routine 03/20/2014 from Last 3 Months or Most Recently Relevant to Health Maintenance Results * External Xray Report (12/03/2024) Anatomical Region Laterality Modality Radiographic Ruchi ging us Provider [facility] XR PROCEDURES Final Result * External CT Report (12/03/2024) Anatomical Region Laterality Modality Computed Tomogra phy us Provider [facility] CT PROCEDURES Final Result * (ABNORMAL) Lipid panel with reflex to direct LDL (10/11/2024 12:40 PM EST) [facility] Cholesterol 157 0 - 200 mg/dL LAB CHEMISTRY METHOD 10/11/2024 3:38 PM EST [facility] Triglycerides 228(H) 0 - 150 mg/dL LAB CHEMISTRY METHOD 10/11/2024 3:38 PM EST [facility] HDL 39(L) >=40 mg/dL LAB CHEMISTRY METHOD 10/11/2024 3:38 PM EST [facility] LDL Calculated 72 0 - 100 mg/dL LAB CHEMISTRY METHOD 10/11/2024 3:38 PM EST [facility] VLDL Cholesterol Ag 45.6 mg/dL LAB CHEMISTRY METHOD 10/11/2024 3:38 PM EST [facility] Non HDL Chol. (LDL+VLDL) 118 <145 mg/dL LAB CHEMISTRY METHOD 10/11/2024 3:38 PM EST [facility] Chol/HDL Ratio 4.0 0.0 - 4.4 LAB CHEMISTRY METHOD 10/11/2024 3:38 PM EST [facility] Blood Venous blood specimen / Unknown Venipuncture / Unknown 10/11/2024 12:40 PM EST 10/11/2024 1:10 PM EST us Jessica Bonds YARD TRUCK DRIVER LAB BLOOD ORDERABLES Final Resul t [facility] [address] [place] [address], * (ABNORMAL) Complete blood count (10/11/2024 12:40 PM EST) WBC 7.3 4.8 - 10.8 K/mcL LAB HEMETOLOGY METHOD 10/11/2024 1:52 PM [facility] RBC 4.20 3.80 - 4.80 M/mcL LAB HEMETOLOGY METHOD 10/11/2024 1:52 PM [facility] Hemoglobin 11.0(L) 11.5 - 16.0 g/dL LAB HEMETOLOGY METHOD 10/11/2024 1:52 PM EST [facility] Hematocrit 36.5 35.0 - 47.0 % LAB HEMETOLOGY METHOD 10/11/2024 1:52 PM EST [facility] MCV 86.9 79.0 - 98.0 FL LAB HEMETOLOGY METHOD 10/11/2024 1:52 PM EST [facility] MCH 26.2(L) 27.0 - 32.0 pcg LAB HEMETOLOGY METHOD 10/11/2024 1:52 PM EST [facility] MCHC 30.1(L) 32.0 - 37.0 g/dL LAB HEMETOLOGY METHOD 10/11/2024 1:52 PM EST [facility] RDW 14.8 11.0 - 15.0 % LAB HEMETOLOGY METHOD 10/11/2024 1:52 PM EST [facility] Platelets 329 130 - 400 K/mcL LAB HEMETOLOGY METHOD 10/11/2024 1:52 PM EST [facility] MPV 11.1(H) 7.0 - 11.0 FL LAB HEMETOLOGY METHOD 10/11/2024 1:52 PM EST [facility] NRBC 0.0 <1.0 % LAB HEMETOLOGY METHOD 10/11/2024 1:52 PM EST [facility] NRBC Absolute 0.00 <0.10 K/mcL LAB HEMETOLOGY METHOD 10/11/2024 1:52 PM EST [facility] Blood Venous blood specimen / Unknown Venipuncture / Unknown 10/11/2024 12:40 PM EST 10/11/2024 1:10 PM EST us Jessica Bonds NP LAB BLOOD ORDERABLES Final Resul t [facility] [address] [place] [address], * Thyroid stimulating hormone (10/11/2024 12:40 PM EST) TSH 1.88 0.40 - 4.00 mcIU/mL LAB CHEMISTRY METHOD 10/11/2024 2:28 PM EST [facility] Blood Venous blood specimen / Unknown Venipuncture / Unknown 10/11/2024 12:40 PM EST 10/11/2024 1:10 PM EST us Jessica Bonds YARD TRUCK DRIVER LAB BLOOD ORDERABLES Final Resul t Performing Organization Address City/[facility] Co de Phone Number [facility] [address] [place] [address], [place] [phone] * Magnesium (10/11/2024 12:40 PM EST) Magnesium 2.0 1.9 - 2.6 mg/dL LAB CHEMISTRY METHOD 10/11/2024 2:49 PM EST [facility] Blood Venous blood specimen / Unknown Venipuncture / Unknown 10/11/2024 12:40 PM EST 10/11/2024 1:10 PM EST Jessica Bonds YARD TRUCK DRIVER LAB BLOOD ORDERABLES Final Resul t Performing Organization Address [facility] de Phone Number [facility] [address] [place] [address], [place] [phone] * (ABNORMAL) Hemoglobin A1c (10/11/2024 12:40 PM EST) Hemoglobin A1C 9.5(H) <6.5 % LAB CHEMISTRY METHOD 10/11/2024 8:46 PM EST [facility] Mean Bld Glu Estim. 226 mg/dL LAB CHEMISTRY METHOD 10/11/2024 8:46 PM EST [facility] Blood Venous blood specimen / Unknown Venipuncture / Unknown 10/11/2024 12:40 PM EST 10/11/2024 1:10 PM EST us Jessica Bonds YARD TRUCK DRIVER LAB BLOOD ORDERABLES Final Resul t Performing Organization Address City/[facility]/ZIP Co de Phone Number [facility] [address] [place] [address], [place] [phone] * (ABNORMAL) Vitamin B12 (10/11/2024 12:40 PM EST) [facility] Vitamin B-12 245(L) 250 - 900 pcg/mL LAB CHEMISTRY METHOD 10/11/2024 3:38 PM EST [facility] Blood Venous blood specimen / Unknown Venipuncture / Unknown 10/11/2024 12:40 PM EST 10/11/2024 1:10 PM EST Jessica Bonds NP LAB BLOOD ORDERABLES Final Resul t Performing Organization Address [facility] Co de Phone Number [facility] [address] [place] [address], [place] [phone] * (ABNORMAL) Comprehensive metabolic panel (10/11/2024 12:40 PM EST) [facility] Sodium 141 133 - 145 mmol/L LAB CHEMISTRY METHOD 10/11/2024 3:38 PM [facility] Potassium 5.6(H) 3.5 - 5.5 mmol/L LAB CHEMISTRY METHOD 10/11/2024 3:38 PM [facility] Chloride 106 96 - 110 mmol/L LAB CHEMISTRY METHOD 10/11/2024 3:38 PM [facility] CO2 29 21 - 32 mmol/L LAB CHEMISTRY METHOD 10/11/2024 3:38 PM [facility] Anion Gap 6 3 - 11 LAB CHEMISTRY METHOD 10/11/2024 3:38 PM [facility] Glucose 124(H) 70 - 100 mg/dL LAB CHEMISTRY METHOD 10/11/2024 3:38 PM [facility] BUN 15 5 - 25 mg/dL LAB CHEMISTRY METHOD 10/11/2024 3:38 PM [facility] Creatinine 1.36(H) 0.50 - 1.10 mg/dL LAB CHEMISTRY METHOD 10/11/2024 3:38 PM [facility] eGFR 40(L) >=60 mL/min/1. 73m2 LAB CHEMISTRY METHOD 10/11/2024 3:38 PM [facility] Comment:Calculation based on the??Chronic Kidney Disease Epidemiology Collaboration (CKD-EPI) equation refit??without adjustment for race. BUN/Creatinine Ratio 11.0 LAB CHEMISTRY METHOD 10/11/2024 3:38 PM [facility] Calcium 10.3 8.5 - 10.5 mg/dL LAB CHEMISTRY METHOD 10/11/2024 3:38 PM [facility] AST (SGOT) 21 10 - 42 unit/L LAB CHEMISTRY METHOD 10/11/2024 3:38 PM [facility] ALT (SGPT) 23 10 - 60 unit/L LAB CHEMISTRY METHOD 10/11/2024 3:38 PM [facility] Alkaline Phosphatase 93 42 - 121 unit/L LAB CHEMISTRY METHOD 10/11/2024 3:38 PM [facility] Total Protein 7.4 6.0 - 8.0 g/dL LAB CHEMISTRY METHOD 10/11/2024 3:38 PM [facility] Albumin 3.8 3.2 - 5.0 g/dL LAB CHEMISTRY METHOD 10/11/2024 3:38 PM [facility] Total Bilirubin 0.3 0.0 - 1.4 mg/dL LAB CHEMISTRY METHOD 10/11/2024 3:38 PM [facility] Blood Venous blood specimen / Unknown Venipuncture / Unknown 10/11/2024 12:40 PM EST 10/11/2024 1:10 PM EST us Jessica Bonds NP LAB BLOOD ORDERABLES Final Resul t [facility] [address] [place] [address], [place] [phone] * (ABNORMAL) Vitamin D 25 hydroxy (10/11/2024 12:39 PM EST) Pathologist [facility] Vit D, 25-Hydroxy 27.1(L) 30.0 - 80.0 ng/mL LAB CHEMISTRY METHOD 10/11/2024 2:28 PM EST [facility] Blood Venous blood specimen / Unknown Venipuncture / Unknown 10/11/2024 12:39 PM EST 10/11/2024 12:39 PM EST Jessica Bonds NP LAB BLOOD ORDERABLES Final Resul t [facility] [address] [place] [address], [place] [phone] * HM Urine Albumin Creatinine Ratio (12/17/2020) [facility] Urine Albumin Creatinine Ratio Abstarcted Historical Provider HEALTH MAINTENANCE Final Result * [...] scores not able to be calculated. [facility] Department of Internal Medicine recommends using National [...] alternative screening schedule based on leno Hoffmann., [facility] November 17, 2011 for patients with osteopenia [...] scores not able to be calculated. [facility] Department of Internal Medicine recommendsusing National Osteoporosis [...] FRAX. Optional alternative screening schedule based on sravan Hoffmann al., [facility] for patients with osteopenia (based on hip BMD T-score) is as follows: * advanced osteopenia (T scores -2.00 to -2.49), BMD testing every year * moderate osteopenia (T scores -1.50 to -1.99), BMD testing every 5years mild osteopenia or normal BMD (T scores -1.50 and higher), BMD testingevery 15 years Goldie GARCIA IMD[place] DXA PROCEDURES Final Resu lt * Hepatitis C Screening (03/20/2014) [facility] Hepatitis C Screening Abstracted Historical Provider HEALTH MAINTENANCE Final Result from Last 3 Months or Most Recently Relevant to Health Maintenance Insurance [employer] [address] [place] [address] Care Teams Analytical Lab Analyst Relationship Specialty Start Date End Date Jose Luis Younger MD 175 [facility] [address] [place] [address] PCP - General Internal Medicine 06/21/21
--- OUTSIDE RECORDS SUMMARY | 2024-12-18 09:53 | XMS_ITS | Encounter Summary ---
Author Organization [facility] Address [address] [place] [address] Care Team Providers Care Surveying Or Spatial Science Technician Name Role Phone Jose Luis Younger MD Primary Care Provider [phone] Reason for Visit * Reason Onset Date Comments Provider call back 11/19/2024 Encounter Details Date Type Department Care Team (Late st Contact Info) Description 11/19/2024 Telephone Internal Medicine - [place] 175 [facility] [address] [place] [address] Jose Luis Younger MD 175 [facility] [address] [place] [address] Provider call back Social History Tobacco Use [...] Giorgio GARCIA 11/07/2024 Call to pt # [phone], spoke w/ the pt. I told her about the call from [facility] and that she needs to follow up [...] 1:10 PM EST Toshia from Spine dept [facility] called regarding patient. She stated patient was supposed to have back surgery but when she got recent labs done, her A1C levels were super high and she hasto cancel the surgery. She requested to speak with someone to follow up with PCP regarding this because she still wants patient to have back surgery in future. Callback [phone] documented in this encounter Plan of Treatment Upcoming Encounters Date Type Department Care Team (Late st Contact Info) Description 01/13/2025 8:20 AM EDT Office Visit Endocrinology - [place] [address] [place] [address] Eun Alvares PA [address] [place] [address] 01/30/2025 1:30 PM EDT Office Visit Vascular Surgery - [place] [address] [place] [address] Shanelle Tavares PA [address] [place] [address] documented as of this encounter Visit Diagnoses Not on filedocumented in this encounter Additional Health Concerns Assessment Noted Time PHQ-9 Depression Total Score: 0 11/15/19 25 9:03 AM EST A fall risk assessment has been complete d for the patient 11/15/2024 9:00 AM EST documented as of this encounter Care Teams Surveying Or Spatial Science Technician Relationship Specialty Start Date End Date Jose Luis Younger MD [address] [facility] [address] [place] [address] PCP - General Internal Medicine 06/21/21 documented as of this encounter
--- OUTSIDE RECORDS SUMMARY | 2024-12-18 09:53 | XMS_ITS | Encounter Summary ---
Author Organization [facility] Address [address] [place] [address] Care Team Providers Care Electromechanical Inspector Name Role Phone Jose Luis Younger MD Primary Care Provider [phone] Reason for Visit * Reason Onset Date Comments Hospital Follow-up 11/21/2024 Encounter Details Date Type Department Care Team (Late st Contact Info) Description 11/21/2024 Telephone Internal Medicine - [place] 175 [facility] [address] [place] [address] Jose Luis Younger MD 175 [facility] [address] [place] [address] Hospital Follow-up Social History Tobacco Use Types [...] 9:24 AM EST Call to pt # [phone], left message for pt to call us back * Roselyn Vu - 11/21/2024 8:53 AM EST Patient called and stated that she was in [facility] on 11/17/24 and was discharged yesterday due to pneumonia and would like to see her provider as soon as possible. Please advise Cb# [phone] documented in this encounter Plan of Treatment Upcoming Encounters Date Type Department Care Team (Late st Contact Info) Description 01/13/2025 8:20 AM EDT Office Visit Endocrinology - [place] [address] [place] [address] Eun Alvares PA [address] [place] [address] 01/30/2025 1:30 PM EDT Office Visit Vascular Surgery - [place] [address] [place] [address] Shanelle Tavares PA [address] [place] [address] documented as of this encounter Visit Diagnoses Not on filedocumented in this encounter Additional Health Concerns Assessment Noted Time PHQ-9 Depression Total Score: 0 11/15/19 9:03 AM EST A fall risk assessment has been complete d for the patient 11/15/2024 9:00 AM EST documented as of this encounter Care Teams Electromechanical Inspector Relationship Specialty Start Date End Date Jose Luis Younger MD [address] [facility] [address] [place] [address] PCP - General Internal Medicine 06/21/21 documented as of this encounter
--- OUTSIDE RECORDS SUMMARY | 2024-12-18 09:53 | XMS_ITS | Encounter Summary ---
Author Organization [facility] Address [address] [place] [address] Care Team Providers Care Performance Analyst Name Role Phone Jose Luis Younger MD Primary Care Provider [phone] Encounter Details Date Type Department Care Team (Late Contact Info) Description 10/28/2024 Telephone Internal Medicine - [place] 175 [facility] [address] [place] [phone] Jose Luis Younger MD 175 [facility] [address] [place] [address] Social History Tobacco Use Types Packs/Day Years [...] 8:20 AM EDT Office Visit Endocrinology - [address] [address] Eun Alvares PA [address] [place], [place] 01/30/2025 1:30 PM EDT Office Visit Vascular Surgery - [place] [address] [place] [address] Shanelle Tavares PA [address] [place] [address] documented as of this encounter Visit Diagnoses Not on filedocumented in this encounter Care Teams Performance Analyst Relationship Specialty Start Date End Date Jose Luis Younger MD [address] [place] [address] PCP - General Internal Medicine 06/21/21 documented as of this encounter
--- OUTSIDE RECORDS SUMMARY | 2024-12-18 09:53 | XMS_ITS | Encounter Summary ---
Author Organization [facility] Address [address] [place] [address] Care Team Providers Care Charter Driver Name Role Phone Jose Luis Younger MD Primary Care Provider [phone] Reason for Visit * Reason Onset Date Comments New Med Request 11/22/2024 Encounter Details Date Type Department Care Team (Late st Contact Info) Description 11/22/2024 Telephone Endocrinology - [place] [address] [place] [phone] Eun Alvares PA [address] [place] [address] New Med Request Social History Tobacco Use [...] her pharmacy . Please call her at [phone] documented in this encounter Plan of Treatment Upcoming Encounters Date Type Department Care Team (Late st Contact Info) Description 01/13/2025 8:20 AM EDT Office Visit Endocrinology - [address] [address] Eun Alvares PA [address] [place] [address] 01/30/2025 1:30 PM EDT Office Visit Vascular Surgery - [place] [address] [facility] [address] [place] [address] Shanelle Tavares PA [address] [place] [address] documented as of this encounter Visit Diagnoses Not on filedocumented in this encounter Additional Health Concerns Assessment Noted Time PHQ-9 Depression Total Score: 0 11/15/19 25 9:03 AM EST A fall risk assessment has been complete d for the patient 11/15/2024 9:00 AM EST documented as of this encounter Care Teams Charter Driver Relationship Specialty Start Date End Date Jose Luis Younger MD [address] [address] PCP - General Internal Medicine 06/21/21 documented as of this encounter
--- OUTSIDE RECORDS SUMMARY | 2024-12-18 09:53 | XMS_ITS | Encounter Summary ---
Author Organization [facility] Address [address] [place] [address] Care Team Providers Care Contract Loader Name Role Phone Jose Luis Younger MD Primary Care Provider [phone] Reason for Visit * Reason Comments Hospital Follow-up Encounter Details Date Type Department Care Team ([facility] st Contact Info) Description 12/16/2024 1:30 PM EST Office Visit Internal Medicine - [place] [address] [facility] [address] [place] [phone] Jose Luis Younger MD [address] [facility] [address] [place] [address] Hospital discharge follow-up (Primary Dx); Mild intermittent asthma with acute exacerbation; Aspiration pneumonia, unspecified aspiration pneumonia type, unspecified laterality, unspecified part of lung (CMS/HCC) Social History Tobacco Use Types Packs/Day Years [...] oz) 12/16/2024 1:19 P M EST Height - - Body Mass Index 30.78 11/15/2024 8:59 AM EST documented in this encounter Progress Notes * Jose Luis Younger MD - 12/16/2024 1:30 PM EST COMPLAINT: Follow-up IDENTIFIER: Vanessa Ravi is a 79 y.o. old female. HPI: Was discharged from [facility] on 12/05/2024 with pneumonia and asthma exacerbation and influenza. Currently feels okay. Completed antibiotic Augmentin and Tamiflu ROS: GENERAL: No malaise, significant weight loss [...] Outpatient Medications Marked as Taking for the 12/16/24 encounter (Office Visit) with Jose Luis Younger [...] 4 (four) times a day if needed. flash glucose scanning reader (EcoGroomerStyle Destinee 14 Day [place]) [facility] [place] blood sugar 4 times a day 1 each 3 flash glucose sensor (FreeStyle Destinee 14 Day Sensor) kit Use one sensor every 14 days E11.9 2 each 3 fluticasone propionate (FLONASE) 50 mcg/actuation nasal spray Administer 2 sprays into each nostril1 (one) time each day. Shake gently. Before first use, prime pump. After use, clean tip and replacecap. 16 g 3 fluticasone-salmeterol (ADVAIR DISKUS) 250-50 mcg/dose diskus inhaler Inhale 1 puff by mouth. gabapentin (NEURONTIN) 300 mg capsule glipiZIDE (GLUCOTROL) 5 mg tablet TAKE TWO TABLETS BY MOUTH DURING THE DAY AND 1 TABLET AT BEDTIME.STOP METFORMIN 270 tablet 1 insulin glargine (Lantus Solostar U-100 Insulin) 100 [...] BY MOUTH AT BEDTIME 90 tablet 1 magnesium oxide (MAG-OX) 400 mg (241.3 elemental magnesium) tablet TAKE ONE TABLET BY MOUTH DAILY 30 tablet 5 omeprazole (PriLOSEC) [address] capsule TAKE [...] ALLERGIES: No Known Allergies PHYSICAL EXAM: Vitals: 12/16/24 1319 BP: 118/62 Pulse: 79 Temp: 35.8 ??C (96.5 ??F) SpO2: 95% APPEARANCE: Alert and in no acute distress [...] IMAGING: IMPRESSION: 1. Hospital discharge follow-up 2. Mild intermittent asthma with acute exacerbation 3. Aspiration pneumonia, unspecified aspiration pneumonia type, unspecified laterality, unspecifiedpart of lung (CMS/HCC) PLAN: Was discharged from [facility] with pneumonia/ influenza and asthma exacerbation ,was discharged on Augmentin and Tamiflu . Feels better. Plans to have surgery of the back next week. Was admitted with pneumonia end of October with pneumonia. documented in this encounter Plan of Treatment Upcoming Encounters Date Type Department Care Team (Late st Contact Info) Description 01/13/2025 8:20 AM EDT Office Visit Endocrinology - [place] [address] [place] [address] Eun Alvares PA [address] [place] [address] 01/30/2025 1:30 PM EDT Office Visit Vascular Surgery - [place] [address] [place] [address] Shanelle Tavares PA [address] [place] [address] documented as of this encounter Visit Diagnoses Diagnosis Hospital discharge follow-up- Primary Other follow-up examination Mild intermittent asthma with acute exacerbation Aspiration pneumonia, unspecified aspiration pneumonia type, unspecified laterality, unspecified part of lung (CMS/HCC) documented in this encounter Additional Health Concerns Assessment Noted Time PHQ-9 Depression Total Score: 0 11/15/19 25 9:03 AM EST A fall risk assessment has been complete d for the patient 11/15/2024 9:00 AM EST documented as of this encounter Care Teams Contract Loader Relationship Specialty Start Date End Date Jose Luis Younger MD [address] [place] [address] PCP - General Internal Medicine 06/21/21 documented as of this encounter
--- OUTSIDE RECORDS SUMMARY | 2024-12-18 09:53 | XMS_ITS | Encounter Summary ---
Author Organization [facility] Address [address] [place] [address] Care Team Providers Care Pool Coordinator Name Role Phone Jose Luis Younger MD Primary Care Provider [phone] Reason for Visit * Reason Onset Date Comments Request For Order(s) 12/09/2024 [facility] 11/21/24-01/19/25 Plan Of Care Encounter Details Date Type Department Care Team (Late st Contact Info) Description 12/09/2024 Telephone Internal Medicine - [place] [address] [facility] [address] [place] [address] Kanwal Barron MA Request For [...] Progress Notes * Kanwal Barron MA - 12/11/2024 7:08 AM EST Scanned into chart and faxed to [facility] [phone] * Kanwal Barron MA - 12/09/2024 11:08 AM EST [facility] 11/21/24-01/19/25 Plan Of Care Please sign & fax [phone] documented in this encounter Plan of Treatment Upcoming Encounters Date Type Department Care Team (Late st Contact Info) Description 01/13/2025 8:20 AM EDT Office Visit Endocrinology - [place] [address] [place] [address] Eun Alvares PA [address] [place] [address] 01/30/2025 1:30 PM EDT Office Visit Vascular Surgery - [place] [address] [place] [address] Shanelle Tavares PA [address] [place] [address] documented as of this encounter Visit Diagnoses Not on filedocumented in this encounter Additional Health Concerns Assessment Noted Time PHQ-9 Depression Total Score: 0 11/15/19 25 9:03 AM EST A fall risk assessment has been complete d for the patient 11/15/2024 9:00 AM EST documented as of this encounter Care Teams Pool Coordinator Relationship Specialty Start Date End Date Jose Luis Younger MD [address] [facility] [address] [place] [address] PCP - General Internal Medicine 06/21/21 documented as of this encounter
== END 2024-12-18 10:06 | disposition home or self-care (01) ==
PROVIDERS: PCP Internal Medicine; Visit Provider Registered Nurse Emergency
DX: M48.00 Spinal stenosis, site unspecified (principal); M54.9 Dorsalgia, unspecified
CPT/HCPCS: 99213; G2211

== ENCOUNTER → 2024-12-18 09:36 | Outpatient (BNVA) | payer MEDICARE, SELFPAY | PROVIDERS: PCP Internal Medicine; Visit Provider Registered Nurse Emergency | DX: M48.00 Spinal stenosis, site unspecified (principal) | CPT/HCPCS: 99212 ==

== ENCOUNTER 2025-02-24 14:07 | Outpatient (AMB) | payer MEDICARE, SELFPAY ==
--- NOTE | 2025-02-24 14:34 | A.SPINEOV_ITS ---
Intake Visit Reasons: discuss surgery Intake Note: Ms. Ravi is here today to Discuss Surgery. Foreclosure Clerk Required: No Allergies No Known Allergies Allergy (Verified 02/24/25 14:34) Assessment & Plan Assessment & Plan (1) Spinal stenosis, lumbar region with neurogenic claudication: Code(s): M48.062 - Spinal stenosis, lumbar region with neurogenic claudication Category: Medical Plan Vanessa comes in today for a subsequent follow up visit after being previously evaluated in clinic for spinal stenosis with neurogenic claudication. She reports that she has been having severe bilateral leg pain with ambulation in his highly motivated for surgery at this time. She recently had her A1c re- drawn, yielding an 8.5. She has made significant progress bring her A1c down about 1.1 points. Given this, she is still above our cutoff criteria of an A1c of 8, which we usually reserve as the maximum cut off for our healthier patients. I would ideally like to see her A1c down to about a 7.5 or less. We extensively discussed this, as she asked many questions regarding pre-surgical guidelines, all of which I answered to the best of my ability. I think conclusion of this visit I encouraged Vanessa that she is making good progress toward lowering her A1c. I reassured her that Dr. Hagan will still be willing to complete her L4-5 lumbar decompresson when she meets medical criteria to safely undergo the procedure. As she currently stands she is still at too high risk for infection postoperatively. oJrge Hagan MD,PhD [facility] Coding Level of Care Code Est Pt Level 2 (13482) Diagnoses Spinal stenosis, lumbar region with neurogenic claudication M48.062
--- OUTSIDE RECORDS SUMMARY | 2025-02-24 16:56 | XMS_ITS | Clinical Summary ---
Author Organization [facility] [address] [place] [address] [place] [address] [place] [address] Phone Care Team Providers Care Signal Timer Name Role Phone Rocco Baires MD Primary Care Provider [phone] Allergies No known active allergies Medications lovastatin (MEVACOR) 40 mg tablet TAKE ONE TABLET BY MOUTH AT BEDTIME 90 tablet 1 09/10/20 24 Active gabapentin (NEURONTIN) 300 mg capsule 10/11/20 24 Active amphetamine-de xtroamphetamin e XR (ADDERALL XR) 30 mg 24 hr capsule 08/08/20 24 Active ARIPiprazole (ABILIFY) 5 mg tablet Take 1 tablet (5 mg total) by mouth. Active acetaminophen (TYLENOL) 500 mg tablet Take 1 tablet (500 mg total) by mouth every 6 (six) hours if needed. 08/04/20 23 Active fluticasone-sa lmeterol (ADVAIR DISKUS) 250-50 mcg/dose diskus inhaler Inhale 1 puff by mouth. 10/10/20 22 Active pen needle, diabetic (BD Ultra-Fine Veronica Pen Needle) 32 gauge x 5/32 needle Use with insulin pen once daily 100 each 1 11/07/19 25 Active levothyroxine (SYNTHROID, LEVOTHROID) 50 mcg tablet Take 1 tablet each morning 30 each 5 11/07/19 25 Active albuterol HFA (PROAIR HFA ; PROVENTIL HFA ; VENTOLIN HFA) 90 mcg/actuation inhaler INHALE 2 PUFFS FOUR TIMES A DAY NEEDED FOR COUGH, WHEEZING, OR SHORTNESS OF BREATH 8.5 g 1 11/22/19 25 Active flash glucose scanning reader (FreeStyle Destinee 14 Day [place]) [facility] Check blood sugar 4 times a day 1 each 3 11/25/19 25 Active flash glucose sensor (FreeStyle Destinee 14 Day Sensor) kit Use one sensor every 14 days E11.9 2 each 11/26/19 25 Active tiZANidine (ZANAFLEX) 4 mg tablet Take 1 tablet (4 mg total) by mouth 1 (one) time each day if needed for muscle spasms. 30 tablet 3 01/01/20 25 Active lisinopril (PRINIVIL,ZEST RIL) 40 mg tablet Take 1 tablet (40 mg total) by mouth 1 (one) time each day. 30 each 01/01/20 25 025 Active insulin glargine (LANTUS SoloStar) 100 unit/mL (3 mL) injection pen Use 14 units at bedtime, increase by 1 unit every 4 days with max dose of 16 units if fasting sugars remain over 140 01/14/20 25 Active omeprazole (PriLOSEC) [address] capsule Take 1 capsule (20 mg total) by mouth 1 (one) time each day. Do not crush or chew. 30 each 01/15/20 25 025 Active fluticasone propionate (FLONASE) 50 mcg/actuation nasal sprayIndicatio ns:Right ear pain INHALE 2 SPRAYS IN EACH NOSTRIL ONCE DAILY 16 g 01/29/20 25 Active diphenoxylate- atropine (LOMOTIL) 2.5-0.025 mg per tablet Take 1 tablet by mouth 4 (four) times a day if needed for diarrhea. Max Daily Amount: 4 tablets 40 tablet 02/05/20 25 Active glipiZIDE (GLUCOTROL) 10 mg tablet Take 1 tablet (10 mg total) by mouth 1 (one) time each day. 30 each 02/06/20 25 026 Active topiramate (TOPAMAX) 50 mg tablet Take 1 tablet (50 mg total) by mouth 2 (two) times a day. 60 each 02/06/20 25 025 Active SUMAtriptan (IMITREX) 50 mg tablet Take 1 tablet (50 mg total) by mouth 1 (one) time if needed for migraine. May repeat dose once in 2 hours if no relief. Do not exceed 2 doses in 24 hours. 9 tablet 5 02/06/20 25 026 Active fluticasone propionate (FLONASE) 50 mcg/actuation nasal sprayIndicatio ns:allergic conjunctivitis ,allergic rhinitis Administer 2 sprays into each nostril 1 (one) time each day. Shake gently. Before first use, prime pump. After use, clean tip and replace cap. 16 g 3 10/11/20 24 025 Discontinued glipiZIDE (GLUCOTROL) 5 mg tablet Take 1 tablet in AM before breakfast 90 tablet 1 01/14/20 25 025 Discontinued(Do se adjustment) diphenoxylate- atropine (LOMOTIL) 2.5-0.025 mg per tablet Take 1 tablet by mouth 4 (four) times a day if needed for diarrhea for up to 10 days. Max Daily Amount: 4 tablets 40 tablet 01/15/20 025 Discontinued Active Problems Problem Noted Date Diagnosed Date Other hyperlipidemia 10/11/2024 Mild intermittent asthma without complication Other specified hypothyroidism 10/11/2024 Assessment & Plan (11/15/2024 9:54 AM EST): Hypothyroidism is stable on Levoxyl Spinal stenosis of lumbar re gion without neurogenic claudication 03/10/2021 Microalbuminuria 06/11/2018 Asthma 12/27/2017 Migraine headache 12/27/2017 Obesity (BMI 30-39.9) 12/27/2017 CKD stage 3 due to type 2 di abetes mellitus ([facility] V24, [facility] V28) 09/12/2016 MDD (major depressive disorder) 12/20/2013 Overview (10/29/2024): Sees Psychiatry at [facility] (Cher Bhatia) prescribed Abilify and adderall GERD (gastroesophageal reflux disease) 4 HTN (hypertension) 11/29/2013 Assessment & Plan (11/15/2024 9:54 AM EST): Hypertension not under control on lisinopril added amlodipine 5 mg daily IBS (irritable bowel syndrome) 11/29/2013 Hyperlipidemia 11/29/2013 Hypothyroid 11/29/2013 Type 2 diabetes with nephropathy ([facility] V24, [facility] [place]/[facility] V28) 11/29/2013 Encounters Date Type Department Care Team Description 02/06/2025 Telephone Internal Medicine [address] [phone] Kanwal Barron [place] Request For Order(s) ([facility] Order # [id number]/) 02/05/2025 3:00 PM EDT Office Visit Internal Medicine [address] [phone] Rocco Baires MD Spinal stenosis of lumbar region without neurogenic claudication (Primary Dx); Type 2 diabetes with nephropathy ([facility] V24, [facility] V28); Chronic left shoulder pain; Nonintractable headache, unspecified chronicity pattern, unspecified headache type; Migraine without status migrainosus, not intractable, unspecified migraine type 02/05/2025 Telephone Internal Medicine [address] [phone] Kanwal Barron [place] Request For Order(s) ([facility] Discharge Summary/) 01/31/2025 11:30 AM EDT Office Visit Vascular Surgery [facility] 300 [facility] [address] [place] [address] Shanelle Tavares PA Claudication ([facility] V24) (Primary Dx); Bilateral leg pain 2025 Telephone Internal Medicine [address] [address] Kanwal Barron [place] Request For Order(s) ([facility] Order # [id number]/) 01/20/[address] [address] Eun Alvares PA lab work results 01/17/2025 Telephone Internal Medicine [facility] 175 [facility] [address] [place] [phone] Kanwal Barron [place] Request For Order(s) ([facility] Order # [id number]/) 01/13/2025 8:20 AM EDT Office Visit Endocrinology [address] [address] Eun Alvares PA Type 2 diabetes with nephropathy ([facility] V24, [facility] V28) (Primary Dx); Stage 3b chronic kidney disease ([facility] V24, [facility] V28); Hypothyroidism, unspecified type 01/13/2025 Telephone Internal Medicine [address] [phone] Kanwal Barron [place] Request For Order(s) ([facility] Order # [id number]/) 01/09/2025 [facility] [address] [address] Rocco Baires MD Khan: Medication 01/06/2025 [facility] [address] [address] Kanwal Barron [place] Request For Order(s) ([facility] Order # [id number]/) 01/02/2025 [facility] [address] [address] Kanwal Barron [place] Request For Order(s) ([facility] Order # [id number]/) 01/01/2025 [facility] [address] [address] Kanwal Barron [place] Request For Order(s) ([facility] Transfer Summary ) 12/31/2024 3:00 PM EST Office Visit Internal Medicine [address] [address] Rocco Baires MD Type 2 diabetes with nephropathy ([facility] V24, [facility] V28) (Primary Dx); Bilateral leg pain; Encounter for medication review; Primary hypertension; Mixed hyperlipidemia; Hypothyroidism, unspecified type; Moderate persistent asthma with acute exacerbation; CKD stage 3 due to type 2 diabetes mellitus ([facility]/HCC V24, [facility] V28); Major depressive disorder, remission status unspecified, unspecified whether recurrent; Obesity (BMI 30-39.9) 12/30/2024 Telephone Internal [address] [address] Kanwal Barron [place] Request For Order(s) ([facility] Order # [id number]/) 12/27/[address] [address] Kanwal Barron [place] Request For Order(s) ([facility] Order # [id number]) 12/24/2024 Telephone Internal [address] [address] Kanwal aBrron MA Request For Order(s) ([facility] Order # [id number]/) 12/16/2024 1:30 PM EST Office Visit Internal [address] [address] Jose Luis Younger MD Hospital discharge follow-up (Primary Dx); Mild intermittent asthma with acute exacerbation; Aspiration pneumonia, unspecified aspiration pneumonia type, unspecified laterality, unspecified part of lung ([facility] V24, [facility] V28) 12/09/[address] [address] Kanwal Barron [place] Request For Order(s) ([facility] Cert 11/21/24-01/19/25 Plan Of Care /) 12/06/2024 Telephone Internal [address] [phone] Jose Luis Younger MD Appointment (Hospital follow up) 11/26/2024 Telephone Internal [address] [address] Jose Luis Younger MD from Last 3 Months Immunizations Name Administration [...] (major depressive disorder); COMMENT: Sees Psychiatry at [facility] (Cher Bhatia) prescribed Abilify and adderall Type 2 diabetes with nephrop athy ([facility] V24, [facility] V28) 11/29/2013 DX:Type 2 diabetes with nephropathy (HCC) [...] Sign Reading Time Taken Comments Blood Pressure 138/80 02/05/2025 3:04 PM EDT Pulse 81 02/05/2025 3:04 PM EDT Temperature 36.3 ??C (97.3 ??F) 01/13/2025 8:22 AM ED T Respiratory Rate - - Oxygen Saturation 98% 02/05/2025 3:04 PM EDT Inhaled Oxygen Concentration - - Weight 75.8 kg (167 lb) 02/05/2025 3:04 PM EDT Height 152.4 cm (5') 01/31/2025 11:24 AM EDT Body Mass Index 32.61 01/31/2025 11:24 AM EDT Plan of Treatment Upcoming Encounters Date Type Department Care Team (Late st Contact Info) Description 03/07/2025 9:45 AM EDT Office Visit Internal Medicine - [place] 175 [facility] [address] [place] [address] Rocco Baires MD [address] [facility] 200 [place] [address] 03/25/2025 7:45 AM EDT Ancillary Procedure [facility] - [facility] [address] [facility] [address] [place] [address] 04/02/2025 9:00 AM EDT Office Visit Internal Medicine - [place] 175 [facility] [address] [place] [address] Rocco Baires MD [address] [facility] 200 [place] [address] 04/24/2025 9:00 AM EDT Office Visit Vascular Surgery - [place] 300 [facility] [address] [place] [address] Shanelle Tavares PA [address] [place] [id number] Health Maintenance Due Date Last Done Comments Diabetes: Annual Foot Exam 1955 Diabetes: Annual Retina Eye Exam 1955 Zoster Vaccines (1 of 2) 1997 RSV Immunization Adult Patients (1 - 1-dose 75+ series) 2022 Social Influencers of Health Screening 10/08/2022 Diabetes: Annual Urine Albumin-Creatinine Ratio (uACR) 10/12/2022 12/17/2020 COVID-19 Vaccine ( season) 2024 09/04/2023, 08/31/2022, 09/02/2021, Additional history exists DTaP,Tdap,and Td Vaccines (3 - Td or Tdap) 06/12/2025 06/12/2015, 03/20/2007 Diabetes: Blood Sugar Control Test (HGBA1C) 07/20/2025 01/17/2025, 10/11/2024, 08/30/2024 Diabetes: Annual GFR (Glomerular Filtration [...] age to complete this topic Meningococcal B Vaccine Aged Out No l onger eligible based on patient's age to complete this topic RSV Immunization Patients Under 20 months Aged Out No longer eligible based on patient's age to complete this topic Varicella Vaccines Aged Out No longer eligible based on patient's age to complete this topic Procedures Procedure Name Priority Date/Time Associated Diagnosis Comments HEMOGLOBIN A1C Routine 01/17/2025 2:28 PM EDT Type 2 diabetes with nephropathy ([facility] V24, [facility] V28) Stage 3b chronic kidney disease ([facility] V24, [facility] V28) EXTERNAL MRI REPORT 12/11/2024 EXTERNAL MRI REPORT 12/11/[address] REPORT 12/10/[address] REPORT 12/10/2024 EXTERNAL XRAY REPORT 12/10/2024 EXTERNAL XRAY REPORT 12/10/[address] REPORT 12/03/2024 EXTERNAL XRAY REPORT 12/03/2024 COMPREHENSIVE METABOLIC PANEL Routine 10/11/2024 12:40 PM EST Type 2 diabetes mellitus with other specified complication, without long-term current use of insulin ([facility] V24, [facility] V28) LIPID PANEL WITH REFLEX TO DIRECT LDL Routine 10/11/2024 12:40 PM EST Hyperlipidemia, unspecified hyperlipidemia type URINE ALBUMIN CREATININE RATIO Routine 12/17/2020 DXA BONE DENSITY STUDY 1+ SITS AXIAL SKEL Routine 09/01/2020 10:52 AM EST Asymptomatic menopausal state HEPATITIS C SCREENING Routine 03/20/2014 from Last 3 Months or Most Recently Relevant to Health Maintenance Results * (ABNORMAL) Hemoglobin A1c (01/17/2025 2:28 PM EDT) Hemoglobin A1C 8.5(H) <6.5 % LAB CHEMISTRY METHOD 01/17/2025 10:09 PM EDT [facility] Mean Bld Glu Estim. 197 mg/dL LAB CHEMISTRY METHOD 01/17/2025 10:09 PM EDT [facility] Blood Venous blood specimen / Unknown Venipuncture / Unknown 01/17/2025 2:28 PM EDT 01/17/2025 2:28 PM EDT Eun GARCIA LAB BLOOD ORDERABLES Final Resul t [facility] [address] [place] [address], [place] [phone] * External MRI Report (12/11/2024) Only the most recent of2 resultswithin the time period is included. Anatomical Region Laterality Modality Magnetic Resonan ce Provider [facility] MRI PROCEDURES Final Result * External Xray Report (12/10/2024) Only the most recent of3 resultswithin the time period is included. Anatomical Region Laterality Modality Radiographic Ruchi ging Provider [facility] XR PROCEDURES Final Result * External CT Report (12/10/2024) Only the most recent of3 resultswithin the time period is included. Anatomical Region Laterality Modality Computed Tomogra phy Provider [facility] PROCEDURES Final Result * (ABNORMAL) Lipid panel with reflex to direct LDL (10/11/2024 12:40 PM EST) Cholesterol 157 0 - 200 mg/dL LAB CHEMISTRY METHOD 10/11/2024 3:38 PM EST [facility] Triglycerides 228(H) 0 - 150 mg/dL LAB CHEMISTRY METHOD 10/11/2024 3:[address] [facility] HDL 39(L) >=40 mg/dL LAB CHEMISTRY METHOD 10/11/2024 3:[address] [facility] LDL Calculated 72 0 - 100 mg/dL LAB CHEMISTRY METHOD 10/11/2024 3:[address] [facility] VLDL Cholesterol Ag 45.6 mg/dL [...] NP LAB BLOOD ORDERABLES Final Resul t [facility] [address] [place] [address], * (ABNORMAL) Comprehensive metabolic panel (10/11/2024 12:40 PM EST) Sodium 141 133 - 145 mmol/L LAB [...] PM EST 10/11/2024 1:10 PM EST us Shahanagibran Bonds MACHINING SUPERVISOR LAB BLOOD ORDERABLES Final Resul t [facility] [address] [place] [address], [place] [phone] * Urine Albumin Creatinine Ratio (12/17/2020) Urine Albumin Creatinine Ratio Abstarcted Historical Provider [...] scores not able to be calculated. [facility] Department of Internal Medicine recommends using National [...] alternative screening schedule based on leno Hoffmann., [facility] November 17, 2011 for patients [...] scores not able to be calculated. [facility] Department of Internal Medicine recommendsusing National Osteoporosis [...] screening schedule based on sravan Hoffmann al., [facility] for patients with osteopenia [...] Resu lt * Hepatitis C Screening (03/20/2014) [facility] Hepatitis C Screening Abstracted Historical Provider HEALTH MAINTENANCE Final Result from Last 3 Months or Most Recently Relevant to Health Maintenance Insurance [facility] MEDICARE ADVANTAGE Care Teams Signal Timer Relationship Specialty Start Date End Date Rocco Baires MD 175 [facility] [address] [place] [address] PCP - General Internal Medicine 12/31/24
== END 2025-02-24 16:01 | disposition home or self-care (01) ==
LOC: HO.HNS 14:08
PROVIDERS: PCP Internal Medicine; Visit Provider Physician Assistant
DX: M48.062 Spinal stenosis, lumbar region with neurogenic claudication (principal)
CPT/HCPCS: 99212

== ENCOUNTER → 2025-02-24 14:07 | Outpatient (BNVA) | payer MEDICARE, SELFPAY | PROVIDERS: PCP Internal Medicine; Visit Provider Physician Assistant | DX: M48.062 Spinal stenosis, lumbar region with neurogenic claudication (principal) | CPT/HCPCS: 99212 ==

== ENCOUNTER 2025-03-14 12:52 | Outpatient (AMB) | payer MEDICARE, SELFPAY ==
--- OUTSIDE RECORDS SUMMARY | 2025-03-14 12:56 | XMS_ITS | Encounter Summary ---
Author Organization [facility] Address [address] [place] [address] Care Team Providers Care Clinical Project Assistant Name Role Phone Rocco Baires MD Primary Care Provider [phone] Reason for Visit * Reason Onset Date Comments Med Refill 03/13/2025 Encounter Details Date Type Department Care Team (Late st Contact Info) Description 03/13/2025 Telephone Gastroenterology - [place] [address] [facility] [address] [place] [address] Jayden Colunga PA [address] [facility] [address] [place] [address] Med Refill Social History Tobacco Use Types [...] as of this encounter Progress Notes * Elizabeth Thibodeaux NP - 03/14/2025 10:05 AM EDT I am not comfortable prescribing this medication for this patient. I do not prescribe Lomotil whichis a controlled substance. I can prescribe loperamide AD. If she disagrees, I encourage her to see another provider in the office. Thank you. * Theresa Leiva MA - 03/14/2025 9:39 AM EDT Camilo Johnson printed for review of this refill. Placed on your desk. AISHWARYA 05/24/24 Jay[place] 05/01/25 GI f/up Elizabeth Garibay * Ani [place] - 03/13/2025 4:04 PM [...] Description 03/25/2025 7:45 AM EDT Ancillary Procedure [facility] [address] [facility] [address] [place] [address] 04/02/2025 9:00 AM EDT Office Visit Internal Medicine - [place] [address] [facility] [address] [place] [address] Rocco Baires MD [address] [facility] [address] [place] [address] 04/24/2025 9:00 AM EDT Office Visit Vascular Surgery - [place] [address] [place] [address] Shanelle Tavares PA [address] [facility] [address] [place] [address] 05/01/2025 8:00 AM EDT Office Visit Gastroenterology - [place] [address] [facility] [address] [facility] [address] [place] [id number] Elizabeth Thibodeaux NP 175 [facility] [address] [place] [address] documented as of this encounter Visit Diagnoses Not on filedocumented in this encounter Additional Health Concerns Assessment Noted Time PHQ-9 Depression Total Score: 0 11/15/19 9:03 AM EST A fall risk assessment has been complete d for the patient 11/15/2024 9:00 AM EST documented as of this encounter Care Teams Clinical Project Assistant Relationship Specialty Start Date End Date Rocco Baires MD [address] [place] [id number] PCP - General Internal Medicine 12/31/24 documented as of this encounter
--- OUTSIDE RECORDS SUMMARY | 2025-03-14 12:56 | XMS_ITS | Clinical Summary ---
Author Organization [facility] [address] [place] [address] [place], [place] [address], [place] [address] Phone Care Team Providers Care Neurology Hospitalist Name Role Phone Rocco Baires MD Primary Care Provider [phone] Allergies No known active allergies Medications gabapentin [...] 11/22/19 25 Active flash glucose scanning reader ([employer] 14 Day [place]) [facility] Check blood sugar 4 times a day [...] kitIndications: Type II diabetes mellitus with nephropathy ([facility] V24, [facility] V28) USE ONE SENSOR EVERY 14 DAYS [...] due to type 2 di abetes mellitus ([facility] V24, [facility] V28) 09/12/2016 MDD (major depressive disorder) 12/20/2013 Overview (10/29/2024): Sees Psychiatry at [facility] (Cher Bhatia) prescribed Abilify and adderall GERD (gastroesophageal reflux disease) 4 HTN (hypertension) 11/29/2013 Assessment & Plan (11/15/2024 9:54 AM EST): Hypertension not under control on lisinopril added amlodipine 5 mg daily IBS (irritable bowel syndrome) 11/29/2013 Hyperlipidemia 11/29/2013 Hypothyroid 11/29/2013 Type 2 diabetes with nephropathy ([facility] V24, [facility] V28) 11/29/2013 Encounters Date Type Department Care Team Description 03/13/2025 Telephone [address]astroenter[address] [phone] Jayden Colunga PA Med Refill 03/07/2025 9:45 AM EDT Office Visit Internal Medicine [address] [place] [phone] Rocco Baires MD Type 2 diabetes with nephropathy ([facility] V24, [facility] V28) (Primary Dx); Primary hypertension; Hypothyroidism, unspecified type; Mixed hyperlipidemia 02/06/2025 Telephone Internal Medicine [address] [phone] Kanwal Barron [place] Request For Order(s) ([facility] Order # [id number]/) 02/05/2025 3:00 PM EDT Office Visit Internal Medicine [address] [phone] Rocco Baires MD Spinal stenosis of lumbar region without neurogenic claudication (Primary Dx); Type 2 diabetes with nephropathy ([facility] V24, [facility] V28); Chronic left shoulder pain; Nonintractable headache, unspecified chronicity pattern, unspecified headache type; Migraine without status migrainosus, not intractable, unspecified migraine type 02/05/2025 Telephone Internal Medicine [address] [phone] Kanwal Barron [place] Request For Order(s) ([facility] Discharge Summary/) 01/31/2025 11:30 AM EDT Office Visit Vascular Surgery [facility] [address] [facility] [address] [place] [phone] Shanelle Tavares PA Claudication ([facility] V24) (Primary Dx); Bilateral leg pain 2025 Telephone Internal Medicine [facility] [address] [phone] Kanwal Barron [place] Request For Order(s) ([facility] Order # [id number]/) 01/20/[address] [phone] Eun Alvares PA lab work results 01/17/2025 [facility] [address] [phone] Kanwal Barron [place] Request For Order(s) ([facility] Order # [id number]/) 01/13/2025 8:20 AM EDT Office Visit [address] [phone] Eun Alvares PA Type 2 diabetes with nephropathy (CMS/HCC V24, CMS/HCC V28) (Primary Dx); Stage 3b chronic kidney disease (CMS/HCC V24, CMS/HCC V28); Hypothyroidism, unspecified type 01/13/[address] [phone] Kanwal Barron [place] Request For Order(s) ([facility] Order # [id number]/) 01/09/2025 Telephone Internal [address] [phone] Rocco Baires MD Khan: Medication 01/06/[address] [phone] Kanwal Barron [place] Request For Order(s) ([facility] Order # [id number]/) 01/02/2025 [facility] [address] [phone] Kanwal Barron [place] Request For Order(s) ([facility] Order # [id number]/) 01/01/[address] [phone] Kanwal Barron [place] Request For Order(s) ([facility] Transfer Summary ) 12/31/2024 3:00 PM EST Office Visit Internal [address] [phone] Rocco Baires MD Type 2 diabetes with nephropathy ([facility] V24, [facility] V28) (Primary Dx); Bilateral leg pain; Encounter for medication review; Primary hypertension; Mixed hyperlipidemia; Hypothyroidism, unspecified type; Moderate persistent asthma with acute exacerbation; CKD stage 3 due to type 2 diabetes mellitus ([facility] V24, [facility] V28); Major depressive disorder, remission status unspecified, unspecified whether recurrent; Obesity (BMI 30-39.9) 12/30/2024 Telephone Internal Medicine [address] [phone] Kanwal Barron [place] Request For Order(s) ([facility] Order # [id number]/) 12/27/2024 [facility] [address] [phone] Kanwal Barron [place] Request For Order(s) ([facility] Order # [id number]) 12/24/2024 Telephone Internal Medicine [address] [phone] Kanwal Barron [place] Request For Order(s) ([facility] Order # [id number]/) 12/16/2024 1:30 PM EST Office Visit Internal [address] [phone] Jose Luis Younger MD Hospital discharge follow-up (Primary Dx); Mild intermittent asthma with acute exacerbation; Aspiration pneumonia, unspecified aspiration pneumonia type, unspecified laterality, unspecified part of lung ([facility] V24, [facility] V28) from Last 3 Months Immunizations Name [...] (major depressive disorder); COMMENT: Sees Psychiatry at [facility] (Cher Bhatia) prescribed Abilify and adderall Type [...] Description 03/25/2025 7:45 AM EDT Ancillary Procedure [facility] [address] [facility] 101 [place] [address] 04/02/2025 9:00 AM EDT Office Visit Internal Medicine - [place] [address] [phone] Rocco Baires MD 175 [facility] 200 [place] [address] 04/24/2025 9:00 AM EDT Office Visit Vascular Surgery - [place] [address] [facility] 210 [place] [address] Shanelle Tavares PA 300 [facility] 210 [place] [address] 05/01/2025 8:00 AM EDT Office Visit Gastroenterology - [place] [address] [place] [phone] Elizabeth Thibodeaux NP 175 [facility] 200 [place] [address] (work) Health Maintenance Due Date Last Done [...] PM EDT Type 2 diabetes with nephropathy ([facility] V24, [facility] V28) Stage 3b chronic kidney disease ([facility] V24, [facility] V28) COMPREHENSIVE METABOLIC PANEL Routine 10/11/2024 12:40 PM EST Type 2 diabetes mellitus with other specified complication, without long-term current use of insulin ([facility] V24, [facility] V28) LIPID PANEL WITH REFLEX [...] LAB CHEMISTRY METHOD 01/17/2025 10:09 PM EDT [facility] Mean Bld Glu Estim. 197 mg/dL LAB CHEMISTRY METHOD 01/17/2025 10:09 PM EDT [facility] Blood Venous blood specimen / Unknown Venipuncture / Unknown 01/17/2025 2:28 PM EDT 01/17/2025 2:28 PM EDT us Eun GARCIA LAB BLOOD ORDERABLES Final Resul t Performing Organization Address City/[facility]/ZIP Co de Phone Number [facility] [address] [place] [address], [place] [phone] * (ABNORMAL) Lipid panel with reflex to direct LDL (10/11/2024 12:40 PM EST) Cholesterol 157 0 - 200 mg/dL LAB CHEMISTRY METHOD 10/11/2024 3:38 PM EST [facility] Triglycerides 228(H) 0 - 150 mg/dL LAB CHEMISTRY METHOD 10/11/2024 3:38 PM EST [facility] HDL 39(L) >=40 mg/dL LAB CHEMISTRY METHOD 10/11/2024 3:38 PM EST [facility] LDL Calculated 72 0 - 100 mg/dL LAB CHEMISTRY METHOD 10/11/2024 3:38 PM EST [facility] VLDL Cholesterol Ag 45.6 mg/dL LAB CHEMISTRY METHOD 10/11/2024 3:38 PM EST [facility] Non HDL Chol. (LDL+VLDL) 118 <145 mg/dL LAB CHEMISTRY METHOD 10/11/2024 3:38 PM EST [facility] Chol/HDL Ratio 4.0 0.0 - 4.4 LAB CHEMISTRY METHOD 10/11/2024 3:38 PM EST [facility] Blood Venous blood specimen / Unknown Venipuncture / Unknown 10/11/2024 12:40 PM EST 10/11/2024 1:10 PM EST us Jessica Bonds NP LAB BLOOD ORDERABLES Final Resul t Performing Organization Address City/[facility]/ZIP Co de Phone Number [facility] [address] [place] [address], [place] [phone] * (ABNORMAL) Comprehensive metabolic panel (10/11/2024 12:40 PM EST) [facility] Signature Sodium 141 133 - 145 mmol/L LAB CHEMISTRY METHOD 10/11/2024 3:38 PM [facility] Potassium 5.6(H) 3.5 - 5.5 mmol/L LAB CHEMISTRY METHOD 10/11/2024 3:38 PM [facility] Chloride 106 96 - 110 mmol/L LAB CHEMISTRY METHOD 10/11/2024 3:38 PM [facility] CO2 29 21 - 32 mmol/L LAB CHEMISTRY METHOD 10/11/2024 3:38 PM [facility] Anion Gap 6 3 - 11 LAB CHEMISTRY METHOD 10/11/2024 3:38 PM [facility] Glucose 124(H) 70 - 100 mg/dL LAB CHEMISTRY METHOD 10/11/2024 3:38 PM [facility] BUN 15 5 - 25 mg/dL LAB CHEMISTRY METHOD 10/11/2024 3:38 PM [facility] Creatinine 1.36(H) 0.50 - 1.10 mg/dL LAB CHEMISTRY METHOD 10/11/2024 3:38 PM [facility] eGFR 40(L) >=60 mL/min/1. 73m2 LAB CHEMISTRY METHOD 10/11/2024 3:38 PM [facility] Comment:Calculation based on the??Chronic Kidney Disease Epidemiology Collaboration (CKD-EPI) equation refit??without adjustment for race. BUN/Creatinine Ratio 11.0 LAB CHEMISTRY METHOD 10/11/2024 3:38 PM [facility] Calcium 10.3 8.5 - 10.5 mg/dL LAB CHEMISTRY METHOD 10/11/2024 3:38 PM [facility] AST (SGOT) 21 10 - 42 unit/L LAB CHEMISTRY METHOD 10/11/2024 3:38 PM EST [facility] ALT (SGPT) 23 10 - 60 unit/L LAB CHEMISTRY METHOD 10/11/2024 3:38 PM EST [facility] Alkaline Phosphatase 93 42 - 121 unit/L LAB CHEMISTRY METHOD 10/11/2024 3:38 PM EST [facility] Total Protein 7.4 6.0 - 8.0 g/dL LAB CHEMISTRY METHOD 10/11/2024 3:38 PM EST [facility] Albumin 3.8 3.2 - 5.0 g/dL LAB CHEMISTRY METHOD 10/11/2024 3:38 PM EST [facility] Total Bilirubin 0.3 0.0 - 1.4 mg/dL LAB CHEMISTRY METHOD 10/11/2024 3:38 PM EST [facility] Blood Venous blood specimen / Unknown Venipuncture / Unknown 10/11/2024 12:40 PM EST 10/11/2024 1:10 PM EST Jessica Bonds SUBSTANCE ADDICTION COORDINATOR LAB BLOOD ORDERABLES Final Resul t [facility] [address] [place] [address], * Urine Albumin Creatinine Ratio (12/17/2020) Urine [...] scores not able to be calculated. The [facility] Department of Internal Medicine recommends using [...] alternative screening schedule based on leno Hoffmann., [facility] November 17, 2011 for patients with [...] scores not able to be calculated. The [facility] Department of Internal Medicine recommendsusing National [...] Resu lt * Hepatitis C Screening (03/20/2014) [facility] Hepatitis C Screening Abstracted us Historical Provider HEALTH MAINTENANCE Final Result from Last 3 Months or Most Recently Relevant to Health Maintenance Insurance [employer] Care Teams Neurology Hospitalist Relationship Specialty Start Date End Date Rocco Baires MD [address] [place] [address] [address] [place] [address] PCP - General Internal Medicine 12/31/24
--- NOTE | 2025-03-14 12:59 | HO.SPINEOV ---
Intake Visit Reasons: discus sx 03/20 Intake Note: Ms. Ravi is here today to discuss her L4-5 Decompression Surgery scheduled for 03/20/2025. Drama Professor Required: No Allergies No Known Allergies Allergy (Verified 02/24/25 14:34) Assessment & Plan Assessment & Plan (1) Spinal stenosis, lumbar region with neurogenic claudication: Code(s): M48.062 - Spinal stenosis, lumbar region with neurogenic claudication Category: Medical Plan On 03/14/2025 had preoperative visit with Sonya Manning. She scheduled to undergo a lumbar decompression L4-5 on 03/20/2025. Her last A1c is 6.8. She is cleared by anesthesia. I answered questions about the surgery and expected postoperative course. All questions were answered satisfactorily. Agustin Hagan MD, PhD Spine Fellowship Trained Neurosurgeon Director, [facility] Coding Level of Care Code Est Pt Level 2 (92447) Diagnoses Spinal stenosis, lumbar region with neurogenic claudication M48.062
== END 2025-03-14 13:21 | disposition home or self-care (01) ==
LOC: HO.HNS 12:53
PROVIDERS: PCP Student in an Organized Health Care Education/Training Program; Visit Provider Neurological Surgery
DX: M48.062 Spinal stenosis, lumbar region with neurogenic claudication (principal)
CPT/HCPCS: 99212

== ENCOUNTER → 2025-03-14 12:52 | Outpatient (BNVA) | payer MEDICARE, SELFPAY | PROVIDERS: PCP Student in an Organized Health Care Education/Training Program; Visit Provider Neurological Surgery | DX: M48.062 Spinal stenosis, lumbar region with neurogenic claudication (principal) | CPT/HCPCS: 99212 ==

== ENCOUNTER 2025-03-20 06:50 | Day surgery (SDC) | payer MEDICARE, SELFPAY ==
--- OUTSIDE RECORDS SUMMARY | 2025-03-14 08:02 | XMS_ITS | Encounter Summary ---
Author Organization [facility] Address [address] [place] [address] Care Team Providers Care Hat Steamer Name Role Phone Rocco Baires MD Primary Care Provider [phone] Reason for Visit * Reason Onset Date Comments Med Refill 03/13/2025 Encounter Details Date Type Department Care Team (Late st Contact Info) Description 03/13/2025 Telephone Gastroenterology - [place] [address] [place] [address] Jayden Colunga PA [address] [place] [address] Med Refill Social History Tobacco Use Types Packs/Day Years Used Date Smoking Tobacco: Former Cigarettes Smokeless Tobacco: Never Alcohol Use Standard Drinks/Week Comments Yes 0 (1 standard drink = 0.6 oz pur e alcohol) Comments Unknown Sex and Gender Information Value Date Recorded Sex Assigned at Female 03/06/2025 10:59 AM EDT Legal Sex Female 7:43 AM EST Gender Identity Female 03/06/2025 10:59 AM EDT Sexual Orientation Not on file documented as of this encounter Progress Notes * Ani Washington - 03/13/2025 4:04 PM EDT Pt called stated she needs a refill on her medication and she is all out. She had gotten it from her PCP recently but she will not fill it and told her she needs to get it from us. iphenoxylate-atropine (LOMOTIL) 2.5-0.025 mg per table documented in this encounter Plan of Treatment Upcoming Encounters Date Type Department Care Team (Late st Contact Info) Description 03/25/2025 7:45 AM EDT Ancillary Procedure [facility] - [facility] [address] [facility] [address] [place] [address] 04/02/2025 9:00 AM EDT Office Visit Internal Medicine - [place] 175 [facility] 200 [place] [address] Rocco Baires MD 175 [facility] 200 [place] [address] 04/24/2025 9:00 AM EDT Office Visit Vascular Surgery - [place] 300 [facility] [address] [place] [address] Shanelle Tavares PA 300 [facility] [address] [place] [address] 05/01/2025 8:00 AM EDT Office Visit Gastroenterology - [place] [facility] [address] [place] [address] Elizabeth Thibodeaux NP [address] [address] documented as of this encounter Visit Diagnoses Not on filedocumented in this encounter Additional Health Concerns Assessment Noted Time PHQ-9 Depression Total Score: 0 11/15/19 9:03 AM EST A fall risk assessment has been complete d for the patient 11/15/2024 9:00 AM EST documented as of this encounter Care Teams Hat Steamer Relationship Specialty Start Date End Date Rocco Baires MD [address] [address] PCP - General Internal Medicine 12/31/24 documented as of this encounter
--- OUTSIDE RECORDS SUMMARY | 2025-03-14 08:02 | XMS_ITS | Clinical Summary ---
Author Organization [facility] [address] [place] [address] [place], [place] [address], [place] [address] Phone Care Team Providers Care Bookmaker Map Name Role Phone Rocco Baires MD Primary Care Provider [phone] Allergies No known active allergies Medications gabapentin (NEURONTIN) 300 mg capsule 10/11/20 24 Active amphetamine-dex troamphetamine XR (ADDERALL XR) 30 mg 24 hr capsule 08/08/20 24 Active ARIPiprazole (ABILIFY) 5 mg tablet Take 1 tablet (5 mg total) by mouth. Active acetaminophen (TYLENOL) 500 mg tablet Take 1 tablet (500 mg total) by mouth every 6 (six) hours if needed. 08/04/20 23 Active fluticasone-anthony meterol (ADVAIR DISKUS) 250-50 mcg/dose [...] 11/22/19 25 Active flash glucose scanning reader ([employer] 14 Day [place]) [facility] Check blood sugar 4 times a day 1 each 3 11/25/19 25 Active tiZANidine (ZANAFLEX) 4 mg tablet Take 1 tablet (4 mg total) by mouth 1 (one) time each day if needed for muscle spasms. 30 tablet 3 01/01/20 25 Active lisinopril (PRINIVIL,ZESTR IL) 40 mg tablet Take 1 tablet (40 mg total) by mouth 1 (one) time each day. 30 each 01/01/20 25 025 Active omeprazole (PriLOSEC) [address] capsule Take 1 capsule (20 mg total) by mouth 1 (one) time each day. Do not crush or chew. 30 each 01/15/20 25 025 Active fluticasone propionate (FLONASE) 50 mcg/actuation nasal sprayIndication s:Right ear pain INHALE 2 SPRAYS IN EACH NOSTRIL ONCE DAILY 16 g 01/29/20 25 Active diphenoxylate-a tropine (LOMOTIL) 2.5-0.025 mg per [...] 2 doses in 24 hours. 9 tablet 02/06/20 25 026 Active lovastatin (MEVACOR) 40 mg tablet TAKE ONE TABLET BY MOUTH AT BEDTIME 90 tablet 1 03/03/20 25 Active insulin glargine (LANTUS SoloStar) 100 unit/mL (3 mL) injection pen Use 16 units at bedtime, but increase by 1 unit every 4 days with max dose of 18 units if fasting sugars remain over 140 15 mL 03/07/20 25 Active flash glucose sensor ([employer] Destinee 14 Day Sensor) kitIndications: Type II diabetes mellitus with nephropathy ([facility] V24, [facility] V28) USE ONE SENSOR EVERY 14 DAYS 2 each 5 03/13/20 25 Active lovastatin (MEVACOR) 40 mg tablet TAKE ONE TABLET BY MOUTH AT BEDTIME 90 tablet 1 09/10/20 24 025 Discontinued flash glucose sensor ([employer]inee 14 Day Sensor) kit Use one sensor every 14 days E11.9 2 each 3 11/26/19 25 025 Discontinued insulin glargine (LANTUS SoloStar) 100 unit/mL (3 mL) injection pen Use 14 units at bedtime, increase by 1 unit every 4 days with max dose of 16 units if fasting sugars remain over 140 01/14/20 25 025 Discontinued(Re order) Active Problems Problem Noted Date Diagnosed Date Other hyperlipidemia 10/11/2024 Mild intermittent asthma without complication Other specified hypothyroidism 10/11/2024 Assessment & Plan (11/15/2024 9:54 AM EST): Hypothyroidism is stable on Levoxyl Spinal stenosis of lumbar re gion without neurogenic claudication 03/10/2021 Microalbuminuria 06/11/2018 Asthma 12/27/2017 Migraine headache 12/27/2017 Obesity (BMI 30-39.9) 12/27/2017 CKD stage 3 due to type 2 di abetes mellitus ([facility] V24, [facility] V28) 09/12/2016 MDD (major depressive disorder) 12/20/2013 Overview (10/29/2024): Sees Psychiatry at [facility] (Cher Bhatia) prescribed Abilify and adderall GERD (gastroesophageal reflux disease) 4 HTN (hypertension) 11/29/2013 Assessment & Plan (11/15/2024 9:54 AM EST): Hypertension not under control on lisinopril added amlodipine 5 mg daily IBS (irritable bowel syndrome) 11/29/2013 Hyperlipidemia 11/29/2013 Hypothyroid 11/29/2013 Type 2 diabetes with nephropathy ([facility] V24, [facility] [place] V28) 11/29/2013 Encounters Date Type Department Care Team Description 03/13/2025 Telephone Gastroenterology [address] [phone] Jayden Colunga PA Med Refill 03/07/2025 9:45 AM EDT Office Visit Internal Medicine [address] [place] [phone] Rocco Baires MD Type 2 diabetes with nephropathy ([facility] V24, [facility] V28) (Primary Dx); Primary hypertension; Hypothyroidism, unspecified type; Mixed hyperlipidemia 02/06/2025 Telephone Internal Medicine [address] [phone] Kanwal Barron [place] Request For Order(s) ([facility] Order # [id number]/) 02/05/2025 3:00 PM EDT Office Visit Internal Medicine [address] [phone] Rocco Baires MD Spinal stenosis of lumbar region without neurogenic claudication (Primary Dx); Type 2 diabetes with nephropathy ([facility] V24, [facility] V28); Chronic left shoulder pain; Nonintractable headache, unspecified chronicity pattern, unspecified headache type; Migraine without status migrainosus, not intractable, unspecified migraine type 02/05/2025 Telephone Internal Medicine [address] [phone] Kanwal Barron [place] Request For Order(s) ([facility] Discharge Summary/) 01/31/2025 11:30 AM EDT Office Visit Vascular Surgery [facility] [address] [facility] [address] [place] [phone] Shanelle Tavares PA Claudication ([facility] V24) (Primary Dx); Bilateral leg pain 2025 Telephone Internal Medicine [facility] [address] [phone] Kanwal Barron [place] Request For Order(s) ([facility] Order # [id number]/) 01/20/[address] [phone] Eun Alvares PA lab work results 01/17/2025 [place] [address] [phone] Kanwal Barron [place] Request For Order(s) ([facility] Order # [id number]/) 01/13/2025 8:20 AM EDT Office Visit [address] [phone] Eun Alvares PA Type 2 diabetes with nephropathy (CMS/HCC V24, CMS/HCC V28) (Primary Dx); Stage 3b chronic kidney disease (CMS/HCC V24, CMS/HCC V28); Hypothyroidism, unspecified type 01/13/[address] [phone] Kanwal Barron [place] Request For Order(s) ([facility] Order # [id number]/) 01/09/2025 Telephone Internal [address] [phone] Rocco Baires MD Khan: Medication 01/06/[address] [phone] Kanwal Barron [place] Request For Order(s) ([facility] Order # [id number]/) 01/02/2025 [facility] [address] [phone] Kanwal Barron [place] Request For Order(s) ([facility] Order # [id number]/) 01/01/[address] [phone] Kanwal Barron [place] Request For Order(s) ([facility] Transfer Summary ) 12/31/2024 3:00 PM EST Office Visit Internal [address] [phone] Rocco Baires MD Type 2 diabetes with nephropathy ([facility] V24, [facility] V28) (Primary Dx); Bilateral leg pain; Encounter for medication review; Primary hypertension; Mixed hyperlipidemia; Hypothyroidism, unspecified type; Moderate persistent asthma with acute exacerbation; CKD stage 3 due to type 2 diabetes mellitus ([facility] V24, [facility] V28); Major depressive disorder, remission status unspecified, unspecified whether recurrent; Obesity (BMI 30-39.9) 12/30/2024 Telephone Internal Medicine [address] [phone] Kanwal Barron [place] Request For Order(s) ([facility] Order # [id number]/) 12/27/2024 [facility] [address] [phone] Kanwal Barron [place] Request For Order(s) ([facility] Order # [id number]) 12/24/2024 Telephone Internal Medicine [address] [phone] Kanwal Barron [place] Request For Order(s) ([facility] Order # [id number]/) 12/16/2024 1:30 PM EST Office Visit Internal [address] [phone] Jose Luis Younger MD Hospital discharge follow-up (Primary Dx); Mild intermittent asthma with acute exacerbation; Aspiration pneumonia, unspecified aspiration pneumonia type, unspecified laterality, unspecified part of lung ([facility] V24, [facility] V28) from Last 3 Months Immunizations Name Administration [...] (major depressive disorder); COMMENT: Sees Psychiatry at [facility] (Cher Bhatia) prescribed Abilify and adderall Type 2 diabetes with nephrop athy (CMS/HCC V24, CMS/HCC V28) 11/29/2013 DX:Type 2 diabetes [...] AM EDT Sexual Orientation Not on file Obstetrics History Last Filed Vital Signs Vital Sign Reading Time Taken Comments Blood Pressure 132/62 03/07/2025 9:52 AM EDT Pulse 81 03/07/2025 9:52 AM EDT Temperature 36.3 ??C (97.3 ??F) 01/13/2025 8:22 AM ED T Respiratory Rate - - Oxygen Saturation 98% 03/07/2025 9:52 AM EDT Inhaled Oxygen Concentration - - Weight 74.4 kg (164 lb) 03/07/2025 9:52 AM EDT Height 152.4 cm (5') 01/31/2025 11:24 AM EDT Body Mass Index 32.03 01/31/2025 11:24 AM EDT Plan of Treatment Upcoming Encounters Date Type Department Care Team (Late st Contact Info) Description 03/25/2025 7:45 AM EDT Ancillary Procedure [facility] [address] [facility] [address] [place] [address] 04/02/2025 9:00 AM EDT Office Visit Internal Medicine - [place] [address] [phone] Rocco Baires MD 175 [facility] [address] [place] [address] 04/24/2025 9:00 AM EDT Office Visit Vascular Surgery - [place] [address] [facility] [address] [place] [phone] Shanelle Tavares PA 300 [facility] [address] [place] [address] 05/01/2025 8:00 AM EDT Office Visit Gastroenterology - [place] [address] [place] [phone] Elizabeth Thibodeaux NP 175 [facility] 200 [place] [address] (work) Health Maintenance Due Date Last Done Comments [...] PM EDT Type 2 diabetes with nephropathy ([facility] V24, [facility] V28) Stage 3b chronic kidney disease ([facility] V24, [facility] V28) COMPREHENSIVE METABOLIC PANEL Routine 10/11/2024 12:40 PM EST Type 2 diabetes mellitus with other specified complication, without long-term current use of insulin ([facility] V24, [facility] V28) LIPID PANEL WITH REFLEX TO DIRECT [...] LAB CHEMISTRY METHOD 01/17/2025 10:09 PM EDT [facility] Mean Bld Glu Estim. 197 mg/dL LAB CHEMISTRY METHOD 01/17/2025 10:09 PM EDT [facility] Blood Venous blood specimen / Unknown Venipuncture / Unknown 01/17/2025 2:28 PM EDT 01/17/2025 2:28 PM EDT us Eun GARCIA LAB BLOOD ORDERABLES Final Resul t Performing Organization Address City/[facility]/ZIP Co de Phone Number [facility] [address] [place] [address], [place] [phone] * (ABNORMAL) Lipid panel with reflex to direct LDL (10/11/2024 12:40 PM EST) Cholesterol 157 0 - 200 mg/dL LAB CHEMISTRY METHOD 10/11/2024 3:38 PM EST [facility] Triglycerides 228(H) 0 - 150 mg/dL LAB CHEMISTRY METHOD 10/11/2024 3:38 PM EST [facility] HDL 39(L) >=40 mg/dL LAB CHEMISTRY METHOD 10/11/2024 3:38 PM EST [facility] LDL Calculated 72 0 - 100 mg/dL LAB CHEMISTRY METHOD 10/11/2024 3:38 PM EST [facility] VLDL Cholesterol Ag 45.6 mg/dL LAB CHEMISTRY METHOD 10/11/2024 3:38 PM EST [facility] Non HDL Chol. (LDL+VLDL) 118 <145 mg/dL LAB CHEMISTRY METHOD 10/11/2024 3:38 PM EST [facility] Chol/HDL Ratio 4.0 0.0 - 4.4 LAB CHEMISTRY METHOD 10/11/2024 3:38 PM EST [facility] Blood Venous blood specimen / Unknown Venipuncture / Unknown 10/11/2024 12:40 PM EST 10/11/2024 1:10 PM EST us Jessica Bonds NP LAB BLOOD ORDERABLES Final Resul t Performing Organization Address City/[facility]/ZIP Co de Phone Number [facility] [address] [place] [address], [place] [phone] * (ABNORMAL) Comprehensive metabolic panel (10/11/2024 12:40 PM EST) [facility] Signature Sodium 141 133 - 145 mmol/L LAB CHEMISTRY METHOD 10/11/2024 3:38 PM [facility] Potassium 5.6(H) 3.5 - 5.5 mmol/L LAB CHEMISTRY METHOD 10/11/2024 3:38 PM [facility] Chloride 106 96 - 110 mmol/L LAB CHEMISTRY METHOD 10/11/2024 3:38 PM [facility] CO2 29 21 - 32 mmol/L LAB CHEMISTRY METHOD 10/11/2024 3:38 PM [facility] Anion Gap 6 3 - 11 LAB CHEMISTRY METHOD 10/11/2024 3:38 PM [facility] Glucose 124(H) 70 - 100 mg/dL LAB CHEMISTRY METHOD 10/11/2024 3:38 PM [facility] BUN 15 5 - 25 mg/dL LAB CHEMISTRY METHOD 10/11/2024 3:38 PM [facility] Creatinine 1.36(H) 0.50 - 1.10 mg/dL LAB CHEMISTRY METHOD 10/11/2024 3:38 PM [facility] eGFR 40(L) >=60 mL/min/1. 73m2 LAB CHEMISTRY METHOD 10/11/2024 3:38 PM [facility] Comment:Calculation based on the??Chronic Kidney Disease Epidemiology Collaboration (CKD-EPI) equation refit??without adjustment for race. BUN/Creatinine Ratio 11.0 LAB CHEMISTRY METHOD 10/11/2024 3:38 PM [facility] Calcium 10.3 8.5 - 10.5 mg/dL LAB CHEMISTRY METHOD 10/11/2024 3:38 PM [facility] AST (SGOT) 21 10 - 42 unit/L LAB CHEMISTRY METHOD 10/11/2024 3:38 PM EST [facility] ALT (SGPT) 23 10 - 60 unit/L LAB CHEMISTRY METHOD 10/11/2024 3:38 PM EST [facility] Alkaline Phosphatase 93 42 - 121 unit/L LAB CHEMISTRY METHOD 10/11/2024 3:38 PM EST [facility] Total Protein 7.4 6.0 - 8.0 g/dL LAB CHEMISTRY METHOD 10/11/2024 3:38 PM EST [facility] Albumin 3.8 3.2 - 5.0 g/dL LAB CHEMISTRY METHOD 10/11/2024 3:38 PM EST [facility] Total Bilirubin 0.3 0.0 - 1.4 mg/dL LAB CHEMISTRY METHOD 10/11/2024 3:38 PM EST [facility] Blood Venous blood specimen / Unknown Venipuncture / Unknown 10/11/2024 12:40 PM EST 10/11/2024 1:10 PM EST Jessica Bonds CONVERTING TECHNICIAN LAB BLOOD ORDERABLES Final Resul t [facility] [address] [place] [address], * Urine Albumin Creatinine Ratio (12/17/2020) Urine [...] able to be calculated. The [facility] Department of Internal Medicine recommends using National [...] alternative screening schedule based on leno Hoffmann., [facility] November 17, 2011 for patients [...] able to be calculated. The [facility] Department of Internal Medicine recommendsusing National Osteoporosis [...] alternative screening schedule based on leno Hoffmann., NEJMJanuary 2011 for patients with osteopenia (based on hip BMD T-score) is as follows: * advanced osteopenia (T scores -2.00 to -2.49), BMD testing every year * moderate osteopenia (T scores -1.50 to -1.99), BMD testing every 5years mild osteopenia or normal BMD (T scores -1.50 and higher), BMD testingevery 15 years Goldie HOLT DXA PROCEDURES Final Resu lt * Hepatitis C Screening (03/20/2014) [facility] Hepatitis C Screening Abstracted us Historical Provider HEALTH MAINTENANCE Final Result from Last 3 Months or Most Recently Relevant to Health Maintenance Insurance [employer] Care Teams Bookmaker Map Relationship Specialty Start Date End Date Rocco Baires MD [address] [place] [address] [address] [place] [address] PCP - General Internal Medicine 12/31/24
[2025-03-14 08:30] VITALS: BP 140/65; PULSE 90; RESP 16; O2SAT 96; BMI 32.0
--- NOTE | 2025-03-14 08:43 | P.CONAN_ITS ---
Documented by User: Suzanne Bass NP 03/14/25 09:23 HPI - Anesthesia Eval Consult details Narrative: 80yo F for L4-5 Decompression, 03/20/25 No recent illness No CP/SOB with walking. Only limited by pain DM: A1C = 6.8% Asthma: albuterol 2-3 x weekly GERD: ppi controls [facility] [place] with r/o TIA (aphasia). Negative MRI, thought to be migraine per neurology [facility] Active Problems Active Problems: All Active Problems Spinal stenosis, lumbar region with neurogenic claudication (Acute) Difficulty speaking (Acute) TIA (transient ischemic attack) (Acute) Anemia (Acute) Influenza A (Acute) Sepsis (Acute) Radiculopathy, lumbar region (Acute) Back pain (Acute) Dorsalgia (Acute) Hypothyroid (Acute) Asthma (Acute) Spinal stenosis (Acute) Past Medical History Medical History Bilateral cataracts Diarrhea Anxiety Microalbuminuria CKD (chronic kidney disease) stage 3, GFR 30-59 ml/min History of headache Depression IBS (irritable bowel syndrome) GERD (gastroesophageal reflux disease) Hypercholesteremia HTN (hypertension) Acute hypoxic respiratory failure Hypothyroid Type 2 diabetes mellitus without complications Asthma Asthma exacerbation Right lower lobe pneumonia Spinal stenosis Family History Family history of problems with anesthesia: No Surgical History Surgical History H/O colonoscopy History of esophagogastroduodenoscopy (EGD) Hx of breast biopsy Hx of tubal ligation History of Problems with Anesthesia: No Social History Social History Household Members: None Housing: House Are you a primary child care attendant school to a significant other at home: No Do you presently have visiting nurse or other home services: No Patient Tobacco Use Status: Former Tobacco user Tobacco use type: Cigarette Use of substances other than those prescribed or required for medical reasons: No Have you been hit, kicked, punched, or otherwise hurt by someone within the past year? If so, by whom?: No Are you DNR?: No Advance Directives: Yes Advance Directives Information Provided: No Advance Directives on File: Yes Advance Directives Date on File: 11/21/24 Patient : No : No Poor oral hygiene: Yes service: No Meds Allergies Allergy/AdvReac Type Severity Reaction Status Date / Time No Known Allergies Allergy Verified 02/24/25 14:34 Home Medications ?Medication ?Instructions ?Recorded ?Confirmed ?Last Taken ?Type lovastatin 40 mg tablet 40 mg PO BEDTIME 08/15/24 03/14/25 12/10/24 13:00 History omeprazole 20 mg capsule,delayed 20 mg PO DAILY 08/15/24 03/14/25 03/20/25 History release glipizide 5 mg tablet 10 mg PO QAM 11/18/24 03/14/25 12/10/24 13:00 History insulin glargine 100 unit/mL 16 unit subcut BEDTIME 11/18/24 03/14/25 12/10/24 13:00 History subcutaneous solution (Lantus U-100 Insulin) albuterol sulfate 90 mcg/actuation 2 puff inhalation Q4H PRN 12/03/24 03/14/25 12/10/24 13:00 History aerosol inhaler Shortness Of Breath Or Wheezing amlodipine 5 mg tablet 5 mg PO DAILY 12/03/24 03/14/25 03/20/25 History aripiprazole 5 mg tablet 5 mg PO DAILY PRN Anxiety 12/03/24 03/14/25 12/10/24 13:00 History dextroamphetamine-amphetamine ER 2 cap PO DAILY 12/03/24 03/14/25 12/10/24 13:00 History 30 mg 24hr capsule,extend release duloxetine 60 mg capsule,delayed 120 mg PO DAILY 12/03/24 03/14/25 12/10/24 13:00 History release fluticasone propionate 50 2 spray intranasal DAILY 12/03/24 03/14/25 12/10/24 13:00 History mcg/actuation nasal spray,suspension levothyroxine 50 mcg tablet 50 mcg PO DAILY@0600 12/03/24 03/14/25 03/20/25 History lisinopril 10 mg tablet 10 mg PO DAILY 12/03/24 03/14/25 12/10/24 13:00 History tizanidine 4 mg tablet 4 mg PO Q6-8H PRN Muscle Spasm/Pain 12/03/24 03/14/25 12/10/24 13:00 History acetaminophen 325 mg tablet 975 mg PO DAILY PRN Pain 03/14/25 03/14/25 Unknown History diphenoxylate-atropine 2.5 1 tab PO QID PRN Diarrhea 03/14/25 03/14/25 Unknown History mg-0.025 mg tablet glipizide 5 mg tablet 5 mg PO QPM 03/14/25 03/14/25 Unknown History lorazepam 0.5 mg tablet 0.5 mg PO DAILY PRN Anxiety 03/14/25 03/14/25 Unknown History magnesium oxide 400 mg PO DAILY 03/14/25 03/14/25 Unknown History methylphenidate HCl 54 mg 54 mg PO QAM attention deficit 03/14/25 03/14/25 Unknown History tablet,extended release 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) sumatriptan succinate 50 mg tablet 50 mg PO BID 03/14/25 03/14/25 Unknown History topiramate 50 mg tablet 50 mg PO BID 03/14/25 03/14/25 Unknown History trazodone 50 mg tablet 50 mg PO BEDTIME PRN Insomnia 03/14/25 03/14/25 Unknown History Exam Height,Weight and Vital Signs: Height 5 ft Weight 74.389 kg Last Vital Signs Pulse 90 03/14/25 08:30 Resp 16 03/14/25 08:30 BP 140/65 H 03/14/25 08:30 Pulse Ox 96 03/14/25 08:30 O2 Del Method Room Air 03/14/25 08:30 Pertinent Lab Results Pertinent Lab Results: Laboratory Tests 12/11/24 04:45 WBC 7.1 Hgb 9.9 L Hct 32.4 L Plt Count 293 Sodium 142 Potassium 3.8 Chloride 108 Carbon Dioxide 25 BUN 9 Creatinine 1.03 Narrative Narrative: EKG 11/2024 Vent. Rate : 87 BPM Atrial Rate : 87 BPM P-R Int : 142 ms QRS Dur : 78 ms QT Int : 382 ms P-R-T Axes : 42 28 54 degrees QTcB Int : 459 ms Normal sinus rhythm Normal ECG When compared with ECG of 04-Dec-2024 01:38, No significant change was found MR head/brain wo con 11/2024 IMPRESSION: No acute intracranial abnormality. ECHO 2021 10. Nml LV ventricular size and systolic function. Nml RWMA. LVEF 65-70%. Indeterminate LV diastolic function. Mild dynamic LVOT gradient. Mild increase in gradient with Valsalva maneuver. 2. Nml LV wall thickness. Basal septal hypertrophy. 3. Tri-Leaflet aortic valve. Mild focal thickening of aortic valve leaflets. Mild aortic annular calcification. Aortic sclerosis without stenosis. No aortic insufficiency. 4. Mildly thickened mitral valve leaflets. Mitral valve opens normally. Chordal MILE. Trace mitral regurg. 5. Tricuspid valve structurally and functionally nml with physiological tricuspid regurg. PASP could not be obtained d/t inadequate tricuspid jet. 6. Pulmonic valve structurally and functionally nml with physiological pulmonic insufficiency. Airway Mallampati Class: III TM Dist: >3cm Neck ROM: Full Denture: Upper and Lower Heart: RRR Lungs: CTAB Assessment and Plan Assessment Anesthesia Assessment: Anesthesia Plan Discussed and PAT Visit Final Anesthetic Review Family History of Problems with Anesthesia: No History of Problems with Anesthesia: No Documented by User: Nick Sepulveda MD 03/20/25 08:10 [facility] Past Medical History Medical History Bilateral cataracts Diarrhea Anxiety Microalbuminuria CKD (chronic kidney disease) stage 3, GFR 30-59 ml/min History of headache Depression IBS (irritable bowel syndrome) GERD (gastroesophageal reflux disease) Hypercholesteremia HTN (hypertension) Acute hypoxic respiratory failure Hypothyroid Type 2 diabetes mellitus without complications Asthma Asthma exacerbation Right lower lobe pneumonia Spinal stenosis Functional capacity: independent ambulation Surgical History Surgical History H/O colonoscopy History of esophagogastroduodenoscopy (EGD) Hx of breast biopsy Hx of tubal ligation Social History Social History Household Members: None Housing: House Are you a primary child care attendant school to a significant other at home: No Do you presently have visiting nurse or other home services: No Patient Tobacco Use Status: Former Tobacco user Tobacco use type: Cigarette Use of substances other than those prescribed or required for medical reasons: No Have you been hit, kicked, punched, or otherwise hurt by someone within the past year? If so, by whom?: No Are you DNR?: No Advance Directives: Yes Advance Directives Information Provided: No Advance Directives on File: Yes Advance Directives Date on File: 11/21/24 Patient : No : No Poor oral hygiene: Yes service: No Meds Allergies Allergy/AdvReac Type Severity Reaction Status Date / Time No Known Allergies Allergy Verified 02/24/25 14:34 Home Medications ?Medication ?Instructions ?Recorded ?Confirmed ?Last Taken ?Type lovastatin 40 mg tablet 40 mg PO BEDTIME 08/15/24 03/14/25 12/10/24 13:00 History omeprazole 20 mg capsule,delayed 20 mg PO DAILY 08/15/24 03/14/25 03/20/25 History release glipizide 5 mg tablet 10 mg PO QAM 11/18/24 03/14/25 12/10/24 13:00 History insulin glargine 100 unit/mL 16 unit subcut BEDTIME 11/18/24 03/14/25 12/10/24 13:00 History subcutaneous solution (Lantus U-100 Insulin) albuterol sulfate 90 mcg/actuation 2 puff inhalation Q4H PRN 12/03/24 03/14/25 12/10/24 13:00 History aerosol inhaler Shortness Of Breath Or Wheezing amlodipine 5 mg tablet 5 mg PO DAILY 12/03/24 03/14/25 03/20/25 History aripiprazole 5 mg tablet 5 mg PO DAILY PRN Anxiety 12/03/24 03/14/25 12/10/24 13:00 History dextroamphetamine-amphetamine ER 2 cap PO DAILY 12/03/24 03/14/25 12/10/24 13:00 History 30 mg 24hr capsule,extend release duloxetine 60 mg capsule,delayed 120 mg PO DAILY 12/03/24 03/14/25 12/10/24 13:00 History release fluticasone propionate 50 2 spray intranasal DAILY 12/03/24 03/14/25 12/10/24 13:00 History mcg/actuation nasal spray,suspension levothyroxine 50 mcg tablet 50 mcg PO DAILY@0600 12/03/24 03/14/25 03/20/25 History lisinopril 10 mg tablet 10 mg PO DAILY 12/03/24 03/14/25 12/10/24 13:00 History tizanidine 4 mg tablet 4 mg PO Q6-8H PRN Muscle Spasm/Pain 12/03/24 03/14/25 12/10/24 13:00 History acetaminophen 325 mg tablet 975 mg PO DAILY PRN Pain 03/14/25 03/14/25 Unknown History diphenoxylate-atropine 2.5 1 tab PO QID PRN Diarrhea 03/14/25 03/14/25 Unknown History mg-0.025 mg tablet glipizide 5 mg tablet 5 mg PO QPM 03/14/25 03/14/25 Unknown History lorazepam 0.5 mg tablet 0.5 mg PO DAILY PRN Anxiety 03/14/25 03/14/25 Unknown History magnesium oxide 400 mg PO DAILY 03/14/25 03/14/25 Unknown History methylphenidate HCl 54 mg 54 mg PO QAM attention deficit 03/14/25 03/14/25 Unknown History tablet,extended release 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 and Plan Disposition: Standard PACU
[2025-03-20] VITALS (14 sets, daily range): BP systolic 113–153; BP diastolic 35–96; PULSE 64–96; RESP 12–20; TEMP 36.4–36.9; O2SAT 90–100; BMI 31.9
--- NOTE | ~2025-03-20 | FL_ITS ---
EXAMINATION: FL GUIDANCE ONLY HISTORY: L4-5 Decompression COMPARISON: None available. TECHNIQUE: Fluoroscopy time: Less than 1 minute. Cumulative Dose: 4.12 mGy. DAP: 1.00 mGym2 Images: 2. FINDINGS: Fluoroscopic spot films of the lumbar spine in the lateral projection demonstrate a probe directed toward the L4-5 intervertebral disc space from a posterior approach. FL/FL guidance in OR IMPRESSION: Fluoroscopy during procedure. Please see procedure report for additional information. Electronically signed by: Sahil Ruiz MD 03/20/2025 10:05 AM EDT
--- NOTE | 2025-03-20 07:03 | P.HPSUR_ITS ---
Pre-Procedural Eval Section A - 24 Hr Update-Section A only Date of Service: 03/20/25 The patient is an INPATIENT: No Changes since office visit: No Cold of Flu in the past 2 weeks, No New Medical Problems, No Changes in Medication and No Patient answered all questions The patient has been examined within 24 hours of the surgical procedure. The History & Physical has been completed within 30 days and I have reviewed it.: No Section B - Complete if H&P > 30 days Chief Complaint: Spinal stenosis, lumbar region with neurogenic cla Allergies: Allergies Allergy/AdvReac Type Severity Reaction Status Date / Time No Known Allergies Allergy Verified 02/24/25 14:34 Review of Systems Sugical H&P ROS: Negative: Constitution, Cardiovascular, Respiratory, Neurological, Psychiatric, Hem-Onc, Allergic/Immunologic, Gastrointestinal, Genitourinary, Musculoskeletal, Integumentary, Endocrine and Eyes/Ears/Nose/Thr oat Exam Surgical H&P Exam: Normal: HEENT, Normal: Heart, Normal: Lungs, Normal: Extremities, Normal: Abdomen, Normal: Skin and Normal: Neurological (awake, alert,oriented x 3 ) Plan Diagnosis/Plan: Unchanged L4-5 decompression Time Spent With Patient Time: Total time managing care of this patient today __6__ minutes.
--- NOTE | 2025-03-20 07:04 | P.DS_ITS ---
DS: Providers Provider Date of Service: 03/20/25 Date of discharge: 03/20/25 Primary care physician: Rocco Baires MD Admitting clinician: Agustin Hagan DS: Diagnosis Discharge Diagnosis (1) Spinal stenosis, lumbar region with neurogenic claudication: Status: Acute DS: Summary Time Attestation Discharge Coordination Time (in mins): 6 Quality: Safe Use of Opioids Does Pt have an Active Cancer Diagnosis on the Problem List?: No Quality: Stroke Does the patient have a stroke diagnosis?: No Physical Exam Vital Signs: Vital Signs: Last Vital Signs Pulse 90 03/14/25 08:30 Resp 16 03/14/25 08:30 BP 140/65 H 03/14/25 08:30 Pulse Ox 96 03/14/25 08:30 O2 Del Method Room Air 03/14/25 08:30 BMI result Body Mass Index 32.0 Discharge Plan Discharge Patient Disposition: Home, Self-Care Referrals: Rocco Baires MD [Primary Care Provider] - 1 Week Discharge Medications: New oxycodone 5 mg tablet 5 mg PO Q4H PRN (Reason: pain) Qty: 14 0RF Rx Instructions: Partial Fill upon patient request. docusate sodium [Colace] 100 mg capsule 100 mg PO BID Qty: 20 0RF Continued methylphenidate HCl [Concerta] 54 mg tablet extended release 24hr 54 mg PO QAM trazodone 50 mg tablet 50 mg PO BEDTIME PRN (Reason: Insomnia) sumatriptan succinate 50 mg tablet 50 mg PO BID diphenoxylate-atropine 2.5-0.025 mg Tablet 1 tab PO QID PRN (Reason: Diarrhea) lorazepam 0.5 mg Tablet 0.5 mg PO DAILY PRN (Reason: Anxiety) glipizide 5 mg Tablet 5 mg PO QPM topiramate 50 mg tablet 50 mg PO BID magnesium oxide 400 mg magnesium Tablet 400 mg PO DAILY acetaminophen 325 mg Tablet 975 mg PO DAILY PRN (Reason: Pain) insulin glargine [Lantus U-100 Insulin] 100 unit/mL Solution 16 unit SUBCUT BEDTIME glipizide 5 mg Tablet 10 mg PO QAM tizanidine 4 mg tablet 4 mg PO Q6-8H PRN (Reason: Muscle Spasm/Pain) amlodipine 5 mg tablet 5 mg PO DAILY levothyroxine 50 mcg tablet 50 mcg PO DAILY@0600 lisinopril 10 mg tablet 10 mg PO DAILY albuterol sulfate 90 mcg/actuation HFA aerosol inhaler 2 puff INHALATION Q4H PRN (Reason: Shortness Of Breath Or Wheezing) dextroamphetamine-amphetamine 30 mg capsule,extended release 24hr 2 cap PO DAILY fluticasone propionate 50 mcg/actuation spray,suspension 2 spray INTRANASAL DAILY aripiprazole 5 mg tablet 5 mg PO DAILY PRN (Reason: Anxiety) duloxetine 60 mg capsule,delayed release(DR/EC) 120 mg PO DAILY omeprazole 20 mg capsule,delayed release(DR/EC) 20 mg PO DAILY lovastatin 40 mg tablet 40 mg PO BEDTIME Discharge Orders: Discharge Order (Routine); Ordered 03/20/25 Ordered By: Darien Woo Diet: Advance to usual diet Activity on Discharge: As tolerated Activity Restrictions/Additional Instructions: After your spinal surgery we ask you to observe the following restrictions/guidelines: Activity: It is normal to feel some discomfort as you increase your activity, but that will improve with time. We ask you avoid heavy lifting or acitivities that cause pain. As a general rule, 8lbs is a safe limit for lifting right after surgery. Walk as much as you feel comfortable but not to exhaustion. You will feel extra tired the first few days after surgery. Stay well hydrated. It is OK to walk up and down stairs You may return to driving when you are off narcotics (such as vicodin, oxycodone, dilaudid, etc), and you are back to normal functional capacity. If you have any concerns please check with office before driving. Return to work is specific to each patient and each surgery, so please speak with your doctor/PA at first follow up. Please bring paperwork such as FMLA at that time if you need it filled out. Medications: For optimum pain control, it is best to start with a combination of 500 mg of Tylenol every 4 hours with 600 mg of Motrin every 8 hours, and use narcotics as needed in between for breakthrough pain. We will give you a short supply of narcotics after surgery (usually one weeks worth). If you need more please call the office but do not use more than prescribed. You will need to give our office 48 hours notice if you need narcotics refilled and we do not fill narcotics on weekends or evenings. If you are on a narcotic, it is a good idea to take a stool softener such as colace or senna to avoid constipation If you take blood thinner such as aspirin, Plavix, Coumadin, Effient, Eliquis etc for conditions such as Afib, DVT, Pulmonary embolus, coronary disease, stents etc please speak with your surgeon about specific details as to when you can resume these medications. You can resume NSAIDs on post op day 1 (eg: Motrin, Naproxen, etc). Follow up: Please call the office, , after surgery to arrange a 3 week follow up for wound check. Wound Care: You may remove your dressing on the first day after surgery. ?You may ?leave open to air. Please do not remove the steri strips underneath. they will fall off on their own in one week. IT IS NORMAL FOR THE WOUND TO OOZE OR BE BLOODY FOR A FEW DAYS AFTER SURGERY. ?IF THIS HAPPENS JUST PLACE NEW DRESSING OVER IT TO AVOID STAINING CLOTHES. You may shower on post op day # 1 We ask that you do not let the water soak the wound. If it does get wet, just towel dry lightly. Please do not scrub your incision or place any type of chemical/ointment on the wound. No tub baths, pools or jacuzzis for one month. If you have any leaking or redness from your wound, or fevers, please call office Print Language: Italian
[2025-03-20] MEDS: Gabapentin 300 MG CAPSULE PO (07:31)
[2025-03-20] MEDS: methocarbamoL 750 MG TABLET PO (07:31)
[2025-03-20] MEDS: Albuterol Sulfate (0.083%) 2.5 MG/3 ML VIAL.NEB INHALE (07:32)
[2025-03-20] MEDS: Lactated Ringers 1,000 ML 100 ML IVCONT (07:36)
[2025-03-20] MEDS: ceFAZolin Sodium/Dextrose,Iso 2 GM/50 ML PIGGYBACK IV (08:55)
--- NOTE | 2025-03-20 10:08 | W.PM.OPN ---
Operative Note Operative Note Date of Service: 03/20/25 Narrative: Preoperative Diagnosis: L4-5 spinal stenosis/lateral recess stenosis/neural foraminal stenosis Operation: L4-5 Laminotomy, Partial facetectomy and foraminotomy with use of microscope Consent Informed Consent was obtained for this operation. I have explained the nature, purpose and benefits of the operation. I have discussed the risks and benefit of the operation including possible complications or adverse events with patient/family. Alternative(s) were discussed with the patient with their relative benefits and risks as well as the consequences of not accepting the operation were included in obtaining consent. Surgeon: WILLAM NINA MD, PHD Procedure Assisted By: Darien Jones Description of Procedure This 80-year-old female suffering from neurogenic claudication due to L4-5 spinal stenosis. The patient was offered a decompression. The procedure complications were explained. The patient was consented. The patient was brought to the operating room and endotracheally intubated. The patient was turned in prone position on the Rai frame. Prep and drape was done followed by timeout. The Physician assistant news director provided access. A mid lumbar incision was made followed by release of the paravertebral muscle on the left side to expose the L4-5 lamina and facet joints. An intraoperative x-ray was obtained to confirm the correct level. The microscope was brought in. I took over the procedure. The high-speed drill was used to do a L4-5 laminotomy until flavum ligament was reached. A #2 Kerrison was used to expand the laminotomy near flush to the pedicles and to include a partial facetectomy. The flavum ligament was opened and resected with a #3 Kerrison to decompress the underlying thecal sac. The flavum ligament was removed to decompress the lateral recess and the exiting L5 nerve root. The patient was turned contralaterally. The spinous process was undercut and in this way I was able to which the contralateral side with removal of more flavum ligament to decompress the contralateral nervous structures. A long nerve hook could be easily passed along the medial side of the pedicles as a sign of adequate decompression. The microscope was removed. Hemostasis was done. The physician assistant news director close the Incision in 2 layers. Steri-Strips were used to approximate incision. An OpSite with Tegaderm was used to cover the incision. All sponge needle counts were correct. Patient was extubated and transported in stable is to recovery room. Anesthesia: General Estimated Blood Loss (ml): 40 Complications: None Duration of Surgery: Under 60 Minutes Postoperative Plan: Discharge to home
[2025-03-20] MEDS: fentaNYL citrate/PF 100 MCG/2 ML VIAL 25 MCG IVPUSH (10:40)
[2025-03-20] MEDS: oxyCODONE HCl Immed Release 5 MG TABLET PO (11:00)
[2025-03-20] MEDS: HYDROmorphone HCl 0.5 MG/0.5 ML SYRINGE 0.25 MG IVPUSH (11:45)
== END 2025-03-20 13:30 | disposition home or self-care (01) ==
PROVIDERS: PCP Student in an Organized Health Care Education/Training Program; Visit Provider Neurological Surgery
PROC: (CPT 63047; principal; 2025-03-20 09:00)
DX: M48.062 Spinal stenosis, lumbar region with neurogenic claudication (principal); M79.605 Pain in left leg; M79.604 Pain in right leg; I12.9 Hypertensive chronic kidney disease with stage 1 through stage 4 chronic kidney disease, or unspecified chronic kidney disease; E11.22 Type 2 diabetes mellitus with diabetic chronic kidney disease; N18.30 Chronic kidney disease, stage 3 unspecified; K21.9 Gastro-esophageal reflux disease without esophagitis; J45.909 Unspecified asthma, uncomplicated; Z79.51 Long term (current) use of inhaled steroids; Z79.4 Long term (current) use of insulin; Z79.899 Other long term (current) drug therapy; Z79.84 Long term (current) use of oral hypoglycemic drugs; Z87.891 Personal history of nicotine dependence
CPT/HCPCS: 63047; J0131; J0690; J1171; J1885; J2003; J2405; J2704; J3010

== ENCOUNTER → 2025-03-20 06:50 | Outpatient (BNV) | payer MEDICARE, SELFPAY | PROVIDERS: PCP Student in an Organized Health Care Education/Training Program; Visit Provider Physician Assistant | DX: M48.062 Spinal stenosis, lumbar region with neurogenic claudication (principal) | CPT/HCPCS: 63047; 99499 ==

== ENCOUNTER 2025-04-10 09:08 | Outpatient (AMB) | payer MEDICARE, SELFPAY ==
--- NOTE | 2025-04-10 09:11 | A.SPINEOV_ITS ---
Intake Visit Reasons: 1st post op Intake Note: Ms. Ravi is here today for her 1st post op. Leadership Development Instructor Required: No Allergies No Known Allergies Allergy (Verified 02/24/25 14:34) Assessment & Plan Assessment & Plan (1) Spinal stenosis, lumbar region with neurogenic claudication: Code(s): M48.062 - Spinal stenosis, lumbar region with neurogenic claudication Category: Medical Plan Procedure: L4-5 lumbar decompression Vanessa is a pleasant 80-year-old female who underwent L4-[address] Hagan on 03/20/25. She has done very well since her surgery. She reports near complete resolution of her pain, and is very satisfied with her surgery. She is completing stairs without much issue, and reports that she is ambulating upright now which she is very happy aobut (no longer needs to hunch over for symptom relief). She is no longer taking her postoperative pain medication. Given this, she does report that she is not walking very much, which we would like to see her attempt to aid with her overall recovery. No new neurological deficits. The patient ambulates well and rises from a seated position without difficulty. Her posterior incision sites are closed and well healing. I encouraged Vanessa to set a goal to walk about a mile per day in total. I will follow up with her again in 6 weeks. Jorge Hagan MD,PhD [facility] Coding Level of Care Code Global (98142) Diagnoses Spinal stenosis, lumbar region with neurogenic claudication M48.062
--- OUTSIDE RECORDS SUMMARY | 2025-04-10 09:46 | XMS_ITS | Clinical Summary ---
Author Organization [facility] [address] [place] [address] [place], [place] [address], [place] [address] Phone Care Team Providers Care Training Administrator Name Role Phone Rocco Baires MD Primary Care Provider [phone] Allergies No known active allergies Medications gabapentin [...] 11/22/19 25 Active flash glucose scanning reader (Edyn Destinee 14 Day [place]) [facility] [place] Check blood sugar 4 [...] ONCE DAILY 16 g 01/29/20 25 Active glipiZIDE (GLUCOTROL) 10 mg tablet [...] kitIndications: Type II diabetes mellitus with nephropathy (CMS/HCC V24, CMS/HCC V28) USE ONE SENSOR EVERY 14 DAYS 2 each 03/13/20 25 Active diphenoxylate-a tropine (LOMOTIL) 2.5-0.025 mg per tablet TAKE 1 TABLET BY MOUTH FOUR TIMES A DAY IF NEEDED FOR DIARRHEA. MAX DAILY AMOUNT: 4 TABLETS 40 tablet 03/19/20 25 Active oxyCODONE (ROXICODONE) 5 mg immediate release tablet 03/25/20 25 Active flash glucose sensor ([employer] Destinee 14 Day Sensor) kit Use one sensor every 14 days E11.9 2 each 3 11/26/19 25 025 Discontinued diphenoxylate-a tropine (LOMOTIL) 2.5-0.025 mg per tablet Take 1 tablet by mouth 4 (four) times a day if needed for diarrhea. Max Daily Amount: 4 tablets 40 tablet 02/05/20 25 025 Discontinued Active Problems Problem Noted [...] due to type 2 di abetes mellitus ([facility] V24, [facility]/HCC V28) 09/12/2016 MDD (major depressive disorder) 12/20/2013 Overview (10/29/2024): Sees Psychiatry at [facility] (Cher Bhatia) prescribed Abilify and adderall GERD (gastroesophageal reflux disease) 4 HTN (hypertension) 11/29/2013 Assessment & Plan (11/15/2024 9:54 AM EST): Hypertension not under control on lisinopril added amlodipine 5 mg daily IBS (irritable bowel syndrome) 11/29/2013 Hyperlipidemia 11/29/2013 Hypothyroid 11/29/2013 Type 2 diabetes with nephropathy (CMS/[facility] V24, C [place]/[facility] V28) 11/29/2013 Encounters Date Type Department Care Team Description 04/02/2025 9:00 AM EDT Office Visit Internal Medicine [address] [phone] Rocco Baires MD Type 2 diabetes with nephropathy ([facility] V24, [facility] V28) (Primary Dx); Leg swelling 03/13/2025 Telephone Gastroenterology [address] [phone] Elizabeth Thibodeaux NP Med Refill 03/07/2025 9:45 AM EDT Office Visit Internal Medicine [address] [phone] Rocco Baires MD Type 2 diabetes with nephropathy ([facility] V24, CMS/[facility] V28) (Primary Dx); Primary hypertension; Hypothyroidism, unspecified type; Mixed hyperlipidemia 02/06/2025 Telephone Internal Medicine [address] [phone] Kanwal Barron MA Request For Order(s) ([facility] Order # [id number]/) 02/05/2025 3:00 PM EDT Office Visit Internal Medicine [address] [phone] Rocco Baires MD Spinal stenosis of lumbar region without neurogenic claudication (Primary Dx); Type 2 diabetes with nephropathy ([facility] V24, [facility] V28); Chronic left shoulder pain; Nonintractable headache, unspecified chronicity pattern, unspecified headache type; Migraine without status migrainosus, not intractable, unspecified migraine type 02/05/2025 Telephone Internal Medicine [address] [phone] Kanwal Barron MA Request For Order(s) ([facility] Discharge Summary/) 01/31/2025 11:30 AM EDT Office Visit Vascular Surgery [facility] [address] [facility] [address] [place] [phone] Shanelle Tavares PA Claudication ([facility] V24) (Primary Dx); Bilateral leg pain 2025 Telephone Internal Medicine [address] [phone] Kanwal Barron MA Request For Order(s) ([facility] Order # [id number]/) 01/20/[address] [phone] Eun Alvares PA lab work results 01/17/2025 Telephone Internal [address] [phone] Kanwal Barron MA Request For Order(s) ([facility] Order # [id number]/) 01/13/2025 8:20 AM EDT Office Visit [address] [phone] Eun Alvares PA Type 2 diabetes with nephropathy (CMS/HCC V24, CMS/HCC V28) (Primary Dx); Stage 3b chronic kidney disease (CMS/HCC V24, CMS/HCC V28); Hypothyroidism, unspecified type 01/13/2025 Telephone Internal [address] [phone] Kanwal Barron MA Request For Order(s) ([facility] Order # [id number]/) 01/09/2025 [place] [facility] [address] [phone] Rocco Baires MD Khan: Medication from Last 3 Months Immunizations Name Administration [...] disorder); COMMENT: Sees Psychiatry at [facility] (Cher Bhatia) prescribed Abilify and adderall Type 2 diabetes with nephrop athy ([facility] V24, [facility] V28) 11/29/2013 DX:Type 2 diabetes with nephropathy ([facility]) Microalbuminuria 06/11/2018 DX:Microalbumin uria Diarrhea DX:Diarrhea [...] Sign Reading Time Taken Comments Blood Pressure 132/78 04/02/2025 8:54 AM EDT Pulse 71 04/02/2025 8:54 AM EDT Temperature 36.6 ??C (97.8 ??F) 04/02/2025 8:54 AM ED T Respiratory Rate - - Oxygen Saturation 97% 04/02/2025 8:54 AM EDT Inhaled Oxygen Concentration - - Weight 74.8 kg (165 lb) 04/02/2025 8:54 AM EDT Height 152.4 cm (5') 01/31/2025 11:24 AM EDT Body Mass Index 32.22 01/31/2025 11:24 AM EDT Plan of Treatment Upcoming Encounters Date Type Department Care Team (Late st Contact Info) Description 05/01/2025 8:00 AM EDT Office Visit Gastroenterology - [address] [phone] Elizabeth Thibodeaux NP [address] [phone] 10/02/2025 9:15 AM EST Office Visit Internal Medicine - [address] [phone] Rocco Baires MD [address] [address] Health Maintenance Due Date Last Done Comments Diabetes: Annual Foot Exam 1955 Diabetes: Annual Retina Eye Exam 1955 Zoster Vaccines (1 of 2) 1966 RSV Immunization Adult Patients (1 - 1-dose 75+ series) 2022 Social Influencers of Health Screening 10/08/2022 Diabetes: Annual Urine Albumin-Creatinine Ratio (uACR) 10/12/2022 12/17/2020 COVID-19 Vaccine ( season) 2024 09/04/2023, 08/31/2022, 09/02/2021, Additional history exists DTaP,Tdap,and Td Vaccines (3 - Td or Tdap) 06/12/2025 06/12/2015, 03/20/2007 Diabetes: Blood Sugar Control Test (HGBA1C) 10/02/2025 04/02/2025, 01/17/2025, 10/11/2024, Additional history exists Diabetes: Annual GFR (Glomerular Filtration Rate) 10/11/2025 10/11/2024, 08/30/2024, 08/30/2024, Additional history exists Hypertension/CHF/CAD Annual BMP Blood Test 10/11/2025 10/11/2024, 08/30/2024, 08/30/2024, Additional history exists Falls Risk Assessment 11/15/2025 11/15/2024 Medicare Annual Wellness Visit 11/15/2025 11/15/2024 Depression Screening 03/26/2026 03/26/2025 Cholesterol Screening (Lipid Panel) 10/11/2029 10/11/2024 Osteoporosis [...] Date/Time Associated Diagnosis Comments HEMOGLOBIN A1C Routine 04/02/2025 9:30 AM EDT HEMOGLOBIN A1C Routine 01/17/2025 2:28 PM EDT Type 2 diabetes with nephropathy ([facility] V24, [facility] V28) Stage 3b chronic kidney disease ([facility] V24, [facility] V28) COMPREHENSIVE METABOLIC PANEL Routine 10/11/2024 12:40 PM EST Type 2 diabetes mellitus with other specified complication, without long-term current use of insulin ([facility] V24, [facility] V28) LIPID PANEL WITH REFLEX TO DIRECT LDL Routine 10/11/2024 12:40 PM EST Hyperlipidemia, unspecified hyperlipidemia type URINE ALBUMIN CREATININE RATIO Routine 12/17/2020 DXA BONE DENSITY STUDY 1+ SITS AXIAL SKEL Routine 09/01/2020 10:52 AM EST Asymptomatic menopausal state HEPATITIS C SCREENING Routine 03/20/2014 from Last 3 Months or Most Recently Relevant to Health Maintenance Results * Hemoglobin A1c (04/02/2025 9:30 AM EDT) Only the most recent of2 resultswithin the time period is included. Blood Venous blood specimen / Unknown Rocco Baires MD LAB BLOOD ORDERABLES Final Resul t * (ABNORMAL) Lipid panel with reflex to direct LDL (10/11/2024 12:40 PM EST) Cholesterol 157 0 - 200 mg/dL LAB CHEMISTRY METHOD 10/11/2024 3:38 PM EST [facility] Triglycerides 228(H) 0 - 150 mg/dL LAB CHEMISTRY METHOD 10/11/2024 3:38 PM EST [facility] HDL 39(L) >=40 mg/dL LAB CHEMISTRY METHOD 10/11/2024 3:38 PM EST [facility] LDL Calculated 72 0 - 100 mg/dL LAB CHEMISTRY METHOD 10/11/2024 3:38 PM EST [facility] VLDL Cholesterol Ag 45.6 mg/dL LAB CHEMISTRY METHOD 10/11/2024 3:38 PM [facility] Non HDL Chol. (LDL+VLDL) 118 <145 mg/dL LAB CHEMISTRY METHOD 10/11/2024 3:38 PM [facility] Chol/HDL Ratio 4.0 0.0 - 4.4 LAB CHEMISTRY METHOD 10/11/2024 3:38 PM [facility] Blood Venous blood specimen / Unknown Venipuncture / Unknown 10/11/2024 12:40 PM EST 10/11/2024 1:10 PM EST us Jessica Bonds NP LAB BLOOD ORDERABLES Final Resul t [facility] [address] [place] [address], [place] [phone] * (ABNORMAL) Comprehensive metabolic panel (10/11/2024 12:40 PM EST) Sodium 141 133 - 145 mmol/L LAB CHEMISTRY METHOD 10/11/2024 3:38 PM [facility] Potassium 5.6(H) 3.5 - 5.5 mmol/L LAB CHEMISTRY METHOD 10/11/2024 3:38 PM [facility] Chloride 106 96 - 110 mmol/L LAB CHEMISTRY METHOD 10/11/2024 3:38 PM [facility] CO2 29 21 - 32 mmol/L LAB CHEMISTRY METHOD 10/11/2024 3:38 PM [facility] Anion Gap 6 3 - 11 LAB CHEMISTRY METHOD 10/11/2024 3:38 PM [facility] Glucose 124(H) 70 - 100 mg/dL LAB CHEMISTRY METHOD 10/11/2024 3:38 PM [facility] BUN 15 5 - 25 mg/dL LAB CHEMISTRY METHOD 10/11/2024 3:38 PM [facility] Creatinine 1.36(H) 0.50 - 1.10 mg/dL LAB CHEMISTRY METHOD 10/11/2024 3:38 PM [facility] eGFR 40(L) >=60 mL/min/1. 73m2 LAB CHEMISTRY METHOD 10/11/2024 3:38 PM [facility] Comment:Calculation based on the??Chronic Kidney Disease Epidemiology Collaboration (CKD-EPI) equation refit??without adjustment for race. BUN/Creatinine Ratio 11.0 LAB CHEMISTRY METHOD 10/11/2024 3:38 PM [facility] Calcium 10.3 8.5 - 10.5 mg/dL LAB CHEMISTRY METHOD 10/11/2024 3:38 PM [facility] AST (SGOT) 21 10 - 42 unit/L LAB CHEMISTRY METHOD 10/11/2024 3:38 PM [facility] ALT (SGPT) 23 10 - 60 unit/L LAB CHEMISTRY METHOD 10/11/2024 3:38 PM [facility] Alkaline Phosphatase 93 42 - 121 unit/L LAB CHEMISTRY METHOD 10/11/2024 3:38 PM [facility] Total Protein 7.4 6.0 - 8.0 g/dL LAB CHEMISTRY METHOD 10/11/2024 3:38 PM [facility] Albumin 3.8 3.2 - 5.0 g/dL LAB CHEMISTRY METHOD 10/11/2024 3:38 PM [facility] Total Bilirubin 0.3 0.0 - 1.4 mg/dL LAB CHEMISTRY METHOD 10/11/2024 3:38 PM [facility] Blood Venous blood specimen / Unknown Venipuncture / Unknown 10/11/2024 12:40 PM EST 10/11/2024 1:10 PM EST Jessica Bonds NP LAB BLOOD ORDERABLES Final Resul t [facility] [address] [place] [address], * Urine Albumin Creatinine Ratio (12/17/2020) Urine [...] scores not able to be calculated. [facility] Department of Internal Medicine recommends using [...] alternative screening schedule based on leno Hoffmann., [facility] November 17, 2011 for [...] scores not able to be calculated. [facility] Department of Internal Medicine recommendsusing National [...] screening schedule based on sravan Hoffmann al., NEJMJanuary 2011 for patients with osteopenia (based [...] Resu lt * Hepatitis C Screening (03/20/2014) [facility] Hepatitis C Screening Abstracted Historical Provider HEALTH MAINTENANCE Final Result from Last 3 Months or Most Recently Relevant to Health Maintenance Insurance [employer] [place] [employer] Care Teams Training Administrator Relationship Specialty Start Date End Date Rocco Baires MD [address] [facility] [address] [place], [place] [phone] PCP - General Internal Medicine 12/31/24
== END 2025-04-10 09:37 | disposition home or self-care (01) ==
LOC: HO.HNS 09:08
PROVIDERS: PCP Student in an Organized Health Care Education/Training Program; Visit Provider Physician Assistant
DX: M48.062 Spinal stenosis, lumbar region with neurogenic claudication (principal)
CPT/HCPCS: 99024

== ENCOUNTER → 2025-04-10 09:08 | Outpatient (BNVA) | payer MEDICARE, SELFPAY | PROVIDERS: PCP Student in an Organized Health Care Education/Training Program; Visit Provider Physician Assistant | DX: M48.062 Spinal stenosis, lumbar region with neurogenic claudication (principal) | CPT/HCPCS: 99212 ==

== ENCOUNTER 2025-05-21 13:44 | Outpatient (AMB) | payer MEDICARE, SELFPAY ==
--- NOTE | 2025-05-21 13:56 | HO.SPINEOV ---
Intake Visit Reasons: 2nd post op Intake Note: Ms. Ravi is here today for 2nd post op. Life Sciences Director Required: No Allergies No Known Allergies Allergy (Verified 02/24/25 14:34) Assessment & Plan Assessment & Plan (1) Spinal stenosis, lumbar region with neurogenic claudication: Code(s): M48.062 - Spinal stenosis, lumbar region with neurogenic claudication Category: Medical Plan Operation: L4-5 Laminotomy, Partial facetectomy and foraminotomy Vanessa comes in today for a subsequent office visit after having a L4-5 lumbar decompression completed by Dr. Hagan 03/20/2025. She reports that overall she is very satisfied with the surgery, and feels much better than she did prior to surgery. She no longer has any low back pain, and denies any pain with ambulation. She states that she has been able to complete her activities of daily living at home, such as walking up and down stairs without significant issue. She is no longer taking any medications for pain. No new neurological deficits. The patient ambulates well and rises from a seated position without difficulty. Her posterior incision site is closed and well healed. There is no need for continued routine follow up with Vanessa, she may follow up on an as-needed basis if she has any return of symptoms. oJrge Hagan MD,PhD [facility] Coding Level of Care Code Global (00588) Diagnoses Spinal stenosis, lumbar region with neurogenic claudication M48.062
--- OUTSIDE RECORDS SUMMARY | 2025-05-21 14:26 | XMS_ITS ---
Author Name [facility] Organization Unknown Care Team Organization Name Specialty Phone Email Start Date End Da te [facility] Termed, PROVIDER Primary Care 09/06/202205/30
--- OUTSIDE RECORDS SUMMARY | 2025-05-21 14:26 | XMS_ITS | Clinical Summary ---
Author Organization [facility] [address] [place] [address] [place] [address] [place] [address] Phone Care Team Providers Care [employer] Manager Name Role Phone Rocco Baires MD Primary Care Provider [phone] Allergies No known active allergies Medications gabapentin (NEURONTIN) 300 mg capsule 10/11/20 24 Active amphetamine-dex troamphetamine XR (ADDERALL XR) 30 mg 24 hr capsule 08/08/20 24 Active ARIPiprazole (ABILIFY) 5 mg tablet Take 1 tablet (5 mg total) by mouth. Active levothyroxine (SYNTHROID, LEVOTHROID) 50 mcg tablet Take 1 tablet each morning 30 each 5 11/07/19 25 Active albuterol HFA (PROAIR HFA ; PROVENTIL HFA ; VENTOLIN HFA) 90 mcg/actuation inhaler INHALE 2 PUFFS FOUR TIMES A DAY NEEDED FOR COUGH, WHEEZING, OR SHORTNESS OF BREATH 8.5 g 1 11/22/19 25 Active flash glucose scanning reader (Justyleyle [employer] [address]) [facility] [place] Check blood sugar 4 times a day 1 each 3 11/25/19 25 Active omeprazole (PriLOSEC) [address] capsule Take 1 capsule (20 mg total) by mouth 1 (one) time each day. Do not crush or chew. 30 each 5 01/15/20 25 025 Active fluticasone propionate (FLONASE) 50 mcg/actuation nasal sprayIndication s:Right ear pain INHALE 2 SPRAYS IN EACH NOSTRIL ONCE DAILY 16 g 3 01/29/20 25 Active glipiZIDE (GLUCOTROL) 10 mg [...] kitIndications: Type II diabetes mellitus with nephropathy ([facility] V24, [facility] V28) USE ONE SENSOR EVERY 14 DAYS 2 each 03/13/20 25 Active diphenoxylate-a tropine (LOMOTIL) 2.5-0.025 mg per tablet TAKE 1 TABLET BY MOUTH FOUR TIMES A DAY IF NEEDED FOR DIARRHEA. MAX DAILY AMOUNT: 4 TABLETS 40 tablet 03/19/20 25 Active montelukast (SINGULAIR) 10 mg tablet Take 1 tablet (10 mg total) by mouth at bedtime. 30 each 04/16/20 25 025 Active acetaminophen (TYLENOL) 500 mg tablet Take 1 tablet (500 mg total) by mouth every 6 (six) hours if needed for moderate pain, mild pain, fever - temperature GREATER than 38 C (100.4 F) or headaches. 90 tablet 3 04/16/20 25 Active fluticasone-anthony meterol (ADVAIR DISKUS) 250-50 mcg/dose diskus inhaler Inhale 2 puffs by mouth 2 (two) times a day. 1 each 04/16/20 25 Active dicyclomine (BENTYL) 20 mg tablet Take 1 tablet (20 mg total) by mouth 4 (four) times a day if needed (diarrhea). 360 each 05/01/20 25 025 Active tiZANidine (ZANAFLEX) 4 mg tablet TAKE ONE TABLET BY MOUTH EVERY DAY NEEDED FOR MUSCLE SPASMS 30 tablet 3 05/05/20 25 Active pen needle, diabetic (BD Ultra-Fine Veronica Pen Needle) 32 gauge x 5/32 needleIndicatio ns:Type 2 diabetes mellitus with stage 3 chronic kidney disease, with long-term current use of insulin, unspecified whether stage 3a or 3b CKD ([facility] V24, [facility] V28) USE WITH INSULIN PENS ONCE DAILY 100 each 5 05/06/20 25 Active fexofenadine (JUAN C) 180 mg tablet TAKE ONE TABLET BY MOUTH EVERY DAY IF NEEDED 30 tablet 05/05/20 25 Active lisinopril (PRINIVIL,ZESTR IL) 40 mg tablet TAKE ONE TABLET BY MOUTH EVERY DAY 30 tablet 5 05/20/20 25 Active pen needle, diabetic (BD Ultra-Fine Veronica Pen Needle) 32 gauge x 5/32 needle Use with insulin pen once daily 100 each 1 11/07/19 25 025 Discontinued tiZANidine (ZANAFLEX) 4 mg tablet Take 1 tablet (4 mg total) by mouth 1 (one) time each day if needed for muscle spasms. 30 tablet 3 01/01/20 25 025 Discontinued lisinopril (PRINIVIL,ZESTR IL) 40 mg tablet Take 1 tablet (40 mg total) by mouth 1 (one) time each day. 30 each 5 01/01/20 25 025 Discontinued predniSONE (DELTASONE) 20 mg tablet Take 2 tablets (40 mg total) by mouth 1 (one) time each day for 5 days. 10 each 04/16/20 25 025 levoFLOXacin (LEVAQUIN) 500 mg tablet Take 1 tablet (500 mg total) by mouth 1 (one) time each day at the same time for 7 days. 7 tablet 04/16/20 25 025 guaiFENesin (MUCINEX) 1,200 mg 12 hr tablet Take 1 tablet (1,200 mg total) by mouth 2 (two) times a day if needed for cough or congestion. 14 tablet 3 04/16/20 25 025 benzonatate (TESSALON) 200 mg capsule Take 1 capsule (200 mg total) by mouth 3 (three) times a day if needed for cough. Do not crush or chew. 42 capsule 04/16/20 25 025 Additional Information Patient not taking.Reported on 05/01/2025 fexofenadine (JUAN C) 180 mg tablet Take 1 tablet (180 mg total) by mouth 1 (one) time each day if needed (cough). 30 tablet 04/16/20 25 025 Discontinued pen needle, diabetic (BD Ultra-Fine Veronica Pen Needle) 32 gauge x 5/32 needle USE WITH INSULIN PENS ONCE DAILY 100 each 04/24/20 025 Discontinued Active Problems Problem Noted Date [...] due to type 2 di abetes mellitus ([facility] V24, [facility] V28) 09/12/2016 MDD (major depressive disorder) 12/20/2013 Overview (10/29/2024): Sees Psychiatry at [facility] (Cher Bhatia) prescribed Abilify and adderall GERD (gastroesophageal reflux disease) 4 HTN (hypertension) 11/29/2013 Assessment & Plan (11/15/2024 9:54 AM EST): Hypertension not under control on lisinopril added amlodipine 5 mg daily IBS (irritable bowel syndrome) 11/29/2013 Hyperlipidemia 11/29/2013 Hypothyroid 11/29/2013 Type 2 diabetes with nephropathy ([facility] V24, [facility] V28) 11/29/2013 Encounters Date Type Department Care Team Description 05/01/2025 8:00 AM EDT Office Visit Gastroenterology [facility] [address] [phone] Elizabeth Thibodeaux NP Chronic diarrhea (Primary Dx); Gastroesophageal reflux disease without esophagitis 04/16/2025 10:30 AM EDT Office Visit Internal Medicine [address] [phone] Rocco Baires MD Pneumonia of both lungs due to infectious organism, unspecified part of lung (Primary Dx); Moderate asthma with exacerbation, unspecified whether persistent; Primary hypertension 04/16/2025 Telephone Internal Medicine [address] [phone] Rocco Baires MD Shortness of Breath 04/02/2025 9:00 AM EDT Office Visit Internal Medicine [address] [phone] Rocco Baires MD Type 2 diabetes with nephropathy (CMS/HCC V24, CMS/HCC V28) (Primary Dx); Leg swelling 03/13/2025 Telephone Gastroenterology [address] [phone] Elizabeth Thibodeaux NP Med Refill 03/07/2025 9:45 AM EDT Office Visit Internal Medicine [address] [phone] Rocco Baires MD Type 2 diabetes with nephropathy (CMS/HCC V24, CMS/HCC V28) (Primary Dx); Primary hypertension; Hypothyroidism, unspecified type; Mixed hyperlipidemia from Last 3 Months Immunizations Name Administration [...] (major depressive disorder); COMMENT: Sees Psychiatry at [facility] (Cher Bhatia) prescribed Abilify and adderall Type [...] Sign Reading Time Taken Comments Blood Pressure 148/86 05/01/2025 8:04 AM EDT Pulse 103 05/01/2025 8:04 AM EDT Temperature 36.4 C (97.5 F) 04/16/2025 10:40 AM EDT Respiratory Rate - - Oxygen Saturation 96% 05/01/2025 8:04 AM EDT Inhaled Oxygen Concentration - - Weight 72.8 kg (160 lb 9.6 oz) 05/01/2025 8:04 A M EDT Height 152.4 cm (5') 05/01/2025 8:04 AM EDT Body Mass Index 31.37 05/01/2025 8:04 AM EDT Plan of Treatment Upcoming Encounters Date Type Department Care Team (Late st Contact Info) Description 07/08/2025 10:00 AM EDT Ancillary Procedure [facility] [address] [facility] [address] [place] [address] 10/02/2025 9:15 AM EST Office Visit Internal Medicine - [place] [address] [facility] [address] [place] [phone] Rocco Baires MD 175 [facility] [address] [place] [address] Health Maintenance Due Date Last Done Comments [...] - Td or Tdap) 06/12/2025 06/12/2015, 03/20/2007 Influenza Vaccine (#1) 2025 , 09/04/2023, 08/31/2022, Additional history exists Diabetes: Blood Sugar Control Test (HGBA1C) 10/02/2025 [...] Vaccine: 50+ Years Completed 09/14/2016, 06/12/2015, 03/20/2007 Depression Screening Completed 03/26/2025 HIB Vaccines Aged Out No longer eligi [...] HEMOGLOBIN A1C Routine 04/02/2025 9:30 AM EDT COMPREHENSIVE METABOLIC PANEL Routine 10/11/2024 12:40 PM EST Type 2 diabetes mellitus with other specified complication, without long-term current use of insulin ([facility] V24, [facility] V28) LIPID PANEL WITH REFLEX TO [...] * Hemoglobin A1c (04/02/2025 9:30 AM EDT) Blood Venous blood specimen / Unknown us Rocco Baires MD LAB BLOOD ORDERABLES Final Resul t * (ABNORMAL) Lipid panel with reflex to direct LDL (10/11/2024 12:40 PM EST) Cholesterol 157 0 - 200 mg/dL LAB CHEMISTRY METHOD 10/11/2024 3:38 PM [facility] Triglycerides 228(H) 0 - 150 mg/dL LAB CHEMISTRY METHOD 10/11/2024 3:38 PM EST [facility] HDL 39(L) >=40 mg/dL LAB CHEMISTRY METHOD 10/11/2024 3:38 PM EST [facility] LDL Calculated 72 0 - 100 mg/dL LAB CHEMISTRY METHOD 10/11/2024 3:38 PM [facility] VLDL Cholesterol Ag 45.6 mg/dL LAB CHEMISTRY METHOD 10/11/2024 3:38 PM [facility] Non HDL Chol. (LDL+VLDL) 118 <145 mg/dL LAB CHEMISTRY METHOD 10/11/2024 3:38 PM EST [facility] Chol/HDL Ratio 4.0 0.0 - 4.4 LAB CHEMISTRY METHOD 10/11/2024 3:38 PM [facility] Blood Venous blood specimen / Unknown Venipuncture / Unknown 10/11/2024 12:40 PM EST 10/11/2024 1:10 PM EST us Jessica Bonds NP LAB BLOOD ORDERABLES Final Resul t [facility] [address] [place] [address], [place] [phone] * (ABNORMAL) Comprehensive metabolic panel (10/11/2024 12:40 [...] [facility] Comment:Calculation based on the Chronic Kidney Disease Epidemiology Collaboration (CKD-EPI) equation refit without adjustment for race. BUN/Creatinine Ratio 11.0 LAB CHEMISTRY METHOD 10/11/2024 3:38 PM [facility] Calcium 10.3 8.5 - 10.5 mg/dL LAB CHEMISTRY METHOD 10/11/2024 3:38 PM [facility] AST (SGOT) 21 10 - 42 unit/L LAB CHEMISTRY METHOD 10/11/2024 3:38 PM [facility] ALT (SGPT) 23 10 - 60 unit/L LAB CHEMISTRY METHOD 10/11/2024 3:38 PM [facility] Alkaline Phosphatase 93 42 - 121 unit/L LAB CHEMISTRY METHOD 10/11/2024 3:38 PM [facility] Total Protein 7.4 6.0 - 8.0 g/dL LAB CHEMISTRY METHOD 10/11/2024 3:38 PM [facility] Albumin 3.8 3.2 - 5.0 g/dL LAB CHEMISTRY METHOD 10/11/2024 3:38 PM [facility] Total Bilirubin 0.3 0.0 - 1.4 mg/dL LAB CHEMISTRY METHOD 10/11/2024 3:38 PM [facility] Blood Venous blood specimen / Unknown Venipuncture / Unknown 10/11/2024 12:40 PM EST 10/11/2024 1:10 PM EST us Jessica Bonds NP LAB BLOOD ORDERABLES Final Resul t [facility] [address] [place] [address], [place] [phone] * HM Urine Albumin Creatinine Ratio (12/17/2020) Urine Albumin [...] exam(s): 01/01/2014. 6.1% increase in lumbar spine bone mineral density and 2.7% loss of left hip bone mineral density, both of which are statistically significant at the 95% confidence level. IMPRESSION: IMPRESSION: Normal bone mineral density by WHO criteria. FRAX scores not able to be calculated. [facility] Department of Internal Medicine recommends [...] alternative screening schedule based on leno Hoffmann., [facility] November 17, 2011 for patients with osteopenia [...] scores not able to be calculated. [facility] Department of Internal Medicine recommendsusing [...] 15 years Goldie GARCIA IMG DXA PROCEDURES Final Resu lt * Hepatitis C Screening (03/20/2014) [facility] Hepatitis C Screening Abstracted Historical Provider MD HEALTH MAINTENANCE Final Result from Last 3 Months or Most Recently Relevant to Health Maintenance Insurance [employer] Care Teams [employer] Manager Relationship Specialty Start Date End Date Rocco Baires MD [address] [facility] [address] [place] [address] PCP - General Internal Medicine 12/31/24
== END 2025-05-21 14:24 | disposition home or self-care (01) ==
LOC: HO.HNS 13:44
PROVIDERS: PCP Student in an Organized Health Care Education/Training Program; Visit Provider Physician Assistant
DX: M48.062 Spinal stenosis, lumbar region with neurogenic claudication (principal)
CPT/HCPCS: 99024

== ENCOUNTER → 2025-05-21 13:44 | Outpatient (BNVA) | payer MEDICARE, SELFPAY | PROVIDERS: PCP Student in an Organized Health Care Education/Training Program; Visit Provider Physician Assistant | DX: M48.062 Spinal stenosis, lumbar region with neurogenic claudication (principal) | CPT/HCPCS: 99212 ==